=== PATIENT | male | born 1960 | race Caucasian/White ===

== ENCOUNTER 2016-08-07 10:35 | Day surgery (SDC) | payer OTHER ==
[~2016-08-07] VITALS: Ht 185.4 cm; Wt 110.9 kg
--- OUTSIDE RECORDS SUMMARY | ~2016-08-07 | XMS ---
Demographics + + + | Address | [address] | | | [place] [address] | + + + | Preferred Language | Unknown | + + + | Marital Status | Unknown | + + + | Synagogue Affiliation | Unknown | + + + | Race | Unknown | + + + | Ethnic Group | Unknown | + + + Author + + + | Author | [facility] | + + + | Organization | [facility] | + + + | Address | [address] | | | [place] [address] | + + + | Phone | | + + + Care Team Providers + + + + | Care Cold Type Composing Machine Operator Name | Role | Phone | + + + + Unavailable | Unavailable | + + + + PROBLEMS +---------+ + + +--------+ + + | Type | Condition | ICD9-CM | [id number] | Onset | Condition | SNOMED | | | | Code | Code | Dates | Status | Code | +---------+ + + +--------+ + + | Problem | LONG-TERM | V58.69 | | | Active | [id number] | | | USE MEDS | | | | | | | | NEC | | | | | | +---------+ + + +--------+ + + | Problem | Hyperlipem | | E78.5 | | Active | [id number] | | | ia | | | | | | +---------+ + + +--------+ + + | Problem | POST-PROC | V45.89 | | | Active | 66984725 | | | STATES NEC | | | | | | +---------+ + + +--------+ + + | Problem | COPD | | J44.1 | | Active | [id number] | | | exacerbati | | | | | | | | on | | | | | | +---------+ + + +--------+ + + | Problem | Walking | J18.9 | | | Active | [id number] | | | pneumonia | | | | | | +---------+ + + +--------+ + + | Problem | Essential | | I10 | | Active | 29963678 | | | (primary) | | | | | | | | hypertensi | | | | | | | | on | | | | | | +---------+ + + +--------+ + + | Problem | Hyperlipid | | E78.5 | | Active | 13409506 | | | emia | | | | | | +---------+ + + +--------+ + + | Problem | Asymptomat | I25.9 | | | Active | 268814095 | | | ic | | | | | | | | coronary | | | | | | | | heart | | | | | | | | disease | | | | | | +---------+ + + +--------+ + + | Problem | Sleep | G47.30 | | | Active | 93724737 | | | apnea | | | | | | +---------+ + + +--------+ + + ALLERGIES Unknown Allergies SOCIAL HISTORY No smoking Hx information available PLAN OF CARE VITAL SIGNS MEDICATIONS Unknown Medications RESULTS No Results PROCEDURES No Known procedures IMMUNIZATIONS No Known Immunizations"
--- OUTSIDE RECORDS SUMMARY | ~2016-08-07 | XMS ---
Demographics + + + | Address | [address] | | | [place] [address] | + + + | Preferred Language | Unknown | + + + | Marital Status | Unknown | + + + | Jewish Affiliation | Unknown | + + + | Race | Unknown | + + + | Ethnic Group | Unknown | + + + Author + + + | Author | [facility] | + + + | Organization | [facility] | + + + | Address | [address] | | | [place] [address] | + + + | Phone | | + + + Care Team Providers + + + + | Care Assistant Store Manager Operations Name | Role | Phone | + + + + Unavailable | Unavailable | + + + + PROBLEMS +---------+ + + +--------+ + + | Type | Condition | ICD9-CM | [id number] | Onset | Condition | SNOMED | | | | Code | Code | Dates | Status | Code | +---------+ + + +--------+ + + | Problem | LONG-TERM | V58.69 | | | Active | [id number] | | | USE MEDS | | | | | | | | NEC | | | | | | +---------+ + + +--------+ + + | Problem | Hyperlipem | | E78.5 | | Active | 80596365 | | | ia | | | | | | +---------+ + + +--------+ + + | Problem | POST-PROC | V45.89 | | | Active | 79051010 | | | STATES NEC | | | | | | +---------+ + + +--------+ + + | Problem | COPD | | J44.1 | | Active | [id number] | | | exacerbati | | | | | | | | on | | | | | | +---------+ + + +--------+ + + | Problem | Walking | J18.9 | | | Active | 424987011 | | | pneumonia | | | | | | +---------+ + + +--------+ + + | Problem | Essential | | I10 | | Active | 95105546 | | | (primary) | | | | | | | | hypertensi | | | | | | | | on | | | | | | +---------+ + + +--------+ + + | Problem | Hyperlipid | | E78.5 | | Active | 59388886 | | | emia | | | | | | +---------+ + + +--------+ + + | Problem | Asymptomat | I25.9 | | | Active | [id number] | | | ic | | | | | | | | coronary | | | | | | | | heart | | | | | | | | disease | | | | | | +---------+ + + +--------+ + + | Problem | Sleep | G47.30 | | | Active | [id number] | | | apnea | | | | | | +---------+ + + +--------+ + + ALLERGIES + + + + +--------+ | Substance | Reaction | Event Type | Date | Status | + + + + +--------+ | Augmentin | Unknown | Drug Allergy | June, | Active | + + + + +--------+ | Cleocin | Unknown | Drug Allergy | June, | Active | + + + + +--------+ | paxil | head pain | Non Drug | June, | Active | | | | Allergy | | | + + + + +--------+ | codeine | itching | Non Drug | June, | Active | | | | Allergy | | | + + + + +--------+ SOCIAL HISTORY No smoking Hx information available PLAN OF CARE + +---------+ | Activity | Details | + +---------+ +---+ | | +---+ + + + | Follow Up | 3 Months Reason:null | + + + VITAL SIGNS + + + + | Height | 73 in | 2016-07-04 | + + + + | Weight | 241.2 lbs | 2016-07-04 | + + + + | BMI | 31.82 kg/m2 | 2016-07-04 | + + + + | Heart Rate | 75 /min | 2016-07-04 | + + + + | Blood pressure systolic | 107 mm Hg | 2016-07-04 | + + + + | Blood pressure diastolic | 64 mm Hg | 2016-07-04 | + + + + MEDICATIONS + + + + + + + +--------+ | Medicati | Instruct | Dosage | Frequenc | Start | End Date | Duration | Status | | on | ions | | y | Date | | | | + + + + + + + +--------+ | Ventolin | | inhale 2 | | | | 17 | Active | | HFA 108 | | puffs | | | | | | | (90 | | by mouth | | | | | | | Base) | | if | | | | | | | MCG/ACT | | needed | | | | | | + + + + + + + +--------+ | Akash 4 | Orally q | 1 tab(s) | | 12 Gianluca, | | 30 | Active | | MG | am | | | 2017 | | day(s) | | + + + + + + + +--------+ | Vitamin | | | | | | | Active | | C 500 MG | | | | | | | | + + + + + + + +--------+ | Metoprol | | | | | | | Active | | ol | | | | | | | | | Succinat | | | | | | | | | e | | | | | | | | + + + + + + + +--------+ | Multaq | Orally | 1 tablet | 12h | | | | Active | | 400 MG | Twice a | with | | | | | | | | day | meals | | | | | | + + + + + + + +--------+ | Mirapex | Orally | 3 tab(s) | 24h | 22 Feb, | | | Active | | 0.5 MG | once a | | | 2016 | | | | | | day | | | | | | | + + + + + + + +--------+ | Ventolin | Inhalati | 2 puffs | | | | | Active | | HFA 108 | on PRN | as | | | | | | | (90 | | needed | | | | | | | Base) | | | | | | | | | MCG/ACT | | | | | | | | + + + + + + + +--------+ | Omeprazo | Orally | take 1 | 12h | 28 Sep, | | | Active | | le 40 MG | bid | capsule | | 2015 | | | | | | | by mouth | | | | | | | | | once | | | | | | | | | daily | | | | | | + + + + + + + +--------+ | Venlafax | Orally | 1 tab am | 12h | | | 30 | Active | | ine HCl | Twice a | 2 tabs | | | | | | | 37.5 MG | day | pm | | | | | | + + + + + + + +--------+ | Morphine | Oral | | 12h | | | | Active | | 30 | every 12 | | | | | | | | | hours | | | | | | | + + + + + + + +--------+ | Allopuri | | take 1 | | | | 30 | Active | | nol 300 | | tablet | | | | | | | MG | | by mouth | | | | | | | | | once | | | | | | | | | daily | | | | | | + + + + + + + +--------+ | Gabapent | Orally | 1 | 8h | | | | Active | | in 300 | Three | capsule | | | | | | | MG | times a | | | | | | | | | day | | | | | | | + + + + + + + +--------+ | Zolpidem | | | | | | | Active | | | | | | | | | | | Tartrate | | | | | | | | + + + + + + + +--------+ | Advair | Inhalati | 1 puff | 12h | Sep, | | | Active | | Diskus | on every | | | 2014 | | | | | 250-50 | 12 hrs | | | | | | | | MCG/DOSE | | | | | | | | + + + + + + + +--------+ | Nystatin | Mouth/Th | 5 cc | 6h | 11 June, | 10 Gray, | 7 day | Active | | [id number] | roat qid | | | 2017 | 2016 | | | | UNIT/ML | | | | | | | | + + + + + + + +--------+ | Xarelto | Orally | 1 tablet | 24h | | | | Active | | 10 MG | Once a | | | | | | | | | day | | | | | | | + + + + + + + +--------+ | Albutero | Inhalati | 3 ml | 6h | 21 Nov, | | 14 days | Active | | l | on Four | | | 2015 | | | | | Sulfate | times a | | | | | | | | (2.5 | day | | | | | | | | MG/3ML) | | | | | | | | | 0.083% | | | | | | | | + + + + + + + +--------+ | Ferrous | Orally | 1 tablet | 24h | | | | Active | | Sulfate | Once a | | | | | | | | 324 (65 | day | | | | | | | | Fe) MG | | | | | | | | + + + + + + + +--------+ | Viagra | Orally 1 | 1 tab(s) | | 22 Feb, | 17 Feb, | 30 | Active | | 50 MG | hr | | | 2017 | 2018 | day(s) | | | | before | | | | | | | + + + + + + + +--------+ | nitrogly | sublingu | 1 tab x | | | | 30 | Active | | cerin | al PRN | 3 prn | | | | | | | .04mg | | Chest | | | | | | | | | pain | | | | | | + + + + + + + +--------+ | Torsemid | Orally | 1or 2 | | | | 30 | Active | | e 20 mg | PRN | tablets | | | | | | + + + + + + + +--------+ | Metoprol | Orally | 1 tablet | 12h | | | | Active | | ol | Twice a | | | | | | | | Tartrate | day | | | | | | | | 100 MG | | | | | | | | + + + + + + + +--------+ | Simvasta | | take 1 | | | | 30 | Active | | tin 20 | | tablet | | | | | | | MG | | by mouth | | | | | | | | | at | | | | | | | | | bedtime | | | | | | + + + + + + + +--------+ | Oxycodon | Orally | 1-2 | | | | | Active | | e HCl 30 | every 4 | tablet | | | | | | | MG | | | | | | | | + + + + + + + +--------+ RESULTS No Results PROCEDURES + + + + + | Procedure | Date Ordered | Related Diagnosis | Body Site | + + + + + | Est Level II | July 04, 2016 | | | | Limited | | | | + + + + + IMMUNIZATIONS No Known Immunizations"
--- OUTSIDE RECORDS SUMMARY | ~2016-08-07 | XMS ---
Demographics + + + | Address | [address] | | | [place] [address] | + + + | Preferred Language | Unknown | + + + | Marital Status | Unknown | + + + | Zoroastrian Affiliation | Unknown | + + + | Race | Unknown | + + + | Ethnic Group | Unknown | + + + Author + + + | Author | [facility] | + + + | Organization | [facility] | + + + | Address | [address] | | | [place] [address] | + + + | Phone | | + + + Care Team Providers + + + + | Care Pulp Roller Name | Role | Phone | + + + + Unavailable | Unavailable | + + + + PROBLEMS +---------+ + + +--------+ + + | Type | Condition | ICD9-CM | [id number] | Onset | Condition | SNOMED | | | | Code | Code | Dates | Status | Code | +---------+ + + +--------+ + + | Problem | LONG-TERM | V58.69 | | | Active | [id number] | | | USE MEDS | | | | | | | | NEC | | | | | | +---------+ + + +--------+ + + | Problem | Hyperlipem | | E78.5 | | Active | 62338869 | | | ia | | | | | | +---------+ + + +--------+ + + | Problem | POST-PROC | V45.89 | | | Active | [id number] | | | STATES NEC | | | | | | +---------+ + + +--------+ + + | Problem | COPD | | J44.1 | | Active | [id number] | | | exacerbati | | | | | | | | on | | | | | | +---------+ + + +--------+ + + | Problem | Walking | J18.9 | | | Active | 804837593 | | | pneumonia | | | | | | +---------+ + + +--------+ + + | Problem | Essential | | I10 | | Active | 52125011 | | | (primary) | | | | | | | | hypertensi | | | | | | | | on | | | | | | +---------+ + + +--------+ + + | Problem | Hyperlipid | | E78.5 | | Active | 66522509 | | | emia | | | | | | +---------+ + + +--------+ + + | Problem | Asymptomat | I25.9 | | | Active | [id number] | | | ic | | | | | | | | coronary | | | | | | | | heart | | | | | | | | disease | | | | | | +---------+ + + +--------+ + + | Problem | Sleep | G47.30 | | | Active | 35162478 | | | apnea | | | | | | +---------+ + + +--------+ + + ALLERGIES Unknown Allergies SOCIAL HISTORY No smoking Hx information available PLAN OF CARE VITAL SIGNS MEDICATIONS Unknown Medications RESULTS No Results PROCEDURES No Known procedures IMMUNIZATIONS No Known Immunizations"
[~2016-08-07 10:35] MED LIST changes: -ZOFRAN ODT4 MG PO
--- NOTE | 2016-08-07 13:02 | NUR ---
[facility], O2 DECREASED TO 2L.
== END 2016-08-07 13:34 | disposition home or self-care (01) ==
LOC: DS 10:35 → OPS 10:35
PROVIDERS: Colon & Rectal Surgery
PROC: 0DBE8ZX Excision of Large Intestine, Via Natural or Artificial Opening Endoscopic, Diagnostic (ICD-10-PCS; 2016-08-07)
PROC: 0DB68ZX Excision of Stomach, Via Natural or Artificial Opening Endoscopic, Diagnostic (ICD-10-PCS; 2016-08-07)
PROC: 0DB48ZX Excision of Esophagogastric Junction, Via Natural or Artificial Opening Endoscopic, Diagnostic (ICD-10-PCS; 2016-08-07)
PROC: 0DBH8ZX Excision of Cecum, Via Natural or Artificial Opening Endoscopic, Diagnostic (ICD-10-PCS; principal; 2016-08-07 11:30)
PROC: 0DBP8ZX Excision of Rectum, Via Natural or Artificial Opening Endoscopic, Diagnostic (ICD-10-PCS; 2016-08-07 11:30)
DX: K29.50 Unspecified chronic gastritis without bleeding (principal); D12.0 Benign neoplasm of cecum; D12.8 Benign neoplasm of rectum; D12.6 Benign neoplasm of colon, unspecified; I25.10 Atherosclerotic heart disease of native coronary artery without angina pectoris; K63.5 Polyp of colon; I11.0 Hypertensive heart disease with heart failure; J44.9 Chronic obstructive pulmonary disease, unspecified; G47.39 Other sleep apnea; E78.5 Hyperlipidemia, unspecified; I50.9 Heart failure, unspecified; M19.90 Unspecified osteoarthritis, unspecified site; M10.9 Gout, unspecified; G25.81 Restless legs syndrome; F32.9 Major depressive disorder, single episode, unspecified; F41.9 Anxiety disorder, unspecified; G89.4 Chronic pain syndrome; Z79.891 Long term (current) use of opiate analgesic; Z79.899 Other long term (current) drug therapy; Z96.653 Presence of artificial knee joint, bilateral; Z98.890 Other specified postprocedural states; Z88.5 Allergy status to narcotic agent; Z88.8 Allergy status to other drugs, medicaments and biological substances
CPT/HCPCS: 00740; 86677; J2250; J2704; J3010; J3490; J7120

== ENCOUNTER → 2016-08-07 | Emergency (ER) | payer OTHER ==
[~2016-08-07] VITALS: Ht 185.4 cm; Wt 106.8 kg
[~2016-08-07] MED LIST: ADVAIR 250-501 EACH INH; ALBUTEROL2.5 MG/3 M INH; ALLOPURINOL100 MG PO; ALLOPURINOL300 MG PO; AMIODARONE HCL200 MG PO; ASCORBIC ACID250 MG PO; ASPIRIN EC325 MG; BENZONATATE100 MG PO; CARVEDILOL12.5 MG PO; CEFDINIR300 MG PO; CELEXA40 MG PO; CLONAZEPAM1 MG PO; CYCLOBENZAPRINE5 MG PO; DEMADEX10 MG PO; DEMADEX20 MG PO; DIAZEPAM10 MG PO; DIAZEPAM5 MG PO; DIGOXIN250 MCG PO; EFFER-K 20 MEQ20 MEQ PO; EPIKLOR20 MEQ PO; FERROUS SULFAT325 MG PO; FLAGYL500 MG PO; FLEXERIL10 MG PO; FLEXERIL5 MG PO; GABAPENTIN250 MG/5 M NG; GABAPENTIN300 MG PO; IRON325 M1 PO; LANOXIN250 MCG PO; LISINOPRIL5 MG PO; LOSARTAN POTASS25 MG PO; LOVENOX120 MG SUB-Q; MEDROL4 M1 PO; METHADONE HCL10 MG PO; METOLAZONE10 MG PO; METOLAZONE2.5 MG PO; METOPROLOL SUCC50 MG PO; METOPROLOL TART50 MG PO; MINOCYCLINE HC100 MG PO; MIRAPEX0.5 MG PO; MORPHINE SULFAT15 M1 PO; MULTAQ400 MG PO; NITROSTAT0.4 MG SL; NORCO 5-325 TA1 EACH PO; OMEPRAZOLE20 MG PO; ONDANSETRON HCL4 MG PO; OXYCODONE HCL30 MG PO; PERCOCET 10-321 EACH; PERCOCET 5-3251 EACH PO; POTASSIUM CHLO20 ME1 PO; PREDNISONE20 MG PO; SIMVASTATIN20 MG PO; TOPROL XL50 MG PO; TORSEMIDE10 MG; TRAZODONE HCL100 MG PO; VALIUM10 MG PO; VENLAFAXINE H37.5 M1 PO; VENTOLIN HFA18 GM IH; WARFARIN SODIUM3 MG PO; WARFARIN SODIUM5 MG PO; XARELTO10 MG PO; ZOFRAN ODT4 MG PO; [UNRECOGNIZED DRUG - OTHER]
== END ==
LOC: ED 16:17
DX: G89.18 Other acute postprocedural pain (principal); R10.9 Unspecified abdominal pain; I11.0 Hypertensive heart disease with heart failure; I50.9 Heart failure, unspecified; I48.91 Unspecified atrial fibrillation; F41.9 Anxiety disorder, unspecified; J44.9 Chronic obstructive pulmonary disease, unspecified; Z88.5 Allergy status to narcotic agent; Z88.8 Allergy status to other drugs, medicaments and biological substances; Z79.899 Other long term (current) drug therapy; Z96.643 Presence of artificial hip joint, bilateral
CPT/HCPCS: 74177; 80053; 83690; 85025; 96361; 96374; 99284; J1170; J7030; Q9967

== ENCOUNTER 2016-08-27 08:48 | Emergency (ER) | payer OTHER ==
[~2016-08-27] VITALS: Ht 185.4 cm; Wt 106.6 kg
--- OUTSIDE RECORDS SUMMARY | ~2016-08-27 | XMS ---
Demographics + + + | Address | [address] | | | [place] [address] | + + + | Preferred Language [...] + + + | Organization | [facility] | + + + | Address | [address] | | | [place] [address] | + + + | Phone | | + + + Care Team Providers + + + + | Care Readers' Advisory Service Librarian Name | Role | Phone | + + + + Unavailable | Unavailable | + + + + PROBLEMS +---------+ + + +--------+ + + | Type | Condition | ICD9-CM | [id number] | Onset | Condition | SNOMED | | | | Code | Code | Dates | Status | Code | +---------+ + + +--------+ + + | Problem | LONG-TERM | V58.69 | | | Active | [id number] | | | USE MEDS | | | | | | | | NEC | | | | | | +---------+ + + +--------+ + + | Problem | Hyperlipem | | E78.5 | | Active | [id number] | | | ia | | | | | | +---------+ + + +--------+ + + | Problem | POST-PROC | V45.89 | | | Active | 72760636 | | | STATES NEC | | | | | | +---------+ + + +--------+ + + | Problem | COPD | | J44.1 | | Active | 913304082 | | | exacerbati | | | | | | | | on | | | | | | +---------+ + + +--------+ + + | Problem | Walking | J18.9 | | | Active | 563826638 | | | pneumonia | | | | | | +---------+ + + +--------+ + + | Problem | Essential | | I10 | | Active | 18717306 | | | (primary) | | | | | | | | hypertensi | | | | | | | | on | | | | | | +---------+ + + +--------+ + + | Problem | Hyperlipid | | E78.5 | | Active | 61716861 | | | emia | | | | | | +---------+ + + +--------+ + + | Problem | Asymptomat | I25.9 | | | Active | [id number] | | | ic | | | | | | | | coronary | | | | | | | | heart | | | | | | | | disease | | | | | | +---------+ + + +--------+ + + | Problem | Sleep | G47.30 | | | Active | 30366705 | | | apnea | | | | | | +---------+ + + +--------+ + + ALLERGIES Unknown Allergies SOCIAL HISTORY No smoking Hx information available PLAN OF CARE VITAL SIGNS MEDICATIONS Unknown Medications RESULTS No Results PROCEDURES No Known procedures IMMUNIZATIONS No Known Immunizations"
[2016-08-27] MEDS ORDERED: ZOFRAN ODT4 MG PO (10:14)
--- NOTE | 2016-08-28 18:46 | EKG ---
[facility] [address] [facility] [place] [address] Signed Normal sinus rhythm Normal ECG When compared with ECG of 17-JUL-2016 15:36, Nonspecific T wave abnormality no longer evident in Inferior leads Confirmed by LEONEL COHEN MD ([id number]) on 08/28/2016 6:46:32 PM Electronically Signed By: LEONEL COHEN MD 08/28/16 1846 PATIENT NAME: ELIGIO BEE AIYANA Electrocardiogram DATE OF : 62 PHYSICIAN: LEONEL COHEN MD REPORT #: [id number] REPORT IS CONFIDENTIAL AND NOT TO BE RELEASED WITHOUT AUTHORIZATION
== END 2016-08-27 10:57 | disposition home or self-care (01) ==
LOC: ED 08:48
DX: G43.A0 Cyclical vomiting, in migraine, not intractable (principal); G89.4 Chronic pain syndrome; I11.0 Hypertensive heart disease with heart failure; I50.9 Heart failure, unspecified; I48.91 Unspecified atrial fibrillation; F41.9 Anxiety disorder, unspecified; J44.9 Chronic obstructive pulmonary disease, unspecified; Z88.5 Allergy status to narcotic agent; Z88.8 Allergy status to other drugs, medicaments and biological substances; Z79.899 Other long term (current) drug therapy; Z96.643 Presence of artificial hip joint, bilateral
CPT/HCPCS: 80053; 81001; 83690; 85025; 85610; 93005; 93010; 96361; 96372; 96374; 99283; J2270; J2405; J3486; J7030

== ENCOUNTER 2016-09-13 08:56 | Emergency (ER) | payer OTHER ==
[~2016-09-13] VITALS: Ht 185.4 cm; Wt 106.6 kg
[~2016-09-13 08:56] MED LIST changes: +ZOFRAN ODT4 MG PO
== END 2016-09-13 13:15 | disposition home or self-care (01) ==
LOC: ED 08:56
DX: G43.A0 Cyclical vomiting, in migraine, not intractable (principal); I11.0 Hypertensive heart disease with heart failure; I50.9 Heart failure, unspecified; J44.9 Chronic obstructive pulmonary disease, unspecified; I48.91 Unspecified atrial fibrillation; Z86.711 Personal history of pulmonary embolism; F41.9 Anxiety disorder, unspecified; Z90.49 Acquired absence of other specified parts of digestive tract; Z98.890 Other specified postprocedural states; Z88.5 Allergy status to narcotic agent; Z88.8 Allergy status to other drugs, medicaments and biological substances; Z96.643 Presence of artificial hip joint, bilateral; Z79.899 Other long term (current) drug therapy; Z79.51 Long term (current) use of inhaled steroids; Z79.891 Long term (current) use of opiate analgesic
CPT/HCPCS: 80053; 85025; 96372; 99283; J2060; J2270; J3486

== ENCOUNTER 2016-10-23 06:55 | Day surgery (SDC) | payer OTHER ==
[~2016-10-23] VITALS: Ht 185.4 cm; Wt 102.7 kg
--- NOTE | 2016-10-23 09:24 | NUR ---
10/23/16 0924 Cam Mullins PATIENT AWAKES AND SIPS WATER.
--- NOTE | 2016-10-23 14:00 | NUR ---
PT ALERT, ORIENTED AND SUPPORTED BY HIS . VERY FRIENDLY, DIDN'T ENJOY PREP DAY. SEEMED PREPARED, REQUESTED PRAYER. WILL FOLLOW NEEDED
--- NOTE | 2016-10-23 14:06 | OR ---
[facility] [address] [place], [place] [address] Signed DATE OF PROCEDURE: 10/23/16 PREOPERATIVE DIAGNOSIS: Personal history of colonic polyps (ileocecal valve). POSTOPERATIVE DIAGNOSES Retained polyp, ileocecal valve. 5 mm sessile polyp, distal right colon. PROCEDURE Colonoscopy with snare polypectomy, hot biopsy and injection of saline. ESTIMATED BLOOD LOSS: Minimal. INDICATIONS Yamil is a 56-year-old gentleman who already had endoscopy several weeks ago for his upper and lower endoscopy. 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 We removed probably 2/3 to 3/4 of that polyp. We had to stop because of its size and give it a chance to heal. He returns now to have repeat colonoscopy to evaluate that area. In the meantime, he is off his Xarelto. In the office, I spoke with Jose Maria and his in great detail. I gave him a booklet on colorectal polyps and cancer. I circled the area of concern. We looked at the photographs from his previous colonoscopy. They understand if we are not able to remove this polyp completely, he would need formal right colectomy. Because of his significant past medical history, he would have to do that at [facility] rather than our small [facility] critical access hospital. Jose Maria and his understand colonoscopy quite well. They understand there is risk including but not limited to gas bloating, crampy abdominal pain, bleeding, perforation requiring surgery, and missed diagnosis. They expressed understanding and wished to proceed. Because of Jose Maria's significant medical history including his heart, we asked that an anesthesia provider help us with increased monitoring sedation with Propofol. This worked out previously and it worked out well today. PROCEDURE NOTE Jose Maria was taken into our endoscopy suite and placed in the left lateral decubitus position. He was given IV sedation with Propofol per nurse seasoning mixer. A digital rectal exam was performed and this was unremarkable. The adult colonoscope was then introduced and advanced all around into the cecum under direct visualization of camera without difficulty. We could easily see the retained polyp on the very edge of the ileocecal valve just as the ileum is coming into the cecum. We then used our snare initially. We took off additional pieces of the polyp. Unfortunately because of the angle, we could not quite get all of it. We injected some saline underneath and that did not help with the snare. We then switched over the hot biopsy forceps and cauterized some additional Electronically Signed By: MINI MULLER MD 10/23/16 1248 Electronically Signed By: MINI MULLER MD 10/23/16 1424 PATIENT NAME: YAMIL BEE AIYANA OPERATIVE REPORT DATE OF : 62 PHYSICIAN: MINI MULLER MD REPORT #: [id number] REPORT IS CONFIDENTIAL AND NOT TO BE RELEASED WITHOUT AUTHORIZATION [facility] [address] [place], [place] [address] Signed portions of that polyp. Unfortunately there is still some polyp remaining. At that point, we started to withdraw the scope. We did see just a small sessile polyp in the distal right colon as well. We had left that in situ anticipating that he is going to have his right formal right colectomy. The rest of the colon and rectum were unremarkable. The gas was suctioned out. The colonoscope removed. Jose Maria tolerate d the procedure quite well. RECOMMENDATIONS I will see Jose Maria back in my office in 7-14 days to review his results. We will hold the Xarelto for a week and then resume it. Otherwise he is at very high risk for bleeding from his polypectomy site. MD MARCELLUS Edward/Wolfgang /[id number] cc: MD Josh Mcgovern, MD Micaela Watt, MD Dajuan Akbar MD Electronically Signed By: MINI MULLER MD 10/23/16 1248 Electronically Signed By: MINI MULLER MD 10/23/16 1424 PATIENT NAME: YAMIL BEE OPERATIVE REPORT DATE OF : 62 PHYSICIAN: MINI MULLER MD REPORT #: [id number] REPORT IS CONFIDENTIAL AND NOT TO BE RELEASED WITHOUT AUTHORIZATION
== END 2016-10-23 09:45 | disposition home or self-care (01) ==
LOC: OPS 06:55 → DS 06:55 → OPS 08:15 → DS 09:00 → OPS 09:00
PROVIDERS: Colon & Rectal Surgery
PROC: 3E0H8GC Introduction of Other Therapeutic Substance into Lower GI, Via Natural or Artificial Opening Endoscopic (ICD-10-PCS; 2016-10-23)
PROC: 0DBC8ZX Excision of Ileocecal Valve, Via Natural or Artificial Opening Endoscopic, Diagnostic (ICD-10-PCS; principal; 2016-10-23 08:15)
DX: Z12.11 Encounter for screening for malignant neoplasm of colon (principal); D37.4 Neoplasm of uncertain behavior of colon; I13.0 Hypertensive heart and chronic kidney disease with heart failure and stage 1 through stage 4 chronic kidney disease, or unspecified chronic kidney disease; N18.9 Chronic kidney disease, unspecified; I50.9 Heart failure, unspecified; I48.91 Unspecified atrial fibrillation; I48.92 Unspecified atrial flutter; I25.10 Atherosclerotic heart disease of native coronary artery without angina pectoris; J44.9 Chronic obstructive pulmonary disease, unspecified; G47.33 Obstructive sleep apnea (adult) (pediatric); E79.0 Hyperuricemia without signs of inflammatory arthritis and tophaceous disease; E78.5 Hyperlipidemia, unspecified; M19.90 Unspecified osteoarthritis, unspecified site; M10.9 Gout, unspecified; F32.9 Major depressive disorder, single episode, unspecified; G25.81 Restless legs syndrome; F41.9 Anxiety disorder, unspecified; G89.4 Chronic pain syndrome; D50.9 Iron deficiency anemia, unspecified; Z99.81 Dependence on supplemental oxygen; Z86.010 Personal history of colon polyps; Z86.711 Personal history of pulmonary embolism; Z87.01 Personal history of pneumonia (recurrent); Z96.643 Presence of artificial hip joint, bilateral; Z90.49 Acquired absence of other specified parts of digestive tract; Z98.890 Other specified postprocedural states; Z87.891 Personal history of nicotine dependence; Z88.5 Allergy status to narcotic agent; Z79.899 Other long term (current) drug therapy
CPT/HCPCS: 00810; J2704; J3490; J7120

== ENCOUNTER 2017-06-24 15:54 | Observation (INO) | payer OTHER ==
[~2017-06-24] VITALS: Ht 185.4 cm; Wt 104.4 kg
[~2017-06-24 15:54] MED LIST changes: -DEMADEX10 MG PO; +KLOR-CON20 MEQ PO; +MIRAPEX0.25 MG PO; -MIRAPEX0.5 MG PO; -OMEPRAZOLE20 MG PO; +OMEPRAZOLE40 MG PO; -SIMVASTATIN20 MG PO; -XARELTO10 MG PO; +XARELTO20 MG PO; +ZOCOR40 MG PO
--- NOTE | 2017-06-24 16:39 | NUR ---
PT ARRIVED TO FLOOR AT 1635 VIA W/C, DIRECT ADMIT FROM DR HATFIELD OFFICE, OBSERVATION STATUS. ALERT AND ORIENTED, NO RESP DISTRESS OR C/O PAIN AT THIS TIME. AMBULATORY, PT ACOMPANIED BY
--- NOTE | 2017-06-24 17:56 | NUR ---
MEDICATED WITH TORADOL 30MG IV C/O LEFT FOOT PAIN 08/19. PT COOPERATIVE WITH ASSESSMENT, AT BEDSIDE
--- NOTE | 2017-06-24 18:32 | NUR ---
PT ADMITTED AT [address] HATFIELD OFFICE. SKIN REDDENED, SCABS R FRONTAL LEG, AND LEFT LEG, LEFT FOOT DRESSING WITH OLD DRAINAGE, DECLINES TO HAVE RN ASSESS PEDAL PULSES, SKIN WARM, DRY, PINK, WIGLES TOES WELL, AREA VERY TENDER. PT ANXIOUS, C/O 7/10 LEFT FOOT PAIN, MEDICATED WITH TORADOL 30MG FOR 7/10 PAIN WITH LITTLE RELIEF AT THIS TIME. VERY COOPERATIVE WITH ADMIT QUESTIONAIRE AND ASSESSMENT. VANCOMYCIN ABX STARTED. MED TEACHING DONE. PT CONCERNED ABOUT HOME MEDS, SPECIALLY HEART AND BP MEDS. WILL NOTIFY MD. PT ON REGULAR DIET, HAS TOLERATD LIQUIDS WELL. 1 SBA. AT BEDSIDE
--- NOTE | 2017-06-24 18:49 | NUR ---
DR PEREZ NOTIFIED VIA PHONE ABOUT PT BEING CONCERNED ABOUT HIS HEART/BP MEDS. DR HATFIELD ORDERED A DR PEREZ CONSULT. DR PEREZ STATED THAT HE WILL COME AND SEE PT. NO NEW ORDERS AT THIS TIME
[2017-06-24] MEDS ORDERED: VENLAFAXINE H37.5 MG PO (18:55)
--- NOTE | 2017-06-24 19:02 | NUR ---
IN ROOM FOR REPORT, PT IS AWAKE IN BED AND IS IN THE ROOM. PT DENIES NEEDS AT THIS TIME. CALL LIGHT IS WITHIN REACH.
--- NOTE | 2017-06-24 19:58 | NUR ---
PATIENT SITTING UP IN BED. FAMILY MEMBERS IN ROOM. CALL LIGHT WITHIN REACH. NO OTHER NEEDS AT THIS TIME.
--- NOTE | 2017-06-24 21:35 | NUR ---
IN ROOM TO GIVE MEDICATIONS, PT STATES HE IS IN 8/10 PAIN AT THIS TIME. ADMINISTERED MS CONTIN AND GABAPENTIN. OTHER MEDICATIONS ARE BEING VERFIED AT THIS TIME AND WILL ADMINISTER WHEN COMPLETE. PT STATES HE HAS CHRONIC BACK AND NECK PAIN WELL AND ALSO TAKES OXYCODONE 30 MG. WILL CHECK ON THAT AND DIET ORDER.
--- NOTE | 2017-06-24 21:47 | NUR ---
SPOKE WITH DR HATFIELD TO VERIFY DIET ORDER, HE STATES IT IS OK FOR PT TO BE ON REGULAR DIET AT THIS TIME HE DOES NOT HAVE PLANS FOR SURGERY YET. WILL PLACE ORDER FOR REGULAR DIET.
--- NOTE | 2017-06-24 23:36 | NUR ---
PT MOVED AROUND AND DRESSING ALMOST CAME ALL THE WAY OFF PUT DRESSING BACK IN PLACE AND REINFORCED IT WITH CURLEX. PT DENIES FURTHER NEEDS AT THIS TIME.
--- NOTE | 2017-06-25 03:20 | NUR ---
PT IS RESTING WITH EYES CLOSED, RESPIRATIONS ARE EVEN AND NONLABORED. CALL LIGHT IS WITHIN REACH.
--- NOTE | 2017-06-25 05:37 | NUR ---
PT IS RESTING WITH EYES CLOSED, RESPIRATIONS ARE EVEN AND NONLABORED. CALL LIGHT IS WITHIN REACH.
--- NOTE | 2017-06-25 07:20 | NUR ---
REPORT RECEIVED FROM OLESYA WHITTAKER. PT WAS ASLEEP. HOME EFFEXER BROUGHT IN BY . PHARMACY AWARE. PT HAS IS NOW AWAKE, WALKS INDEPENDENTLY.
[2017-06-25] MEDS ORDERED: VENTOLIN HFA18 GM (09:20)
[2017-06-25] MEDS ORDERED: TOPROL XL50 MG PO (09:20)
--- NOTE | 2017-06-25 09:23 | NUR ---
AM MEDS ADMINISTERED. PT HAS BEEN UP WALKING AROUND THIS AM. INDEPENDENT IN ROOM. FOOT WOUND IS OPEN. VANCO INFUSING. PT BACK TO BED RESTING COMFORTABLY. INTERMITENT SNORING.
[2017-06-25] MEDS ORDERED: DEMADEX20 MG PO (09:46)
[2017-06-25] MEDS ORDERED: VENLAFAXINE HCL75 MG PO (09:47)
[2017-06-25] MEDS ORDERED: DIAZEPAM10 MG PO (09:49)
--- NOTE | 2017-06-25 10:04 | NUR ---
Medications reconciled by pharmacist. Discrepancies are gabapentin, although directions are 600mg TID, per , he has only been taking 300mg BID, and pramipexole, he takes 0.75mg at hs, rather than 0.5mg at hs
--- NOTE | 2017-06-25 12:32 | NUR ---
PT ASLEEP IN BED. APPEARS COMFORTABLE. RESPIRATIONS EVEN AND UNLABORED. AT BEDSIDE.
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
--- NOTE | 2017-06-25 14:57 | NUR ---
OLESYA COLE IN TO PLACE DRESSING. PT STATED PAIN WAS 9-11. RATED PAIN 7 WHILE AT REST, BUT IS STILL ABLE TO AMBULATE INDEPENDENTLY IN ROOM. GIVEN PRN OXY FOR PAIN. REFILLED WATER CUP. DENIES OTHER NEEDS AT THIS TIME.
--- NOTE | 2017-06-25 15:02 | NUR ---
ORDER FOR WOUND CONSULT RECEIVED. MEDICAL CHART AND PATIENT INTERVIEWED. RIGHT DORSAL ASPECT OF FOOT WOUND IS NOTED AND MEASURES 3.5 CM IN DIAMETER. 0.5 CM OF DARK PURPLE/BLACK ESCHAR IS NOTED CIRCUMFERENTIALLY AROUND THE ENTIRE DIAMETER OF THE WOUND. ESCHAR TISSUE APPEARS QUITE SUPERFICIAL WITH PALPATION. PATIENT IS QUITE TENDER WITH EVEN LIGHT PALPATION. WOUND GENTLY CLEANED WITH WOUND CLEANSER AND GAUZE. 3 CM DIAMETER INSIDE THE ESCHAR TISSUE APPEARS ENTIRELY BEEFY RED, GRANULATION TISSUE. CAMERON COLLAGEN CUT TO FIT OVER WOUND BED AND IS APPLIED. ALLEVYN 3 X 3 DRESSING PLACED OVER COLLAGEN. PATIENT TOLERATES THE DRESSING APPLICATION FAIR. THIS RN TO CHECK THIS WOUND IN 24 HOURS AND WILL LIKELY PERFORM ANOTHER DRESSING CHANGE AT THAT TIME. DR. HATFIELD CALLED AND NEW ORDERS ARE WRITTEN. PATIENT UPDATED TO THE PLAN OF CARE AND HE VERBALIZES UNDERSTANDING.
--- NOTE | 2017-06-25 18:16 | NUR ---
PT INDEPENDENT IN ROOM. SCHEDULED MS CONTIN AND OXY X1 TO MANAGE PAIN. DRESSING OF COLLAGEN PAD AND ALLEVYN PUT ON BY KELSEY THIS AFTERNOON. TO BE CHANGED DAILY. DAILY VANCO. CARDIAC DIET. VALERIA.
--- NOTE | 2017-06-25 20:30 | NUR ---
ROUNDED CHARGE. PATIENT IS RESTING IN BED WATCHIN TV. PATIENT DENIES ANY PAIN. NO NEEDS, COMMENTS, QUESTIONS OR CONCERNS. CALL LIGHT IN REACH.
--- NOTE | 2017-06-25 22:00 | NUR ---
MD PEREZ WAS CALLED AT 2014 BECAUSE HR WAS 47-58 AND 75MG OF LOPRESSOR WAS DUE. THERE WERE NO PARAMATERS WITHIN THE ORDER. MD PEREZ SAID TO GIVE LOPRESSOR SCHEDULED. PT AT THAT TIME REFUSED IT HOWEVER BECAUSE HE TATE THAT HIS HR WAS TOO LOW. THE DOSE WAS GIVEN CLOSER TO 2200 SINCE HIS HR WAS CLOSER TO 60 AT THAT TIME. PT SO FAR IS DOING WELL. PAIN IS WELL CONTROLLED SO FAR. HR REMAINS IRREGULAR. OTHER V/S ARE WDL. ALL LOBES ARE CLEAR, ABD SOUNDS ARE PRESENT, EDEMA ON RIGHT FOOT IS +1, DRESSING HAS SHADOWING PRESENT. TOES ARE WARM TO TOUCH.
--- NOTE | 2017-06-25 23:25 | NUR ---
RECEIVED REPORT AT 1900, FOUND PT IN BED WATCHING TV. PT HAD NO NEEDS OR CONCERNS AT THAT TIME.
--- NOTE | 2017-06-26 00:32 | NUR ---
PT IS AWAKE IN BED. PT IS IN NEED OF PAIN MEDS. WILL GIVE PRN PAIN MEDS.
--- NOTE | 2017-06-26 02:00 | NUR ---
PT IS STILL AWAKE. PAIN IS 5/10. PT IS TRYING TO SLEEP.
--- NOTE | 2017-06-26 03:38 | NUR ---
ALLEEVYN DRESSING HAD TO BE CHANGED BECAUSE IT STARTED TO PEEL AWAY. THERE WAS SOME DRAINAGE PRESENT. ALL LOBES ARE CLEAR, RIGHT FOOT PEDIS PULSE +1, FOOT IS TENDER TO TOUCH. EDEMA IS MINIMAL ON RIGHT FOOT. THERE WERE NO CHANGES WITH THE 2ND ASSESSMENT. PT HAS NOT REALLY SLEPT MUCH SO FAR. NO NEW CONCERNS AT THIS TIME.
--- NOTE | 2017-06-26 05:57 | NUR ---
AT START OF SHIFT MD PEREZ WAS CALLED FOR LOW IRREGULAR HR 47-58 DUE TO SCHEDULED LOPRESSOR 75MG. MD PEREZ SAID TO GIVE MED. PT AT THAT TIME REFUSED AND MED WAS GIVEN BEFORE 2200. PAIN SEEMS WELL CONTROLLED WITH PRN/SCHEDULED PAIN MEDS. V/S OTHER THAN HR ARE WDL, ALL LOBES ARE CLEAR. LEFT FOOT EDEMA IS +1, PEDIS PULSE IS PALPABLE BUT FOOT IS TENDER TO TOUCH. TOES OVERALL ARE WARM TO TOUCH. DRESSING HAD TO BE CHANGED ONCE BECAUSE IT WAS PEELING OFF. NO NEW CONCERNS AT THIS TIME.
[2017-06-26] MEDS ORDERED: BACTRIM DS TAB1 EACH PO (07:15)
--- NOTE | 2017-06-26 07:20 | NUR ---
REPORT RECEIVED FROM OLESYA RANDALL. PT AWAKE IN BED. SM AMOUNT OF DRY DRAINAGE ON DRESSING. PT STATES PAIN IS MANAGEABLE. DENIES OTHER NEEDS
--- NOTE | 2017-06-26 09:38 | NUR ---
PT PULLED IV. NEW IV STARTED BY PENSION AGENT JOSEFINA IN LEFT HAND. VANCO INFUSING. PT RATES PAIN /. AMBULATING INDEPENDENTLY IN ROOM THIS AM. 2 SMALL AREAS OF DRY/CRUSTY DRAINAGE ON ALLEVYN TO BE CHANGED BY KELSEY LATER TODAY. PT DENIES OTHER NEEDS AT THIS TIME. AT BEDSIDE. MULUGETA IN FROM PHARMACY TO DISCUSS MEDS.
--- NOTE | 2017-06-26 10:34 | NUR ---
PT TO BE DC'D TODAY. IN WITH PT, NO NEEDS AT THIS POINT. EXTENDED A BLESSING, WILL FOLLOW NEEDED
--- NOTE | 2017-06-26 11:01 | NUR ---
PT SITTING ON SIDE OF BED. VANCO ALMOST COMPLETE. PT REMINDED THAT KELSEY WILL BE IN THIS AFTERNOON TO DO DRESSING CHANGE. PT SEEMS COOPERATIVE BUT IS ANXIOUS TO LEAVE.
--- NOTE | 2017-06-26 11:35 | NUR ---
KELESY IN TO DO DRESSING CHANGE. PT TO FOLLOW-UP IN DAY SURGERY FRIDAY FOR DRESSING CHANGE.
--- NOTE | 2017-06-26 11:52 | NUR ---
THIS TIRE CURER TO PERFORM DRESSING CHANGE ON THIS PATIENT. DRESSING APPEARS INSECURE AROUND THE TOES. DRESSING IS CAREFULLY REMOVED AND A SMALL AMOUNT OF YELLOW/RED DRAINAGE IS NOTED TO THE 3 X 3 ALLEVYN DRESSING THAT IS REMOVED. PATIENT TOLERATES THE REMOVAL OF THE DRESSING WELL. WOUND APPEARS BEEFY RED, GRANULATION TISSUE FOR 1.6 CM IN DIAMETER WITH WHITE SLOUGH TISSUE SURROUNDING THE GRANULATION TISSUE. ENTIRE WOUND MEASURES 3.2 CM IN DIAMETER. WOUND CLEANED WITH WOUND CLEANSER AND THIN LAYER OF SLOUGH TISSUE IS GENTLY REMOVED W/GAUZE. PATIENT TOLERATES THIS WELL. COLLAGEN KOI CUT TO FIT OVER WOUND BED. ALLEVYN 3 X 3 DRESSING IS APPLIED AFTER BARRIER SKIN PREP APPLIED TO IMMEDIATE GLENIS-WOUND SKIN. ROLL GAUZE AND COBAN IS GENTLY APPLIED OVER THE ALLEVYN DRESSING AN EXTRA LAYER OF PROTECTION AND SECURITY. SURGICAL STOCKINETTE PLACED OVER THE DRESSING. PATIENT INSTRUCTED TO USE A SLIPPER ONLY AND NOT A SHOE THAT WOULD PLACE EXTRA PRESSURE ON THE WOUND SITE. PATIENT TO RETURN TO DAY SURGERY ON FRIDAY, JUNE 30, 2017 TO HAVE THE DRESSING CHANGED AND WILL CONTINUE WITH WOUND CARE ON AN OUTPATIENT BASIS. PATIENT BEING DC HOME ON BACTRIM BID. PT ENCOURAGED TO CALL THE HOSPITAL WITH ANY QUESTIONS OR CONCERNS AND HE VERBALIZES UNDERSTANDING.
--- NOTE | 2017-06-26 12:20 | NUR ---
PT DRESSING CHANGED BY KELSEY. FOLLOW-UP SETUP. DC INSTRUCTIONS ON S/S OF INFECTIONS, HOME CARE, AND FOLLOW-UP GIVEN BY OLESYA GEE. ALL QUESTIONS ANSWERED. BELONGINGS RETURNED. VS STABLE. IV REMOVED WNL. OUT IN WHEELCHAIR TO HOME WITH .
== END 2017-06-26 12:20 | disposition home or self-care (01) ==
LOC: MS 15:54
PROVIDERS: ADMIT Specialist
DX: L02.612 Cutaneous abscess of left foot (principal); L03.116 Cellulitis of left lower limb; I48.92 Unspecified atrial flutter; I13.0 Hypertensive heart and chronic kidney disease with heart failure and stage 1 through stage 4 chronic kidney disease, or unspecified chronic kidney disease; I50.32 Chronic diastolic (congestive) heart failure; N18.3 Chronic kidney disease, stage 3 (moderate); G47.33 Obstructive sleep apnea (adult) (pediatric); J44.9 Chronic obstructive pulmonary disease, unspecified; K21.9 Gastro-esophageal reflux disease without esophagitis; E78.5 Hyperlipidemia, unspecified; F11.20 Opioid dependence, uncomplicated; G89.29 Other chronic pain; M54.9 Dorsalgia, unspecified; M54.2 Cervicalgia; F41.1 Generalized anxiety disorder; G25.81 Restless legs syndrome; Z79.01 Long term (current) use of anticoagulants; Z79.899 Other long term (current) drug therapy; Z88.5 Allergy status to narcotic agent; Z91.09 Other allergy status, other than to drugs and biological substances; Z86.718 Personal history of other venous thrombosis and embolism
CPT/HCPCS: 36415; 80048; 80053; 80202; 83036; 85025; 85651; 86140; 96365; 96366; 96376; G0378; G0379; J1885; J3370; J7040; J7050

== ENCOUNTER 2017-10-05 07:35 | Emergency (ER) | payer OTHER ==
[~2017-10-05] VITALS: Ht 185.4 cm; Wt 104.3 kg
--- OUTSIDE RECORDS SUMMARY | ~2017-10-05 | XMS | Encounter Summary ---
Demographics + + + | Address | [address] | | | [place] [address] | + + + | Home Phone | | + + + | Preferred Language | Unknown | + + + | Marital Status | | + + + | Mandaen Affiliation | 1041 | + + + | Race | Unknown | + + + | Ethnic Group | Unknown | + + + Author + + + | Author | [facility] | + + + | Organization | [facility] | + + + | Address | Unknown | + + + | Phone | Unavailable | + + + Support + + + + + | Name | Relationship | Address | Phone | + + + + + | Elayne De La Rosa | ECON | [address] | | | | | [place] | | | | | [address] | | + + + + + Care Team Providers + +------+ + | Care Clinical Documentation Nurse Name | Role | Phone | + +------+ + | Jose Hall MD | PCP | | + +------+ + Encounter Details +--------+ + + + + | Date | Type | Department | Care Team | Description | +--------+ + + + + | 08/18/ | Telephone | [facility] | Lola Villanueva | | | 2017 | | [facility] | [facility] | | | | | [address] | | | | | | [place] | | | | | | [address] | | | | | | [phone] | | | +--------+ + + + + Social History + + + +--------+ + | Tobacco Use | Types | Packs/Day | Years | Date | | | | | Used | | + + + +--------+ + | Former Smoker | Cigarettes | 1 | 30 | Quit: 02/11/2012 | + + + +--------+ + + +------+---+---+ | Smokeless Tobacco: | Chew | | | | Former User | | | | + +------+---+---+ + + | Comments: chewed one year | + + + + +---------+ + | Alcohol Use | Drinks/We | oz/Week | Comments | | | ek | | | + + +---------+ + | Yes | 1 Cans | 0.6 | occasionally | | | of beer | | | | | 0 | | | | | Standard | | | | | drinks or | | | | | | | | | | equivalen | | | | | t | | | + + +---------+ + + + + | Sex Assigned at | Date Recorded | | | | + + + | Not on file | | + + + as of this encounter Plan of Treatment +--------+---------+ + + + | Date | Type | Specialty | Care Team | Description | +--------+---------+ + + + | 11/17/ | Office | Cardiology | Britany Bernal | | | 2018 | Visit | | [address] | | | | | | [place] | | | | | | [place] [address] | | | | | | [phone] | | | | | | | | +--------+---------+ + + + as of this encounter Visit Diagnoses Not on filein this encounter"
--- OUTSIDE RECORDS SUMMARY | ~2017-10-05 | XMS | Encounter Summary ---
Demographics + + + | Address | [address] | | | [place] [address] | + + + | Home Phone | | + + + | Preferred Language | Unknown | + + + | Marital Status | | + + + | Congregation Affiliation | 1041 | + + + | Race | Unknown | + + + | Ethnic Group | Unknown | + + + Author + + + | Author | [facility] | + + + | Organization | [facility] | + + + | Address | Unknown | + + + | Phone | Unavailable | + + + Support + + + + + | Name | Relationship | Address | Phone | + + + + + | Elayne De L aRosa | ECON | [address] | | | | | [place] | | | | | [address] | | + + + + + Care Team Providers + +------+ + | Care Geometry Professor Name | Role | Phone | + +------+ + | Jose Hall MD | PCP | | + +------+ + Encounter Details +--------+ + + + + | Date | Type | Department | Care Team | Description | +--------+ + + + + | 07/31/ | Telephone | [facility] | Lola Villanueva | | | 2017 | | Neuro[facility] [place] | [facility] [address] | | | | | [address] | | | | | | [place] | | | | | | [address] | | | | | | [phone] | | | +--------+ + + + [...] | | | | | [place] [address] | | | | | | [phone] | | | | | | | | +--------+---------+ + + + as of this encounter Visit Diagnoses Not on filein this encounter"
--- OUTSIDE RECORDS SUMMARY | ~2017-10-05 | XMS | Encounter Summary ---
Demographics + + + | Address | [address] | | | [place] [address] | + + + | Home Phone | | + + + | Preferred Language | Unknown | + + + | Marital Status | | + + + | Jewish Affiliation | 1041 | + + + | Race | Unknown | + + + | Ethnic Group | Unknown | + + + Author + + + | Author | [facility] | + + + | Organization | [facility] [employer] [facility] | + + + | Address | Unknown | + + + | Phone | Unavailable | + + + Support + + + + + | Name | Relationship | Address | Phone | + + + + + | Elayne De La Rosa | ECON | [address] | | | | | [place] | | | | | [address] | | + + + + + Care Team Providers + +------+ + | Care Manufacturing Engineer Assembly Name | Role | Phone | + +------+ + | Jose Hall MD | PCP | | + +------+ + Encounter Details +--------+ + + + + | Date | Type | Department | Care Team | Description | +--------+ + + + + | 08/18/ | Telephone | [facility] | Lola Villanueva | | | 2017 | | Neuroscience [facility] | [facility] | | | | | [address] | | | | | | [place] | | | | | | [address] | | | | | | [phone] | | | +--------+ + + + [...] | | | | | [place] [address] | | | | | | [phone] | | | | | | | | +--------+---------+ + + + as of this encounter Visit Diagnoses Not on filein this encounter"
--- OUTSIDE RECORDS SUMMARY | ~2017-10-05 | XMS | Encounter Summary ---
Demographics + + + | Address | [address] | | | [place] [address] | + + + | Home Phone | | + + + | Preferred Language | Unknown | + + + | Marital Status | | + + + | Orthodoxy Affiliation | 1041 | + + + | Race | Unknown | + + + | Ethnic Group | Unknown | + + + Author + + + | Author | [email or web address] | + + + | Organization | [facility] | + + + | Address | Unknown | + + + | Phone | Unavailable | + + + Support + + + + + | Name | Relationship | Address | Phone | + + + + + | Elayne De La Rosa | ECON | [address] | | | | | [place] | | | | | [address] | | + + + + + Care Team Providers + +------+ + | Care Solution Design Engineer Name | Role | Phone | + +------+ + | Jose Hall MD | PCP | | + +------+ + Encounter Details +--------+ + + + + | Date | Type | Department | Care Team | Description | +--------+ + + + + | 07/25/ | Telephone | [facility] | Nidhi Raymond MA | | | 2017 | | [facility] | | | | | | [address] | | | | | | [place] | | | | | | [address] | | | | | | [phone] | | | +--------+ + + + [...] | | | | | [place] [address] | | | | | | [phone] | | | | | | | | +--------+---------+ + + + as of this encounter Visit Diagnoses Not on filein this encounter"
--- OUTSIDE RECORDS SUMMARY | ~2017-10-05 | XMS | Encounter Summary ---
Demographics + + + | Address | [address] | | | [place] [address] | + + + | Home Phone | | + + + | Preferred Language | Unknown | + + + | Marital Status | | + + + | Holiness Affiliation | 1041 | + + + | Race | Unknown | + + + | Ethnic Group | Unknown | + + + Author + + + | Author | [facility] | + + + | Organization | [facility] | + + + | Address | Unknown | + + + | Phone | Unavailable | + + + Support + + + + + | Name | Relationship | Address | Phone | + + + + + | Elayne De La Rosa | ECON | [address] | | | | | [place] | | | | | [address] | | + + + + + Care Team Providers + +------+ + | Care Litigation Specialist Name | Role | Phone | + +------+ + | Jose Hall MD | PCP | | + +------+ + Reason for Referral MRI/CAT Scan (Routine) + +--------+ + + + + | Status | Reason | Specialty | Diagnoses / | Referred By | Referred To | | | | | Procedures | Contact | Contact | + +--------+ + + + + | Pending | | Radiology | Diagnoses | See, | | | Review | | | Neck pain | Medical | | | | | | Procedures | Record | | | | | | CT cervical | | | | | | | spine | | | | | | | without | | | | | | | contrast | | | + +--------+ + + + + Encounter Details +--------+ + + + + | Date | Type | Department | Care Team | Description | +--------+ + + + + | 08/22/ | Ancillary | [facility] | See, Medical | Neck pain | | 2018 | [facility] | [facility] | Record | | | | | [address] | | | | | | [place] [address] | | | | | | [phone] | | | +--------+ + + + [...] | 11/17/ | Office | Cardiology | ErwinmatthewBritany chaidez | | | 2018 | Visit | | [address] | | | | | | [address] | | | | | | [place] [address] | | | | | | [phone] | | | | | | | | +--------+---------+ + + + as of this encounter Results CT cervical spine without contrast (08/22/2017 12:38 PM) + + + | Narrative | Performed At | + + + | This is a non-reportable procedure without a radiologist report and | [facility] | | is used for image storage only | RADIOLOGY | + + + + + + + + | Performing | Address | City/State/Zipcode | Phone Number | | Organization | | | | + + + + + | [facility] | [address] | [place] [address] | | + + + + + in this encounter Visit Diagnoses + + | Diagnosis | + + | Neck pain | + + | Cervicalgia | + +"
--- OUTSIDE RECORDS SUMMARY | ~2017-10-05 | XMS | Encounter Summary ---
Demographics + + + | Address | [address] | | | [place] [address] | + + + | Home Phone | | + + + | Preferred Language | Unknown | + + + | Marital Status | | + + + | Mandaen Affiliation | 1041 | + + + | Race | Unknown | + + + | Ethnic Group | Unknown | + + + Author + + + | Author | [facility] | + + + | Organization | [facility] | + + + | Address | Unknown | + + + | Phone | Unavailable | + + + Support + + + + + | Name | Relationship | Address | Phone | + + + + + | Elayne De La Rosa | ECON | [address] | | | | | [place] | | | | | [address] | | + + + + + Care Team Providers + +------+ + | Care Visual Basic .Net Developer Name | Role | Phone | + +------+ + | Jose Hall MD | PCP | | + +------+ + Encounter Details +--------+ + + + + | Date | Type | Department | Care Team | Description | +--------+ + + + + | 10/03/ | Procedure | [facility] | | | | 2018 | [facility] | | | | | | Operating Room [address] | | | | | | [address] | | | | | | [place] [address] | | | | | | [phone] | | | +--------+ + + + [...] | | | | | | [place] [address] | | | | | | [phone] | | | | | | | | +--------+---------+ + + + as of this encounter Visit Diagnoses Not on filein this encounter"
--- OUTSIDE RECORDS SUMMARY | ~2017-10-05 | XMS | Encounter Summary ---
Demographics + + + | Address | [address] | | | [place] [address] | + + + | Home Phone | | + + + | Preferred Language | Unknown | + + + | Marital Status | | + + + | Nondenominational Affiliation | 1041 | + + + | Race | Unknown | + + + | Ethnic Group | Unknown | + + + Author + + + | Author | [facility] | + + + | Organization | [facility] | + + + | Address | Unknown | + + + | Phone | Unavailable | + + + Support + + + + + | Name | Relationship | Address | Phone | + + + + + | Elayne De La Rosa | ECON | [address] | | | | | [place] | | | | | [address] | | + + + + + Care Team Providers + +------+ + | Care Optic Fibre Drawer Name | Role | Phone | + [...] + +--------+ + + + + | Authorized | | | Diagnoses | Jensen Ulloa | | | | | Cervical | MD Josh | [facility] | | | | | radiculopath | [address] | | | | | y | [place] | [facility] | | | | | Procedures | APRIL | [place] | | | | | CT cervical | [place] [address] | [address] | | | | | spine | Phone: | Phone: | | | | | without | [phone] | [phone] | | | | | contrast | Fax: | Fax: | | | | | | [phone] | [phone] | + +--------+ + + + + Encounter Details +--------+ + + + + | Date | Type | Department | Care Team | Description | +--------+ + + + + | 08/14/ | Orders Only | [facility] | Lola Villanueva | Cervical | | 2018 | | [facility] | [facility] | radiculopathy | | | | [address] | | (Primary Dx) | | | | [place] | | | | | | [address] | | | | | | [phone] | | | +--------+ + + + [...] [address] | | | | | | [place] [address] | | | | | | [phone] | | | | | | | | +--------+---------+ + + + + +--------+ + + | Name | Priori | Associated Diagnoses | Order Schedule | | | ty | | | + +--------+ + + | CT cervical spine without | Routin | Cervical | Expected: | | contrast | e | radiculopathy | 08/15/2017, Expires: | | | | | 08/14/2018 | + +--------+ + + as of this encounter Visit Diagnoses + + | Diagnosis | + + | Cervical radiculopathy - Primary | + + | Brachial neuritis or radiculitis nos | + +"
--- OUTSIDE RECORDS SUMMARY | ~2017-10-05 | XMS | Encounter Summary ---
Demographics + + + | Address | [address] | | | [place] [address] | + + + | Home Phone | | + + + | Preferred Language | Unknown | + + + | Marital Status | | + + + | Shinto Affiliation | 1041 | + + + | Race | Unknown | + + + | Ethnic Group | Unknown | + + + Author + + + | Author | [facility] | + + + | Organization | [facility] [employer] [facility] | + + + | Address | Unknown | + + + | Phone | Unavailable | + + + Support + + + + + | Name | Relationship | Address | Phone | + + + + + | Elayne De La Rosa | ECON | [address] | | | | | [place] | | | | | [address] | | + + + + + Care Team Providers + +------+ + | Care Centrifugal Machine Tender Name | Role | Phone | + +------+ + | Jose Hall MD | PCP | | + +------+ + Reason for Visit MRI/CAT Scan (Routine) + +--------+ + + [...] + + + + | 08/22/ | Hospital | [facility] | See, Medical | Neck pain | | 2018 | Encounter | [facility] | Record | | | | | RADIOLOGY [address] | | | | | [address] | | | | | | [place] [address] | | | | | | [phone] | | | +--------+ + + + [...] + + + as of this encounter Medications at Time of Discharge + + +---------+---------+ + + | Medication | Sig. | Disp. | Refills | Start | End Date | | | | | | Date | | + + +---------+---------+ + + | albuterol | Inhale 2 puffs into | | | | | | (PROVENTIL | the lungs every 4 | | | | | | HFA;VENTOLIN HFA) | (four) hours as | | | | | | 108 (90 BASE) | needed for Wheezing. | | | | | | MCG/ACT inhaler | | | | | | + + +---------+---------+ + + | dronedarone | Take 1 tablet by | 60 | 11 | 03/10/19 | | | (MULTAQ) 400 MG | mouth 2 (two) times | tablet | | 18 | | | tablet | daily with meals. | | | | | + + +---------+---------+ + + | metoprolol | Take 1 tablet by | | 1 | 07/24/19 | | | (TOPROL-XL) 50 MG 24 | mouth daily. 75 mg | | | 18 | | | hr tablet | qhs | | | | | + + +---------+---------+ + + | morphine (MS | Take 1 tablet by | 60 | 0 | 07/04/19 | | | CONTIN) 30 MG 12 hr | mouth 2 (two) times | tablet | | 18 | | | tabletIndications: | daily. For chronic | | | | | | Spinal stenosis of | pain | | | | | | cervical region, | | | | | | | Cervical | | | | | | | radiculopathy, Neck | | | | | | | pain, Pain of lumbar | | | | | | | spine, Spinal | | | | | | | stenosis of lumbar | | | | | | | region with | | | | | | | neurogenic | | | | | | | claudication, Lumbar | | | | | | | radiculopathy | | | | | | + + +---------+---------+ + + | omeprazole | | | | 05/24/19 | | | (PRILOSEC) 40 MG | | | | 17 | | | capsule | | | | | | + + +---------+---------+ + + | ondansetron | Take 4 mg by mouth | | | | | | (ZOFRAN) 4 MG tablet | once. 2 mg q am | | | | | + + +---------+---------+ + + | oxycodone | Take 1 tablet by | 180 | 0 | 08/01/19 | | | (ROXICODONE) 30 MG | mouth every 4 (four) | tablet | | 18 | | | immediate release | hours as needed | | | | | | tabletIndications: | (BREAKTHROUGH PAIN). | | | | | | Cervical | | | | | | | radiculopathy, | | | | | | | Lumbar | | | | | | | radiculopathy, | | | | | | | Spinal stenosis of | | | | | | | cervical region, | | | | | | | Spinal stenosis of | | | | | | | lumbar region with | | | | | | | neurogenic | | | | | | | claudication, Neck | | | | | | | pain, Pain of lumbar | | | | | | | spine | | | | | | + + +---------+---------+ + + | potassium chloride | Take 20 mEq by mouth | 30 | 11 | 03/10/19 | | | (KLOR-CON) 20 MEQ | daily. | packet | | 18 | | | packet | | | | | | + + +---------+---------+ + + | pramipexole | Take 1 tablet by | | 0 | 07/24/19 | | | (MIRAPEX) 0.25 MG | mouth daily. | | | 18 | | | tablet | | | | | | + + +---------+---------+ + + | pramipexole | Take 0.75 mg by | | | | | | (MIRAPEX) 0.5 MG | mouth nightly. | | | | | | tabletIndications: | taking 3 pills at | | | | | | Restless Leg | night | | | | | | Syndrome | | | | | | + + +---------+---------+ + + | simvastatin | Take 1 tablet by | 30 | 11 | 03/10/19 | | | (ZOCOR) 40 MG tablet | mouth nightly. | tablet | | 18 | | + + +---------+---------+ + + | torsemide | Take 1 tablet by | 40 | 11 | 03/10/19 | | | (DEMADEX) 20 MG | mouth daily. Takes | tablet | | 18 | | | tabletIndications: | 20 mg daily except | | | | | | Edema | 40 mg M/W/Fri | | | | | + + +---------+---------+ + + | venlafaxine | Take 1 tablet by | | 0 | 08/12/19 | | | (EFFEXOR) 37.5 MG | mouth daily. | | | 18 | | | tablet | | | | | | + + +---------+---------+ + + | venlafaxine | Take 1 tablet by | | 0 | 08/12/19 | | | (EFFEXOR) 75 MG | mouth daily. | | | 18 | | | tablet | | | | | | + + +---------+---------+ + + | allopurinol | Take 1 tablet by | 90 | 3 | 12/02/19 | | | (ZYLOPRIM) 300 MG | mouth daily. | tablet | | 13 | | | tablet | | | | | | + + +---------+---------+ + + | Ascorbic Acid | Take by mouth. | | | | | | (VITAMIN C) 500 MG | | | | | | | CAPS | | | | | | + + +---------+---------+ + + | Homeopathic | Take 1 tablet by | | | | | | Products (ZICAM COLD | mouth as needed. | | | | | | REMEDY PO) | | | | | | + + +---------+---------+ + + | nitroGLYCERIN | Place 0.4 mg under | | | | | | (NITROSTAT) 0.4 MG | the tongue every 5 | | | | | | SL tablet | (five) minutes as | | | | | | | needed. | | | | | + + +---------+---------+ + + | rivaroxaban | Take 1 tablet by | 30 | 11 | 03/10/19 | | | (XARELTO) 20 MG | mouth daily with | tablet | | 18 | | | tablet | dinner. | | | | | + + +---------+---------+ + + | | Take 1 tablet by | | 0 | 06/27/19 | | | sulfamethoxazole-tri | mouth 2 (two) times | | | 18 | | | methoprim (BACTRIM | daily. | | | | | | DS) 800-160 MG per | | | | | | | tablet | | | | | | + + +---------+---------+ + + | UNABLE TO FIND | Bi-Pap machine for | | | | | | | severe sleep apnea | | | | | + + +---------+---------+ + + | diazePAM (VALIUM) | Take 0.5-1 tablets | 60 | 1 | 07/08/19 | | | 10 MG | by mouth every 12 | tablet | | 18 | 8 | | tabletIndications: | (twelve) hours as | | | | | | Cervical | needed (muscle | | | | | | radiculopathy, | spasms). | | | | | | Lumbar | | | | | | | radiculopathy, | | | | | | | Spinal stenosis of | | | | | | | cervical region, | | | | | | | Spinal stenosis of | | | | | | | lumbar region with | | | | | | | neurogenic | | | | | | | claudication, Neck | | | | | | | pain, Pain of lumbar | | | | | | | spine | | | | | | + + +---------+---------+ + + | gabapentin | Take 2 capsules by | 180 | 3 | 03/31/19 | | | (NEURONTIN) 300 MG | mouth 3 (three) | capsule | | 18 | 8 | | capsuleIndications: | times daily. | | | | | | Cervical | | | | | | | radiculopathy, | | | | | | | Lumbar radiculopathy | | | | | | + + +---------+---------+ + + | morphine (MS | Take 1 tablet by | 60 | 0 | 08/01/19 | | | CONTIN) 30 MG 12 hr | mouth 2 (two) times | tablet | | 18 | 8 | | tabletIndications: | daily. For chronic | | | | | | Cervical | pain | | | | | | radiculopathy, | | | | | | | Lumbar | | | | | | | radiculopathy, | | | | | | | Spinal stenosis of | | | | | | | cervical region, | | | | | | | Spinal stenosis of | | | | | | | lumbar region with | | | | | | | neurogenic | | | | | | | claudication, Neck | | | | | | | pain, Pain of lumbar | | | | | | | spine | | | | | | + + +---------+---------+ + + | oxycodone | Take 1 tablet by | 180 | 0 | 07/04/19 | | | (ROXICODONE) 30 MG | mouth every 4 (four) | tablet | | 18 | 8 | | immediate release | hours as needed | | | | | | tabletIndications: | (BREAKTHROUGH PAIN). | | | | | | Cervical | | | | | | | radiculopathy, | | | | | | | Lumbar | | | | | | | radiculopathy, | | | | | | | Spinal stenosis of | | | | | | | cervical region, | | | | | | | Spinal stenosis of | | | | | | | lumbar region with | | | | | | | neurogenic | | | | | | | claudication, Neck | | | | | | | pain, Pain of lumbar | | | | | | | spine | | | | | | + + +---------+---------+ + + | venlafaxine | Take 37.5 mg by | | | | | | (EFFEXOR-XR) 37.5 MG | mouth daily with | | | | 8 | | 24 hr capsule | breakfast. takinf | | | | | | | 37.5 mg q am and 75 | | | | | | | mg qhs | | | | | + + +---------+---------+ + + as of this encounter Plan of Treatment +--------+---------+ + + + | Date | Type | Specialty | Care Team | Description | +--------+---------+ + + + | 11/17/ | Office | Cardiology | Britany Bernal | | | 2017 | Visit | | [facility] [address] | | | | | | [place] | | | | | | [place] [address] | | | | | | [phone] | | | | | | | | +--------+---------+ + + + as of this encounter Procedures + +--------+ + + + | Procedure Name | Priori | Date/Time | Associated Diagnosis | Comments | | | ty | | | | + +--------+ + + + | CT CERVICAL SPINE WO | Routin | 08/22/2017 | Neck pain | Results for this | | CONTRAST | e | 12:38 PM | | procedure are in the | | | | PDT | | results section. | + +--------+ + + + in this encounter Results CT cervical spine without [...] + + | [facility] | [address] | [place] [address] | | + + + + + in this encounter Visit Diagnoses + + | Diagnosis | + + | Neck pain | + + | Cervicalgia | + +"
--- OUTSIDE RECORDS SUMMARY | ~2017-10-05 | XMS | Clinical Summary ---
Demographics + + + | Address | [address] | | | [place] [address] | + + + | Home Phone | | + + + | Preferred Language | Unknown | + + + | Marital Status | | + + + | Mandaen Affiliation | 1041 | + + + | Race | Unknown | + + + | Ethnic Group | Unknown | + + + Author + + + | Author | [facility] [facility] | + + + | Organization | [facility] | + + + | Address | Unknown | + + + | Phone | Unavailable | + + + Support + + + + + | Name | Relationship | Address | Phone | + + + + + | Elayne Bee | ECON | [address] | | | | | [place] | | | | | [address] | | + + + + + Care Team Providers + +------+ + | Care Material Scheduler Name | Role | Phone | + +------+ + | Jose Hall MD | PP | | + +------+ + Allergies + + + + + + | Active Allergy | Reactions | Severity | Noted | Comments | | | | | Date | | + + + + + + | Codeine | Other (See Comments) | | 08/22/19 | abstracted | | | | | 11 | | + + + + + + | Codeine | Other (See Comments) | Medium | 02/14/19 | | | | | | 12 | | + + + + + + | Hydrochlorothiazide | Swelling | Medium | 01/25/20 | | | | | | 15 | | + + + + + + | Paroxetine | Other (See Comments) | | 08/22/19 | abstracted | | Hydrochloride | | | 11 | | + + + + + + Current Medications + + +---------+---------+------+------+-------+ | Prescription | Sig. | Disp. | Refills | Star | End | Statu | | | | | | t | Date | s | | | | | | Date | | | + + +---------+---------+------+------+-------+ | allopurinol | Take 1 tablet by | 90 | 3 | 10/2 | | Activ | | (ZYLOPRIM) 300 MG | mouth daily. | tablet | | 2/20 | | e | | tablet | | | | 13 | | | + + +---------+---------+------+------+-------+ | nitroGLYCERIN | Place 0.4 mg under | | | | | Activ | | (NITROSTAT) 0.4 MG | the tongue every 5 | | | | | e | | SL tablet | (five) minutes as | | | | | | | | needed. | | | | | | + + +---------+---------+------+------+-------+ | albuterol | Inhale 2 puffs into | | | | | Activ | | (PROVENTIL | the lungs every 4 | | | | | e | | HFA;VENTOLIN HFA) | (four) hours as | | | | | | | 108 (90 BASE) | needed for Wheezing. | | | | | | | MCG/ACT inhaler | | | | | | | + + +---------+---------+------+------+-------+ | UNABLE TO FIND | Bi-Pap machine for | | | | | Activ | | | severe sleep apnea | | | | | e | + + +---------+---------+------+------+-------+ | pramipexole | Take 0.75 mg by | | | | | Activ | | (MIRAPEX) 0.5 MG | mouth nightly. | | | | | e | | tabletIndications: | taking 3 pills at | | | | | | | Restless Leg | night | | | | | | | Syndrome | | | | | | | + + +---------+---------+------+------+-------+ | ondansetron | Take 4 mg by mouth | | | | | Activ | | (ZOFRAN) 4 MG tablet | once. 2 mg q am | | | | | e | + + +---------+---------+------+------+-------+ | omeprazole | | | | 04/1 | | Activ | | (PRILOSEC) 40 MG | | | | 3/20 | | e | | capsule | | | | 17 | | | + + +---------+---------+------+------+-------+ | Ascorbic Acid | Take by mouth. | | | | | Activ | | (VITAMIN C) 500 MG | | | | | | e | | CAPS | | | | | | | + + +---------+---------+------+------+-------+ | simvastatin | Take 1 tablet by | 30 | 11 | 01/2 | | Activ | | (ZOCOR) 40 MG tablet | mouth nightly. | tablet | | 9/20 | | e | | | | | | 18 | | | + + +---------+---------+------+------+-------+ | rivaroxaban | Take 1 tablet by | 30 | 11 | 01/2 | | Activ | | (XARELTO) 20 MG | mouth daily with | tablet | | 9/20 | | e | | tablet | dinner. | | | 18 | | | + + +---------+---------+------+------+-------+ | dronedarone | Take 1 tablet by | 60 | 11 | 01/2 | | Activ | | (MULTAQ) 400 MG | mouth 2 (two) times | tablet | | 9/20 | | e | | tablet | daily with meals. | | | 18 | | | + + +---------+---------+------+------+-------+ | torsemide | Take 1 tablet by | 40 | 11 | 01/2 | | Activ | | (DEMADEX) 20 MG | mouth daily. Takes | tablet | | 9/20 | | e | | tabletIndications: | 20 mg daily except | | | 18 | | | | Edema | 40 mg M/W/Fri | | | | | | + + +---------+---------+------+------+-------+ | potassium chloride | Take 20 mEq by mouth | 30 | 11 | 01/2 | | Activ | | (KLOR-CON) 20 MEQ | daily. | packet | | 9/20 | | e | | packet | | | | 18 | | | + + +---------+---------+------+------+-------+ | Homeopathic | Take 1 tablet by | | | | | Activ | | Products (ZICAM COLD | mouth as needed. | | | | | e | | REMEDY PO) | | | | | | | + + +---------+---------+------+------+-------+ | | Take 1 tablet by | | 0 | 05/1 | | Activ | | sulfamethoxazole-tri | mouth 2 (two) times | | | 7/20 | | e | | methoprim (BACTRIM | daily. | | | 18 | | | | DS) 800-160 MG per | | | | | | | | tablet | | | | | | | + + +---------+---------+------+------+-------+ | morphine (MS | Take 1 tablet by | 60 | 0 | 05/2 | | Activ | | CONTIN) 30 MG 12 hr | mouth 2 (two) times | tablet | | 4/20 | | e | | tabletIndications: | daily. For chronic | | | 18 | | | | Spinal stenosis of | pain | | | | | | | [...] radiculopathy | | | | | | | + + +---------+---------+------+------+-------+ | oxycodone | Take 1 tablet by | 180 | 0 | 07/12 | | Activ | | (ROXICODONE) 30 MG | mouth every 4 (four) | tablet | | 03/01 | | e | | immediate release | hours as needed | | | 18 | | | | tabletIndications: | (BREAKTHROUGH PAIN). | | | | | | | [...] | | | | | | | + + +---------+---------+------+------+-------+ | metoprolol | Take 1 tablet by | | 1 | 07/11 | | Activ | | (TOPROL-XL) 50 MG 24 | mouth daily. 75 mg | | | 04/29 | | e | | hr tablet | qhs | | | 18 | | | + + +---------+---------+------+------+-------+ | pramipexole | Take 1 tablet by | | 0 | 07/11 | | Activ | | (MIRAPEX) 0.25 MG | mouth daily. | | | 320 | | e | | tablet | | | | 18 | | | + + +---------+---------+------+------+-------+ | venlafaxine | Take 1 tablet by | | 0 | 07/0 | | Activ | | (EFFEXOR) 37.5 MG | mouth daily. | | | 2 | | e | | tablet | | | | 18 | | | + + +---------+---------+------+------+-------+ | venlafaxine | Take 1 tablet by | | 0 | 07/0 | | Activ | | (EFFEXOR) 75 MG | mouth daily. | | | 2 | | e | | tablet | | | | 18 | | | + + +---------+---------+------+------+-------+ | gabapentin | Take 4 capsules by | 90 | 1 | 07/1 | | Activ | | (NEURONTIN) 300 MG | mouth 3 (three) | capsule | | 10/30 | | e | | capsuleIndications: | times daily. 3 tabs | | | 18 | | | | Cervical | AM, 1 tab at noon, 3 | | | | | | | radiculopathy, | tabs at PM | | | | | | | Lumbar radiculopathy | | | | | | | + + +---------+---------+------+------+-------+ | diazePAM (VALIUM) | Take 0.5-1 tablets | 60 | 1 | 08/1 | | Activ | | 10 MG | by mouth every 12 | tablet | | 07/30 | | e | | tabletIndications: | (twelve) hours as | | | 18 | | | | Cervical | needed (muscle | | | | | | | radiculopathy, | spasms). | | | | | | | [...] | | | | | | | + + +---------+---------+------+------+-------+ | methylPREDNISolone | Follow package | 21 | 0 | 08/2 | | Activ | | 4 MG dose pack | directions. | tablet | | 06/29 | | e | | | | | | 18 | | | + + +---------+---------+------+------+-------+ | venlafaxine | Take 37.5 mg by | | | | 08 | Disco | | (EFFEXOR-XR) 37.5 MG | mouth daily with | | | | 4/20 | ntinu | | 24 hr capsule | breakfast. takinf | | | | 18 | ed | | | 37.5 mg q am and 75 | | | | | | | | mg qhs | | | | | | + + +---------+---------+------+------+-------+ | morphine (MS | Take 1 tablet by | 60 | 0 | 08/10 | 09/10 | Disco | | CONTIN) 30 MG 12 hr | mouth 2 (two) times | tablet | | 10/30 | 07/30 | ntinu | | tabletIndications: | daily. For chronic | | | 18 | 18 | ed | | Cervical | pain | | | | | | | [...] | | | | | | | + + +---------+---------+------+------+-------+ | oxycodone | Take 1 tablet by | 180 | 0 | 08/10 | 09/10 | Disco | | (ROXICODONE) 30 MG | mouth every 4 (four) | tablet | | 10/30 | 07/30 | ntinu | | immediate release | hours as needed | | | 18 | 18 | ed | | tabletIndications: | (BREAKTHROUGH PAIN). | | | | | | | [...] | | | | | | | + + +---------+---------+------+------+-------+ | diazePAM (VALIUM) | Take 0.5-1 tablets | 60 | 1 | 08/10 | 09/10 | Disco | | 10 MG | by mouth every 12 | tablet | | 10/30 | 07/30 | ntinu | | tabletIndications: | (twelve) hours as | | | 18 | 18 | ed | | Cervical | needed (muscle | | | | | | | radiculopathy, | spasms). | | | | | | | [...] | | | | | | | + + +---------+---------+------+------+-------+ | morphine (MS | Take 1 tablet by | 60 | 0 | 09/10 | 09/11 | Disco | | CONTIN) 30 MG 12 hr | mouth 2 (two) times | tablet | | 07/30 | 05/30 | ntinu | | tabletIndications: | daily. For chronic | | | 18 | 18 | ed | | Cervical | pain | | | | | | | [...] | | | | | | | + + +---------+---------+------+------+-------+ | oxycodone | Take 1 tablet by | 180 | 0 | 09/10 | 09/11 | Disco | | (ROXICODONE) 30 MG | mouth every 4 (four) | tablet | | 07/30 | 05/30 | ntinu | | immediate release | hours as needed | | | 18 | 18 | ed | | tabletIndications: | (BREAKTHROUGH PAIN). | | | | | | | [...] | | | | | | | + + +---------+---------+------+------+-------+ Active Problems + + + | Problem | Noted Date | + + + | Cervical pain (neck) | 07/25/2016 | + + + | Cervical radiculopathy | 07/03/2016 | + + + | Lumbar spine pain | 07/03/2016 | + + + | Lumbar radiculopathy | 07/03/2016 | + + + | Spinal stenosis of cervical region | 06/05/2016 | + + + | Lumbar stenosis | 06/05/2016 | + + + | Dysphagia | 01/28/2015 | + + + | Status post cervical spinal fusion | 01/25/2015 | + + + | HLD (hyperlipidemia) | 07/28/2014 | + + + + + | Last Assessment & Plan: Hyperlipidemia. Continue | | simvastatin, will monitor liver enzymes. | + + + + + | Cardiomyopathy, nonischemic | 05/27/2013 | + + + + + | Last Assessment & Plan: Non-ischemic CM, LVEF 55-60%. | | 55yo WM, with complex cardiac history, aggravated by | | panic/anxiety disorders. He has recurrent chest discomfort, | | we've reassured him that this is non-coronary in nature. Hx A | | fib/A flutter, now has had ablation for both procedures, | | currently on amiodarone. His liver enzymes are mildly elevated, | | we will monitor his liver enzymes, labs requested. Today's ECG | | shows to be in sinus rhythm. He does have a follow-up visit | | scheduled for [facility] in January, we plan on seeing him in | | February.Hx CABG: no, Pericardectomy 2001, 2010.Hx PCI/stent: noHx | | Pacemaker/ICD: noLast Cath, 03/10/2006: coronaries NML, LVEF | | 60%.Last Echo, 10/20/2015 ([facility]): LVEF 55-60%, features suggest | | continued external restraint to RV filling without overt | | ventricular interdependence, mild RV systolic dysfunction, saline | | contrast shows R->L shunt..Last stress test, [facility], | | 09/04/2010: normal perfusion imaging, LVEF 54%.Event Monitor, | | 08/18/2014: 8hrs, 23min, sinus rhythm, no ectopy, no pauses, no | | events.ECG, 08/21/2015: A fib, 82bpm, diffuse non-spec ST-T | | changes.ECG, 10/30/2015 ([facility]): A flutter with 2:1 AV | | conduction.ECG, : sinus rhythm, 80bpm, occ PAC, oc PVC. | + + + + + | Paroxysmal atrial fibrillation (HCC) | 05/27/2013 | + + + + + | Last Assessment & Plan: P A fib/PSVT. Hx A. flutter ablation | | followed by A. fib ablation ([facility]). Did have some postprocedure | | arrhythmias, currently on amiodarone. Today's ECG shows to be | | in sinus rhythm, occasional PAC, PVC.[facility] A flutter with 2:1 AV conduction.ECG, : NSR, | | 66bpm.Labs, 10/30/2015: Trop-T: 0.010, BNP: 521, Liver enzymes | | NML, K:4.2, BUN/Cr: 14/1.1 (GFR 70), glu: 106 | | INR: 1.5, WBC: 6.8, H/H: 11.0/35.7, plt: 410 | + + + + + | Pericarditis, restrictive | 05/27/2013 | + + + + + | Last Assessment & Plan: Hx Pericardectomy *2, [facility]. | | Clinically stable.Hx CABG: no, Pericardectomy 2010. | + + + +---+ | Obesity (BMI 35.0-39.9 without comorbidity) | | + +---+ | COPD (chronic obstructive pulmonary disease) | | + +---+ | Obesity hypoventilation syndrome | | + +---+ + + | Overview: noncompliant with BIPAP use | + + + +---+ | JOSE A (obstructive sleep apnea) | | + +---+ Resolved Problems + + + + | Problem | Noted | Resolved | | | Date | Date | + + + + | Cervical pain (neck) | 07/04/19 | | | | 17 | 7 | + + + + | Neck swelling | 01/29/20 | | | | 15 | 7 | + + + + | Odynophagia | 01/29/20 | | | | 15 | 7 | + + + + | Aspiration pneumonia (HCC) | 01/29/20 | | | | 15 | 7 | + + + + | Acute delirium | 01/29/20 | | | | 15 | 7 | + + + + | Essential hypertension | 04/05/19 | | | | 12 | 6 | + + + + + + | Last Assessment & Plan: Hypertension, borderline, complicated | | by intermittent edema, mild orthostatic symptoms, currently | | torsemide 20 mg daily. | + + Encounters +--------+ + + + + | Date | Type | Specialty | Care Team | Description | +--------+ + + + + | 10/03/ | Hospital | | Josh Ulloa MD | Cervical pain | | 2018 - | Encounter | | | (neck); Cervical | | | | | | radiculopathy; | | 10/04/ | | | | Spinal stenosis of | | 2017 | | | | cervical region | +--------+ + + + + +---+ + | | Discharge | | | Summaries | | | - Madan, | | | Puneet | | | HUAN - | | | 10/04/2017 | | | 8:53 AM | | | PDT | | | Formatting | | | of this | | | note may be | | | different | | | from the | | | original.[facility] | | | Service: | | | Orthopedic | | | SurgeryDisc | | | harge | | | SummaryDate | | | of | | | Admission: | | | | | | 10/03/2017Da | | | te of | | | Discharge: | | | | | | 10/04/2017Di | | | scharge | | | Physician: | | | PUNEET G | | | ANG, | | | ARNPTreatme | | | nt Team: | | | Admitting | | | Provider: | | | Josh | | | Artemio, | | | MDDischarge | | | Diagnoses: | | | Active | | | Problems: | | | Spinal | | | stenosis of | | | cervical | | | region | | | Cervical | | | radiculopat | | | hy | | | Cervical | | | pain | | | (neck)Resol | | | lakia | | | Problems: | | | * No | | | resolved | | | hospital | | | problems. | | | *Final | | | Diagnoses: | | | Cervical/th | | | oracic | | | radiculopat | | | hyProcedure | | | s: | | | Procedure(s | | | ) with | | | comments:FO | | | RAMINOTOMY | | | - | | | Foraminotom | | | y C7-T1, | | | T1-2BRIEF | | | HISTORY OF | | | PRESENTATIO | | | N: | | | Hazel L | | | Futter is a | | | 57 y.o. | | | male who | | | underwent | | | right sided | | | | | | foraminotom | | | y/discectom | | | y C7-T1 as | | | above. Mr. | | | Futter was | | | maintained | | | with his | | | usual home | | | medications | | | holding | | | off on his | | | Xarelto | | | until | | | 10/05/2017. | | | Cervical | | | radiculopat | | | hy | | | improved. | | | He was | | | mobilizing | | | independent | | | ly. No | | | complicatio | | | ns observed | | | postop. | | | HOSPITAL | | | COURSE: | | | Past | | | Medical | | | History | | | Diagnosis | | | Date | | | Atrial | | | fibrillatio | | | n (HCC) | | | | | | Cardiomyopa | | | thy (HCC) | | | | | | Cervical | | | radiculopat | | | hy | | | 07/03/2016 | | | | | | CHF | | | (congestive | | | heart | | | failure) | | | (HCC) | | | Chronic | | | kidney | | | disease | | | COPD | | | (chronic | | | obstructive | | | pulmonary | | | disease) | | | (HCC) | | | Coronary | | | artery | | | disease | | | | | | Hyperlipide | | | james | | | | | | Hypertensio | | | n | | | Joint | | | pain | | | Obesity | | | (BMI | | | 35.0-39.9 | | | without | | | comorbidity | | | ) | | | Obesity | | | hypoventila | | | tion | | | syndrome | | | (HCC) | | | noncomplian | | | t with | | | BIPAP use | | | | | | | | | Orthostatic | | | | | | hypotension | | | | | | JOSE A | | | (obstructiv | | | e sleep | | | apnea) | | | PSVT | | | (paroxysmal | | | | | | supraventri | | | cular | | | tachycardia | | | ) (HCC) | | | Pulmonary | | | embolism | | | (HCC) | | | Sleep | | | apnea Past | | | Surgical | | | History | | | Procedure | | | Laterality | | | Date | | | CARDIAC | | | CATHETERIZA | | | TION | | | CARDIAC | | | SURGERY | | | | | | CERVICAL | | | FUSION N/A | | | 01/25/2015 | | | Procedure: | | | CERVICAL - | | | DISC & | | | FUSION - | | | ANTERIOR; | | | Surgeon: | | | Josh | | | MD Artemio; | | | Location: | | | [facility] | | | OR; | | | Service: | | | Ortho/Spine | | | ; | | | Laterality: | | | N/A; c3-5 | | | | | | | | | CHOLECYSTEC | | | AISHWARYA | | | | | | COLONOSCOPY | | | | | | HARDWARE | | | REMOVAL | | | hips/neck/w | | | rist | | | hardware | | | inserted | | | HARDWARE | | | REMOVAL N/A | | | 01/25/2015 | | | | | | Procedure: | | | CERVICAL - | | | HARDWARE | | | REMOVAL; | | | Surgeon: | | | Josh | | | MD Artemio; | | | Location: | | | [facility] | | | OR; | | | Service: | | | Ortho/Spine | | | ; | | | Laterality: | | | N/A; | | | c5/6, plate | | | removal | | | LUMBAR | | | SPINE | | | SURGERY | | | 6 inch rods | | | and screws | | | inserted | | | on both | | | sides of | | | spine | | | | | | pericardect | | | saba | | | normal | | | coronaries | | | | | | REMOVAL | | | IMPLANT | | | SUPERFICIAL | | | SPX | | | SPINE | | | SURGERY | | | C spine | | | UNLISTED | | | PROCEDURE | | | ARTHROSCOPY | | | | | | Allergies | | | Allergen | | | Reactions | | | | | | Codeine | | | Other (See | | | Comments) | | | | | | | | | Hydrochloro | | | thiazide | | | Swelling | | | Codeine | | | Other (See | | | Comments) | | | abstracted | | | | | | Paxil | | | [Paroxetine | | | | | | Hydrochlori | | | de] Other | | | (See | | | Comments) | | | abstracted | | | | | | Prescriptio | | | ns Prior to | | | Admission | | | Medication | | | Sig | | | Dispense | | | Refill Last | | | Dose | | | albuterol | | | (PROVENTIL | | | | | | HFA;VENTOLI | | | N HFA) 108 | | | (90 BASE) | | | MCG/ACT | | | inhaler | | | Inhale 2 | | | puffs into | | | the lungs | | | every 4 | | | (four) | | | hours as | | | needed for | | | Wheezing. | | | 10/02/2017 | | | at Unknown | | | time | | | | | | dronedarone | | | (MULTAQ) | | | 400 MG | | | tablet Take | | | 1 tablet | | | by mouth 2 | | | (two) times | | | daily with | | | meals. 60 | | | tablet 11 | | | 10/03/2017 | | | at 0630 | | | | | | gabapentin | | | (NEURONTIN) | | | 300 MG | | | capsule | | | Take 4 | | | capsules by | | | mouth 3 | | | (three) | | | times | | | daily. 3 | | | tabs AM, 1 | | | tab at | | | noon, 3 | | | tabs at PM | | | 90 capsule | | | 1 10/03/2017 | | | at 0630 | | | | | | metoprolol | | | (TOPROL-XL) | | | 50 MG 24 | | | hr tablet | | | Take 1 | | | tablet by | | | mouth | | | daily. 75 | | | mg qhs 1 | | | 10/03/2017 | | | at 0630 | | | morphine | | | (MS CONTIN) | | | 30 MG 12 | | | hr tablet | | | Take 1 | | | tablet by | | | mouth 2 | | | (two) times | | | daily. For | | | chronic | | | pain 60 | | | tablet 0 | | | 10/02/2017 | | | at Unknown | | | time | | | | | | omeprazole | | | (PRILOSEC) | | | 40 MG | | | capsule | | | 10/03/2017 | | | at 0630 | | | | | | ondansetron | | | (ZOFRAN) 4 | | | MG tablet | | | Take 4 mg | | | by mouth | | | once. 2 mg | | | q am | | | 10/03/2017 | | | at 0630 | | | oxycodone | | | | | | (ROXICODONE | | | ) 30 MG | | | immediate | | | release | | | tablet Take | | | 1 tablet | | | by mouth | | | every 4 | | | (four) | | | hours as | | | needed | | | (BREAKTHROU | | | GH PAIN). | | | 180 tablet | | | 0 10/02/2017 | | | at Unknown | | | time | | | potassium | | | chloride | | | (KLOR-CON) | | | 20 MEQ | | | packet Take | | | 20 mEq by | | | mouth | | | daily. 30 | | | packet 11 | | | 10/02/2017 | | | at Unknown | | | time | | | | | | pramipexole | | | (MIRAPEX) | | | 0.25 MG | | | tablet Take | | | 1 tablet | | | by mouth | | | daily. 0 | | | 10/02/2017 | | | at Unknown | | | time | | | | | | pramipexole | | | (MIRAPEX) | | | 0.5 MG | | | tablet Take | | | 0.75 mg by | | | mouth | | | nightly. | | | taking 3 | | | pills at | | | night | | | 10/02/2017 | | | at Unknown | | | time | | | | | | simvastatin | | | (ZOCOR) 40 | | | MG tablet | | | Take 1 | | | tablet by | | | mouth | | | nightly. 30 | | | tablet 11 | | | 10/02/2017 | | | at Unknown | | | time | | | torsemide | | | (DEMADEX) | | | 20 MG | | | tablet Take | | | 1 tablet | | | by mouth | | | daily. | | | Takes 20 mg | | | daily | | | except 40 | | | mg M/W/Fri | | | 40 tablet | | | 11 | | | 10/02/2017 | | | at Unknown | | | time | | | | | | venlafaxine | | | (EFFEXOR) | | | 37.5 MG | | | tablet Take | | | 1 tablet | | | by mouth | | | daily. 0 | | | 10/03/2017 | | | at 0630 | | | | | | venlafaxine | | | (EFFEXOR) | | | 75 MG | | | tablet Take | | | 1 tablet | | | by mouth | | | daily. 0 | | | 10/02/2017 | | | at Unknown | | | time | | | | | | allopurinol | | | (ZYLOPRIM) | | | 300 MG | | | tablet Take | | | 1 tablet | | | by mouth | | | daily. 90 | | | tablet 3 | | | 09/19/2017 | | | | | | Ascorbic | | | Acid | | | (VITAMIN C) | | | 500 MG | | | CAPS Take | | | by mouth. | | | Not Taking | | | at Unknown | | | time | | | diazePAM | | | (VALIUM) 10 | | | MG tablet | | | Take 0.5-1 | | | tablets by | | | mouth every | | | 12 | | | (twelve) | | | hours as | | | needed | | | (muscle | | | spasms). 60 | | | tablet 1 | | | 09/26/2017 | | | | | | | | | Homeopathic | | | Products | | | (ZICAM COLD | | | REMEDY PO) | | | Take 1 | | | tablet by | | | mouth as | | | needed. | | | Not Taking | | | at Unknown | | | time | | | | | | nitroGLYCER | | | IN | | | (NITROSTAT) | | | 0.4 MG SL | | | tablet | | | Place 0.4 | | | mg under | | | the tongue | | | every 5 | | | (five) | | | minutes as | | | needed. | | | Taking | | | | | | rivaroxaban | | | (XARELTO) | | | 20 MG | | | tablet Take | | | 1 tablet | | | by mouth | | | daily with | | | dinner. 30 | | | tablet 11 | | | 09/27/2017 | | | | | | | | | sulfamethox | | | azole-trime | | | thoprim | | | (BACTRIM | | | DS) 800-160 | | | MG per | | | tablet Take | | | 1 tablet | | | by mouth 2 | | | (two) times | | | daily. 0 | | | Not Taking | | | at Unknown | | | time | | | UNABLE TO | | | FIND | | | Bi-Pap | | | machine for | | | severe | | | sleep apnea | | | Taking | | | DISCHARGE | | | EXAMVital | | | Signs:BP | | | 134/75 | | | | Pulse 65 | | | | Temp 97.7 | | | F (36.5 | | | C) | | | | Resp 16 | | | | Ht 1.854 m | | | (6' 1") | | | | Wt 110.6 kg | | | (243 lb | | | 13.3 oz) | | | | SpO2 98% | | | | BMI 32.17 | | | kg/m | | | Temp: | | | [96.7 F | | | (35.9 | | | C)-98.2 | | | F (36.8 | | | C)] 97.7 | | | F (36.5 | | | C) (10/04 | | | 0751)BP: | | | (117-178)/( | | | 63-93) | | | 134/75 | | | (10/04 | | | 0751)Heart | | | Rate: | | | [55-72] 65 | | | (10/04 | | | 0751)Resp: | | | [13-30] 16 | | | (10/04 | | | 0258)SpO2: | | | [95 %-100 | | | %] 98 % | | | (10/03 | | | 1937)Height | | | : [185.4 | | | cm (6' 1")] | | | 185.4 cm | | | (6' ") | | | (10/03 | | | 0937)Weight | | | : [110.6 | | | kg (243 lb | | | 13.3 oz)] | | | 110.6 kg | | | (243 lb | | | 13.3 oz) | | | (10/03 | | | 0937)BMI | | | (Calculated | | | ): [32.2] | | | 32.2 (10/03 | | | 0937)FiO2 | | | : [48 | | | %-100 %] | | | 100 % | | | (10/03 | | | 1433)Physic | | | al Exam | | | Constitutio | | | nal: He is | | | oriented to | | | person, | | | place, and | | | time. He | | | appears | | | well-develo | | | ped and | | | well-nouris | | | hed. HENT: | | | Head: | | | Normocephal | | | ic and | | | atraumatic. | | | | | | Cardiovascu | | | lar: Normal | | | rate. | | | Pulmonary/C | | | hest: | | | Effort | | | normal. | | | Abdomina/Gl | | | : Soft. | | | Neurologica | | | l: He is | | | alert and | | | oriented to | | | person, | | | place, and | | | time. Skin: | | | Skin is | | | warm. | | | Capillary | | | refill | | | takes less | | | than 2 | | | seconds. | | | Psychiatric | | | : He has a | | | normal mood | | | and | | | affect. His | | | behavior | | | is normal. | | | Judgment | | | and thought | | | content | | | normal. | | | Nursing | | | note and | | | vitals | | | reviewed.Or | | | tho | | | ExamDATACBC | | | : Lab | | | Results | | | Component | | | Value Date | | | WBC 15.17 | | | (H) | | | 10/04/2017 | | | RBC 3.94 | | | (L) | | | 10/04/2017 | | | HGB 12.7 | | | (L) | | | 10/04/2017 | | | HCT 38.1 | | | (L) | | | 10/04/2017 | | | MCV 96.6 | | | 10/04/2017 | | | MCH 32.2 | | | 10/04/2017 | | | MCHC 33.3 | | | 10/04/2017 | | | RDW 54.3 | | | (H) | | | 10/04/2017 | | | PLT 301 | | | 10/04/2017 | | | MPV 9.0 | | | 10/04/2017 | | | DIFFTYPE | | | MANUAL | | | 10/04/2017 | | | BMP: Lab | | | Results | | | Component | | | Value Date | | | NA 137 | | | 10/04/2017 | | | K 5.1 (H) | | | 10/04/2017 | | | CL 103 | | | 10/04/2017 | | | CO2 26 | | | 10/04/2017 | | | ANIONGAP | | | 13 | | | 10/04/2017 | | | GLUF 108 | | | (H) | | | 10/04/2017 | | | BUN 18 | | | 10/04/2017 | | | CREATININE | | | 1.2 | | | 10/04/2017 | | | BCR 15 | | | 10/04/2017 | | | CA 8.2 (L) | | | 10/04/2017 | | | EGFR >60 | | | 10/04/2017 | | | PLANDC home | | | today.F/U | | | clinic | | | within 2 | | | weeks.Medro | | | l dose saul | | | provided | | | postop.Cont | | | inue with | | | brace for | | | the next | | | 2-3 | | | weeks.Dispo | | | sition: | | | HomeConditi | | | on: | | | StableCode | | | Status: | | | Full CodeNo | | | discharge | | | procedures | | | on | | | file.Follow | | | up:Jose | | | [place], | | | [id number], [place] | | | [phone] | | | n [place] | | | [phone] | | | [phone] | | | Medication | | | List START | | | taking | | | these | | | medications | | | | | | methylPREDN | | | ISolone 4 | | | MG dose | | | packQTY: | | | 21 | | | tabletRefil | | | ls: | | | 0Follow | | | package | | | directions. | | | CONTINUE | | | taking | | | these | | | medications | | | albuterol | | | 108 (90 | | | Base) | | | MCG/ACT | | | inhalerRefi | | | lls: | | | 0Commonly | | | known as: | | | PROVENTIL | | | HFA;VENTOLI | | | N HFA | | | allopurinol | | | 300 MG | | | tabletQTY: | | | 90 | | | tabletRefil | | | ls: | | | 3Doctor's | | | comments: | | | Needs | | | follow up | | | aptCommonly | | | known as: | | | | | | ZYLOPRIMTak | | | e 1 tablet | | | by mouth | | | daily. | | | diazePAM 10 | | | MG | | | tabletQTY: | | | 60 | | | tabletRefil | | | ls: 1For | | | diagnoses: | | | Cervical | | | radiculopat | | | hy, Lumbar | | | radiculopat | | | hy, | | | Cervical | | | stenosis of | | | spine, | | | Spinal | | | stenosis of | | | lumbar | | | region with | | | neurogenic | | | | | | claudicatio | | | n, Cervical | | | pain | | | (neck), | | | Pain of | | | lumbar | | | spineCommon | | | ly known | | | as: | | | VALIUMTake | | | 0.5-1 | | | tablets by | | | mouth every | | | 12 | | | (twelve) | | | hours as | | | needed | | | (muscle | | | spasms). | | | dronedarone | | | 400 MG | | | tabletQTY: | | | 60 | | | tabletRefil | | | ls: | | | 11Commonly | | | known as: | | | MULTAQTake | | | 1 tablet by | | | mouth 2 | | | (two) times | | | daily with | | | meals. | | | gabapentin | | | 300 MG | | | capsuleQTY: | | | 90 | | | capsuleRefi | | | lls: 1For | | | diagnoses: | | | Cervical | | | radiculopat | | | hy, Lumbar | | | radiculopat | | | hyCommonly | | | known as: | | | NEURONTINTa | | | ke 4 | | | capsules by | | | mouth 3 | | | (three) | | | times | | | daily. 3 | | | tabs AM, 1 | | | tab at | | | noon, 3 | | | tabs at PM | | | metoprolol | | | 50 MG 24 hr | | | | | | tabletRefil | | | ls: | | | 1Commonly | | | known as: | | | TOPROL-XL | | | morphine 30 | | | MG 12 hr | | | tabletQTY: | | | 60 | | | tabletRefil | | | ls: 0For | | | diagnoses: | | | Cervical | | | stenosis of | | | spine, | | | Cervical | | | radiculopat | | | hy, | | | Cervical | | | pain | | | (neck), | | | Pain of | | | lumbar | | | spine, | | | Spinal | | | stenosis of | | | lumbar | | | region with | | | neurogenic | | | | | | claudicatio | | | n, Lumbar | | | radiculopat | | | hyCommonly | | | known as: | | | MS | | | CONTINTake | | | 1 tablet by | | | mouth 2 | | | (two) times | | | daily. For | | | chronic | | | pain | | | nitroGLYCER | | | IN 0.4 MG | | | SL | | | tabletRefil | | | ls: | | | 0Commonly | | | known as: | | | NITROSTAT | | | omeprazole | | | 40 MG | | | capsuleRefi | | | lls: | | | 0Commonly | | | known as: | | | PRILOSEC | | | ondansetron | | | 4 MG | | | tabletRefil | | | ls: | | | 0Commonly | | | known as: | | | ZOFRAN | | | oxycodone | | | 30 MG | | | immediate | | | release | | | tabletQTY: | | | 180 | | | tabletRefil | | | ls: | | | 0Doctor's | | | comments: | | | TO BE | | | FILLED NO | | | EARLIER | | | THAN ANGÉLICA | | | 2017For | | | diagnoses: | | | Cervical | | | radiculopat | | | hy, Lumbar | | | radiculopat | | | hy, | | | Cervical | | | stenosis of | | | spine, | | | Spinal | | | stenosis of | | | lumbar | | | region with | | | neurogenic | | | | | | claudicatio | | | n, Cervical | | | pain | | | (neck), | | | Pain of | | | lumbar | | | spineCommon | | | ly known | | | as: | | | ROXICODONET | | | avila 1 | | | tablet by | | | mouth every | | | 4 (four) | | | hours as | | | needed | | | (BREAKTHROU | | | GH PAIN). | | | potassium | | | chloride 20 | | | MEQ | | | packetQTY: | | | 30 | | | packetRefil | | | ls: | | | 11Commonly | | | known as: | | | KLOR-CONTak | | | e 20 mEq by | | | mouth | | | daily. * | | | pramipexole | | | 0.25 MG | | | tabletRefil | | | ls: | | | 0Commonly | | | known as: | | | MIRAPEX * | | | pramipexole | | | 0.5 MG | | | tabletRefil | | | ls: | | | 0Commonly | | | known as: | | | MIRAPEX | | | rivaroxaban | | | 20 MG | | | tabletQTY: | | | 30 | | | tabletRefil | | | ls: | | | 11Commonly | | | known as: | | | XARELTOTake | | | 1 tablet | | | by mouth | | | daily with | | | dinner. | | | simvastatin | | | 40 MG | | | tabletQTY: | | | 30 | | | tabletRefil | | | ls: | | | 11Commonly | | | known as: | | | ZOCORTake 1 | | | tablet by | | | mouth | | | nightly. | | | sulfamethox | | | azole-trime | | | thoprim | | | 800-160 MG | | | per | | | tabletRefil | | | ls: | | | 0Commonly | | | known as: | | | BACTRIM DS | | | torsemide | | | 20 MG | | | tabletQTY: | | | 40 | | | tabletRefil | | | ls: | | | 11Commonly | | | known as: | | | DEMADEXTake | | | 1 tablet | | | by mouth | | | daily. | | | Takes 20 mg | | | daily | | | except 40 | | | mg M/W/Fri | | | UNABLE TO | | | FINDRefills | | | : 0 * | | | venlafaxine | | | 37.5 MG | | | tabletRefil | | | ls: | | | 0Commonly | | | known as: | | | EFFEXOR * | | | venlafaxine | | | 75 MG | | | tabletRefil | | | ls: | | | 0Commonly | | | known as: | | | EFFEXOR | | | Vitamin C | | | 500 MG | | | CapsRefills | | | : 0 ZICAM | | | COLD REMEDY | | | PORefills: | | | 0 * This | | | list has 4 | | | | | | medication( | | | s) that are | | | the same | | | as other | | | medications | | | prescribed | | | for you. | | | Read the | | | directions | | | carefully, | | | and ask | | | your doctor | | | or other | | | care | | | provider to | | | review | | | them with | | | you. You | | | might also | | | be taking | | | other | | | medications | | | not listed | | | above. If | | | you have | | | questions | | | about any | | | of your | | | other | | | medications | | | , talk to | | | the person | | | who | | | prescribed | | | them or | | | your | | | Primary | | | Care | | | Provider. | | | Where to | | | Get Your | | | Medications | | | These | | | medications | | | [facility] | | [address] - | | | [place], | | | [place] - [address] | | | [address], | | | [place] | | | [place] | | | [address] | | | Phone: | | | [phone] | | | 5 | | | methylPREDN | | | ISolone 4 | | | MG dose | | | pack | | | Discharge | | | took 25 | | | minutes, to | | | include | | | final | | | examination | | | , | | | discussion | | | of | | | admission, | | | and | | | preparation | | | of | | | prescriptio | | | ns, | | | instruction | | | s for | | | on-going | | | care, | | | follow-up | | | and | | | documentati | | | on of | | | discharge | | | summary.DEN | | | NIS G ANG, | | | ARNP8/ | | | 18 | +---+ + +--------+ +---+ + + | 10/03/ | Anesthesia | | Payal Wetzel, | | | 2018 | Event | | MD | | +--------+ +---+ + + | 10/03/ | Procedure | | | | | 2018 | Pass | | | | +--------+ +---+ + + | 10/03/ | Surgery | | Josh Ulloa MD | FORAMINOTOMY | | 2018 | | | | | +--------+ +---+ + + | 10/02/ | Orders Only | | Puneet Hager ARNP | | | 2018 | | | | | +--------+ +---+ + + | 09/25/ | Office | | Josh Ulloa MD | Cervical | | 2018 | Visit | | | radiculopathy; | | | | | | Lumbar | | | | | | radiculopathy; | | | | | | Cervical stenosis of | | | | | | spine; Spinal | | | | | | stenosis of lumbar | | | | | | region with | | | | | | neurogenic | | | | | | claudication; | | | | | | Cervical pain | | | | | | (neck); Pain of | | | | | | lumbar spine | +--------+ +---+ + + | 09/25/ | Telephone | | Emily Goldman, | | | 2018 | | | JUMPBASTING FACING BASTER | | +--------+ +---+ + + | 09/15/ | Documentati | | Lola Villanueva | [facility] ([facility] | 2017 | on Only | | MARCO ANTONIO Benjamin | LUCIEN CARDIAC | | | | | | CLEARANCE ) | +--------+ +---+ + + | 09/12/ | Documentati | | Lola Villanueva | Lito (CREATININE | | 2017 | on Only | | MAR[facility] ANTONIO Benjamin | RICA) | +--------+ +---+ + + | 09/12/ | Documentdomi | Lola Gannon | [facility] ([facility] | | 2017 | on Only | | MAR[facility] ANTONIO Benjamin | RAY ) | +--------+ +---+ + + | 09/03/ | Telephone | | Nidhi Raymond MA | | | 2018 | | | | | +--------+ +---+ + + | 09/03/ | Orders Only | | Nidhi Raymond MA | Cervical pain (neck) | | 2018 | | | | (Primary Dx); | | | | | | Cervical | | | | | | radiculopathy; | | | | | | Spinal stenosis of | | | | | | cervical region | +--------+ +---+ + + | 08/28/ | Office | | Josh Ulloa MD | Cervical | | 2018 | Visit | | | radiculopathy; | | | | | | Lumbar | | | | | | radiculopathy; | | | | | | Cervical stenosis of | | | | | | spine; Spinal | | | | | | stenosis of lumbar | | | | | | region with | | | | | | neurogenic | | | | | | claudication; | | | | | | Cervical pain | | | | | | (neck); Pain of | | | | | | lumbar spine | +--------+ +---+ + + | 08/26/ | Documentati | | Lola Villanueva | Other (CT CS ST | | 2018 | on Only | | MAR[facility] ANTONIO Benjamin | CHRISTAL 08/22/17) | +--------+ +---+ + + | 08/22/ | Hospital | | See, Medical | Neck pain | | 2017 | Encounter | | Record | | +--------+ +---+ + + | 08/22/ | Documentati | | Nidhi Raymond MA | Other (CT CERVICAL | | 2017 | on Only | | | ORDER) | +--------+ +---+ + + 08/22/ | Ancillary | | See, Medical | Neck pain | | 2018 | Orders | | Record | | +--------+ +---+ + 08/22/ | Documentati | | Lola Villanueva | Lito (CT | | 2018 | on Only | | MAR[facility]TONIO Benjamin | AUTHORIZATION TO ST | | | | | | CHRISTAL) | +--------+ +---+ + + | 08/22/ | Telephone | | Chelsea Inman, | | | 2017 | | | ENDOCRINOLOGY PHYSICIAN | | +--------+ +---+ + + | 08/19/ | Telephone | | Lola Villanueva | | 2017 | | | RMARCO ANTONIO | | +--------+ +---+ + + | 08/18/ | Telephone | | Lola Villanueva | | | 2017 | | | [facility] ANTONIO Benjamin | | +--------+ +---+ + + | 08/15/ | Documentati | Lola Gannon | Other (APPROVAL | 2017 | on Only | | RMARCO ANTONIO | MORPHINE ) | +--------+ +---+ + + 08/15/ | Documentdomi | Lola Gannon | Lito (PA | | 2017 | on Only | | R, MA | MORPHINE/OXYCODONE ) | +--------+ +---+ + + | 08/14/ | Orders Only | | Lola Villanueva | Cervical | | 2018 | | | MAR[facility] ANTONIO Benjamin | radiculopathy | | | | | | (Primary Dx) | +--------+ +---+ + + | 08/12/ | Office | | Josh Ulloa MD | Degenerative | | 2017 | Visit | | | cervical spinal | | | | | | stenosis (Primary | | | | | | Dx); Cervical | | | | | | radiculopathy | +--------+ +---+ + + | 08/11/ | Documentati | | Lola Villanueva | Other (OXYCODONE | | 2017 | on Only | | MARCO ANTONIO Benjamin | APPROVAL ) | +--------+ +---+ + + | 08/01/ | Hospital | | Tamika Hager | Cervical pain | | 2017 | Encounter | | HUAN Black 2, | (neck); Cervical | | | | | [facility] Brianna Nurse | radiculopathy; | | | | | Imaging, [facility] Huan | Cervical stenosis of | | | | | | spine | +--------+ +---+ + + | 08/01/ | Telephone | | Chelsea Inman, | | | 2017 | | | ENDOCRINOLOGY PHYSICIAN | | +--------+ +---+ + + | 08/01/ | Documentati | | Lola Villanueva | Lito (CASSIUS/BRYAN | 2017 | on Only | | MARCO ANTONIO Benjamin | RESULTS [facility] | | | | | | 07/31/17) | +--------+ +---+ + + | 07/31/ | Telephone | | Lola Villanueva | | | 2017 | | | MARCO ANTONIO Benjamin | | +--------+ +---+ + + | 07/30/ | Orders Only | | Lola Villanueva | Cervical | | 2017 | | | RMARCO ANTONIO | radiculopathy | | | | | | (Primary Dx) | +--------+ +---+ + + | 07/29/ | Procedure | | | | | 2017 | Pass | | | | +--------+ +---+ + + | 07/28/ | Telephone | | Chelsea Inman, | | | 2017 | | | ENDOCRINOLOGY PHYSICIAN | | +--------+ +---+ + + | 07/25/ | Telephone | | Nidhi Raymond MA | | 2017 | | | | | +--------+ +---+ + + | 07/24/ | Telephone | | Lola Villanueva | | 2017 | | | MARCO ANTONIO Benjamin | | +--------+ +---+ + + | 07/22/ | Telephone | Lola Gannon | | 2017 | | Jensen Benjamin MA | | +--------+ +---+ + + | 07/21/ | Documentati | | See, Medical | | 2017 | on Only | | Record | | +--------+ +---+ + + | 07/21/ | Telephone | | Lola Villanueva | | | 2017 | | | MARCO ANTONIO Benjamin | | +--------+ +---+ + + | 07/15/ | Telephone | | Asad Hwang MD | | | 2017 | | | | | +--------+ +---+ + + from Last 3 Months Family History + + +------+ + | Medical History | Relation | Name | Comments | + + +------+ + | Cancer | Father | | | + + +------+ + | Heart disease | Father | | | + + +------+ + | Cancer | Mother | | | + + +------+ + | Heart disease | Mother | | | + + +------+ + | High cholesterol | Mother | | | + + +------+ + | Hypertension | Mother | | | + + +------+ + | Malig hypertherm | Neg Hx | | | + + +------+ + + +------+ + + | Relation | Name | Status | Comments | + +------+ + + | Father | | | herat disease, cancer | | | | (Age | | | | | 57) | | + +------+ + + | Mother | | Alive | 75 yrs., triple bypass, stents,WPW,HTN, | | | | | Leukemia | + +------+ + + Social History + + + [...] on file | | + + + Last Filed Vital Signs + + + + | Vital Sign | Reading | Time Taken | + + + + | Blood Pressure | 134/75 | 10/04/2017 7:51 AM PDT | + + + + | Pulse | 65 | 10/04/2017 7:51 AM PDT | + + + + | Temperature | 36.5 C (97.7 F) | 10/04/2017 7:51 AM PDT | + + + + | Respiratory Rate | 16 | 10/04/2017 2:58 AM PDT | + + + + | Oxygen Saturation | 98% | 10/03/2017 7:37 PM PDT | + + + + | Inhaled Oxygen | - | - | | Concentration | | | + + + + | Weight | 110.6 kg (243 lb | 10/03/2017 9:37 AM PDT | | | 13.3 oz) | | + + + + | Height | 185.4 cm (6' 1") | 10/03/2017 9:37 AM PDT | + + + + | Body Mass Index | 32.17 | 10/03/2017 9:37 AM PDT | + + + + Plan of Treatment +--------+---------+ + + + | Date | Type | Specialty | Care Team | Description | +--------+---------+ + + + | 11/17/ | Office | | Britany Bernal | | | 2018 | Visit | | [address] | | | | | | [address] | | | | | | [place] [address] | | | | | | [phone] | | | | | | | | +--------+---------+ + + + + + + + + | Health Maintenance | Due Date | Last Done | Comments | + + + + + | Vaccine: | | | | | Dtap/Tdap/Td (1 - | 0 | | | | Tdap) | | | | + + + + + | Vaccine: | | | | | Pneumococcal 19-64 | 0 | | | | (PPSV23 only) Medium | | | | | Risk (1 of 1 - | | | | | PPSV23) | | | | + + + + + | Colon Cancer | | | | | Screening | 1 | | | | (Colonoscopy) | | | | + + + + + | Statin Therapy | | | | | (optimal intensity) | 7 | | | + + + + + | Lung Cancer | | 12/18/2015, 02/21/2006, | | | Screening | 7 | 08/05/2001 | | + + + + + | Vaccine: Influenza | | 12/06/2011, 12/03/2011, | | | (#1) | 8 | 11/02/2008, Additional history | | | | | exists | | + + + + + Implants + +------+------+ +--------+--------+--------+ | Implanted | Type | Area | Manufacture | Device | Expira | Model | | | | | r | | tion | / | | | | | | Identi | Date | Serial | | | | | | fier | | / Lot | + +------+------+ +--------+--------+--------+ | Azucena Worleym Putty Dbx | | | MTF - | | 06/16/ | [id number] | | 2.5c - | | | SYNTHES - | | 2016 | | | [id number]: | | | MTFS | | | /[id number] | | Qty: 1 on 01/25/2015 by | | | | | | [id number] | | Josh Ulloa MD | | | | | | [id number] | | | | | | | | 9 / | + +------+------+ +--------+--------+--------+ | Spacer Advncd Acf Lordotic | | | MTF - | | 06/18/ | [id number] | | 9mm - | | | SYNTHES - | | 2017 | | | [id number]: Qty: | | | MTFS | | | /[id number] | | 1 on 01/25/2015 by Artemio, | | | | | | [id number] | | MD Josh | | | | | | 46 / | + +------+------+ +--------+--------+--------+ | Spacer Advncd Acf Lordotic | | | MTF - | | 05/31/ | [id number] | | 9mm - | | | SYNTHES - | | 2017 | | | [id number]: | | | MTFS | | | /[id number] | | Qty: 1 on 01/25/2015 by Artemio, | | | | | | [id number] | | MD Josh | | | | | | 111 / | + +------+------+ +--------+--------+--------+ | Screw 4.0x18mm - | | | SYNTHES | | | 04.613 | | [id number]: Qty: 4 on | | | SPINE - | | | .518 / | | 01/25/2015 by Josh Ulloa, | | | SYNS | | | / | | | | | | | | | + +------+------+ +--------+--------+--------+ | Screw Vectra 4.5x18mm - | | | SYNTHES | | | 04.613 | | [id number]: Qty: 2 on | | | SPINE - | | | .568 / | | 01/25/2015 by Josh Ulloa, | | | SYNS | | | / | | MD | | | | | | | + +------+------+ +--------+--------+--------+ | Plate Douglas Vect 2 Lvl 38mm - | | | SYNTHES | | | 04.613 | | [id number]: Qty: 1 on | | | SPINE - | | | .138 / | | 01/25/2015 by Josh Ulloa, | | | SYNS | | | / | | MD | | | | | | | + +------+------+ +--------+--------+--------+ Procedures + +--------+ + + + | Procedure Name | Priori | Date/Time | Associated Diagnosis | Comments | | | ty | | | | + +--------+ + + + | BASIC METABOLIC | Routin | 10/04/2017 | | Results for this | | PANEL | e - AM | 5:11 AM | | procedure are in the | | | | PDT | | results section. | + +--------+ + + + | CBC W/AUTO DIFF | Routin | 10/04/2017 | | Results for this | | (REFLEX TO MANUAL) | e - AM | 5:11 AM | | procedure are in the | | | | PDT | | results section. | + +--------+ + + + | XR C-ARM FLUORO OVER | Routin | 10/03/2017 | | Results for this | | 1 HOUR | e | 2:46 PM | | procedure are in the | | | | PDT | | results section. | + +--------+ + + + | FORAMINOTOMY | | 10/03/2017 | Neck pain | | | | | 11:05 AM | | | | | | PDT | | | + +--------+ + + + +---+--------+ | | | | | Specia | | | l | | | Needs | | | | | | Nuvasi | | | ve | +---+--------+ + +--------+ + + + | TYPE AND SCREEN | STAT | 10/03/2017 | | Results for this | | | | 9:55 AM | | procedure are in the | | | | PDT | | results section. | + +--------+ + + + | BASIC METABOLIC | STAT | 10/03/2017 | | Results for this | | PANEL | | 9:54 AM | | procedure are in the | | | | PDT | | results section. | + +--------+ + + + | CBC W/AUTO DIFF | STAT | 10/03/2017 | | Results for this | | (REFLEX TO MANUAL) | | 9:54 AM | | procedure are in the | | | | PDT | | results section. | + +--------+ + + + | CT CERVICAL SPINE WO | Routin | 08/22/2017 | Neck pain | Results for this | | CONTRAST | e | 12:38 PM | | procedure are in the | | | | PDT | | results section. | + +--------+ + + + | MRI CERVICAL SPINE W | STAT | 08/01/2017 | Cervical pain | Results for this | | WO CONTRAST | | 3:36 PM | (neck) Cervical | procedure are in the | | | | PDT | radiculopathy | results section. | | | | | Cervical stenosis of | | | | | | spine | | + +--------+ + + + | EXTERNAL LAB: | Routin | 07/31/2017 | | Results for this | | MICROALBUMIN/CREATIN | e | 12:00 AM | | procedure are in the | | INE RATIO, URINE | | PDT | | results section. | + +--------+ + + + | EXTERNAL LAB: | Routin | 07/31/2017 | | Results for this | | MICROALBUMIN/CREATIN | e | 12:00 AM | | procedure are in the | | INE RATIO, URINE | | PDT | | results section. | + +--------+ + + + | EXTERNAL LAB: | Routin | 07/31/2017 | | Results for this | | MICROALBUMIN/CREATIN | e | 12:00 AM | | procedure are in the | | INE RATIO, URINE | | PDT | | results section. | + +--------+ + + + from Last 3 Months Results CBC w/auto diff (reflex to manual) (10/04/2017 5:11 AM)Only the most recent of 2 results w ithin the time period is included. + + + + + | Component | Value | Ref Range | Performed At | + + + + + | WBC | 15.17 (H) | 3.80 - 11.00 K/uL | [facility] | | | | | [facility] | + + + + + | RBC | 3.94 (L) | 4.20 - 5.70 M/uL | [facility] | | | | | [facility] | + + + + + | HGB | 12.7 (L) | 13.2 - 17.0 g/dL | [facility] | | | | | [facility] | + + + + + | HCT | 38.1 (L) | 39.0 - 50.0 % | [facility] | | | | | [facility] | + + + + + | MCV | 96.6 | 80.0 - 100.0 fl | [facility] | | | | | [facility] | + + + + + | MCH | 32.2 | 27.0 - 34.0 pg | [facility] | | | | | [facility] | + + + + + | MCHC | 33.3 | 32.0 - 35.5 g/dL | [facility] | | | | | [facility] | + + + + + | RDW SD | 54.3 (H) | 37 - 53 fl | [facility] | | | | | [facility] | + + + + + | PLT | 301 | 150 - 400 K/uL | [facility] | | | | | [facility] | + + + + + | MPV | 9.0 | fl | [facility] | | | | | [facility] | + + + + + | DIFF TYPE | MANUAL | | [facility] | | | [facility] | + + + + + | Neutrophils Manual | 77 | % | [facility] | | | | | [facility] | + + + + + | Bands | 2 | % | [facility] | | | | | [facility] | + + + + + | Lymphocytes Manual | 13 | % | [facility] | | | | | [facility] | + + + + + | Monocytes Manual | 8 | % | [facility] | | | | | [facility] | + + + + + | Neutrophils Absolute | 11.69 (H) | 1.90 - 7.40 K/uL | [facility] | | | | | [facility] | + + + + + | Bands Manual | 0.30 (H) | 0.00 - 0.20 K/uL | [facility] | | | | | [facility] | + + + + + | Lymphocytes Absolute | 1.97 | 1.00 - 3.90 K/uL | [facility] | | | | | [facility] | + + + + + | Monocytes Absolute | 1.21 (H) | 0.00 - 0.80 K/uL | [facility] | | | | | [facility] | + + + + + | MORPHOLOGY | RBC AND PLT MORPHOLOGY | | [facility] | | | APPEAR NORMALComment: | | LABORATORY | | | Testing performed at | | | | | L, [address] | | | | | [place] | | | | | [address] | | | + + + + + + + | Specimen | + + | Blood | + + + + + + + | Performing | Address | City/State/Zipcode | Phone Number | | Organization | | | | + + + + + | [facility] | [address] | [place] [address] | [phone] | | LABORATORY | [address] | | | + + + + + Basic metabolic panel (10/04/2017 5:11 AM)Only the most recent of 2 results within the is included. + + + + + | Component | Value | Ref Range | Performed At | + + + + + | SODIUM | 137 | 135 - 145 mmol/L | [facility] | | | | | LABORATORY | + + + + + | POTASSIUM | 5.1 (H)Comment: SPECIMEN | 3.5 - 4.9 mmol/L | [facility] | | | SL[facility] HEM[facility]YZ[facility] | | LABORATORY | + + + + + | CHLORIDE | 103 | 99 - 109 mmol/L | [facility] | | | | | LABORATORY | + + + + + | CO2 | 26 | 23 - 32 mmol/L | [facility] | | | | | LABORATORY | + + + + + | ANION GAP AGAP | 13 | 5 - 20 mmol/L | [facility] | | | | | LABORATORY | + + + + + | GLUCOSE | 108 (H)Comment: SPECIMEN | 65 - 99 mg/dL | [facility] | | | [facility] | | LABORATORY | + + + + + | BUN | 18 | 8 - 25 mg/dL | [facility] | | | | | LABORATORY | + + + + + | CREATININE | 1.2Comment: SPECIMEN | 0.70 - 1.30 mg/dL | [facility] | | | [facility] | | LABORATORY | + + + + + | BUN/CREAT | 15 | | [facility] | | | | | LABORATORY | + + + + + | CALCIUM | 8.2 (L) | 8.5 - 10.5 mg/dL | [facility] | | | | | LABORATORY | + + + + + | EGFR | >60Comment: GFR <60: | >60 mL/min/1.73m2 | [facility] | | | CHRONIC KIDNEY DISEASE, | | LABORATORY | | | IF FOUND OVER A 3 MONTH | | | | | PERIOD.GFR <15: KIDNEY | | | | | FAILURE.FOR | | | | | AMERICANS, MULTIPLY THE | | | | | CALCULATED GFR BY | | | | | 1.210.This eGFR is | | | | | calculated using the | | | | | MDRD IDMD traceable | | | | | equation.Testing | | | | | performed at [facility], [address] | | | | [facility], | | | | | [place] [address] | | | + + + + + + + | Specimen | + + | Blood | + + + + + + + | Performing | Address | City/State/Zipcode | Phone Number | | Organization | | | | + + + + + | [facility] | [address] | [place] [address] | [phone] | | LABORATORY | [address] | | | + + + + + X-ray C-arm fluoro over 1 hour (10/03/2017 2:46 PM) + + + | Impressions | Performed At | + + + | FINDINGS / IMPRESSION: 1. C3-C5 ACDF plating and screws are | [facility] | | noted. Overlying skin cresencio are seen in the lower neck. Median | RADIOLOGY | | sternotomy wires are seen in the upper chest. A surgical | | | instrument is noted at the cervicothoracic junction Electronically | | | signed by Antonio Griffiths DO on 10/03/2017 2:50 PM | | + + + + + + | Narrative | Performed At | + + + | [facility] XR C-ARM FLUORO OVER 1 HOUR 10/03/2017 2:46 PM | [facility] | | HISTORY: 57 years. Male. Neck pain. Spinal stenosis of | RADIOLOGY | | cervical region. Cervical radiculopathy. TECHNIQUE: Imaging of | | | the cervical spine obtained using a C-arm device. RADIATION DOSE | | | INDEX: Peak Skin Dose ? 3.73 mGy. COMPARISON: C-arm fluoroscopy | | | 01/25/2015. | | + + + + + | Procedure Note | + + | Azael, Rad Results In - 10/03/2017 2:55 PM LILIAN [facility]GA C-ARM FLUORO OVER 1 | | HOUR10/03/2017 2:46 PMHISTORY:57 years. Male. Neck pain. Spinal stenosis of cervical | | region. Cervical radiculopathy.TECHNIQUE:Imaging of the cervical spine obtained using a | | C-arm device.RADIATION DOSE INDEX:Peak Skin Dose ? 3.73 mGy.COMPARISON:C-arm | | fluoroscopy 01/25/2015.IMPRESSION:FINDINGS / IMPRESSION:1. C3-C5 ACDF plating and | | screws are noted. Overlying skin cresencio are seen in the lower neck. Median sternotomy | | wires are seen in the upper chest. A surgical instrument is noted at the | | cervicothoracic junction | |Imaging of the cervical spine obtained using a C-arm device. | | | |RADIATION DOSE INDEX: | |Peak Skin Dose ? 3.73 mGy. | | | |COMPARISON: | |C-arm fluoroscopy 01/25/2015. | | | |IMPRESSION: | |FINDINGS / IMPRESSION: | |1. C3-C5 ACDF plating and screws are noted. Overlying skin cresencio are seen in the lower neck. Median sternotomy wires are seen in the upper chest. A surgical instrument is noted at the cervicothoracic junction | | | | | + + + + + + + | Performing | Address | City/State/Zipcode | Phone Number | | Organization | | | | + + + + + | [facility] | [address] | [place] [address] | | + + + + + Type and Screen (Blood Bank) (10/03/2017 9:55 AM) + + + + + | Component | Value | Ref Range | Performed At | + + + + + | ABO/RH(D) | O POSITIVE | | [facility] | + + + + + | ANTIBODY SCREEN | NEGATIVE | | [facility] | + + + + + | ARM BAND NUMBER | [id number] | | [facility] | | | performed at [facility] [place];[address] | | | | | [address];[place] | | | | | [id number] | | | + + + + + + + | Specimen | + + | Blood | + + + + + + + | Performing | Address | City/State/Zipcode | Phone Number | | Organization | | | | + + + + + | [facility] | [address] | [place] [address] | | + + + + + CT cervical spine without contrast (08/22/2017 12:38 [...] | + + + + + | [facility] | [address] | [place] [address] | | + + + + + MRI cervical spine w wo contrast (08/01/2017 3:36 PM) + + + | Impressions | Performed At | + + + | 1. Loss of vertebral body height by about 30% of C3, with some | [facility] | | enhancement about the superior endplate. CT may be helpful to evaluate | RADIOLOGY | | further New vertebral compression of C3 favored, but is no | | | retropulsion or retrolisthesis at that level 2. Deformity of the | | | canal at and through the fusion especially from C5 through C7. There | | | is abutment of the cord from the anterior right of midline due to | | | posterior productive changes 3. Foraminal stenosis which is at | | | times severe, but multilevel. For example asymmetric severe left | | | foraminal stenosis at C4-C5 could contribute to some symptoms 4. | | | 4. Bilateral significant foraminal stenosis and disc endplate disease | | | at C7-T1 Electronically signed by Eze Back MD on | | | 08/01/2017 3:55 PM | | + + + + + + | Narrative | Performed At | + + + | HISTORY: 57 year-old male with pain, stenosis. Right upper extremity | [facility] | | radicular symptoms. TECHNIQUE: MR of the cervical spine. | RADIOLOGY | | Examination pre-and post the uneventful administration of 10cc of | | | MultiHance. Prior study for comparison, 25 May 2015. FINDINGS: | | | ALIGNMENT: Cervical lordosis reversed from C3-C4 through C7, along | | | the fusion. The fusion is mature at C5-6-7. Anterior plate across 3 | | | cervical levels from C3 through C5. BONE: Significant | | | misregistration from the hardware. There is some vertebral body height | | | loss at C3, with some mild enhancement in the superior endplate on | | | sequence 9, but the misregistration hardware is potentially | | | confounding. When image 8 series 2 as compared to image 7 series 5 of | | | imaging from 2006, there is been about 30% loss of vertebral body | | | height at that level Misregistration from the endplate is very | | | limiting below this, and there is mature fusion by bone at the C6-C7 | | | levels DISCS AND DISC SPACES: Either absent or diminutive | | | throughout. There are endplate signal changes at the cervicothoracic | | | junction on sequence 4, C7-T1. Seemingly degenerative. There is no | | | evidence of infectious or inflammatory discitis Significant | | | misregistration from the fusion. Occasional posterior bulges to be | | | discussed below CORD AND CANAL: Deformed by the malalignment from | | | C5 through C7. The ventral cord is abutted. The canal is narrowed. See | | | below for discussion of individual levels. The cord itself is | | | without evidence of abnormal enhancement, no atrophy. No proven | | | intrinsic signal abnormality. The cervical occipital relationships | | | are normal. Paraspinal soft tissues, to the constraints of | | | collimation and technique are notable for misregistration through | | | sternal wires. Some artifact about the posterior fossa.. Post | | | contrast there is some abnormal enhancement of the interspinous | | | ligaments from C5 through C7 as well as the endplates at the C7-T1 | | | interval. Seemingly degenerative and/or stress related, no evidence of | | | abnormally enhancing fluid collection, mass or lesion. No evidence of | | | abnormal enhancement in the cord itself C2-C3: Facet hypertrophy | | | on the right with mild narrowing of the right foramina C2- C3: | | | Mild narrowing of the canal, vertebral joint and facet arthropathy | | | contribute to moderate foraminal stenosis on the left. Moderate to | | | severe foraminal stenosis on the right. Slightly worse when compared | | | to prior imaging from a few years ago. C3- C4: Exuberant facet | | | hypertrophy on the left causing severe left foraminal stenosis. There | | | is also edematous hypertrophy and malalignment which begins here, | | | deforming the mild narrowing of the canal and some ventral cord | | | abutment Posterior disc is without significant protrusion C4- | | | C5: Deformity of the canal, contributes to the mild stenosis of the | | | canal and there is again severe left foraminal stenosis. Mostly due to | | | left facet and uncovertebral joint arthropathy. C5- C6: Deformity | | | of the canal is greatest here, there is posterior endplate productive | | | changes which abuts the ventral cord and there is moderate stenosis | | | of the canal. Impact is greater to the right of midline. There is | | | moderate to severe right foraminal stenosis and moderate left | | | foraminal narrowing. Facet arthropathy contributes C6- C7: Fused | | | level, with ventral abutment of the cord by endplate productive | | | changes. There is moderate stenosis the spinal canal. Bilateral mild | | | to moderate foraminal narrowing, worse on the right C7- T1: Canal | | | is intact, although there is moderate stenosis of the foramina due to | | | marginal productive changes about the endplate junctions. What is | | | seen of the upper thoracic spine demonstrates occasional disc | | | protrusions, greatest at T2-T3, not fully evaluated here | | + + + + -+ | Procedure Note | + -+ | Azael, Rad Results In - 08/01/2017 4:00 PM PDT HISTORY: 57 year-old male with pain, | | stenosis. Right upper extremity radicular symptoms.TECHNIQUE: MR of the cervical spine. | | Examination pre-and post the uneventful administration of 10cc of MultiHance. Prior | | study for comparison, 25 May 2015.FINDINGS:ALIGNMENT: Cervical lordosis reversed from | | C3-C4 through C7, along the fusion. The fusion is mature at C5-6-7. Anterior plate | | across 3 cervical levels from C3 through C5.BONE: Significant misregistration from the | | hardware. There is some vertebral body height loss at C3, with some mild enhancement in | | the superior endplate on sequence 9, but the misregistration hardware is potentially | | confounding. When image 8 series 2 as compared to image 7 series 5 of imaging from 2006, | | there is been about 30% loss of vertebral body height at that levelMisregistration from | | the endplate is very limiting below this, and there is mature fusion by bone at the | | C6-C7 levelsDISCS AND DISC SPACES: Either absent or diminutive throughout. There are | | endplate signal changes at the cervicothoracic junction on sequence 4, C7-T1. Seemingly | | degenerative. There is no evidence of infectious or inflammatory discitisSignificant | | misregistration from the fusion. Occasional posterior bulges to be discussed belowCORD | | AND CANAL: Deformed by the malalignment from C5 through C7. The ventral cord is abutted. | | The canal is narrowed. See below for discussion of individual levels.The cord itself is | | without evidence of abnormal enhancement, no atrophy. No proven intrinsic signal | | abnormality.The cervical occipital relationships are normal. Paraspinal soft tissues, to | | the constraints of collimation and technique are notable for misregistration through | | sternal wires. Some artifact about the posterior fossa..Post contrast there is some | | abnormal enhancement of the interspinous ligaments from C5 through C7 as well as the | | endplates at the C7-T1 interval. Seemingly degenerative and/or stress related, no | | evidence of abnormally enhancing fluid collection, mass or lesion. No evidence of | | abnormal enhancement in the cord itselfC2-C3: Facet hypertrophy on the right with mild | | narrowing of the right foraminaC2- C3: Mild narrowing of the canal, vertebral joint and | | facet arthropathy contribute to moderate foraminal stenosis on the left. Moderate to | | severe foraminal stenosis on the right. Slightly worse when compared to prior imaging | | from a few years ago.C3- C4: Exuberant facet hypertrophy on the left causing severe left | | foraminal stenosis. There is also edematous hypertrophy and malalignment which begins | | here, deforming the mild narrowing of the canal and some ventral cord abutmentPosterior | | disc is without significant protrusionC4- C5: Deformity of the canal, contributes to the | | mild stenosis of the canal and there is again severe left foraminal stenosis. Mostly | | due to left facet and uncovertebral joint arthropathy.C5- C6: Deformity of the canal is | | greatest here, there is posterior endplate productive changes which abuts the ventral | | cord and there is moderate stenosis of the canal. Impact is greater to the right of | | midline.There is moderate to severe right foraminal stenosis and moderate left foraminal | | narrowing. Facet arthropathy contributesC6- C7: Fused level, with ventral abutment of | | the cord by endplate productive changes. There is moderate stenosis the spinal canal. | | Bilateral mild to moderate foraminal narrowing, worse on the rightC7- T1: Canal is | | intact, although there is moderate stenosis of the foramina due to marginal productive | | changes about the endplate junctions.What is seen of the upper thoracic spine | | demonstrates occasional disc protrusions, greatest at T2-T3, not fully evaluated | | hereIMPRESSION:1. Loss of vertebral body height by about 30% of C3, with some | | enhancement about the superior endplate. CT may be helpful to evaluate furtherNew | | vertebral compression of C3 favored, but is no retropulsion or retrolisthesis at that | | level2. Deformity of the canal at and through the fusion especially from C5 through C7. | | There is abutment of the cord from the anterior right of midline due to posterior | | productive changes3. Foraminal stenosis which is at times severe, but multilevel. For | | example asymmetric severe left foraminal stenosis at C4-C5 could contribute to some | | symptoms 4.4. Bilateral significant foraminal stenosis and disc endplate disease at | | [id number] signed by Eze Back MD on 08/01/2017 3:55 PM | |2. Deformity of the canal at and through the fusion especially from C5 through C7. There is abutment of the cord from the anterior right of midline due to posterior productive changes | | | |3. Foraminal stenosis which is at times severe, but multilevel. For example asymmetric [place] re left foraminal stenosis at C4-C5 could contribute to some symptoms 4. | | | |4. Bilateral significant foraminal stenosis and disc endplate disease at C7-T1 | | | | | + -+ + + + + + | Performing | Address | City/State/Zipcode | Phone Number | | Organization | | | | + + + + + | [facility] | [address] | [place] [address] | | + + + + + EXTERNAL LAB: MICROALBUMIN/CREATININE RATIO, URINE (07/31/2017)Only the most recent of 3 re sults within the time period is included. + +-------+ + + | Component | Value | Ref Range | Performed At | + +-------+ + + | Microalbumin/Creatin | 15.0 | | [facility] | | [facility], External | | | [facility] | + +-------+ + + + + + + + | Performing | Address | City/State/Zipcode | Phone Number | | Organization | | | | + + + + + | [facility] | [address] | [place] [address] | | | LAB[facility]ATORY | 13 | | | + + + + + from Last 3 Months Insurance + +--------+ +------+-------+ + | Payer | Benefi | Subscriber | Type | Phone | Address | | | t Plan | ID | | | | | | / | | | | | | | Group | | | | | + +--------+ +------+-------+ + | MEDICAID | [employer] | [id number] | | | [address] | | | [place] | | | | [place] | | | [place] | | | | [phone] | | | [employer] | | | | | + +--------+ +------+-------+ + + +--------+ +--------+ + + | Guarantor Name | Accoun | Relation to | Date | Phone | Billing Address | | | t Type | Patient | of | | | | | | | | | | + +--------+ +--------+ + + | HAZEL BEE | Person | Self [birth year] Home: | [address] | | | al/Fam | | [phone] | [phone] | [place] | | | alba | | | [phone] | [phone] | + +--------+ +--------+ + +
--- OUTSIDE RECORDS SUMMARY | ~2017-10-05 | XMS | Encounter Summary ---
Demographics + + + | Address | [address] | | | [place] [address] | + + + | Home Phone | | + + + | Preferred Language | Unknown | + + + | Marital Status | | + + + | Caodaism Affiliation | 1041 | + + + | Race | Unknown | + + + | Ethnic Group | Unknown | + + + Author + + + | Author | [facility] | + + + | Organization | [facility] | + + + | Address | Unknown | + + + | Phone | Unavailable | + + + Support + + + + + | Name | Relationship | Address | Phone | + + + + + | Elayne De La Rosa | ECON | [address] | | | | [place] | | | | | [address] | | + + + + + Care Team Providers + +------+ + | Care Auricular Therapist Name | Role | Phone | + +------+ + | Jose Hall MD | PCP | | + +------+ + Reason for Visit + + + | Reason | Comments | + + + | Follow-up | Cervical f/u | + + + | Neck Pain | RUE rad to T1 w/numbness/tingling "No use of R hand" | + + + Consult and Treat (Routine) + +--------+ + + + + | Status | Reason | Specialty | Diagnoses / | Referred By | Referred To | | | | | Procedures | Contact | Contact | + +--------+ + + + + | Authorized | | Orthopedic | Diagnoses | Alex, | Yanna Cartwright | | | | Surgery | Spinal | Ottoniel Cuevas MD | Orthopedic | | | | | stenosis, | [address] | Spine [address] | | | | | lumbar | [address] | [address] | | | | | region | [place] | | | | | Radiculopath | [place] | [place], [place] | | | | | y, cervical | [address] | [address] | | | | | region | Phone: | Phone: | | | | | Spinal | [phone] | [phone] | | | | | stenosis, | Fax: | Fax: | | | | | cervical | [phone] | [phone] | | | | | region | | | | | | | Radiculopath | | | | | | | y, sacral | | | | | | | and | | | | | | | sacrococcyge | | | | | | | al region | | | + +--------+ + + + + Encounter Details +--------+---------+ + + + | Date | Type | Department | Care Team | Description | +--------+---------+ + + + | 09/25/ | Office | [facility] | Josh Ulloa MD | Cervical | | 2018 | Visit | [facility] | [address] | radiculopathy; | | | | [address] | [place] [address] | Lumbar | | | | [place], [place] | [phone] | radiculopathy; | | | | [address] | | Cervical stenosis of | | | | [phone] | | spine; Spinal | | | | | | stenosis of lumbar | | | | | | region with | | | | | | neurogenic | | | | | | claudication; | | | | | | Cervical pain | | | | | | (neck); Pain of | | | | | | lumbar spine | +--------+---------+ + + + Social History + + [...] + + + as of this encounter Last Filed Vital Signs + + + + | Vital Sign | Reading | Time Taken | + + + + | Blood Pressure | 128/78 | 09/25/2017 10:09 AM PDT | + + + + | Pulse | 84 | 09/25/2017 10:09 AM PDT | + + + + | Temperature | - | - | + + + + | Respiratory Rate | - | - | + + + + | Oxygen Saturation | - | - | + + + + | Inhaled Oxygen | - | - | | Concentration | | | + + + + | Weight | 104.3 kg (230 lb) | 09/25/2017 10:09 AM PDT | + + + + | Height | 185.4 cm (6' 1") | 09/25/2017 10:09 AM PDT | + + + + | Body Mass Index | 30.34 | 09/25/2017 10:09 AM PDT | + + + + in this encounter Progress Notes Puneet Hager ARNP - 09/25/2017 10:30 AM PDTFormatting of this note may be different from michael trujillo. Subjective: Chief Complaint: Severe weakness right upper extremity/hand. Patient ID: Jose Maria De La Rosa is a 57 y.o. male returns clinic requesting refill of his pain me dication. He should not has noticed progressive weakness over his right hand area and he has difficulty gripping and overall use of his right hand. We have recently since our recommend ation for surgery. Initial recommendation was to consider posterior cervical fusion from C3- T2. Review of Systems Musculoskeletal: Positive for neck pain. Neurological: Positive for weakness and numbness. All other systems reviewed and are negative. Social History Social History Marital status: Spouse name: N/A Number of children: N/A Years of education: N/A Occupational History disabled Social History Main Topics Smoking status: Former Smoker Packs/day: 1.00 Years: 30.00 Types: Cigarettes Quit date: 02/11/2012 Smokeless tobacco: Former User Types: Chew Comment: chewed one year Alcohol use 0.6 oz/week 1 Cans of beer per week Comment: occasionally Drug use: Yes Frequency: 3.0 times per week Types: Marijuana Comment: past hx Sexual activity: Not on file Other Topics Concern Not on file Social History Narrative No narrative on file Past Surgical History Procedure Laterality Date CARDIAC CATHETERIZATION CARDIAC SURGERY CERVICAL FUSION N/A 01/25/2015 Procedure: CERVICAL - DISC & FUSION - ANTERIOR; Surgeon: Josh Ulloa MD; Location: [facility] MAIN OR; Service: Ortho/Spine; Laterality: N/A; c3-5 CHOLECYSTECTOMY COLONOSCOPY HARDWARE REMOVAL hips/neck/wrist hardware inserted HARDWARE REMOVAL N/A 01/25/2015 Procedure: CERVICAL - HARDWARE REMOVAL; Surgeon: Josh Ulloa MD; Location: [facility] MAIN OR ; Service: Ortho/Spine; Laterality: N/A; c5/6, plate removal LUMBAR SPINE SURGERY 6 inch rods and screws inserted on both sides of spine pericardectomy normal coronaries REMOVAL IMPLANT SUPERFICIAL SPX SPINE SURGERY C spine UNLISTED PROCEDURE ARTHROSCOPY Past Medical History Diagnosis Date Atrial fibrillation (HCC) Cardiomyopathy (HCC) Cervical radiculopathy 07/03/2016 CHF (congestive heart failure) (HCC) Chronic kidney disease COPD (chronic obstructive pulmonary disease) (HCC) Coronary artery disease Hyperlipidemia Hypertension Joint pain Obesity (BMI 35.0-39.9 without comorbidity) Obesity hypoventilation syndrome (HCC) noncompliant with BIPAP use Orthostatic hypotension JOSE A (obstructive sleep apnea) PSVT (paroxysmal supraventricular tachycardia) ([facility]) Pulmonary embolism ([facility]) Sleep apnea Patient Active Problem List Diagnosis Cardiomyopathy, nonischemic Paroxysmal atrial fibrillation (HCC) Pericarditis, restrictive HLD (hyperlipidemia) Obesity (BMI 35.0-39.9 without comorbidity) COPD (chronic obstructive pulmonary disease) Dysphagia Status post cervical spinal fusion Obesity hypoventilation syndrome JOSE A (obstructive sleep apnea) Spinal stenosis of cervical region Lumbar stenosis Cervical radiculopathy Lumbar spine pain Lumbar radiculopathy Cervical pain (neck) Current Outpatient Prescriptions: albuterol (PROVENTIL HFA;VENTOLIN HFA) 108 (90 BASE) MCG/ACT inhaler, Inhale 2 puffs i nto the lungs every 4 (four) hours as needed for Wheezing., Disp: , Rfl: allopurinol (ZYLOPRIM) 300 MG tablet, Take 1 tablet by mouth daily., Disp: 90 tablet, Rfl: 3 Ascorbic Acid (VITAMIN C) 500 MG CAPS, Take by mouth., Disp: , Rfl: diazePAM (VALIUM) 10 MG tablet, Take 0.5-1 tablets by mouth every 12 (twelve) hours as needed (muscle spasms)., Disp: 60 tablet, Rfl: 1 dronedarone (MULTAQ) 400 MG tablet, Take 1 tablet by mouth 2 (two) times daily with me als., Disp: 60 tablet, Rfl: 11 gabapentin (NEURONTIN) 300 MG capsule, Take 4 capsules by mouth 3 (three) times daily. 3 tabs AM, 1 tab at noon, 3 tabs at PM, Disp: 90 capsule, Rfl: 1 Homeopathic Products (ZICAM COLD REMEDY PO), Take 1 tablet by mouth as needed., Disp: , Rfl: metoprolol (TOPROL-XL) 50 MG 24 hr tablet, Take 1 tablet by mouth daily. 75 mg qhs, Di sp: , Rfl: 1 morphine (MS CONTIN) 30 MG 12 hr tablet, Take 1 tablet by mouth 2 (two) times daily. F or chronic pain, Disp: 60 tablet, Rfl: 0 morphine (MS CONTIN) 30 MG 12 hr tablet, Take 1 tablet by mouth 2 (two) times daily. F or chronic pain, Disp: 60 tablet, Rfl: 0 nitroGLYCERIN (NITROSTAT) 0.4 MG SL tablet, Place 0.4 mg under the tongue every 5 (fiv e) minutes as needed. , Disp: , Rfl: omeprazole (PRILOSEC) 40 MG capsule, , Disp: , Rfl: ondansetron (ZOFRAN) 4 MG tablet, Take 4 mg by mouth once. 2 mg q am, Disp: , Rfl: oxycodone (ROXICODONE) 30 MG immediate release tablet, Take 1 tablet by mouth every 4 (four) hours as needed (BREAKTHROUGH PAIN)., Disp: 180 tablet, Rfl: 0 oxycodone (ROXICODONE) 30 MG immediate release tablet, Take 1 tablet by mouth every 4 (four) hours as needed (BREAKTHROUGH PAIN)., Disp: 180 tablet, Rfl: 0 potassium chloride (KLOR-CON) 20 MEQ packet, Take 20 mEq by mouth daily., Disp: 30 pac ket, Rfl: 11 pramipexole (MIRAPEX) 0.25 MG tablet, Take 1 tablet by mouth daily., Disp: , Rfl: 0 pramipexole (MIRAPEX) 0.5 MG tablet, Take 0.75 mg by mouth nightly. taking 3 pills at night, Disp: , Rfl: rivaroxaban (XARELTO) 20 MG tablet, Take 1 tablet by mouth daily with dinner., Disp: 3 0 tablet, Rfl: 11 simvastatin (ZOCOR) 40 MG tablet, Take 1 tablet by mouth nightly., Disp: 30 tablet, Rf l: 11 sulfamethoxazole-trimethoprim (BACTRIM DS) 800-160 MG per tablet, Take 1 tablet by elisabeth th 2 (two) times daily., Disp: , Rfl: 0 torsemide (DEMADEX) 20 MG tablet, Take 1 tablet by mouth daily. Takes 20 mg daily exce pt 40 mg //Fri, Disp: 40 tablet, Rfl: 11 UNABLE TO FIND, Bi-Pap machine for severe sleep apnea, Disp: , Rfl: venlafaxine (EFFEXOR) 37.5 MG tablet, Take 1 tablet by mouth daily., Disp: , Rfl: 0 venlafaxine (EFFEXOR) 75 MG tablet, Take 1 tablet by mouth daily., Disp: , Rfl: 0 venlafaxine (EFFEXOR-XR) 37.5 MG 24 hr capsule, Take 37.5 mg by mouth daily with break fast. takinf 37.5 mg q am and 75 mg qhs, Disp: , Rfl: Allergies Allergen Reactions Codeine Other (See Comments) Hydrochlorothiazide Swelling Codeine Other (See Comments) abstracted Paxil [Paroxetine Hydrochloride] Other (See Comments) abstracted Objective: BP 128/78 | Pulse 84 | Ht 1.854 m (6' 1") | Wt 104.3 kg (230 lb) | BMI 30.34 kg/m Physical Exam General: Well nourished, well developed Skin: WNL HEENT: NC/AT Respiratory: Normal excursion Cervical: Positive Spurling sign right more the left with 4/5 right interossei and tire vulcanizer st rength. Diminished right C8 and T1 distribution IMAGING: Cervical MRI 2018 [facility] revealed a right-sided disc protrusion T1/T2. Assessment and Plan: 1. Cervical radiculopathy 2. Lumbar radiculopathy 3. Cervical stenosis of spine 4. Spinal stenosis of lumbar region with neurogenic claudication 5. Cervical pain (neck) 6. Pain of lumbar spine Medications Placed This Encounter Medications morphine (MS CONTIN) 30 MG 12 hr tablet Sig: Take 1 tablet by mouth 2 (two) times daily. For chronic pain Dispense: 60 tablet Refill: 0 oxycodone (ROXICODONE) 30 MG immediate release tablet Sig: Take 1 tablet by mouth every 4 (four) hours as needed (BREAKTHROUGH PAIN). Dispense: 180 tablet Refill: 0 diazePAM (VALIUM) 10 MG tablet Sig: Take 0.5-1 tablets by mouth every 12 (twelve) hours as needed (muscle spasms). Dispense: 60 tablet Refill: 1 Mr. De La Rosa has noticed progressive weakness using his right hand. We are still awaiting jessica gical clearance. At this point we would like to consider a right-sided T1/T2 foraminotomy/di scectomy instead of consideration for a large reconstruction posteriorly from C3-T2. Patient may still need this type of surgery at some point but would like to address the immediate c oncern with a disc herniation on the right-sided T1/T2. Note: We spent approximately 25 minutes in [id number] time of which greater than 50% was involved in counseling/coordination of care discussing perioperative expectations and marcy ring/contrasting previous and past imaging studies. in this encounter Plan of Treatment +--------+---------+ + + + | Date | Type | Specialty | Care Team | Description | +--------+---------+ + + + | 11/17/ | Office | Cardiology | Britany Bernal | | | 2018 | Visit | | [address] | | | | | | [address] | | | | | | [place] [address] | | | | | | [phone] | | | | | | | | +--------+---------+ + + + as of this encounter Visit Diagnoses + + | Diagnosis | + + | Cervical radiculopathy | + + | Brachial neuritis or radiculitis nos | + + | Lumbar radiculopathy | + + | Thoracic or lumbosacral neuritis or radiculitis, unspecified | + + | Cervical stenosis of spine | + + | Spinal stenosis in cervical region | + + | Spinal stenosis of lumbar region with neurogenic claudication | + + | Spinal stenosis, lumbar region, with neurogenic claudication | + + | Cervical pain (neck) | + + | Cervicalgia | + + | Pain of lumbar spine | + + | Lumbago | + +
--- OUTSIDE RECORDS SUMMARY | ~2017-10-05 | XMS | Encounter Summary ---
Demographics + + + | Address | [address] | | | [place] [address] | + + + | Home Phone | | + + + | Preferred Language | Unknown | + + + | Marital Status | | + + + | Temple Affiliation | 1041 | + + + | Race | Unknown | + + + | Ethnic Group | Unknown | + + + Author + + + | Author | [facility] | + + + | Organization | [facility] | + + + | Address | Unknown | + + + | Phone | Unavailable | + + + Support + + + + + | Name | Relationship | Address | Phone | + + + + + | Elayne De La Rosa | ECON | [address] | | | | | [place] | | | | | [address] | | + + + + + Care Team Providers + +------+ + | Care Supervisor Water Softener Service Name | Role | Phone | + +------+ + | Jose Hall MD | PCP | | + +------+ + Reason for Visit +--------+ + | Reason | Comments | +--------+ + | Other | BUN/CRATININE RESULTS [facility] 07/31/17 | +--------+ + Encounter Details +--------+ + + + + | Date | Type | Department | Care Team | Description | +--------+ + + + + | 08/01/ | Documentati | Delphine | Lola Villanueva | Other (BUN/CRATININE | | 2018 | on Only | [facility] | [facility] | RESULTS [facility] | | | | [address] | | 07/31/17) | | | | [place] | | | | | | [address] | | | | | | [phone] | | | +--------+ + + + [...] [address] | | | | | | [place] [address] | | | | | | [phone] | | | | | | | [...] + + + in this encounter Results EXTERNAL LAB: MICROALBUMIN/CREATININE RATIO, URINE (07/31/2017) + +-------+ + + | Component | [...] + + + | [facility] | [address] | [place] [address] | | | LABORATORY | 13 | | | + + + + + EXTERNAL LAB: MICROALBUMIN/CREATININE RATIO, URINE (07/31/2017) + + + + + | Component | Value | Ref Range | Performed At | + + + + + | Microalbumin/Creatin | 15.0Comment: Creatininem | | [facility] | | ine Ratio, External | serum 1.40 07/31/17 | | LABORATORY | + + + + + + + + + + | Performing | Address | City/State/Zipcode | Phone Number | | Organization | | | | + + + + + | [facility] | [address] | [place] [address] | | | LABORATORY | 13 | | | + + + + + EXTERNAL LAB: MICROALBUMIN/CREATININE RATIO, URINE (07/31/2017) + +-------+ + + | Component | [...] + + + | [facility] | [address] | [place] [address] | | | LABORATORY | 13 | | | + + + + + in this encounter Visit Diagnoses Not on filein this encounter"
--- OUTSIDE RECORDS SUMMARY | ~2017-10-05 | XMS | Encounter Summary ---
Demographics + + + | Address | [address] | | | [place] [address] | + + + | Home Phone | | + + + | Preferred Language | Unknown | + + + | Marital Status | | + + + | Yazidism Affiliation | 1041 | + + + | Race | Unknown | + + + | Ethnic Group | Unknown | + + + Author + + + | Author | [facility] | + + + | Organization | [facility] | + + + | Address | Unknown | + + + | Phone | Unavailable | + + + Support + + + + + | Name | Relationship | Address | Phone | + + + + + | Elayne De La Rosa | ECON | [address] | | | | | [place] | | | | | [address] | | + + + + + Care Team Providers + +------+ + | Care Crts Name | Role | Phone | + +------+ + | Jose Hall MD | PCP | | + +------+ + Encounter Details +--------+ + + + + | Date | Type | Department | Care Team | Description | +--------+ + + + + | 08/19/ | Telephone | [facility] | Lola Villanueva | | | 2017 | | [facility] | [address] | | | | | [address] | | | | | | [place] | | | | | | [address] | | | | | | [phone] | | | +--------+ + + + [...] | | | | | [place] [address] | | | | | | [phone] | | | | | | | | +--------+---------+ + + + as of this encounter Visit Diagnoses Not on filein this encounter"
--- OUTSIDE RECORDS SUMMARY | ~2017-10-05 | XMS | Encounter Summary ---
Demographics + + + | Address | [address] | | | [place] [address] | + + + | Home Phone | | + + + | Preferred Language | Unknown | + + + | Marital Status | | + + + | Yazdanism Affiliation | 1041 | + + + | Race | Unknown | + + + | Ethnic Group | Unknown | + + + Author + + + | Author | [facility] | + + + | Organization | [facility] | + + + | Address | Unknown | + + + | Phone | Unavailable | + + + Support + + + + + | Name | Relationship | Address | Phone | + + + + + | Elayne De La Rosa | ECON | [address] | | | | | [place] | | | | | [address] | | + + + + + Care Team Providers + +------+ + | Care Child Daycare Worker Name | Role | Phone | + [...] [place] | | | | | | [address] | | | | | | [phone] | | | +--------+ + + + [...] | 2018 | Visit | | [address] | | | | | | [address] | | | | | | [place] [address] | | | | | | [phone] | | | | | | | [...] | [address] | [place] [address] | | | LABORATORY | 13 | [...] | [address] | [place] [address] | | | LABORATORY | 13 | [...] | [address] | [place] [address] | | | LABORATORY | 13 | | | + + + + + in this encounter Visit Diagnoses Not on filein this encounter"
--- OUTSIDE RECORDS SUMMARY | ~2017-10-05 | XMS | Encounter Summary ---
Demographics + + + | Address | [address] | | | [place] [address] | + + + | Home Phone | | + + + | Preferred Language | Unknown | + + + | Marital Status | | + + + | Alevism Affiliation | 1041 | + + + | Race | Unknown | + + + | Ethnic Group | Unknown | + + + Author + + + | Author | [facility] | + + + | Organization | [facility] | + + + | Address | Unknown | + + + | Phone | Unavailable | + + + Support + + + + + | Name | Relationship | Address | Phone | + + + + + | Elayne De La Rosa | ECON | [address] | | | | | [place] | | | | | [address] | | + + + + + Care Team Providers + +------+ + | Care Social Media Marketing Analyst Name | Role | Phone | + +------+ + | Jose Hall MD | PCP | | + +------+ + Reason for Visit +--------+ + | Reason | Comments | +--------+ + | Other | CREATININE ORDER | +--------+ + Encounter Details +--------+ + + + + | Date | Type | Department | Care Team | Description | +--------+ + + + + | 09/12/ | Documentati | Gabbiealeyda | Lola Villanueva | Other (CREATININE | | 2018 | on Only | [facility] | [facility] [address] [address] | RICA) | | | | [address] | | | | | | [place] | | | | | | [address] | | | | | | [phone] | | | +--------+ + + + [...] | | | | | [place] [address] | | | | | | [phone] | | | | | | | | +--------+---------+ + + + as of this encounter Visit Diagnoses Not on filein this encounter"
--- OUTSIDE RECORDS SUMMARY | ~2017-10-05 | XMS | Encounter Summary ---
Demographics + + + | Address | [address] | | | [place] [address] | + + + | Home Phone | | + + + | Preferred Language | Unknown | + + + | Marital Status | | + + + | Judaism Affiliation | 1041 | + + + | Race | Unknown | + + + | Ethnic Group | Unknown | + + + Author + + + | Author | [facility] | + + + | Organization | [facility] | + + + | Address | Unknown | + + + | Phone | Unavailable | + + + Support + + + + + | Name | Relationship | Address | Phone | + + + + + | Elayne De La Rosa | ECON | [address] | | | | | [place] | | | | | [address] | | + + + + + Care Team Providers + +------+ + | Care Dementia Program Director Name | Role | Phone | + +------+ + | Jose Hall MD | PCP | | + +------+ + Encounter Details +--------+ + + + + | Date | Type | Department | Care Team | Description | +--------+ + + + + | 07/15/ | Telephone | [facility] | Asad Hwang MD | | | 2018 | | Pulmonology [address] | [address] | | | | | [address] | [place] [address] | | | | | [place], [place] | [phone] | | | | | [address] | | | | | | [phone] | | | +--------+ + + + [...] [address] | | | | | | [place] [address] | | | | | | [phone] | | | | | | | | +--------+---------+ + + + as of this encounter Visit Diagnoses Not on filein this encounter"
--- OUTSIDE RECORDS SUMMARY | ~2017-10-05 | XMS | Encounter Summary ---
Demographics + + + | Address | [address] | | | [place] [address] | + + + | Home Phone | | + + + | Preferred Language | Unknown | + + + | Marital Status | | + + + | Mormon Affiliation | 1041 | + + + | Race | Unknown | + + + | Ethnic Group | Unknown | + + + Author + + + | Author | [facility] | + + + | Organization | [facility] | + + + | Address | Unknown | + + + | Phone | Unavailable | + + + Support + + + + + | Name | Relationship | Address | Phone | + + + + + | Elayne De La Rosa | ECON | [address] | | | | | [place] | | | | | [address] | | + + + + + Care Team Providers + +------+ + | Care History Department Chair Name | Role | Phone | + +------+ + | Jose Hall MD | PCP | | + +------+ + Reason for Referral MRI/CAT Scan (Emergency) + +--------+ + + + + | Status | Reason | Specialty | Diagnoses / | Referred By | Referred To | | | | | Procedures | Contact | Contact | + +--------+ + + + + | Canceled | | | Diagnoses | Jensen Ulloa | | | | | Status post | MD Josh | HOSPITAL | | | | | cervical | [address] | | | | | spinal | [address] | [place] | | | | | fusion | APRIL, | [place] | | | | | Cervical | [place] [address] | [address] | | | | | radiculopath | Phone: | Phone: | | | | | y | [phone] | [phone] | | | | | Procedures | Fax: | Fax: | | | | | MRI cervical | [phone] | [phone] | | | | | spine | | | | | | | without | | | | | | | contrast | | | + +--------+ + + + + Encounter Details +--------+ + + + + | Date | Type | Department | Care Team | Description | +--------+ + + + + | 07/21/ | Telephone | [facility] | Lola Villauneva | | | 2017 | | [facility] | [facility] | | | | | [address] | | | | | | [place] | | | | | | [address] | | | | | | [phone] | | | +--------+ + + + [...] | | | | | [place] [address] | | | | | | [phone] | | | | | | | | +--------+---------+ + + + + +--------+ + + | Name | Priori | Associated Diagnoses | Order Schedule | | | ty | | | + +--------+ + + | MRI cervical spine without | STAT | Status post | Expected: | | contrast | | cervical spinal | 07/21/2017, Expires: | | | | fusion Cervical | 01/20/2018 | | | | radiculopathy | | + +--------+ + + as of this encounter Visit Diagnoses + + | Diagnosis | + + | Status post cervical spinal fusion - Primary | + + | Arthrodesis status | + + | Cervical radiculopathy | + + | Brachial neuritis or radiculitis nos | + +"
--- OUTSIDE RECORDS SUMMARY | ~2017-10-05 | XMS | Encounter Summary ---
Demographics + + + | Address | [address] | | | [place] [address] | + + + | Home Phone | | + + + | Preferred Language | Unknown | + + + | Marital Status | | + + + | Jew Affiliation | 1041 | + + + | Race | Unknown | + + + | Ethnic Group | Unknown | + + + Author + + + | Author | [facility] | + + + | Organization | [facility] | + + + | Address | Unknown | + + + | Phone | Unavailable | + + + Support + + + + + | Name | Relationship | Address | Phone | + + + + + | Elayne De La Rosa | ECON | [address] | | | | | [place] | | | | | [address] | | + + + + + Care Team Providers + +------+ + | Care Printed Circuit Board Assembly Repairer Name | Role | Phone | + +------+ + | Jose Hall MD | PCP | | + +------+ + Encounter Details +--------+ + + + + | Date | Type | Department | Care Team | Description | +--------+ + + + + | 07/29/ | Procedure | [facility] | | | | 2018 | Pass | [facility] MRI | | | | | | [address] | | | | | | [place] [address] | | | | | | [phone] | | | +--------+ + + + [...] | | | | | [place] [address] | | | | | | [phone] | | | | | | | | +--------+---------+ + + + as of this encounter Visit Diagnoses Not on filein this encounter"
--- OUTSIDE RECORDS SUMMARY | ~2017-10-05 | XMS | Encounter Summary ---
Demographics + + + | Address | [address] | | | [place] [address] | + + + | Home Phone | | + + + | Preferred Language | Unknown | + + + | Marital Status | | + + + | Gnosticist Affiliation | 1041 | + + + | Race | Unknown | + + + | Ethnic Group | Unknown | + + + Author + + + | Author | [facility] | + + + | Organization | [facility] | + + + | Address | Unknown | + + + | Phone | Unavailable | + + + Support + + + + + | Name | Relationship | Address | Phone | + + + + + | Elayne De La Rosa | ECON | [address] | | | | | [place] | | | | | [address] | | + + + + + Care Team Providers + +------+ + | Care Inside Sales Assistant Name | Role | Phone | + [...] + + | 08/22/ | Hospital | [facility] | See, Medical | Neck pain | | 2018 | Encounter | [facility] | Record | | | | | RADIOLOGY [address] | | | [address] | [address] | | | | | | [place] [address] | | | | | | [phone] | | | +--------+ + + + [...] | | | | | [place] [address] | | | | | | [phone] | | | | | | | [...] [facility] | [address] | [place] [address] | | + + + + + in this encounter Visit Diagnoses + + | Diagnosis | + + | Neck pain | + + | Cervicalgia | + +"
--- OUTSIDE RECORDS SUMMARY | ~2017-10-05 | XMS | Encounter Summary ---
Demographics + + + | Address | [address] | | | [place] [address] | + + + | Home Phone | | + + + | Preferred Language | Unknown | + + + | Marital Status | | + + + | Advent Affiliation | 1041 | + + + | Race | Unknown | + + + | Ethnic Group | Unknown | + + + Author + + + | Author | [facility] | + + + | Organization | [facility] | + + + | Address | Unknown | + + + | Phone | Unavailable | + + + Support + + + + + | Name | Relationship | Address | Phone | + + + + + | Elayne De La Rosa | ECON | [address] | | | | | [place] | | | | | [address] | | + + + + + Care Team Providers + +------+ + | Care Event Lighting Specialist Name | Role | Phone | + +------+ + | Jose Hall MD | PCP | | + +------+ + Encounter Details +--------+ + + + + | Date | Type | Department | Care Team | Description | +--------+ + + + + | 09/03/ | Orders Only | [facility] | Nidhi Raymond MA | Cervical pain (neck) | | 2018 | | [facility] | | (Primary Dx); | | | | [address] | | Cervical | | | | [place] | | radiculopathy; | | | | [address] | | Spinal stenosis of | | | | [phone] | | cervical region | +--------+ + + + + Social [...] [address] | | | | | | [place] [address] | | | | | | [phone] | | | | | | | | +--------+---------+ + + + + +--------+ + + | Name | Priori | Associated Diagnoses | Order Schedule | | | ty | | | + +--------+ + + | Case Request Operating Room: | Routin | Cervical pain | Expected: 10/04/2017 | | CERVICAL - FUSION - POSTERIOR | e | (neck) Cervical | (Approximate), | | | | radiculopathy | Expires: 09/03/2018 | | | | Spinal stenosis of | | | | | cervical region | | + +--------+ + + as of this encounter Visit Diagnoses + + | Diagnosis | + + | Cervical pain (neck) - Primary | + + | Cervicalgia | + + | Cervical radiculopathy | + + | Brachial neuritis or radiculitis nos | + + | Spinal stenosis of cervical region | + + | Spinal stenosis in cervical region | + +"
--- OUTSIDE RECORDS SUMMARY | ~2017-10-05 | XMS | Encounter Summary ---
Demographics + + + | Address | [address] | | | [place] [address] | + + + | Home Phone | | + + + | Preferred Language | Unknown | + + + | Marital Status | | + + + | Hindu Affiliation | 1041 | + + + | Race | Unknown | + + + | Ethnic Group | Unknown | + + + Author + + + | Author | [facility] | + + + | Organization | [facility] | + + + | Address | Unknown | + + + | Phone | Unavailable | + + + Support + + + + + | Name | Relationship | Address | Phone | + + + + + | Elayne De La Rosa | ECON | [address] | | | | | [place] | | | | | [address] | | + + + + + Care Team Providers + +------+ + | Care Utility Aide Name | Role | Phone | + +------+ + | Jose Hall MD | PCP | | + +------+ + Encounter Details +--------+ + + + + | Date | Type | Department | Care Team | Description | +--------+ + + + + | 09/25/ | Telephone | [facility] | Emily Goldman, | | | 2017 | | [facility] [place] | PRIYA | | | | | [address] | | | | | | [place] | | | | | | [address] | | | | | | [phone] | | | +--------+ + + + [...] | | | | | [place] [address] | | | | | | [phone] | | | | | | | | +--------+---------+ + + + as of this encounter Visit Diagnoses Not on filein this encounter"
--- OUTSIDE RECORDS SUMMARY | ~2017-10-05 | XMS | Encounter Summary ---
Demographics + + + | Address | [address] | | | [place] [address] | + + + | Home Phone | | + + + | Preferred Language | Unknown | + + + | Marital Status | | + + + | Lutheran Affiliation | 1041 | + + + | Race | Unknown | + + + | Ethnic Group | Unknown | + + + Author + + + | Author | [facility] | + + + | Organization | [facility] | + + + | Address | Unknown | + + + | Phone | Unavailable | + + + Support + + + + + | Name | Relationship | Address | Phone | + + + + + | Elayne De La Rosa | ECON | [address] | | | | | [place] | | | | | [address] | | + + + + + Care Team Providers + +------+ + | Care Filling Mixer Name | Role | Phone | + +------+ + | Jose Hall MD | PCP | | + +------+ + Reason for Visit +--------+ + | Reason | Comments | +--------+ + | Other | CT AUTHORIZATION TO [facility] | +--------+ + Encounter Details +--------+ + + + + | Date | Type | Department | Care Team | Description | +--------+ + + + + | 08/22/ | Documentati | [facility] | Lola Villanueva | Other (CT | | 2018 | on Only | [facility] | [place] [facility] | AUTHORIZATION TO | | | | [address] | | CHRISTAL) | | | | [place] | | | | | | [address] | | | | | | [phone] | | | +--------+ + + + [...] | | | | | [place] [address] | | | | | | [phone] | | | | | | | | +--------+---------+ + + + as of this encounter Visit Diagnoses Not on filein this encounter"
--- OUTSIDE RECORDS SUMMARY | ~2017-10-05 | XMS | Encounter Summary ---
Demographics + + + | Address | [address] | | | [place] [address] | + + + | Home Phone | | + + + | Preferred Language | Unknown | + + + | Marital Status | | + + + | Scientologist Affiliation | 1041 | + + + | Race | Unknown | + + + | Ethnic Group | Unknown | + + + Author + + + | Author | [facility] [employer] [facility] | + + + | Organization | [facility] | + + + | Address | Unknown | + + + | Phone | Unavailable | + + + Support + + + + + | Name | Relationship | Address | Phone | + + + + + | Elayne De La Rosa | ECON | [address] | | | | | [place] | | | | | [address] | | + + + + + Care Team Providers + +------+ + | Care Motor Vehicle Representative Name | Role | Phone | + +------+ + | Jose Hall MD | PCP | | + +------+ + Encounter Details +--------+ + + + + | Date | Type | Department | Care Team | Description | +--------+ + + + + | 07/21/ | Documentati | [facility] | See, Medical | | | 2018 | on Only | Information | Record | | | | | Management [address] | | | | | | [address] | | | | | | [place] [address] | | | | | | [phone] | | | +--------+ + + + [...] [address] | | | | | | [place] [address] | | | | | | [phone] | | | | | | | | +--------+---------+ + + + as of this encounter Visit Diagnoses Not on filein this encounter"
--- OUTSIDE RECORDS SUMMARY | ~2017-10-05 | XMS | Encounter Summary ---
Demographics + + + | Address | [address] | | | [place] [address] | + + + | Home Phone | | + + + | Preferred Language | Unknown | + + + | Marital Status | | + + + | Adventist Affiliation | 1041 | + + + | Race | Unknown | + + + | Ethnic Group | Unknown | + + + Author + + + | Author | [facility] | + + + | Organization | [facility] | + + + | Address | Unknown | + + + | Phone | Unavailable | + + + Support + + + + + | Name | Relationship | Address | Phone | + + + + + | Elayne De La Rosa | ECON | [address] | | | | | [place] | | | | | [address] | | + + + + + Care Team Providers + +------+ + | Care Plugging Machine Operator Name | Role | Phone | + +------+ + | Jose Hall MD | PCP | | + +------+ + Reason for Visit + + + | Reason | Comments | + + + | Follow-up | Cervical result review today | + + + | Neck Pain | R>L CSP to Cassidy PARIS arm completly numb. Cannot straighten out | | | fingers on R hand | + + + Consult and Treat (Routine) + +--------+ + + + + | Status | Reason | Specialty | Diagnoses / | Referred By | Referred To | | | | | Procedures | Contact | Contact | + +--------+ + + + + | Authorized | | Orthopedic | Diagnoses | Alex | Yanna Akers | | | | Surgery | Spinal | Ottoniel Cuevas MD | Orthopedic | | | | | stenosis, | [address] | [address]ine [address] | | | | | lumbar | [address] | [address] | | | | | region | [place] | [place] | | | | | Radiculopath | [place] | [place] | | | | | y, cervical | [address] | [address] | | | | | region | Phone: | Phone: | | | | | Spinal | [phone] | [phone] | | | | | stenosis, | Fax: | Fax: | | | | | cervical | [phone] | [phone] | | | | | region | [...] Description | +--------+---------+ + + + | 08/28/ | Office | [facility] | Josh Ulloa MD | Cervical | | 2018 | Visit | [facility] | [address] | radiculopathy; | | | | [address] | [place] [address] | Lumbar | | | | [place] | [phone] | radiculopathy; | | | | [address] | | Cervical stenosis of | | | | [phone] | | spine; Spinal | | | [...] + + + | Blood Pressure | 105/64 | 08/28/2017 10:07 AM PDT | + + + + | Pulse | 72 | 08/28/2017 10:07 AM PDT | + + + + [...] Weight | 104.3 kg (230 lb) | 08/28/2017 10:07 AM PDT | + + + + | Height | - | - | + + + + | Body Mass Index | 30.34 | 08/28/2017 10:07 AM PDT | + + + + in this encounter Progress Notes Puneet Hager ARNP - 08/28/2017 10:30 AM PDTFormatting of this note may be different from michael trujillo. Subjective: Chief Complaint: Severe right upper extremity weakness Patient ID: Jose Maria De La Rosa is a 57 y.o. male who returns clinic to discuss imaging studies. Patient previously underwent ACDF at [facility] January 2015. He initially did well but recently has been noticing severe right upper extremity radiculopathy more towards the right C8 and T [address] scan was updated to review the fusion prior to consideration of foraminot saba versus large posterior cervical fusion. Patient is also here for medication refill. Review of Systems Musculoskeletal: Positive for neck [...] - ANTERIOR; Surgeon: Josh Ulloa MD; Location: [facility]; Service: Ortho/Spine; Laterality: N/A; c3-5 CHOLECYSTECTOMY COLONOSCOPY HARDWARE REMOVAL hips/neck/wrist hardware inserted HARDWARE REMOVAL N/A 01/25/2015 Procedure: CERVICAL - HARDWARE REMOVAL; Surgeon: Josh Ulloa MD; Location: [facility] ; Service: Ortho/Spine; Laterality: N/A; [...] (obstructive sleep apnea) PSVT (paroxysmal supraventricular tachycardia) (HCC) Pulmonary embolism (HCC) Sleep apnea Patient Active Problem List Diagnosis [...] mouth daily., Disp: 90 tablet, Rfl: 3 diazePAM (VALIUM) 10 MG tablet, Take 0.5-1 [...] by mouth daily., Disp: , Rfl: 0 rivaroxaban (XARELTO) 20 MG tablet, Take 1 [...] sleep apnea, Disp: , Rfl: venlafaxine (EFFEXOR) 75 MG tablet, Take 1 tablet by mouth daily., Disp: , Rfl: 0 venlafaxine (EFFEXOR-XR) 37.5 MG 24 hr capsule, Take 37.5 mg by mouth daily with break fast. takinf 37.5 mg q am and 75 mg qhs, Disp: , Rfl: Ascorbic Acid (VITAMIN C) 500 MG CAPS, Take by mouth., Disp: , Rfl: morphine (MS CONTIN) 30 MG 12 hr tablet, Take 1 tablet by mouth 2 (two) times daily. F or chronic pain (Patient not taking: Reported on 08/28/2017), Disp: 60 tablet, Rfl: 0 oxycodone (ROXICODONE) 30 MG immediate release tablet, Take 1 tablet by mouth every 4 (four) hours as needed (BREAKTHROUGH PAIN). (Patient not taking: Reported on 08/28/2017), Dis p: 180 tablet, Rfl: 0 pramipexole (MIRAPEX) 0.5 MG tablet, Take 0.75 mg by mouth nightly. taking 3 pills at night, Disp: , Rfl: venlafaxine (EFFEXOR) 37.5 MG tablet, Take 1 tablet by mouth daily., Disp: , Rfl: 0 Allergies Allergen Reactions Codeine Other (See Comments) Hydrochlorothiazide Swelling Codeine Other (See Comments) abstracted Paxil [Paroxetine Hydrochloride] Other (See Comments) abstracted Objective: BP 105/64 | Pulse 72 | Wt 104.3 kg (230 lb) | BMI 30.34 kg/m Physical Exam General: Well nourished, well developed Skin: WNL HEENT: NC/AT Respiratory: Normal excursion Cervical: Positive Spurling sign right more the left with a fair amount of weakness 4 diaz s/5 over his right interossei and dry boss strength. Diminished sensation over his right C8 and T1 distribution. Reflex trace on the right tricep as well as on the left side. Pedro sign negative bilate rally Motor: See above. Sensory: Diminished right C8 and T1 distribution IMAGING: Cervical MRI and CT scan 2018 [facility] shows right-sided disc protrusion between T1/T2 severely compromising resulting in severe foraminal stenosis right more the left. 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 Assessment and Plan: 1. Cervical radiculopathy 2. Lumbar radiculopathy 3. Cervical stenosis of spine 4. Spinal stenosis of lumbar region with neurogenic claudication 5. Cervical pain (neck) 6. Pain of lumbar spine Mr. De La Rosa is a 57-year-old gentleman who has a nonunion between C3-C5. He also has a right -sided disc protrusion between T1/T2 severely compromising the exiting nerve root. Recommend ation at this point is to consider a posterior cervical fusion from C3-T2 followed by decomp ression right-sided T1/T2. Given his cardiac condition history recommend is to obtain cardia c clearance prior to surgery. He is also on Xarelto which will need to be weaned off prior t o surgery at least one week prior. Patient will discuss these clearance with his cardiologis t. We will follow-up after surgery has been approved. Medications Placed This Encounter Medications morphine (MS CONTIN) 30 MG 12 hr tablet Sig: Take 1 tablet by mouth 2 (two) times daily. For chronic pain Dispense: 60 tablet Refill: 0 oxycodone (ROXICODONE) 30 MG immediate release tablet Sig: Take 1 tablet by mouth every 4 (four) hours as needed (BREAKTHROUGH PAIN). Dispense: 180 tablet Refill: 0 gabapentin (NEURONTIN) 300 MG capsule Sig: Take 4 capsules by mouth 3 (three) times daily. 3 tabs AM, 1 tab at noon, 3 tabs at PM Dispense: 90 capsule Refill: 1 diazePAM (VALIUM) 10 MG tablet Sig: Take 0.5-1 tablets by mouth every 12 (twelve) hours as needed (muscle spasms). Dispense: 60 tablet Refill: 1 No orders of the defined types were placed in this encounter. Note: We spent approximately 25 minutes in [id number] time of which greater than 50% was [...] [address] | | | | | | [place] [address] | | | | | | [phone] | | | | | | | [...] | + + | Lumbago | + +"
--- OUTSIDE RECORDS SUMMARY | ~2017-10-05 | XMS | Encounter Summary ---
Demographics + + + | Address | [address] | | | [place] [address] | + + + | Home Phone | | + + + | Preferred Language | Unknown | + + + | Marital Status | | + + + | Christianity Affiliation | 1041 | + + + | Race | Unknown | + + + | Ethnic Group | Unknown | + + + Author + + + | Author | [facility] | + + + | Organization | [facility] | + + + | Address | Unknown | + + + | Phone | Unavailable | + + + Support + + + + + | Name | Relationship | Address | Phone | + + + + + | Elayne De La Rosa | ECON | [address] | | | | | [place] | | | | | [address] | | + + + + + Care Team Providers + +------+ + | Care Airport Duty Manager Name | Role | Phone | + +------+ + | Jose Hall MD | PCP | | + +------+ + Encounter Details +--------+ + + + + | Date | Type | Department | Care Team | Description | +--------+ + + + + | 07/30/ | Orders Only | [facility] | Lola Villanueva | Cervical | | 2018 | | [facility] | [address] | radiculopathy | | | | [address] | | (Primary Dx) | | | | [place] | | | | | | [address] | | | | | | [phone] | | | +--------+ + + + [...] [address] | | | | | | [place] [address] | | | | | | [phone] | | | | | | | | +--------+---------+ + + + as of this encounter Visit Diagnoses + + | Diagnosis | + + | Cervical radiculopathy - Primary | + + | Brachial neuritis or radiculitis nos | + +"
--- OUTSIDE RECORDS SUMMARY | ~2017-10-05 | XMS | Encounter Summary ---
Demographics + + + | Address | [address] | | | [place] [address] | + + + | Home Phone | | + + + | Preferred Language | Unknown | + + + | Marital Status | | + + + | Rastafari Affiliation | 1041 | + + + | Race | Unknown | + + + | Ethnic Group | Unknown | + + + Author + + + | Author | [facility] [employer] | + + + | Organization | [facility] [employer] | + + + | Address | Unknown | + + + | Phone | Unavailable | + + + Support + + + + + | Name | Relationship | Address | Phone | + + + + + | Elayne De La Rosa | ECON | [address] | | | | | [place] | | | | | [address] | | + + + + + Care Team Providers + +------+ + | Care Supervisor Home Energy Consultant Name | Role | Phone | + +------+ + | Jose Hall MD | PCP | | + +------+ + Reason for Visit + + + | Reason | Comments | + + + | Follow-up | cervical radiating down R arm/hand pain | + + + Consult and Treat [...] | | | | | region | [place], | [place] | | | | | Radiculopath | [place] | [place] | | | | | y, cervical | [address] | [address] | | | | | region | Phone: | Phone: | | | | | Spinal | [phone] | [phone] | | | | | stenosis, | Fax: | Fax: | | | | | cervical | [phone] | [phone] | | | | | region | [...] Description | +--------+---------+ + + + | 08/12/ | Office | [facility] | Josh Ulloa MD | Degenerative | | 2018 | Visit | [facility] | [address] | cervical spinal | | | | [address] | [place] [address] | stenosis (Primary | | | | [place], [place] | [phone] | Dx); Cervical | | | | [address] | | radiculopathy | | | | [phone] | | | +--------+---------+ + + + Social History [...] + + + | Blood Pressure | 120/65 | 08/12/2017 10:17 AM PDT | + + + + | Pulse | 60 | 08/12/2017 10:17 AM PDT | + + + + | Temperature | - | - | + + + + | Respiratory Rate | - | - | + + + + | Oxygen Saturation | - | - | + + + + | Inhaled Oxygen | - | - | | Concentration | | | + + + + | Weight | 108.9 kg (240 lb) | 08/12/2017 10:17 AM PDT | + + + + | Height | 185.4 cm (6' 1") | 08/12/2017 10:17 AM PDT | + + + + | Body Mass Index | 31.66 | 08/12/2017 10:17 AM PDT | + + + + in this encounter Progress Notes Lola Villanueva MA - 08/12/2017 10:30 AM PDTSent back to you to sign, orders only ivis nter. Thank you!Josh Ulloa MD - 08/12/2017 10:30 AM PDTFormatting of this note may be dif ferent from the original. Subjective: Chief Complaint: Right sided severe radiculopathy into the right hand right-sided neck HPI: Pt. With dorsal foot wound seen by podiatry, managed by Dr. Lee. 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 The left ventricle is normal in size, wall thickness and systolic function EF 55-60%. 2. The right ventricle is normal in size and function. 3. No significant valvular pathology. 4. There is no pericardial effusion. August 01, 2017 cervical MRI (sedation MRI at [facility]) Profound RIGHT T1-T2 right extruded HNP/disc and moderate to severe RIGHT C7-T1 foraminal s tenosis. Axial cuts do not extend to the T1/T1 level. Social History Occupational History disabled Social History Main Topics Smoking status: Former Smoker Packs/day: 1.00 Years: 30.00 Types: Cigarettes Quit date: 02/11/2012 Smokeless tobacco: Former User Types: Chew Comment: chewed one year Alcohol use 0.6 oz/week 1 Cans of beer per week Comment: occasionally Drug use: Yes Frequency: 3.0 times per week Types: Marijuana Comment: past hx Sexual activity: Not on file Past Medical History Diagnosis Date Atrial fibrillation (HCC) Cardiomyopathy (HCC) Cervical radiculopathy 07/03/2016 CHF (congestive heart failure) (HCC) Chronic kidney disease COPD (chronic obstructive pulmonary disease) (HCC) Coronary artery disease Hyperlipidemia Hypertension Joint pain Obesity (BMI 35.0-39.9 without comorbidity) Obesity hypoventilation syndrome (HCC) noncompliant with BIPAP use Orthostatic hypotension JOSE A (obstructive sleep apnea) PSVT (paroxysmal supraventricular tachycardia) ([facility]) Pulmonary embolism (HCC) Sleep apnea Past Surgical History Procedure Laterality Date CARDIAC CATHETERIZATION CARDIAC SURGERY CERVICAL FUSION N/A 01/25/2015 Procedure: CERVICAL - DISC & FUSION - ANTERIOR; Surgeon: Josh Ulloa MD; Location: [facility] MAIN OR; Service: Ortho/Spine; Laterality: N/A; c3-5 CHOLECYSTECTOMY COLONOSCOPY HARDWARE REMOVAL hips/neck/wrist hardware inserted HARDWARE REMOVAL N/A 01/25/2015 Procedure: CERVICAL - HARDWARE REMOVAL; Surgeon: Josh Ulloa MD; Location: [facility] MAIN OR ; Service: Ortho/Spine; Laterality: N/A; c5/6, plate removal LUMBAR SPINE SURGERY 6 inch rods and screws inserted on both sides of spine pericardectomy normal coronaries REMOVAL IMPLANT SUPERFICIAL SPX SPINE SURGERY C spine UNLISTED PROCEDURE ARTHROSCOPY Current Outpatient Prescriptions: albuterol (PROVENTIL HFA;VENTOLIN HFA) [...] 11 gabapentin (NEURONTIN) 300 MG capsule, Take 2 capsules by mouth 3 (three) times daily. (Patient taking differently: Take 1,200 mg by mouth 3 (three) times daily. Two tabs AM, 1 t ab at noon, 2 tabs at PM), Disp: 180 capsule, Rfl: 3 Homeopathic Products (ZICAM COLD REMEDY PO), Take 1 tablet by mouth as needed., Disp: , Rfl: morphine (MS CONTIN) 30 [...] 30 pac ket, Rfl: 11 pramipexole (MIRAPEX) 0.5 MG tablet, Take 0.75 [...] 20 mg daily exce pt 40 mg M//Fri, Disp: 40 tablet, Rfl: 11 UNABLE TO FIND, Bi-Pap machine for severe sleep apnea, Disp: , Rfl: venlafaxine (EFFEXOR-XR) 37.5 MG 24 hr capsule, Take 37.5 mg by mouth daily with break fast. takinf 37.5 mg q am and 75 mg qhs, Disp: , Rfl: @MICHELLE@ Family History Problem Relation Age of Onset Heart disease Mother Hypertension Mother High cholesterol Mother Cancer Mother Cancer Father Heart disease Father Malig hypertherm Neg Hx Review of Systems Objective: BP 120/65 | Pulse 60 | Ht 1.854 m (6' 1") | Wt 108.9 kg (240 lb) | BMI 31.66 kg/m Assessment: 1. Degenerative cervical spinal stenosis 2. Cervical radiculopathy The patient has an extruded disc herniation at T1-T2 on the right side in addition to sever e foraminal stenosis C7/T1 and T1-T2 which correlates with the patient's severe right upper extremity radiculopathy as well as profound weakness of paint line supervisor. I would like to obtain a cervical CT scan to evaluate his proximal fusion status. This bill l help with surgical planning to consider a posterior cervical foraminotomy at C7-T1/T1-T2 v ersus C2-T2 2/3 fusion if the patient indeed has significant lack of cervical fusion mass pr esent and/or evolving nonunion. The patient and family would like to proceed with the larger of the procedures as his healt h is not the best and undergo multiple anesthesias is quite risky and thus they would prefer to perform the C2-T2 posterior cervical fusion and decompression on the right side at the l evels as described above. The patient also has to have a reasonable clean wound of his right lower extremity without evidence of profound infection prior to surgical intervention. We will obtain a CT scan with further surgical planning a recommendations based on clinical correlation with the patient symptomology I will also ask RADS to mobilize axials down beyond T2/3. No orders of the defined types were placed in this encounter. No orders of the defined types were placed in this encounter. Note: We spent approximately 40 minutes in dpuq-ot-uqan time of which greater than 50% was involved in counseling/coordination of care discussing perioperative expectations and marcy ring/contrasting previous and past imaging studies. in this encounter Plan of Treatment +--------+---------+ + + + | Date | Type | Specialty | Care Team | Description | +--------+---------+ + + + | 11/17/ | Office | Cardiology | Gabe Britany | | | 2018 | Visit | | [address] | | | | | | [address] | | | | | | [place] [address] | | | | | | [phone] | | | | | | | | +--------+---------+ + + + as of this encounter Visit Diagnoses + + | Diagnosis | + + | Degenerative cervical spinal stenosis - Primary | + + | Spinal stenosis in cervical region | + + | Cervical radiculopathy | + + | Brachial neuritis or radiculitis nos | + +
--- OUTSIDE RECORDS SUMMARY | ~2017-10-05 | XMS | Clinical Summary ---
Demographics + + + | Address | [address] | | | [place] [address] | + + + | Home Phone | | + + + | Preferred Language | Unknown | + + + | Marital Status | | + + + | Taoism Affiliation | CHR | + + + | Race | White | + + + | Ethnic Group | Not or | + + + Author + + + | Author | [facility] | + + + | Organization | [facility] | + + + | Address | Unknown | + + + | Phone | Unavailable | + + + Support + + + + + | Name | Relationship | Address | Phone | + + + + + | ANSON BEE | ECON | [address] | | | | | [place] | | | | | [address] | | + + + + + | COLUMBA BEE | ECON | Unknown | | + + + + + Care Team Providers + +------+ + | Care Scale Mechanic Name | Role | Phone | + +------+ + | Jose Hall MD | PP | | + +------+ + Source Comments EDGAR is fully live on both EpicCare Ambulatory and EpicCare InPatient.[facility] Allergies + + + + + + | Active Allergy | Reactions | Severity | Noted | Comments | | | | | Date | | + + + + + + | Codeine | Pruritus | | 03/20/19 | | | | | | 08 | | + + + + + + | Hydrochlorothiazide | Edema | Medium | 10/14/19 | | | | | | 16 | | + + + + + + | Paroxetine Hcl | | Low | 11/21/19 | Warmth to | | | | | 10 | face/head | + + + + + + Current Medications + + + +---------+------+------+-------+ | Prescription | Sig. | Disp. | Refills | Star | End | Statu | | | | | | t | Date | s | | | | | | Date | | | + + + +---------+------+------+-------+ | nitroglycerin | Place 0.4 mg under | | | | | Activ | | (NITROQUICK) 0.4 mg | tongue every five | | | | | e | | Sublingual Tablet, | minutes as needed. | | | | | | | Sublingual | Do not crush. Place | | | | | | | | under tongue and | | | | | | | | allow to dissolve. | | | | | | | | Administer every 5 | | | | | | | | minutes for a | | | | | | | | maximum of 3 doses | | | | | | | | in 15 minutes. | | | | | | + + + +---------+------+------+-------+ | albuterol | Inhale 2 Puffs as | | | | | Activ | | (VENTOLIN HFA) 90 | needed. | | | | | e | | mcg/Actuation | | | | | | | | Inhalation HFA | | | | | | | | Aerosol Inhaler | | | | | | | + + + +---------+------+------+-------+ | oxyCODONE, | Take 30 mg by mouth | | | | | Activ | | immediate release, | every four hours as | | | | | e | | 30 mg oral tablet | needed. | | | | | | + + + +---------+------+------+-------+ | gabapentin 300 mg | Take 300 mg by mouth | | | | | Activ | | oral capsule | two times daily. | | | | | e | + + + +---------+------+------+-------+ | allopurinol 300 mg | Take 1 tablet by | | | 10/11 | | Activ | | oral | mouth once daily. | | | 04/01 | | e | | tabletIndications: | Indications: GOUT | | | 16 | | | | Gout | | | | | | | + + + +---------+------+------+-------+ | torsemide 20 mg | Take 20 mg by mouth | | 0 | 10/12 | | Activ | | oral tablet | once daily. One | | | 10/30 | | e | | | extra tab on MWF | | | 16 | | | + + + +---------+------+------+-------+ | morphine ER 15 mg | Take 30 mg by mouth | | | | | Activ | | oral tablet extended | every twelve hours. | | | | | e | | release | PRN | | | | | | + + + +---------+------+------+-------+ | ondansetron ODT 4 | Dissolve 2 mg in | | | | | Activ | | mg oral | mouth every twelve | | | | | e | | tablet,disintegratin | hours as needed. | | | | | | | g | | | | | | | + + + +---------+------+------+-------+ | omeprazole 40 mg | Take 1 capsule by | 30 | 5 | 02/0 | | Activ | | oral capsule,delayed | mouth once daily. | capsule | | 3/20 | | e | | | | | | 17 | | | | release(DR/EC)Indica | | | | | | | | tions: Atrial | | | | | | | | flutter, unspecified | | | | | | | | type ([facility]), | | | | | | | | Paroxysmal atrial | | | | | | | | fibrillation (HCC) | | | | | | | + + + +---------+------+------+-------+ | venlafaxine 37.5 | Take by mouth. 1 | | | | | Activ | | mg oral tablet | tab in am and 2 tabs | | | | | e | | | in pm | | | | | | + + + +---------+------+------+-------+ | simvastatin 20 mg | Take 20 mg by mouth | | | | | Activ | | oral tablet | once daily in the | | | | | e | | | evening. | | | | | | + + + +---------+------+------+-------+ | rivaroxaban 10 mg | Take 20 mg by mouth | | | | | Activ | | oral tablet | once daily with | | | | | e | | | dinner. | | | | | | + + + +---------+------+------+-------+ | pramipexole 0.25 | Take 0.75 mg by | | | | | Activ | | mg oral tablet | mouth once daily at | | | | | e | | | bedtime. | | | | | | + + + +---------+------+------+-------+ | peg-electrolyte | 1.5 gallon bowel | 8000 mL | 0 | 10/ | | Activ | | [phone] -5.86 | prep- begin drinking | | | 10/30 | | e | | gram oral recon | 1 day prior to your | | | 17 | | | | solnIndications: | colonoscopy | | | | | | | Bowel Evacuation | Indications: Bowel | | | | | | | | Evacuation | | | | | | + + + +---------+------+------+-------+ | metoprolol | Take 50 mg (1 | | | | | Activ | | succinate 50 mg oral | tablet) once daily | | | | | e | | tablet extended | in the morning and | | | | | | | release 24 hr | take 75 mg (1.5 | | | | | | | | tablets) once daily | | | | | | | | in the evening. | | | | | | + + + +---------+------+------+-------+ | POTASSIUM CHLORIDE | take 1 PACKET by | 30 | 2 | 11/2 | | Activ | | 20 mEq oral packet | mouth once daily | packet | | 2/20 | | e | | | | | | 17 | | | + + + +---------+------+------+-------+ | MULTAQ 400 mg oral | take 1 tablet by | 180 | 1 | 01/10 | | Activ | | tablet | mouth twice a day | tablet | | 04/29 | | e | | | with meals | | | 17 | | | + + + +---------+------+------+-------+ Active Problems + + + | Problem | Noted Date | + + + | Villous adenoma of right colon | 12/15/2016 | + + + | WILFREDO (acute kidney injury) (HCC) | 10/22/2015 | + + + | Transaminitis | 10/22/2015 | + + + | Acute on chronic diastolic heart failure (HCC) | 10/22/2015 | + + + | Atrial flutter (HCC) | 10/22/2015 | + + + | Atrial fibrillation (HCC) | 05/30/2011 | + + + | Obesity (BMI 30-39.9) | 07/16/2010 | + + + | JOSE A (obstructive sleep apnea) | 07/16/2010 | + + + | Cardiomyopathy, nonischemic ([facility]) | 07/16/2010 | + + + | Palpitations | 05/04/2010 | + + + | Constrictive pericarditis | 12/12/2009 | + + + Resolved Problems + + + + | Problem | Noted | Resolved | | | Date | Date | + + + + | CHF (congestive heart failure) ([facility]) | 01/26/20 | | | | 10 | 1 | + + + + Family History + + +------+ + | Medical History | Relation | Name | Comments | + + +------+ + | Heart Disease | Father | | | + + +------+ + | Blood Disease | Mother | | leukemia | + + +------+ + | Breast Cancer | Mother | | no colorectal cancer in family | + + +------+ + | Heart Disease | Mother | | [id number] | + + +------+ + | Ovarian Cancer | Mother | | | + + +------+ + + +------+ + + | Relation | Name | Status | Comments | + +------+ + + | Father | | | | + +------+ + + | Mother | | Alive | | + +------+ + + Social History + + + +--------+ + | Tobacco Use | Types | Packs/Day | Years | Date | | | | | Used | | + + + +--------+ + | Former Smoker | Cigars, Cigarettes | 1 | 30 | Quit: 02/10/2011 | + + + +--------+ + + +---+---+ + | Smokeless Tobacco: | | | Quit: | | Former User | | | 02/10/18 | | | | | 80 | + +---+---+ + + + | Comments: started smoking cigars in 2006; as of 04/11/10 pt quit ~2011 | + + + + +---------+ + | Alcohol Use | Drinks/We | oz/Week | Comments | | | ek | | | + + +---------+ + | Yes | | | 2/week | + + +---------+ + + + + | Sex Assigned at | Date Recorded | | | | + + + | Not on file | | + + + Last Filed Vital Signs + + + + | Vital Sign | Reading | Time Taken | + + + + | Blood Pressure | 141/74 | 06/13/2017 2:00 PM PDT | + + + + | Pulse | 78 | 06/13/2017 2:00 PM PDT | + + + + | Temperature | 36.4 C (97.5 F) | 06/13/2017 1:13 PM PDT | + + + + | Respiratory Rate | 16 | 06/13/2017 2:00 PM PDT | + + + + | Oxygen Saturation | 100% | 06/13/2017 2:00 PM PDT | + + + + | Inhaled Oxygen | - | - | | Concentration | | | + + + + | Weight | 104.3 kg (230 lb) | 06/13/2017 11:04 AM PDT | + + + + | Height | 185.4 cm (6' 1") | 06/13/2017 11:04 AM PDT | + + + + | Body Mass Index | 30.34 | 06/13/2017 11:04 AM PDT | + + + + Plan of Treatment + + + + + | Health Maintenance | Due Date | Last Done | Comments | + + + + + | INFLUENZA VACCINE | | 11/11/2016, 11/21/2015, | | | (FLU SHOT) | 8 | 01/17/2015, Additional history | | | | | exists | | + + + + + Results Not on filefrom Last 3 Months Insurance + +--------+ +--------+-------+---------+ | Payer | Benefi | Subscriber | Type | Phone | Address | | | t Plan | ID | | | | | | / | | | | | | | Group | | | | | + +--------+ +--------+-------+---------+ | [employer] | [employer] | xxxxxxxx | Medica | | | | | [place] | | id | | | | | [place] | | | | | + +--------+ +--------+-------+---------+ + +--------+ +--------+ + + | Guarantor Name | Accoun | Relation to | Date | Phone | Billing Address | | | t Type | Patient | of | | | | | | | | | | + +--------+ +--------+ + + | YAMIL BEE | Person | Self [birth year] Home: | [address] | | | al/Fam | | 1 | [phone] | [place] [address] | | | alba | | | [phone] | | + +--------+ +--------+ + +
--- OUTSIDE RECORDS SUMMARY | ~2017-10-05 | XMS | Encounter Summary ---
Demographics + + + | Address | [address] | | | [place] [address] | + + + | Home Phone | | + + + | Preferred Language | Unknown | + + + | Marital Status | | + + + | Moravian Affiliation | 1041 | + + + | Race | Unknown | + + + | Ethnic Group | Unknown | + + + Author + + + | Author | [facility] [employer] | + + + | Organization | [facility] [employer] [facility] | + + + | Address | Unknown | + + + | Phone | Unavailable | + + + Support + + + + + | Name | Relationship | Address | Phone | + + + + + | Elayne De La Rosa | ECON | [address] | | | | | [place] | | | | | [address] | | + + + + + Care Team Providers + +------+ + | Care Sand Buffer Name | Role | Phone | + +------+ + | Jose Hall MD | PCP | | + +------+ + Reason for Visit +--------+ + | Reason | Comments | +--------+ + | Other | [facility] | +--------+ + Encounter Details +--------+ + + + + | Date | Type | Department | Care Team | Description | +--------+ + + + + | 09/12/ | Documentati | [facility] | Lola Villan[place]va | [facility] ([facility] | | 2018 | on Only | [facility] | [place] | [place] ) | | | | [address] | | | | | | [place] | | | | | | [address] | | | | | | [phone] | | | +--------+ + + + [...] | | | | | [place] [address] | | | | | | [phone] | | | | | | | | +--------+---------+ + + + as of this encounter Visit Diagnoses Not on filein this encounter"
--- OUTSIDE RECORDS SUMMARY | ~2017-10-05 | XMS | Encounter Summary ---
Demographics + + + | Address | [address] | | | [place] [address] | + + + | Home Phone | | + + + | Preferred Language | Unknown | + + + | Marital Status | | + + + | Mosque Affiliation | 1041 | + + + | Race | Unknown | + + + | Ethnic Group | Unknown | + + + Author + + + | Author | [facility] [employer] | + + + | Organization | [facility] [employer] [facility] | + + + | Address | Unknown | + + + | Phone | Unavailable | + + + Support + + + + + | Name | Relationship | Address | Phone | + + + + + | Elayne De La Rosa | ECON | [address] | | | | | [place] | | | | | [address] | | + + + + + Care Team Providers + +------+ + | Care Hardwood Floor Installer Name | Role | Phone | + [...] [place] | | | | | | [address] | | | | | | [phone] | | | +--------+ + + + [...] | | | | | [place] [address] | | | | | | [phone] | | | | | | | | +--------+---------+ + + + as of this encounter Visit Diagnoses Not on filein this encounter"
--- OUTSIDE RECORDS SUMMARY | ~2017-10-05 | XMS | Encounter Summary ---
Demographics + + + | Address | [address] | | | [place] [address] | + + + | Home Phone | | + + + | Preferred Language | Unknown | + + + | Marital Status | | + + + | Bahai Affiliation | 1041 | + + + | Race | Unknown | + + + | Ethnic Group | Unknown | + + + Author + + + | Author | [facility] [employer] | + + + | Organization | [facility] [employer] [facility] | + + + | Address | Unknown | + + + | Phone | Unavailable | + + + Support + + + + + | Name | Relationship | Address | Phone | + + + + + | Elayne De La Rosa | ECON | [address] | | | | | [place] | | | | | [address] | | + + + + + Care Team Providers + +------+ + | Care Yarn Skeins Examiner Name | Role | Phone | + [...] [place] | | | | | | [address] | | | | | | [phone] | | | +--------+ + + + [...] [address] | | | | | | [place] [address] | | | | | | [phone] | | | | | | | | +--------+---------+ + + + as of this encounter Visit Diagnoses + + | Diagnosis | + + | Cervical radiculopathy - Primary | + + | Brachial neuritis or radiculitis nos | + +"
--- OUTSIDE RECORDS SUMMARY | ~2017-10-05 | XMS | Encounter Summary ---
Demographics + + + | Address | [address] | | | [place] [address] | + + + | Home Phone | | + + + | Preferred Language | Unknown | + + + | Marital Status | | + + + | Adventism Affiliation | 1041 | + + + | Race | Unknown | + + + | Ethnic Group | Unknown | + + + Author + + + | Author | [facility] [employer] | + + + | Organization | [facility] [employer] [facility] | + + + | Address | Unknown | + + + | Phone | Unavailable | + + + Support + + + + + | Name | Relationship | Address | Phone | + + + + + | Elayne De La Rosa | ECON | [address] | | | | | [place] | | | | | [address] | | + + + + + Care Team Providers + +------+ + | Care On Air Personality Name | Role | Phone | + +------+ + | Jose Hall MD | PCP | | + +------+ + Encounter Details +--------+ + + + + | Date | Type | Department | Care Team | Description | +--------+ + + + + | 08/01/ | Telephone | [facility] | Chelsea Inman, | | | 2017 | | [facility] | FLIGHT ATTENDANT | | | | | [address] | | | | | | [place] | | | | | | [address] | | | | | | [phone] | | | +--------+ + + + [...] | | | | | [place] [address] | | | | | | [phone] | | | | | | | | +--------+---------+ + + + as of this encounter Visit Diagnoses Not on filein this encounter"
--- OUTSIDE RECORDS SUMMARY | ~2017-10-05 | XMS | Encounter Summary ---
Demographics + + + | Address | [address] | | | [place] [address] | + + + | Home Phone | | + + + | Preferred Language | Unknown | + + + | Marital Status | | + + + | Muslim Affiliation | 1041 | + + + | Race | Unknown | + + + | Ethnic Group | Unknown | + + + Author + + + | Author | [facility] | + + + | Organization | [facility] | + + + | Address | Unknown | + + + | Phone | Unavailable | + + + Support + + + + + | Name | Relationship | Address | Phone | + + + + + | Elayne De La Rosa | ECON | [address] | | | | | [place] | | | | | [address] | | + + + + + Care Team Providers + +------+ + | Care Transport Corps Officer Name | Role | Phone | + [...] | | | | y, cervical | [address] | [address] | | | | | region | Phone: | Phone: | | | | | Spinal | [phone] | [phone] | | | | | stenosis, | Fax: | Fax: | | | | | cervical | [phone] | [phone] | | | | | region | [...] + + | 08/28/ | Office | [facility] | Josh Ulloa MD | Cervical | | 2018 | Visit | [facility] | [address] | radiculopathy; | | | | [address] | [place] [address] | Lumbar | | | | [place] | [phone] | radiculopathy; | | | | [address] | | Cervical stenosis of | | | | [phone] | | spine; Spinal | | | [...] - ANTERIOR; Surgeon: Josh Ulloa MD; Location: [facility] MAIN OR; Service: Ortho/Spine; Laterality: N/A; c3-5 CHOLECYSTECTOMY COLONOSCOPY HARDWARE REMOVAL hips/neck/wrist hardware inserted HARDWARE REMOVAL N/A 01/25/2015 Procedure: CERVICAL - HARDWARE REMOVAL; Surgeon: Josh Ulloa MD; Location: [facility] MAIN OR ; Service: Ortho/Spine; Laterality: [...] diaz s/5 over 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 Diminished sensation over his right C8 and T1 distribution. Reflex trace on the right tricep as well as on the left side. Pedro sign negative bilate rally Motor: See above. Sensory: Diminished right C8 and T1 distribution IMAGING: Cervical MRI and CT scan 2018 [facility] shows right-sided disc protrusion between T1/T2 [...] Note: We spent approximately 25 minutes in agcq-pp-[id number] time of which greater than 50% was [...] [address] | | | | | | [place] [address] | | | | | | [phone] | | | | | | | [...]
--- OUTSIDE RECORDS SUMMARY | ~2017-10-05 | XMS | Encounter Summary ---
Demographics + + + | Address | [address] | | | [place] [address] | + + + | Home Phone | | + + + | Preferred Language | Unknown | + + + | Marital Status | | + + + | Voodoo Affiliation | 1041 | + + + | Race | Unknown | + + + | Ethnic Group | Unknown | + + + Author + + + | Author | [facility] | + + + | Organization | [facility] | + + + | Address | Unknown | + + + | Phone | Unavailable | + + + Support + + + + + | Name | Relationship | Address | Phone | + + + + + | Elayne De La Rosa | ECON | [address] | | | | | [place] | | | | | [address] | | + + + + + Care Team Providers + +------+ + | Care Padded Products Inspector Trimmer Name | Role | Phone | + [...] | | | | y, cervical | [address] | [address] | | | | | region | Phone: | Phone: | | | | | Spinal | [phone] | [phone] | | | | | stenosis, | Fax: | Fax: | | | | | cervical | [phone] | [phone] | | | | | region | [...] + + | 08/12/ | Office | [facility] | Josh Ulloa MD | Degenerative | | 2018 | Visit | [facility] | [address] | cervical spinal | | | | [address] | [place] [address] | stenosis (Primary | | | | [place], [place] | [phone] | Dx); Cervical | | | | [address] | | radiculopathy | | | | [phone] | | | +--------+---------+ + + + [...] radiculopathy extending to his hand (profound right strip catcher weakness) is the worst reported at 8-9 out of 10 pain Medication use currently includes MS Contin 30 mg bid oxycodone 30 mg q4 hours Patient of note has significant cardiac history PE: Profound weakness of interossei as well as strip catcher consistent with C8/T1 innervated musculatur e right [...] 01, 2017 cervical MRI (sedation MRI at [facility]) Profound RIGHT T1-T2 right extruded HNP/disc [...] (obstructive sleep apnea) PSVT (paroxysmal supraventricular tachycardia) ([facility]) Pulmonary embolism (HCC) Sleep apnea Past Surgical History Procedure Laterality Date CARDIAC CATHETERIZATION CARDIAC SURGERY CERVICAL FUSION N/A 01/25/2015 Procedure: CERVICAL - DISC & FUSION - ANTERIOR; Surgeon: Josh Ulloa MD; Location: [facility] MAIN OR; Service: Ortho/Spine; Laterality: N/A; c3-5 CHOLECYSTECTOMY COLONOSCOPY HARDWARE REMOVAL hips/neck/wrist hardware inserted HARDWARE REMOVAL N/A 01/25/2015 Procedure: CERVICAL - HARDWARE REMOVAL; Surgeon: Josh Ulloa MD; Location: [facility] MAIN OR ; Service: Ortho/Spine; [...] radiculopathy as well as profound weakness of strip catcher. I would like to obtain a cervical [...] Note: We spent approximately 40 minutes in vzte-ex-ukno time of which greater than 50% was [...] [address] | | | | | | [place] [address] | | | | | | [phone] | | | | | | | [...]
--- OUTSIDE RECORDS SUMMARY | ~2017-10-05 | XMS | Clinical Summary ---
Demographics + + + | Address | [address] | | | [place] [address] | + + + | Home Phone | | + + + | Preferred Language | Unknown | + + + | Marital Status | | + + + | Rastafarian Affiliation | 1041 | + + + | Race | Unknown | + + + | Ethnic Group | Unknown | + + + Author + + + | Author | [facility] | + + + | Organization | [facility] | + + + | Address | Unknown | + + + | Phone | Unavailable | + + + Support + + + + + | Name | Relationship | Address | Phone | + + + + + | Elayne Bee | ECON | [address] | | | | | [place] | | | | | [address] | | + + + + + Care Team Providers + +------+ + | Care Rn Medical Surgical Name | Role | Phone | + [...] a follow-up visit | | scheduled for [facility] in January, we plan on seeing him in | | February.Hx CABG: no, Pericardectomy 2001, 2010.Hx PCI/stent: noHx | | Pacemaker/ICD: noLast Cath, 03/10/2006: coronaries NML, LVEF | | 60%.Last Echo, 10/20/2015 ([facility]): LVEF 55-60%, features suggest | | continued [...] | | followed by A. fib ablation ([facility]). Did have some postprocedure | | arrhythmias, [...] | | | [place], | | | [id number] | | [address], [place] | | | [address] | | | n [place] | | | [phone] | | | [phone] | | | [...] | | | [place] | | | [address] | | | Phone: | | | [phone] | | | 5 | | | [...] | | | 2018 | | | COSTUME DRAPER | | +--------+ +---+ + + | [...] | | | 2017 | | | EDGING MACHINE CATCHER | | +--------+ +---+ + + | [...] (neck); Cervical | | | | | [facility] Brianna Nurse | radiculopathy; | | | | | Imaging, [facility] | Cervical stenosis of | | | | | | spine | +--------+ +---+ + + | 08/01/ | Telephone | | Chelsea Inman, | | | 2017 | | | EDGING MACHINE CATCHER | | +--------+ +---+ + + | 08/01/ | Documentati | | Lola Villanueva | Lito (CASSIUS/RBYAN | 2017 | on Only | | [...] | | | 2017 | | | EDGING MACHINE CATCHER | | +--------+ +---+ + + | [...] [address] | | | | | | [place] [address] | | | | | | [phone] | | | | | | | [...] | MTF - | | 06/16/ | [id number] | | 2.5c - | | | SYNTHES - | | 2016 | | | [id number]: | | | MTFS | | | /[id number] | | Qty: 1 on 01/25/2015 by | | | | | | [id number] | | Josh Ulloa MD | | | | | | [id number] | | | | | | | | 9 / | + +------+------+ +--------+--------+--------+ | Spacer Advncd Acf Lordotic | | | MTF - | | 06/18/ | [id number] | | 9mm - | | | SYNTHES - | | 2017 | | | [id number]: Qty: | | | MTFS | | | /[id number] | | 1 on 01/25/2015 by Artemio, | | | | | | [id number] | | MD Josh | | | | | | 46 / | + +------+------+ +--------+--------+--------+ | Spacer Advncd Acf Lordotic | | | MTF - | | 05/31/ | [id number] | | 9mm - | | | SYNTHES - | | 2017 | | | [id number]: | | | MTFS | | | /[id number] | | Qty: 1 on 01/25/2015 by Artemio, | | | | | | [id number] | | MD Josh | | | | | | 111 / | + +------+------+ +--------+--------+--------+ | Screw 4.0x18mm - | | | SYNTHES | | | 04.613 | | [id number]: Qty: 4 on | | | SPINE - | | | .518 / | | 01/25/2015 by Josh Ulloa, | | | SYNS | | | / | | | | | | | | | + +------+------+ +--------+--------+--------+ | Screw Vectra 4.5x18mm - | | | SYNTHES | | | 04.613 | | [id number]: Qty: 2 on | | | SPINE - | | | .568 / | | 01/25/2015 by Josh Ulloa, | | | SYNS | | | / | | MD | | | | | | | + +------+------+ +--------+--------+--------+ | Plate Douglas Vect 2 Lvl 38mm - | | | SYNTHES | | | 04.613 | | [id number]: Qty: 1 on | | | SPINE [...] | | | | | L, [address] | | | | | [place] | | | | | [address] | | | + + + + + + + | Specimen | + + | Blood | + + + + + + + | Performing | Address | City/State/Zipcode | Phone Number | | Organization | | | | + + + + + | [facility] | [address] | [place] [address] | [phone] | | LABORATORY | [address] | | [...] >60Comment: GFR <60: | >60 mL/min/1.73m2 | [facility] | | | CHRONIC KIDNEY DISEASE, | [...] the | | | | | MDRD IDND traceable | | | | | equation.Testing | | | | | performed at [facility], [address] | | | | | [facility], | | | | | [place] [address] | | | + + + + + + + | Specimen | + + | Blood | + + + + + + + | Performing | Address | City/State/Zipcode | Phone Number | | Organization | | | | + + + + + | [facility] | [address] | [place] [address] | [phone] | | LABORATORY | [address] | | [...] GARCIA | [address] | [place] [address] | | + + + + + Type and Screen (Blood Bank) (10/03/2017 9:55 AM) + + + + + | Component | Value | Ref Range | Performed At | + + + + + | ABO/RH(D) | O POSITIVE | | [facility] | + + + + + | ANTIBODY SCREEN | NEGATIVE | | [facility] | + + + + + | ARM BAND NUMBER | [id number] | | [facility] | | | performed at [facility];[address] | | | | | [place] | | | | | [address] | | | + + + + + + + | Specimen | + + | Blood | + + + + + + + | Performing | Address | City/State/Zipcode | Phone Number | | Organization | | | | + + + + + | [facility] | [address] | [facility] [address] [place] [address] | | + + + + + [...] [facility] | [address] | [place] [address] | | + + + + + [...] and disc endplate disease at | | [id number] signed by Eze Back MD on 08/01/2017 [...] | + + + + + | [facility] | [address] | [place] [address] | | + + + + + [...] + + + | [facility] | [address] | [place] [address] | | | LABORATORY | [address] | [...] +------+-------+ + | MEDICAID | [place] | [id number] | | | [address] | | | [place] | | | | [place] | | | [place] | | | | [address] | | | CONFIGURATION MANAGEMENT SPECIALIST | | | | | + +--------+ [...] Self | [birth year] Home: | [address] | | | al/Fam | | 1 | [phone] | [place] | | | alba | | | [phone] | [address] | + +--------+ +--------+ + +
--- OUTSIDE RECORDS SUMMARY | ~2017-10-05 | XMS | Encounter Summary ---
Demographics + + + | Address | [address] | | | [place] [address] | + + + | Home Phone | | + + + | Preferred Language | Unknown | + + + | Marital Status | | + + + | Tenriism Affiliation | 1041 | + + + | Race | Unknown | + + + | Ethnic Group | Unknown | + + + Author + + + | Author | [facility] | + + + | Organization | [facility] | + + + | Address | Unknown | + + + | Phone | Unavailable | + + + Support + + + + + | Name | Relationship | Address | Phone | + + + + + | Elayne De La Rosa | ECON | [address] | | | | | [place] | | | | | [address] | | + + + + + Care Team Providers + +------+ + | Care Bead Machine Operator Name | Role | Phone | + +------+ + | Jose Hall MD | PCP | | + +------+ + Encounter Details +--------+ + + + + | Date | Type | Department | Care Team | Description | +--------+ + + + + | 09/03/ | Orders Only | [facility] | Nidhi Raymond MA | Cervical pain (neck) | | 2018 | | [facility] | | (Primary Dx); | | | | [address] | | Cervical | | | | [place] | | radiculopathy; | | | | [address] | | Spinal stenosis of | | | | [phone] | | cervical region | +--------+ + [...] [address] | | | | | | [place] [address] | | | | | | [phone] | | | | | | | [...]
--- OUTSIDE RECORDS SUMMARY | ~2017-10-05 | XMS | Encounter Summary ---
Demographics + + + | Address | [address] | | | [place] [address] | + + + | Home Phone [...] | Author | [facility] | + + + | Organization | [facility] | + + + | Address | Unknown | + + + | Phone | Unavailable | + + + Support + + + + + | Name | Relationship | Address | Phone | + + + + + | Elayne De La Rosa | ECON | [address] | | | | | [place] | | | | | [address] | | + + + + + Care Team Providers + +------+ + | Care Critical Care Unit Manager Name | Role | Phone | + +------+ + | Jose Hall MD | PCP | | + +------+ + Reason for Visit Auth/Cert +--------+--------+ + + + + | Status | Reason | Specialty | Diagnoses / | Referred By | Referred To | | | | | Procedures | Contact | Contact | +--------+--------+ + + + + | | | | Diagnoses | | Artemio | | | | | M54.12, | | MD Josh | | | | | M48.02, | | [address] | | | | | M54.2 | | | | | | | | | [place] | | | | | | | [address] Phone: | | | | | | | [phone] | | | | | | | Fax: | | | | | | | [phone] | +--------+--------+ + + + + Encounter Details +--------+---------+ + + + | Date | Type | Department | Care Team | Description | +--------+---------+ + + + | 10/03/ | Surgery | [facility] | Josh Ulloa MD | FORAMINOTOMY | | 2018 | | [facility] | [address] | | | | | Operating Room [address] | [place] [address] | | | | | [place] | [phone] | | | | | [place] [address] | | | | | | [phone] | | | +--------+---------+ + + + [...] + + + + in this encounter Discharge Summaries Puneet Hager ARNP - 10/04/2017 8:53 AM PDTFormatting of this note may be different from michael trujillo. [facility] Service: Orthopedic Surgery Discharge Summary Date of Admission: 10/03/2017 Date of Discharge: 10/04/2017 Discharge Physician: MAURI DILLARD Treatment Team: Admitting Provider: Josh Ulloa MD Discharge Diagnoses: Active Problems: Spinal stenosis of cervical region Cervical radiculopathy Cervical pain (neck) Resolved Problems: * No resolved hospital problems. * Final Diagnoses: Cervical/thoracic radiculopathy Procedures: Procedure(s) with comments: FORAMINOTOMY - Foraminotomy C7-T1, T1-2 BRIEF HISTORY OF PRESENTATION: Hazel De La Rosa is a 57 y.o. male who underwent right sided foraminotomy/discectomy C7-T 1 as above. Mr. De La Rosa was maintained with his usual home medications holding off on his Xar elto until 10/05/2017. Cervical radiculopathy improved. He was mobilizing independently. No c omplications observed postop. HOSPITAL COURSE: Past Medical History Diagnosis Date Atrial fibrillation [...] tachycardia) (HCC) Pulmonary embolism (HCC) Sleep apnea Past Surgical History Procedure Laterality Date CARDIAC CATHETERIZATION CARDIAC SURGERY CERVICAL FUSION N/A 01/25/2015 Procedure: CERVICAL - DISC & FUSION - ANTERIOR; Surgeon: Josh Ulloa MD; Location: [facility] OR; Service: Ortho/Spine; Laterality: N/A; c3-5 CHOLECYSTECTOMY COLONOSCOPY HARDWARE REMOVAL hips/neck/wrist hardware inserted HARDWARE REMOVAL N/A 01/25/2015 Procedure: CERVICAL - HARDWARE REMOVAL; Surgeon: Josh Ulloa MD; Location: [facility] OR ; Service: Ortho/Spine; Laterality: N/A; c5/6, plate removal LUMBAR SPINE SURGERY 6 inch rods and screws inserted on both sides of spine pericardectomy normal coronaries REMOVAL IMPLANT SUPERFICIAL SPX SPINE SURGERY C spine UNLISTED PROCEDURE ARTHROSCOPY Allergies Allergen Reactions Codeine Other (See Comments) Hydrochlorothiazide Swelling Codeine Other (See Comments) abstracted Paxil [Paroxetine Hydrochloride] Other (See Comments) abstracted Prescriptions Prior to Admission Medication Sig Dispense Refill Last Dose albuterol (PROVENTIL HFA;VENTOLIN HFA) 108 (90 BASE) MCG/ACT inhaler Inhale 2 puffs int o the lungs every 4 (four) hours as needed for Wheezing. 10/02/2017 at Unknown time dronedarone (MULTAQ) 400 MG tablet Take 1 tablet by mouth 2 (two) times daily with meal s. 60 tablet 11 10/03/2017 at 0630 gabapentin (NEURONTIN) 300 MG capsule Take 4 capsules by mouth 3 (three) times daily. 3 tabs AM, 1 tab at noon, 3 tabs at PM 90 capsule 1 10/03/2017 at 0630 metoprolol (TOPROL-XL) 50 MG 24 hr tablet Take 1 tablet by mouth daily. 75 mg qhs 1 at 0630 morphine (MS CONTIN) 30 MG 12 hr tablet Take 1 tablet by mouth 2 (two) times daily. For chronic pain 60 tablet 0 10/02/2017 at Unknown time omeprazole (PRILOSEC) 40 MG capsule 10/03/2017 at 0630 ondansetron (ZOFRAN) 4 MG tablet Take 4 mg by mouth once. 2 mg q am 10/03/2017 at 0630 oxycodone (ROXICODONE) 30 MG immediate release tablet Take 1 tablet by mouth every 4 (f our) hours as needed (BREAKTHROUGH PAIN). 180 tablet 0 10/02/2017 at Unknown time potassium chloride (KLOR-CON) 20 MEQ packet Take 20 mEq by mouth daily. 30 packet 11 at Unknown time pramipexole (MIRAPEX) 0.25 MG tablet Take 1 tablet by mouth daily. 0 10/02/2017 at Unkn own time pramipexole (MIRAPEX) 0.5 MG tablet Take 0.75 mg by mouth nightly. [facility] [address] [facility] 10/02/2017 at Unknown time simvastatin (ZOCOR) 40 MG tablet Take 1 tablet by mouth nightly. 30 tablet 11 10/02/2017 at Unknown time torsemide (DEMADEX) 20 MG tablet Take 1 tablet by mouth daily. Takes 20 mg daily except 40 mg //Fri 40 tablet 11 10/02/2017 at Unknown time venlafaxine (EFFEXOR) 37.5 MG tablet Take 1 tablet by mouth daily. 0 10/03/2017 at 0630 venlafaxine (EFFEXOR) 75 MG tablet Take 1 tablet by mouth daily. 0 10/02/2017 at Unknow n time allopurinol (ZYLOPRIM) 300 MG tablet Take 1 tablet by mouth daily. 90 tablet 3 8 Ascorbic Acid (VITAMIN C) 500 MG CAPS Take by mouth. Not Taking at Unknown time diazePAM (VALIUM) 10 MG tablet Take 0.5-1 tablets by mouth every 12 (twelve) hours as n eeded (muscle spasms). 60 tablet 1 09/26/2017 Homeopathic Products (ZICAM COLD REMEDY PO) Take 1 tablet by mouth as needed. Not Jim ing at Unknown time nitroGLYCERIN (NITROSTAT) 0.[address] 0.4 mg under the tongue every 5 (five) minutes as needed. Taking rivaroxaban (XARELTO) 20 MG tablet Take 1 tablet by mouth daily with dinner. 30 tablet 11 09/27/2017 sulfamethoxazole-trimethoprim (BACTRIM DS) 800-160 MG per tablet Take 1 tablet by mouth 2 (two) times daily. 0 Not Taking at Unknown time UNABLE TO FIND Bi-Pap machine for severe sleep apnea Taking DISCHARGE EXAM Vital Signs: BP 134/75 | Pulse 65 | Temp 97.7 F (36.5 C) | Resp 16 | Ht 1.854 m (6' 1") | Wt 11 0.6 kg (243 lb 13.3 oz) | SpO2 98% | BMI 32.17 kg/m Temp: [96.7 F (35.9 C)-98.2 F (36.8 C)] 97.7 F (36.5 C) (10/04 750) BP: (117-178)/(63-93) 134/75 (10/04 750) Heart Rate: [55-72] 65 (10/04 750) Resp: [13-30] 16 (10/04 257) SpO2: [95 %-100 %] 98 % (10/03 1936) Height: [185.4 cm (6' 1")] 185.4 cm (6' 1") (10/03 936) Weight: [110.6 kg (243 lb 13.3 oz)] 110.6 kg (243 lb 13.3 oz) (10/03 936) BMI (Calculated): [32.2] 32.2 (10/03 936) FiO2 : [48 %-100 %] 100 % (10/03 143) Physical Exam Constitutional: He is oriented to person, place, and time. He appears well-developed and we ll-nourished. HENT: Head: Normocephalic and atraumatic. Cardiovascular: Normal rate. Pulmonary/Chest: Effort normal. Abdomina/Gl: Soft. Neurological: He is alert and oriented to person, place, and time. Skin: Skin is warm. Capillary refill takes less than 2 seconds. Psychiatric: He has a normal mood and affect. His behavior is normal. Judgment and thought content normal. Nursing note and vitals reviewed. Ortho Exam DATA CBC: Lab Results Component Value Date WBC 15.17 (H) 10/04/2017 RBC 3.94 (L) 10/04/2017 HGB 12.7 (L) 10/04/2017 HCT 38.1 (L) 10/04/2017 MCV 96.6 10/04/2017 MCH 32.2 10/04/2017 MCHC 33.3 10/04/2017 RDW 54.3 (H) 10/04/2017 PLT 301 10/04/2017 MPV 9.0 10/04/2017 DIFFTYPE MANUAL 10/04/2017 BMP: Lab Results Component Value Date NA 137 10/04/2017 K 5.1 (H) 10/04/2017 CL 103 10/04/2017 CO2 26 10/04/2017 ANIONGAP 13 10/04/2017 GLUF 108 (H) 10/04/2017 BUN 18 10/04/2017 CREATININE 1.2 10/04/2017 BCR 15 10/04/2017 CA 8.2 (L) 10/04/2017 EGFR >60 10/04/2017 PLAN DC home today. F/U clinic within 2 weeks. Medrol dose saul provided postop. Continue with brace for the next 2-3 weeks. Disposition: Home Condition: Stable Code Status: Full Code No discharge procedures on file. Follow up: Jose Hall MD [address] [facility] [place] [address] Medication List START taking these medications methylPREDNISolone 4 MG dose pack QTY: 21 tablet Refills: 0 Follow package directions. CONTINUE taking these medications albuterol 108 (90 Base) MCG/ACT inhaler Refills: 0 Commonly known as: PROVENTIL HFA;VENTOLIN HFA allopurinol 300 MG tablet QTY: 90 tablet Refills: 3 Doctor's comments: Needs follow up apt Commonly known as: ZYLOPRIM Take 1 tablet by mouth daily. diazePAM 10 MG tablet QTY: 60 tablet Refills: 1 For diagnoses: Cervical radiculopathy, Lumbar radiculopathy, Cervical stenosis of spine, S deepak stenosis of lumbar region with neurogenic claudication, Cervical pain (neck), Pain of lumbar spine Commonly known as: VALIUM Take 0.5-1 tablets by mouth every 12 (twelve) hours as needed (muscle spasms). dronedarone 400 MG tablet QTY: 60 tablet Refills: 11 Commonly known as: MULTAQ Take 1 tablet by mouth 2 (two) times daily with meals. gabapentin 300 MG capsule QTY: 90 capsule Refills: 1 For diagnoses: Cervical radiculopathy, Lumbar radiculopathy Commonly known as: NEURONTIN Take 4 capsules by mouth 3 (three) times daily. 3 tabs AM, 1 tab at noon, 3 tabs at PM metoprolol 50 MG 24 hr tablet Refills: 1 Commonly known as: TOPROL-XL morphine 30 MG 12 hr tablet QTY: 60 tablet Refills: 0 For diagnoses: Cervical stenosis of spine, Cervical radiculopathy, Cervical pain (neck), P ain of lumbar spine, Spinal stenosis of lumbar region with neurogenic claudication, Lumbar r adiculopathy Commonly known as: MS CONTIN Take 1 tablet by mouth 2 (two) times daily. For chronic pain nitroGLYCERIN 0.4 MG SL tablet Refills: 0 Commonly known as: NITROSTAT omeprazole 40 MG capsule Refills: 0 Commonly known as: PRILOSEC ondansetron 4 MG tablet Refills: 0 Commonly known as: ZOFRAN oxycodone 30 MG immediate release tablet QTY: 180 tablet Refills: 0 Doctor's comments: TO BE FILLED NO EARLIER THAN JULY 31, 2017 For diagnoses: Cervical radiculopathy, Lumbar radiculopathy, Cervical stenosis of spine, S deepak stenosis of lumbar region with neurogenic claudication, Cervical pain (neck), Pain of lumbar spine Commonly known as: ROXICODONE Take 1 tablet by mouth every 4 (four) hours as needed (BREAKTHROUGH PAIN). potassium chloride 20 MEQ packet QTY: 30 packet Refills: 11 Commonly known as: KLOR-CON Take 20 mEq by mouth daily. * pramipexole 0.25 MG tablet Refills: 0 Commonly known as: MIRAPEX * pramipexole 0.5 MG tablet Refills: 0 Commonly known as: MIRAPEX rivaroxaban 20 MG tablet QTY: 30 tablet Refills: 11 Commonly known as: XARELTO Take 1 tablet by mouth daily with dinner. simvastatin 40 MG tablet QTY: 30 tablet Refills: 11 Commonly known as: ZOCOR Take 1 tablet by mouth nightly. sulfamethoxazole-trimethoprim 800-160 MG per tablet Refills: 0 Commonly known as: BACTRIM DS torsemide 20 MG tablet QTY: 40 tablet Refills: 11 Commonly known as: DEMADEX Take 1 tablet by mouth daily. Takes 20 mg daily except 40 mg M/W/Fri UNABLE TO FIND Refills: 0 * venlafaxine 37.5 MG tablet Refills: 0 Commonly known as: EFFEXOR * venlafaxine 75 MG tablet Refills: 0 Commonly known as: EFFEXOR Vitamin C 500 MG Caps Refills: 0 ZICAM COLD REMEDY PO Refills: 0 * This list has 4 medication(s) that are the same as other medications prescribed for you. Read the directions carefully, and ask your doctor or other care provider to review them wit h you. You might also be taking other medications not listed above. If you have questions about an y of your other medications, talk to the person who prescribed them or your Primary Care Pro vider. Where to Get Your Medications These medications were sent to [facility] [facility] [place] [place] - [address] [facility] [address] [facility] [place] [address] methylPREDNISolone 4 MG dose pack Discharge took 25 minutes, to include final examination, discussion of admission, and prepa ration of prescriptions, instructions for on-going care, follow-up and documentation of disc harge summary. MAURI DILLARD 10/04/2017in this encounter Discharge Instructions Rae Martínez RN - 10/03/2017Formatting of this note may be different from the origi nal. Having a Foraminotomy A foraminotomy is a surgery to widen an area in one of your spinal bones (vertebrae). This takes pressure off of a nerve that is squeezed (compressed) by the bone. After your surgery Talk with your healthcare provider about what to expect. You should be able to sit up in be d within a couple of hours. You might have a little pain, but you can have medicines to help ease pain. You should be able to eat a normal diet. You ll need to move around carefully as advised. Your healthcare provider will tell you i f you need to not do any specific movements. For example, you may be told to not bend your n maribell. You also may need a soft or hard neck collar if the surgery was in your neck. Recovering at home You should be able to go home 1 or 2 days after your surgery. Be sure to follow all of your healthcare provider s instructions about medicines, physical activity, and wound care. Yo u may need to not move in a certain way for a while. You may be able to do light lifting in a few weeks. But you may need to not do heavier lifting for a few months. You may need physi travis therapy as you recover. Follow-up care Your healthcare provider can tell you what to expect after your surgery. Your spinal stenos is symptoms may get better quickly. Make sure to keep all of your follow-up appointments. When to call your healthcare provider Call your healthcare provider right away if you have any of these: Fever of 100.4F (38.0C) or higher Symptoms that don t get better Pain that is getting worse New symptoms Date Last Reviewed: 01/10/201719998375-9259 The [employer]. [address] [place] [id number]. All righ ts reserved. This information is not intended as a substitute for professional medical care. Always follow your healthcare professional's instructions. in this encounter Medications at Time of Discharge [...] +---------+---------+ + + | gabapentin | Take 4 capsules by | 90 | 1 | 08/29/19 | | | (NEURONTIN) 300 MG | mouth 3 (three) | capsule | | 18 | | | capsuleIndications: | times daily. 3 tabs | | | | | | Cervical | AM, 1 tab at noon, 3 | | | | | | radiculopathy, | tabs at PM | | | | | | Lumbar [...] 0.5-1 tablets | 60 | 1 | 09/26/19 | | | 10 MG | by mouth every 12 | tablet | | 18 | | | tabletIndications: | (twelve) hours as [...] | + + +---------+---------+ + + | methylPREDNISolone | Follow package | 21 | 0 | 10/05/19 | | | 4 MG dose pack | directions. | tablet | | 18 | | [...] +---------+---------+ + + as of this encounter Progress Notes Lance Woods RPH - 10/03/2017 5:06 PM PDTFormatting of this note may be different fro m the original. Clinical Pharmacy Note: Renal Monitoring Hazel De La Rosa 57 y.o. male Ht Readings from Last 1 Encounters: 10/03/17 1.854 m (6' 1") Wt Readings from Last 1 Encounters: 10/03/17 110.6 kg (243 lb 13.3 oz) CREATININE Date Value Ref Range Status 10/03/2017 1.0 0.70 - 1.30 mg/dL Final Serum creatinine: 1 mg/dL 10/03/17 0954 Estimated creatinine clearance: 107.6 mL/min Pharmacy dosing for renal function per [employer] Ang. Currently, there are no medications needing to be adjusted. Pharmacy will continue to monit or for changes in medication orders and in renal function and adjust accordingly. Lance Woods RPh 10/03/2017 5:05 PMin this encounter Plan of Treatment +--------+---------+ + + + | Date | Type | Specialty | Care Team | Description | +--------+---------+ + + + | 11/17/ | Office | Cardiology | Britany Bernal | | | 2018 | Visit | | MAURI Ortega [address] | | | | | | [address] | | | | | | [place] [address] | | | | | | [phone] | | | | | | | [...] | | | ve | +---+--------+ + +------+ +---+ + | TYPE AND SCREEN | STAT | 10/03/2017 | | Results for this | | | | 9:55 AM | | procedure are in the | | | | PDT | | results section. | + +------+ +---+ + | CBC W/AUTO DIFF | STAT | 10/03/2017 | | Results for this | | (REFLEX TO MANUAL) | | 9:54 AM | | procedure are in the | | | | PDT | | results section. | + +------+ +---+ + | BASIC METABOLIC | STAT | 10/03/2017 | | Results for this | | PANEL | | 9:54 AM | | procedure are in the | | | | PDT | | results section. | + +------+ +---+ + in this encounter Results Basic metabolic panel (10/04/2017 5:11 AM) + + + + + | [...] (L) | 8.5 - 10.5 mg/dL | [facility] | | | | | LABORATORY | + + + + + | EGFR | >60Comment: GFR <60: | >60 mL/min/1.73m2 | TRICITIES | | | CHRONIC KIDNEY DISEASE, | [...] the | | | | | MDRD IDMS traceable | | | | | equation.Testing | | | | | performed at [facility], [address] | | | | [facility], | | | | | [place] [address] | | | + + + + + + + | Specimen | + + | Blood | + + + + + + + | Performing | Address | City/State/Zipcode | Phone Number | | Organization | | | | + + + + + | [facility] | [address] [facility] | [place] [address] | [phone] | | LABORATORY | [address] | | | + + + + + CBC w/auto diff (reflex to manual) (10/04/2017 5:11 AM) + + + + + | [...] performed at | | | | | [facility], [address] [place] [address] | | | | | [place] | | | | | [address] | | | + + + + + + + | Specimen | + + | Blood | + + + + + + + | Performing | Address | City/State/Zipcode | Phone Number | | Organization | | | | + + + + + | [facility] | [address] [facility] | [place] [address] | [phone] | | LABORATORY | [address] | | [...] At | + + + | HAZEL Yobany FUTTER XR C-ARM FLUORO OVER 1 HOUR [...] | Procedure Note | + + | Nicolas Addison Results In - 10/03/2017 2:55 PM LILIAN [...] | + + + + + | [facility] | [address] | [place] [address] | | + + + + + Type and Screen (Blood Bank) (10/03/2017 9:55 AM) + + + + + | Component | Value | Ref Range | Performed At | + + + + + | ABO/RH(D) | O POSITIVE | | [facility] | + + + + + | ANTIBODY SCREEN | NEGATIVE | | [facility] | + + + + + | ARM BAND NUMBER | [id number] | | [facility] | | | performed at [facility];[address] | | | | [address];[place] | | | | | [address] | | | + + + + + + + | Specimen | + + | Blood | + + + + + + + | Performing | Address | City/State/Zipcode | Phone Number | | Organization | | | | + + + + + | [facility] | [address] | [place] [address] | | + + + + + Basic metabolic panel (10/03/2017 9:54 AM) + + + + + | Component | Value | Ref Range | Performed At | + + + + + | SODIUM | 142 | 135 - 145 mmol/L | [facility] | + + + + + | POTASSIUM | 4.2 | 3.5 - 4.9 mmol/L | [facility] | + + + + + | CHLORIDE | 106 | 99 - 109 mmol/L | [facility] | + + + + + | CO2 | 29 | 23 - 32 mmol/L | [facility] | + + + + + | ANION GAP AGAP | 11 | 5 - 20 mmol/L | [facility] | + + + + + | GLUCOSE | 94 | 65 - 99 mg/dL | [facility] | + + + + + | BUN | 19 | 8 - 25 mg/dL | [facility] | + + + + + | CREATININE | 1.0 | 0.70 - 1.30 mg/dL | [facility] | + + + + + | BUN/CREAT | 19 | | [facility] | + + + + + | CALCIUM | 8.2 (L) | 8.5 - 10.5 mg/dL | [facility] | + + + + + | EGFR | >60Comment: GFR <60: | >60 mL/min/1.73m2 | [facility] | | | CHRONIC KIDNEY DISEASE, | | | | | IF FOUND OVER A 3 MONTH | | | | | PERIOD.GFR <15: KIDNEY | | | | | FAILURE.FOR | | | | | AMERICANS, MULTIPLY THE | | | | | CALCULATED GFR BY | | | | | 1.210.This eGFR is | | | | | calculated using the | | | | | MDRD IDMA traceable | | | | | equation.Testing | | | | | performed at [facility] | | | | | [facility];[place], [place] | | | | | [address] | | | + + + + + + + | Specimen | + + | Blood | + + + + + + + | Performing | Address | City/State/Zipcode | Phone Number | | Organization | | | | + + + + + | [facility] | [address] | [place] [address] | | + + + + + CBC W/Auto Diff (Reflex to Manual) (10/03/2017 9:54 AM) + + + + + | Component | Value | Ref Range | Performed At | + + + + + | WBC | 5.66 | 3.80 - 11.00 K/uL | [facility] | + + + + + | RBC | 4.01 (L) | 4.20 - 5.70 M/uL | [facility] | + + + + + | HGB | 13.0 (L) | 13.2 - 17.0 g/dL | [facility] | + + + + + | HCT | 39.2 | 39.0 - 50.0 % | [facility] | + + + + + | MCV | 97.8 | 80.0 - 100.0 fl | [facility] | + + + + + | MCH | 32.5 | 27.0 - 34.0 pg | [facility] | + + + + + | MCHC | 33.3 | 32.0 - 35.5 g/dL | [facility] | + + + + + | RDW SD | 52.9 | 37 - 53 fl | [facility] | + + + + + | PLT | 278 | 150 - 400 K/uL | [facility] | + + + + + | MPV | 7.4 | fl | [facility] | + + + + + | DIFF TYPE | AUTOMATED | | [facility] | + + + + + | NEUTROPHILS | 48.09 | % | [facility] | + + + + + | LYMPHOCYTES | 36.90 | % | [facility] | + + + + + | MONOCYTES | 11.40 | % | [facility] | + + + + + | EOSINOPHILS | 2.86 | % | [facility] | + + + + + | BASOPHILS | 0.75 | % | [facility] | + + + + + | NEUTROPHILS ABS | 2.72 | 1.90 - 7.40 K/uL | [facility] | + + + + + | LYMPHOCYTES ABS | 2.09 | 1.00 - 3.90 K/uL | [facility] | + + + + + | MONOCYTES ABS | 0.65 | 0.00 - 0.80 K/uL | [facility] | + + + + + | EOSINOPHILS ABS | 0.16 | 0.00 - 0.50 K/uL | [facility] | + + + + + | BASOPHILS ABS | 0.04Comment: Testing | 0.00 - 0.10 K/uL | [facility] | | | performed at [facility];[address] | | | | | [address];[place] | | | | | [address] | | | + + + + + + + | Specimen | + + | Blood | + + + + + + + | Performing | Address | City/State/Zipcode | Phone Number | | Organization | | | | + + + + + | [facility] | [address] | [place] [address] | | + + + + + in this encounter Visit Diagnoses + + | Diagnosis | + + | Neck pain | + + | Cervicalgia | + + | Spinal stenosis of cervical region | + + | Spinal stenosis in cervical region | + + | Cervical radiculopathy | + + | Brachial neuritis or radiculitis nos | + + Admitting Diagnoses + + | Diagnosis | + + | Neck pain - Cervical pain (neck) | + + | Cervicalgia | + + | Spinal stenosis of cervical region | + + | Spinal stenosis in cervical region | + + | Cervical radiculopathy | + + | Brachial neuritis or radiculitis nos | + + Administered Medications + +--------+---------+------+------+------+ | Medication Order | MAR | Action | Dose | Rate | Site | | | Action | Date | | | | + +--------+---------+------+------+------+ + +---+ | acetaminophen (TYLENOL) | | | suppository 650 mg 650 mg, | | | Rectal, Every 6 Hours PRN, Mild | | | Pain (1-3), Fever, Starting Fri | | | 10/03/17 at 1653 | | + +---+ | | | + +---+ | acetaminophen (TYLENOL) tablet | | | 650 mg 650 mg, Oral, Every 6 | | | Hours PRN, Mild Pain (1-3), | | | Fever, Starting 10/03/17 at | | | 1653 | | + +---+ | | | + +---+ + +-------+ +---------+---+------+ | bacitracin 50,000 Units in | Given | | 510 mLs | | Back | | sodium chloride (IV) 0.9 % 500 mL | | 8 13:25 | | | | | OR medication mixture PRN, | | PDT | | | | | Starting Fri10/03/17 at 1325, | | | | | | | Intra-op | | | | | | + +-------+ +---------+---+------+ +---+---+ | | | +---+---+ + +-------+ +-----+---+---+ | bacitracin ointment PRN, | Given | | 2 g | | | | Starting Fri10/03/17 at 1423, | | 8 14:23 | | | | | Intra-op | | PDT | | | | + +-------+ +-----+---+---+ +---+---+ | | | +---+---+ + +-------+ +--------+---+------+ | bupivacaine-EPINEPHrine (PF) | Given | | 30 mLs | | Back | | 0.5% [id number] injection PRN, | | 8 13:24 | | | | | Starting Fri10/03/17 at 1324, | | PDT | | | | | Intra-op | | | | | | + +-------+ +--------+---+------+ + +---+ | | | + +---+ | diphenhydrAMINE (BENADRYL) 12.5 | | | mg/5 mL liquid 25 mg 25 mg, | | | Oral, Every 8 Hours PRN, Itching, | | | Starting 10/03/17 at 1653 | | + +---+ | | | + +---+ | diphenhydrAMINE (BENADRYL) | | | capsule 25 mg 25 mg, Oral, Every | | | 8 Hours PRN, Itching, Starting | | | 10/03/17 at 1653 | | + +---+ | | | + +---+ + +-------+ +--------+---+---+ | docusate sodium (COLACE) | Given | | 100 mg | | | | capsule 100 mg 100 mg, Oral, 2 | | 8 21:15 | | | | | Times Daily, First dose on Fri | | PDT | | | | | 10/03/17 at 2100 | | | | | | + +-------+ +--------+---+---+ +-------+ +--------+---+---+ | Given | | 100 mg | | | | | 8 07:54 | | | | | | PDT | | | | +-------+ +--------+---+---+ +---+---+ | | | +---+---+ + +-------+ +--------+---+---+ | dronedarone (MULTAQ) tablet 400 | Given | | 400 mg | | | | mg 400 mg, Oral, 2 Times Daily | | 8 21:24 | | | | | With Meals, First dose on Fri | | PDT | | | | | 10/03/17 at 1730 | | | | | | + +-------+ +--------+---+---+ +-------+ +--------+---+---+ | Given | | 400 mg | | | | | 8 08:01 | | | | | | PDT | | | | +-------+ +--------+---+---+ + +---+ | | | + +---+ | fentaNYL (SUBLIMAZE) injection | | | 12.5 mcg 12.5 mcg, Intravenous, | | | Every 1 Hour PRN, Moderate Pain | | | (4-6), Starting 10/03/17 at | | | 1653 | | + +---+ | | | + +---+ + +-------+ +--------+---+---+ | fentaNYL (SUBLIMAZE) injection | Given | | 25 mcg | | | | 25 mcg 25 mcg, Intravenous, | | 8 19:22 | | | | | Every 1 Hour PRN, Severe Pain | | PDT | | | | | (08-19), Starting 10/03/17 at | | | | | | | 1653 | | | | | | + +-------+ +--------+---+---+ +-------+ +--------+---+---+ | Given | | 25 mcg | | | | | 8 20:28 | | | | | | PDT | | | | +-------+ +--------+---+---+ | Given | | 25 mcg | | | | | 8 00:09 | | | | | | PDT | | | | +-------+ +--------+---+---+ +---+---+ | | | +---+---+ + +-------+ + +---+---+ | gabapentin (NEURONTIN) capsule | Given | | 1,200 mg | | | | 1,200 mg 1,200 mg, Oral, 3 Times | | 8 21:13 | | | | | Daily, First dose on Fri10/03/17 | | PDT | | | | | at 2200 | | | | | | + +-------+ + +---+---+ +-------+ + +---+---+ | Given | | 1,200 mg | | | | | 8 06:17 | | | | | | PDT | | | | +-------+ + +---+---+ +---+---+ | | | +---+---+ + +-------+ +-------+---+---+ | metoprolol (TOPROL-XL) 24 hr | Given | | 50 mg | | | | tablet 50 mg 50 mg, Oral, Daily, | | 8 21:25 | | | | | First dose on Fri10/03/17 at | | PDT | | | | | 1730 | | | | | | + +-------+ +-------+---+---+ +-------+ +-------+---+---+ | Given | | 50 mg | | | | | 8 07:53 | | | | | | PDT | | | | +-------+ +-------+---+---+ +---+---+ | | | +---+---+ + +-------+ +-------+---+---+ | morphine (MS CONTIN) 12 hr | Given | | 30 mg | | | | tablet 30 mg 30 mg, Oral, 2 | | 8 21:15 | | | | | Times Daily, First dose on Fri | | PDT | | | | | 10/03/17 at 2100 | | | | | | + +-------+ +-------+---+---+ +-------+ +-------+---+---+ | Given | | 30 mg | | | | | 8 07:53 | | | | | | PDT | | | | +-------+ +-------+---+---+ + +---+ | | | + +---+ | ondansetron (ZOFRAN) injection | | | 4 mg 4 mg, Intravenous, Every 6 | | | Hours PRN, Nausea, Vomiting, | | | Starting Fri10/03/17 at 1653 | | + +---+ | | | + +---+ + +-------+ +------+---+---+ | ondansetron (ZOFRAN-ODT) | Given | | 4 mg | | | | disintegrating tablet 4 mg 4 mg, | | 8 08:08 | | | | | Oral, Every 6 Hours PRN, Nausea, | | PDT | | | | | Vomiting, Starting 10/03/17 | | | | | | | at 1653 | | | | | | + +-------+ +------+---+---+ +---+---+ | | | +---+---+ + +-------+ +-------+---+---+ | oxyCODONE (ROXICODONE) | Given | | 30 mg | | | | immediate release tablet 30 mg | | 8 00:13 | | | | | 30 mg, Oral, Every 4 Hours PRN, | | PDT | | | | | Severe Pain (7-10), breakthrough | | | | | | | pain, Starting 10/03/17 at | | | | | | | 1601 | | | | | | + +-------+ +-------+---+---+ +-------+ +-------+---+---+ | Given | | 30 mg | | | | | 8 04:29 | | | | | | PDT | | | | +-------+ +-------+---+---+ | Given | | 30 mg | | | | | 8 11:02 | | | | | | PDT | | | | +-------+ +-------+---+---+ +---+---+ | | | +---+---+ + +-------+ +-------+---+---+ | pantoprazole (PROTONIX) EC | Given | | 40 mg | | | | tablet 40 mg 40 mg, Oral, Every | | 8 06:17 | | | | | Morning Before Breakfast, First | | PDT | | | | | dose on 10/04/18 at 0630 | | | | | | + +-------+ +-------+---+---+ +---+---+ | | | +---+---+ + +-------+ +--------+---+---+ | potassium chloride (K-DUR) CR | Given | | 20 mEq | | | | tablet 20 mEq 20 mEq, Oral, | | 8 07:52 | | | | | Daily, First dose on Fri10/03/17 | | PDT | | | | | at 1730 | | | | | | + +-------+ +--------+---+---+ +---+---+ | | | +---+---+ + +-------+ +---------+---+---+ | pramipexole (MIRAPEX) tablet | Given | | 0.75 mg | | | | 0.75 mg 0.75 mg, Oral, Nightly, | | 8 21:14 | | | | | First dose on Fri10/03/17 at 2200 | | PDT | | | | + +-------+ +---------+---+---+ +---+---+ | | | +---+---+ + +-------+ +---------+---+---+ | senna (SENOKOT) 8.6 MG tablet | Given | | 17.2 mg | | | | 17.2 mg 17.2 mg (2 tablet), | | 8 21:15 | | | | | Oral, 2 Times Daily, First dose | | PDT | | | | | on 10/03/17 at 2100 | | | | | | + +-------+ +---------+---+---+ +-------+ +---------+---+---+ | Given | | 17.2 mg | | | | | 8 07:53 | | | | | | PDT | | | | +-------+ +---------+---+---+ +---+---+ | | | +---+---+ + +---------+ +---+-------+---+ | sodium chloride 0.45 % infusion | New Bag | | | 110 | | | at 110 mL/hr, Intravenous, | | 8 16:56 | | mL/hr | | | Continuous, Starting 10/03/17 | | PDT | | | | | at 1730 | | | | | | + +---------+ +---+-------+---+ +---+---+ | | | +---+---+ + +-------+ +--------+---+-------+ | thrombin solution PRN, | Given | | 5,000 | | Other | | Starting Fri10/03/17 at 1326, | | 8 13:26 | Units | | | | Intra-op | | PDT | | | | + +-------+ +--------+---+-------+ +-------+ +--------+---+-------+ | Given | | 5,000 | | Other | | | 8 13:28 | Units | | | | | PDT | | | | +-------+ +--------+---+-------+ +---+---+ | | | +---+---+ + +-------+ +-------+---+---+ | torsemide (DEMADEX) tablet 20 | Given | | 20 mg | | | | mg 20 mg, Oral, Daily, First | | 07:54 | | | | | dose on Fri10/03/17 at 1730 | | PDT | | | | + +-------+ +-------+---+---+ +---+---+ | | | +---+---+ + +-------+ +---------+---+---+ | venlafaxine (EFFEXOR) tablet | Given | | 37.5 mg | | | | 37.5 mg 37.5 mg, Oral, Daily, | | 8 07:55 | | | | | First dose on Fri10/03/17 at 1730 | | PDT | | | | + +-------+ +---------+---+---+ +---+---+ | | | +---+---+ + +-------+ +-------+---+---+ | venlafaxine (EFFEXOR) tablet 75 | Given | | 75 mg | | | | mg 75 mg, Oral, Daily, First | | 8 21:19 | | | | | dose on 10/03/17 at 1730 | | PDT | | | | + +-------+ +-------+---+---+ +---+---+ | | | +---+---+ in this encounter
--- OUTSIDE RECORDS SUMMARY | ~2017-10-05 | XMS | Encounter Summary ---
Demographics + + + | Address | [address] | | | [place] [address] | + + + | Home Phone | | + + + | Preferred Language | Unknown | + + + | Marital Status | | + + + | Alevism Affiliation | 1041 | + + + | Race | Unknown | + + + | Ethnic Group | Unknown | + + + Author + + + | Author | [facility] | + + + | Organization | [facility] | + + + | Address | Unknown | + + + | Phone | Unavailable | + + + Support + + + + + | Name | Relationship | Address | Phone | + + + + + | Elayne De La Rosa | ECON | [address] | | | | | [place] | | | | | [address] | | + + + + + Care Team Providers + +------+ + | Care Facility Practice Specialist Name | Role | Phone | + +------+ + | Jsoe Hall MD | PCP | | + [...] | | | | | | | [address] Phone: | | | | | | | [phone] | | | | | | | Fax: | | | | | | | [phone] | +--------+--------+ + + + + Encounter Details +--------+ + + + + | Date | Type | Department | Care Team | Description | +--------+ + + + + | 10/03/ | Hospital | [facility] | Josh Ulloa MD | Cervical pain | | 2018 - | Encounter | [facility] | [address] | (neck); Cervical | | | | Surgical [address] | [place] [address] | radiculopathy; | | 10/04/ | | Blvd [place], [place] | [phone] | Spinal stenosis of | | 2018 | | [address] | | cervical region | +--------+ + [...] note may be different from michael trujillo. [facility] Service: Orthopedic Surgery Discharge Summary Date of [...] - ANTERIOR; Surgeon: Josh Ulloa MD; Location: [facility] OR; Service: Ortho/Spine; Laterality: N/A; c3-5 CHOLECYSTECTOMY COLONOSCOPY HARDWARE REMOVAL hips/neck/wrist hardware inserted HARDWARE REMOVAL N/A 01/25/2015 Procedure: CERVICAL - HARDWARE REMOVAL; Surgeon: Josh Ulloa MD; Location: [facility] ; Service: Ortho/Spine; [...] by mouth nightly. taking 3 pills at ght 10/02/2017 at Unknown time simvastatin (ZOCOR) 40 [...] : [48 %-100 %] 100 % (10/03 1433) Physical Exam Constitutional: He is oriented to [...] Follow up: Jose Hall MD [address] [place] [address] Medication List START taking these medications methylPREDNISolone [...] 20 mg daily except 40 mg //Fri UNABLE TO FIND Refills: 0 * venlafaxine [...] These medications were sent to [facility] [facility] [place] - [address] [facility] [address] [place] [address] methylPREDNISolone 4 MG dose pack Discharge took [...] getting worse New symptoms Date Last Reviewed: 01/10/201719996278-[address] [place] [address], [place] [address]. All righ ts reserved. This information is [...] 0.5-1 tablets | 60 | 1 | 08// | | | 10 MG | by [...] mL/min Pharmacy dosing for renal function per MAURI Hager. Currently, there are no medications needing to [...] [place] | | | | | | [facility] [address] | | | | | | [phone] | | | | | | | [...] >60Comment: GFR <60: | >60 mL/min/1.73m2 | [facility] | | | CHRONIC KIDNEY DISEASE, | [...] | | | | | performed at [facility], [address] | | | | | [facility], | | | | | [place] [address] | | | + + + + + + + | Specimen | + + | Blood | + + + + + + + | Performing | Address | City/State/Zipcode | Phone Number | | Organization | | | | + + + + + | [facility] | [address] [facility] | [place] [address] | [phone] | | LABORATORY | Blvd[address] | | [...] performed at | | | | | [facility], [address] [place] [address] | | | | | [place] | | | | | [address] | | | + + + + + + + | Specimen | + + | Blood | + + + + + + + | Performing | Address | City/State/Zipcode | Phone Number | | Organization | | | | + + + + + | [facility] | [address] | [place] [address] | [phone] | | LABORATORY | Blvd. | | [...] Addison Results In - 10/03/2017 2:55 PM PDT HAZEL VEGA C-ARM FLUORO OVER 1 | | [...] [facility] | [address] | [facility] [place] [address] | | + + + + + Type and Screen (Blood Bank) (10/03/2017 9:55 AM) + + + + + | Component | Value | Ref Range | Performed At | + + + + + | ABO/RH(D) | O POSITIVE | | [facility] | + + + + + | ANTIBODY SCREEN | NEGATIVE | | [facility] | + + + + + | ARM BAND NUMBER | [id number] | | [facility] | | | performed at [facility];[address] | | | | | [address];[place] | | | | | [address] | | | + + + + + + + | Specimen | + + | Blood | + + + + + + + | Performing | Address | City/State/Zipcode | Phone Number | | Organization | | | | + + + + + | [facility] | [address] | [place] [address] | | + + + + + Basic metabolic panel (10/03/2017 9:54 AM) + + + + + | Component | Value | Ref Range | Performed At | + + + + + | SODIUM | 142 | 135 - 145 mmol/L | [facility] | + + + + + | POTASSIUM | 4.2 | 3.5 - 4.9 mmol/L | [facility] | + + + + + | CHLORIDE | 106 | 99 - 109 mmol/L | [facility] | + + + + + | CO2 | 29 | 23 - 32 mmol/L | [facility] | + + + + + | ANION GAP AGAP | 11 | 5 - 20 mmol/L | [facility] | + + + + + | GLUCOSE | 94 | 65 - 99 mg/dL | [facility] | + + + + + | BUN | 19 | 8 - 25 mg/dL | [facility] | + + + + + | CREATININE | 1.0 | 0.70 - 1.30 mg/dL | [facility] | + + + + + | BUN/CREAT | 19 | | [facility] | + + + + + | CALCIUM | 8.2 (L) | 8.5 - 10.5 mg/dL | [facility] | + + + + + | EGFR | >60Comment: GFR <60: | >60 mL/min/1.73m2 | [facility] | | | CHRONIC KIDNEY [...] the | | | | | [facility]D [facility] traceable | | | | | equation.Testing | | | | | performed at [facility];[address] | | | | | [facility];[place], [place] | | | | | [address] | | | + + + + + + + | Specimen | + + | Blood | + + + + + + + | Performing | Address | City/State/Zipcode | Phone Number | | Organization | | | | + + + + + | [facility] | [address] | [place] [address] | | + + + + + CBC W/Auto Diff (Reflex to Manual) (10/03/2017 9:54 AM) + + + + + | Component | Value | Ref Range | Performed At | + + + + + | WBC | 5.66 | 3.80 - 11.00 K/uL | [facility] | + + + + + | RBC | 4.01 (L) | 4.20 - 5.70 M/uL | [facility] | + + + + + | HGB | 13.0 (L) | 13.2 - 17.0 g/dL | [facility] | + + + + + | HCT | 39.2 | 39.0 - 50.0 % | [facility] | + + + + + | MCV | 97.8 | 80.0 - 100.0 fl | [facility] | + + + + + | MCH | 32.5 | 27.0 - 34.0 pg | [facility] | + + + + + | MCHC | 33.3 | 32.0 - 35.5 g/dL | [facility] | + + + + + | RDW SD | 52.9 | 37 - 53 fl | [facility] | + + + + + | PLT | 278 | 150 - 400 K/uL | [facility] | + + + + + | MPV | 7.4 | fl | [facility] | + + + + + | DIFF TYPE | AUTOMATED | | [facility] | + + + + + | NEUTROPHILS | 48.09 | % | [facility] | + [...] 2.09 | 1.00 - 3.90 K/uL | [facility] | + + + + + | MONOCYTES ABS | 0.65 | 0.00 - 0.80 K/uL | [facility] | + + + + + | EOSINOPHILS ABS | 0.16 | 0.00 - 0.50 K/uL | [facility] | + + + + + | BASOPHILS ABS | 0.04Comment: Testing | 0.00 - 0.10 K/uL | [facility] | | | performed at [facility];[address] | | | | | [place] | | | | | [address] | | | + + + + + + + | Specimen | + + | Blood | + + + + + + + | Performing | Address | City/State/Zipcode | Phone Number | | Organization | | | | + + + + + | [facility] | [address] | [place] [address] | | + + + + + [...] stenosis in cervical region | + + Admitting Diagnoses + + [...] Pain (1-3), | | | Fever, Starting Fri10/03/17 at | | | 1653 | | + +---+ | | | + +---+ + +-------+ +-----+-------+---+ | ceFAZolin (ANCEF) IVPB 2 g 2 | Given | | 2 g | 200 | | | g, Intravenous, Administer over | | 8 18:31 | | mL/hr | | | 30 Minutes, Every 8 Hours, First | | PDT | | | | | dose on Fri10/03/17 at 1830, For | | | | | | | 2 doses | | | | | | + +-------+ +-----+-------+---+ +-------+ +-----+-------+---+ | Given | | 2 g | 200 | | | | 8 02:55 | | mL/hr | | | | PDT | | | | +-------+ +-----+-------+---+ +---+---+ | | | +---+---+ + +-------+ +------+---+---+ | diazepam (VALIUM) injection 5 | Given | | 5 mg | | | | mg 5 mg, Intravenous, Once, Fri | | 8 14:50 | | | | | 10/03/17 at 1500, For 1 dose, PACU | | PDT | | | | + +-------+ +------+---+---+ + +---+ | | | + +---+ | diphenhydrAMINE (BENADRYL) 12.5 | | | mg/5 mL liquid 25 mg 25 mg, | | | Oral, Every 8 Hours PRN, Itching, | | | Starting Fri10/03/17 at 1653 | | + +---+ | | | + +---+ | diphenhydrAMINE (BENADRYL) | | | capsule 25 mg 25 mg, Oral, Every | | | 8 Hours PRN, Itching, Starting | | | Fri10/03/17 at 1653 | | + +---+ [...] +--------+---+---+ +---+---+ | | | +---+---+ + +---------+ +---+ +---+ | electrolyte-A (PLASMALYTE-A) | New Bag | | | 30 mL/hr | | | solution at 30 mL/hr, | | 8 09:54 | | | | | Intravenous, Continuous, Starting | | PDT | | | | | 10/03/17 at 1030, Pre-op | | | | | | + +---------+ +---+ +---+ +---------+ +---+---+---+ | New Bag | | | | | | | 8 12:16 | | | | | | PDT | | | | +---------+ +---+---+---+ + +---+ | | | + +---+ | fentaNYL (SUBLIMAZE) injection | | | 12.5 mcg 12.5 mcg, Intravenous, | | | Every 1 Hour PRN, Moderate Pain | | | (4-6), Starting Fri10/03/17 at | | | 1653 | | + +---+ | | | + +---+ + +-------+ +--------+---+---+ | fentaNYL (SUBLIMAZE) injection | Given | | 25 mcg | | | | 25 mcg 25 mcg, Intravenous, | | 8 19:22 | | | | | Every 1 Hour PRN, Severe Pain | | PDT | | | | | (-10), Starting Fri10/03/17 at | | | | | | [...] | | +---+---+ + +-------+ +--------+---+---+ | fentaNYL (SUBLIMAZE) injection | Given | | 50 mcg | | | | 50 mcg 50 mcg, Intravenous, | | 8 14:51 | | | | | Every 5 Min PRN, Pain, Option One | | PDT | | | | | for pain scale 5-10/10. If no | | | | | | | relief, proceed to option 2., | | | | | | | Starting 10/03/17 at 1429, | | | | | | | PACU | | | | | | + [...] | | +---+---+ + +-------+ +--------+---+---+ | HYDROmorphone (DILAUDID) | Given | | 0.5 mg | | | | injection 0.5 mg 0.5 mg, | | 8 15:06 | | | | | Intravenous, Every 5 Min PRN, | | PDT | | | | | Pain, Option Three for pain scale | | | | | | | 5-10. If no relief, contact | | | | | | | anesthesia provider., Starting | | | | | | | Fri10/03/17 at 1429, PACU | | | | | | + +-------+ +--------+---+---+ +---+---+ | | | +---+---+ + +-------+ +-------+---+---+ | ketorolac (TORADOL) injection | Given | | 30 mg | | | | 30 mg 30 mg, Intravenous, Once, | | 8 14:51 | | | | | Fri10/03/17 at 1500, For 1 dose, | | PDT | | | | | PACU | | | | | | + [...] | | | | | dose on Fri10/04/17 at 0630 | | | | | [...] PDT | | | | | on Fri10/03/17 at 2100 | | | | | [...] 20 mg, Oral, Daily, First | | 8 07:54 | | | | | dose [...]
--- OUTSIDE RECORDS SUMMARY | ~2017-10-05 | XMS | Encounter Summary ---
Demographics + + + | Address | [address] | | | [place] [address] | + + + | Home Phone | | + + + | Preferred Language | Unknown | + + + | Marital Status | | + + + | Baptist Affiliation | 1041 | + + + | Race | Unknown | + + + | Ethnic Group | Unknown | + + + Author + + + | Author | [facility] | + + + | Organization | [facility] | + + + | Address | Unknown | + + + | Phone | Unavailable | + + + Support + + + + + | Name | Relationship | Address | Phone | + + + + + | Elayne De La Rosa | ECON | [address] | | | | | [place] | | | | | [address] | | + + + + + Care Team Providers + +------+ + | Care Precinct I Police Sergeant Name | Role | Phone | + +------+ + | Jose Hall MD | PCP | | + +------+ + Reason for Referral MRI/CAT Scan (Emergency) +--------+--------+ + + + + | Status | Reason | Specialty | Diagnoses / | Referred By | Referred To | | | | | Procedures | Contact | Contact | +--------+--------+ + + + + | Closed | | Radiology | Diagnoses | Ang, | Kr Opic | | | | | Neck pain | Tamika | [address] | | | | | Cervical | [place], | Ana [address]ido | | | | | radiculopath | APPLICATION CONSULTANT [address] | | | | | [address] Spinal | [address] | [place], [place] | | | | | stenosis of | APRIL, | [address] Phone: | | | | | cervical | [place] [address] | [phone] | | | | | region | Phone: | Fax: | | | | | Procedures | [phone] | [phone] | | | | | MRI cervical | Fax: | | | | | | spine w wo | [phone] | | | | | | contrast | | | +--------+--------+ + + + + Encounter Details +--------+ + + + + | Date | Type | Department | Care Team | Description | +--------+ + + + + | 07/28/ | Telephone | gregorio | Chelsea Inman, | | | 2017 | | [facility] [place] | INSURANCE LOSS CONTROL SURVEYOR | | | | | [address] | | | | | | [place] | | | | | | [address] | | | | | | [phone] | | | +--------+ + + + [...] | | | | | [place] [address] | | | | | | [phone] | | | | | | | | +--------+---------+ + + + as of this encounter Results MRI cervical spine w wo contrast (08/01/2017 [...] image 7 series 5 of imaging from 2005, | | there is been about 30% [...] and disc endplate disease at | | [id number] signed by Eze Back MD on 08/01/2017 [...] | + + + + + | [facility] | [address] | [place] [address] | | + + + + + in this encounter Visit Diagnoses + + | Diagnosis | + + | Cervical pain (neck) - Primary | + + | Cervicalgia | + + | Cervical radiculopathy | + + | Brachial neuritis or radiculitis nos | + + | Cervical stenosis of spine | + + | Spinal stenosis in cervical region | + +"
--- OUTSIDE RECORDS SUMMARY | ~2017-10-05 | XMS | Encounter Summary ---
Demographics + + + | Address | [address] | | | [place] [address] | + + + | Home Phone | | + + + | Preferred Language | Unknown | + + + | Marital Status | | + + + | Nondenominational Affiliation | 1041 | + + + | Race | Unknown | + + + | Ethnic Group | Unknown | + + + Author + + + | Author | [facility] | + + + | Organization | [facility] | + + + | Address | Unknown | + + + | Phone | Unavailable | + + + Support + + + + + | Name | Relationship | Address | Phone | + + + + + | Elayne De La Rosa | ECON | [address] | | | | | [place] | | | | | [address] | | + + + + + Care Team Providers + +------+ + | Care Battery Container Finishing Hand Name | Role | Phone | + +------+ + | Jose Hall MD | PCP | | + +------+ + Reason for Visit +--------+ + | Reason | Comments | +--------+ + | Other | APPROVAL MORPHINE | +--------+ + Encounter Details +--------+ + + + + | Date | Type | Department | Care Team | Description | +--------+ + + + + | 08/15/ | Documentati | Delphine | Lola Villanueva | Other (APPROVAL | | 2018 | on Only | [facility] | [facility] | ISS[facility] ) | | | | [address] | | | | | | [place], [place] | | | | | | [address] | | | | | | [phone] | | | +--------+ + + + [...] | | | | | [place] [address] | | | | | | [phone] | | | | | | | | +--------+---------+ + + + as of this encounter Visit Diagnoses Not on filein this encounter"
--- OUTSIDE RECORDS SUMMARY | ~2017-10-05 | XMS | Clinical Summary ---
Demographics + + + | Address | [address] | | | [place] [address] | + + + | Home Phone | | + + + | Preferred Language | Unknown | + + + | Marital Status | | + + + | Mu-Ism Affiliation | 1041 | + + + | Race | Unknown | + + + | Ethnic Group | Unknown | + + + Author + + + | Author | [facility] | | | and [place] | + + + | Organization | [facility] | | | and [place] | + + + | Address | Unknown | + + + | Phone | Unavailable | + + + Support + + + + + | Name | Relationship | Address | Phone | + + + + + | Elayne Bee | ECON | [address] | | | | | [place] | | | | | [address] | | + + + + + Care Team Providers + +------+ + | Care Derrick Boat Runner Name | Role | Phone | + +------+ + | Ottoniel Johnson MD | PP | | + +------+ + Allergies + + + +--------+ + | Active Allergy | Reactions | Severity | Noted | Comments | | | | | Date | | + + + +--------+ + | Codeine Sulfate | | | | | + + + +--------+ + | Paroxetine Hcl | | | | | + + + +--------+ + Current Medications + + +-------+---------+------+------+-------+ | Prescription | Sig. | Disp. | Refills | Star | End | Statu | | | | | | t | Date | s | | | | | | Date | | | + + +-------+---------+------+------+-------+ | carvedilol (COREG) | | | | 09/1 | | Activ | | 6.25 mg tablet | | | | 4/20 | | e | | | | | | 12 | | | + + +-------+---------+------+------+-------+ | omeprazole | | | | 09/1 | | Activ | | (PRILOSEC) 20 mg | | | | 4/20 | | e | | capsule | | | | 12 | | | + + +-------+---------+------+------+-------+ | diltiazem | | | | 09/1 | | Activ | | (CARDIZEM CD) 180 mg | | | | 4/20 | | e | | 24 hr capsule | | | | 12 | | | + + +-------+---------+------+------+-------+ | METHOCARBAMOL PO | TABS | | | 09/1 | | Activ | | | | | | 4/20 | | e | | | | | | 12 | | | + + +-------+---------+------+------+-------+ | traZODone | | | | 09/1 | | Activ | | (DESYREL) 100 mg | | | | 4/20 | | e | | tablet | | | | 12 | | | + + +-------+---------+------+------+-------+ | LORazepam (ATIVAN) | | | | 09/1 | | Activ | | 1 mg tablet | | | | 4/20 | | e | | | | | | 12 | | | + + +-------+---------+------+------+-------+ | lisinopril | | | | 09/1 | | Activ | | (PRINIVIL, ZESTRIL) | | | | 4/20 | | e | | 5 mg tablet | | | | 12 | | | + + +-------+---------+------+------+-------+ | methadone 10 mg | | | | 09/1 | | Activ | | tablet | | | | 4/20 | | e | | | | | | 12 | | | + + +-------+---------+------+------+-------+ | nicotine | | | | 09/1 | | Activ | | polacrilex (COMMIT) | | | | 4/20 | | e | | 4 MG lozenge | | | | 12 | | | + + +-------+---------+------+------+-------+ | metoprolol | 1-1/2 tablets two | | | 10/11 | | Activ | | tartrate (LOPRESSOR) | times daily | | | 05/30 | | e | | 50 mg tablet | | | | 12 | | | + + +-------+---------+------+------+-------+ | albuterol (PROAIR | 2 puffs every 4-6 | | | 10/11 | | Activ | | HFA) 90 mcg/puff | hours as needed | | | 05/30 | | e | | inhaler | | | | 12 | | | + + +-------+---------+------+------+-------+ | citalopram | Take 40 mg by mouth | | | 10/11 | | Activ | | (CELEXA) 40 mg | Daily. | | | 05/30 | | e | | tablet | | | | 12 | | | + + +-------+---------+------+------+-------+ | Potassium Chloride | CR-TABS daily | | | 10/11 | | Activ | | Belinda CR (KLOR-CON | | | | 05/30 | | e | | M20 PO) | | | | 12 | | | + + +-------+---------+------+------+-------+ | clonazePAM | 2-3 times daily | | | 10/11 | | Activ | | (KLONOPIN) 1 mg | | | | 4/20 | | e | | tablet | | | | 12 | | | + + +-------+---------+------+------+-------+ | nitroglycerin | Place 0.4 mg under | | | 10/11 | | Activ | | (NITROSTAT) 0.4 mg | the tongue as | | | 4/20 | | e | | SL tablet | needed. | | | 12 | | | + + +-------+---------+------+------+-------+ Active Problems + + + | Problem | Noted Date | + + + | DDD (degenerative disc disease), cervical | 11/19/2011 | + + + | History of spinal fusion (cervical) | 11/19/2011 | + + + | DDD (degenerative disc disease), lumbar | 11/19/2011 | + + + | Nicotine addiction | 11/19/2011 | + + + | OBSTRUCTIVE SLEEP APNEA | | + + + | PRIMARY CENTRAL SLEEP APNEA | | + + + | OTHER CHRONIC PAIN | | + + + | ANXIETY STATE, UNSPECIFIED | | + + + + + | Overview: ICD-10 Record update | + + + +---+ | OSTEOARTHROS UNSPEC WHETHER GEN/LOC UNSPEC SITE | | + +---+ + + | Overview: ICD-10 Record update | + + + +---+ | DEPRESSION | | + +---+ | Obesity | | + +---+ + + | Overview: JERMAINE [id number] Decision | + + + +---+ | OSTEOARTHRITIS, SEVERE | | + +---+ | CHRONIC PAIN SYNDROME | | + +---+ Social History + + + +--------+------+ | Tobacco Use | Types | Packs/Day | Years | Date | | | | | Used | | + + + +--------+------+ | Current Every Day | Cigarettes | 0.5 | 17 | | | Smoker | | | | | + + + +--------+------+ + + | Tobacco Cessation: Counseling Given: No | + + + + +---------+ + | Alcohol Use | Drinks/We | oz/Week | Comments | | | ek | | | + + +---------+ + | Yes | | | Rare | + + +---------+ + + + + | Sex Assigned at | Date Recorded | | | | + + + | Not on file | | + + + Last Filed Vital Signs + + + + | Vital Sign | Reading | Time Taken | + + + + | Blood Pressure | 120/73 | 11/19/20111101 PDT | + + + + | Pulse | 75 | 11/19/20111101 PDT | + + + + | Temperature | - | - | + + + + | Respiratory Rate | - | - | + + + + | Oxygen Saturation | - | - | + + + + | Inhaled Oxygen | - | - | | Concentration | | | + + + + | Weight | 121.1 kg (267 lb) | 11/19/20111101 PDT | + + + + | Height | 185.4 cm (6' 1") | 11/19/20111101 PDT | + + + + | Body Mass Index | 35.23 | 11/19/20111101 PDT | + + + + Plan of Treatment + + + + + | Health Maintenance | Due Date | Last Done | Comments | + + + + + | Vaccine: | | | | | Dtap/Tdap/Td (1 - | 0 | | | | Tdap) | | | | + + + + + | Vaccine: Influenza | | | | | (#1) | 8 | | | + + + + + Results Not on filefrom Last 3 Months Insurance + +--------+ +--------+ +---------+ | Payer | Benefi | Subscriber | Type | Phone | Address | | | t Plan | ID | | | | | | / | | | | | | | Group | | | | | + +--------+ +--------+ +---------+ | [employer] | MOD[employer] | [id number] | Medica | [phone] | | | MEDICAID HMO | HEALTH | | id | 9821 | | | | MDCD | | | | | | | [place]MO [place] | | | | | + +--------+ +--------+ +---------+ + +--------+ +--------+ + + | Guarantor Name | Accoun | Relation to | Date | Phone | Billing Address | | | t Type | Patient | of | | | | | | | | | | + +--------+ +--------+ + + | JOSE MARIA BEE | Person | Self [birth year] | Home: | [address] | | | al/Fam | | 1 | [phone] | [place] [address] | | | alba | | | [address] | | + +--------+ +--------+ + + | JOSE MARIA BEE | Person | Self | [birth year] | Home: | [address] | | | al/Fam | | 1 | [phone] | [place] [address] | | | alba | | | [address] | | + +--------+ +--------+ + +
--- OUTSIDE RECORDS SUMMARY | ~2017-10-05 | XMS | Encounter Summary ---
Demographics + + + | Address | [address] | | | [place] [address] | + + + | Home Phone | | + + + | Preferred Language | Unknown | + + + | Marital Status | | + + + | Shinto Affiliation | 1041 | + + + | Race | Unknown | + + + | Ethnic Group | Unknown | + + + Author + + + | Author | [facility] [employer] | + + + | Organization | [facility] [employer] [facility] | + + + | Address | Unknown | + + + | Phone | Unavailable | + + + Support + + + + + | Name | Relationship | Address | Phone | + + + + + | Elayne De La Rosa | ECON | [address] | | | | | [place] | | | | | [address] | | + + + + + Care Team Providers + +------+ + | Care Automatic Corn Grinder Operator Name | Role | Phone | + +------+ + | Jose Hall MD | PCP | | + +------+ + Encounter Details +--------+ + + + + | Date | Type | Department | Care Team | Description | +--------+ + + + + | 07/15/ | Telephone | [facility] | Asad Hwang MD | | | 2018 | | Pulmonology [address] | [address] | | | | | [address] | [place] [address] | | | | | [place], [place] | [phone] | | | | | [address] | | | | | | [phone] | | | +--------+ + + + [...] [place] | | | | | | [place] [address] | | | | | | [phone] | | | | | | | | +--------+---------+ + + + as of this encounter Visit Diagnoses Not on filein this encounter"
--- OUTSIDE RECORDS SUMMARY | ~2017-10-05 | XMS | Clinical Summary ---
Demographics + + + | Address | [address] | | | [place] [address] | + + + | Home Phone | | + + + | Preferred Language | Unknown | + + + | Marital Status | | + + + | Nondenominational Affiliation | 1041 | + + + | Race | Unknown | + + + | Ethnic Group | Unknown | + + + Author + + + | Author | [facility] | | | and [place] | + + + | Organization | [facility] | | | and [...] [address] | | | | | [address] | | + + + + + Care Team Providers + +------+ + | Care Baby Formula Worker Name | Role | Phone | [...] + +---+ + + | Overview: JERMAINE [id number] Decision | + + + +---+ | [...] | [employer] | MODA | [id number] | Medica | [phone] | | | [...] | | al/Fam | | 1 | [phone] | [place] [address] | | | alba | | | [address] | | + +--------+ +--------+ + + | JOSE MARIA BEE | Person | Self | [birth year] | Home: | [address] | | | al/Fam | | 1 | [phone] | [place] [address] | | | alba | | | [address] | | + +--------+ +--------+ + +
--- OUTSIDE RECORDS SUMMARY | ~2017-10-05 | XMS | Encounter Summary ---
Demographics + + + | Address | [address] | | | [place] [address] | + + + | Home Phone | | + + + | Preferred Language | Unknown | + + + | Marital Status | | + + + | Evangelical Affiliation | 1041 | + + + | Race | Unknown | + + + | Ethnic Group | Unknown | + + + Author + + + | Author | [facility] [employer] | + + + | Organization | [facility] [facility] | + + + | Address | Unknown | + + + | Phone | Unavailable | + + + Support + + + + + | Name | Relationship | Address | Phone | + + + + + | Elayne De La Rosa | ECON | [address] | | | | | [place] | | | | | [address] | | + + + + + Care Team Providers + +------+ + | Care Powerplant Operator Name | Role | Phone | + +------+ + | Jose Hall MD | PCP | | + +------+ + Encounter Details +--------+ + + + + | Date | Type | Department | Care Team | Description | +--------+ + + + + | 07/25/ | Telephone | Delphine | Nidhi Raymond MA | | | 2017 | | [facility] | | | | | | [address] | | | | | | [place] | | | | | | [address] | | | | | | [phone] | | | +--------+ + + + [...] | | | | | [place] [address] | | | | | | [phone] | | | | | | | | +--------+---------+ + + + as of this encounter Visit Diagnoses Not on filein this encounter"
--- OUTSIDE RECORDS SUMMARY | ~2017-10-05 | XMS | Encounter Summary ---
Demographics + + + | Address | [address] | | | [place] [address] | + + + | Home Phone | | + + + | Preferred Language | Unknown | + + + | Marital Status | | + + + | Moravian Affiliation | 1041 | + + + | Race | Unknown | + + + | Ethnic Group | Unknown | + + + Author + + + | Author | [facility] | + + + | Organization | [facility] [employer] [facility] | + + + | Address | Unknown | + + + | Phone | Unavailable | + + + Support + + + + + | Name | Relationship | Address | Phone | + + + + + | Elayne De La Rosa | ECON | [address] | | | | | [place] | | | | | [address] | | + + + + + Care Team Providers + +------+ + | Care Director Gift Name | Role | Phone | + +------+ + | Jose Hall MD | PCP | | + +------+ + Encounter Details +--------+ + + + + | Date | Type | Department | Care Team | Description | +--------+ + + + + | 08/22/ | Telephone | [facility] | Chelsea Inman, | | | 2017 | | [facility] | DIMENSIONAL INTEGRATION ENGINEER | | | | | [address] | | | | | | [place] | | | | | | [address] | | | | | | [phone] | | | +--------+ + + + [...] | | | | | [place] [address] | | | | | | [phone] | | | | | | | | +--------+---------+ + + + as of this encounter Visit Diagnoses Not on filein this encounter"
--- OUTSIDE RECORDS SUMMARY | ~2017-10-05 | XMS | Encounter Summary ---
Demographics + + + | Address | [address] | | | [place] [address] | + + + | Home Phone | | + + + | Preferred Language | Unknown | + + + | Marital Status | | + + + | Sabianism Affiliation | 1041 | + + + | Race | Unknown | + + + | Ethnic Group | Unknown | + + + Author + + + | Author | [facility] [employer] | + + + | Organization | [facility] | + + + | Address | Unknown | + + + | Phone | Unavailable | + + + Support + + + + + | Name | Relationship | Address | Phone | + + + + + | Elayne De La Rosa | ECON | [address] | | | | | [place] | | | | | [address] | | + + + + + Care Team Providers + +------+ + | Care Materials And Corrosion Engineer Name | Role | Phone | + +------+ + | Jose Hall MD | PCP | | + +------+ + Encounter Details +--------+ + + + + | Date | Type | Department | Care Team | Description | +--------+ + + + + | 07/21/ | Documentati [facility] See, Medical | | | 2018 | on Only | Information | Record | | | | | Management [address] | | | | | | [address] | | | | | | [place] [address] | | | | | | [phone] | | | +--------+ + + + [...] [address] | | | | | | [place] [address] | | | | | | [phone] | | | | | | | | +--------+---------+ + + + as of this encounter Visit Diagnoses Not on filein this encounter"
--- OUTSIDE RECORDS SUMMARY | ~2017-10-05 | XMS | Encounter Summary ---
Demographics + + + | Address | [address] | | | [place] [address] | + + + | Home Phone [...] + | Author | [facility] | + + + | Organization | [facility] | + + + | Address | Unknown | + + + | Phone | Unavailable | + + + Support + + + + + | Name | Relationship | Address | Phone | + + + + + | Elayne De La Rosa | ECON | [address] | | | | | [place] | | | | | [address] | | + + + + + Care Team Providers + +------+ + | Care Top Stitcher Name | Role | Phone | + +------+ + | Jose Hall MD | PCP | | + +------+ + Encounter Details +--------+ + + + + | Date | Type | Department | Care Team | Description | +--------+ + + + + | 07/22/ | Telephone | [place]ine | Lola Villanueva | | | 2017 | | Neuro[facility] [place] | [address] | | | | | [address] | | | | | | [place] | | | | | | [address] | | | | | | [phone] | | | +--------+ + + + [...] | | | | | [place] [address] | | | | | | [phone] | | | | | | | | +--------+---------+ + + + as of this encounter Visit Diagnoses Not on filein this encounter"
--- OUTSIDE RECORDS SUMMARY | ~2017-10-05 | XMS | Encounter Summary ---
Demographics + + + | Address | [address] | | | [place] [address] | + + + | Home Phone | | + + + | Preferred Language | Unknown | + + + | Marital Status | | + + + | Anabaptism Affiliation | 1041 | + + + | Race | Unknown | + + + | Ethnic Group | Unknown | + + + Author + + + | Author | [facility] | + + + | Organization | [facility] [employer] [facility] | + + + | Address | Unknown | + + + | Phone | Unavailable | + + + Support + + + + + | Name | Relationship | Address | Phone | + + + + + | Elayne De La Rosa | ECON | [address] | | | | | [place] | | | | | [address] | | + + + + + Care Team Providers + +------+ + | Care Mill Washer Name | Role | Phone | + +------+ + | Jose Hall MD | PCP | | + +------+ + Encounter Details +--------+ + + + + | Date | Type | Department | Care Team | Description | +--------+ + + + + | 07/29/ | Procedure | [facility] | | | | 2018 | Pass | [facility] | | | | | | [address] | | | | | | [place] [address] | | | | | | [phone] | | | +--------+ + + + [...] | | | | | [place] [address] | | | | | | [phone] | | | | | | | | +--------+---------+ + + + as of this encounter Visit Diagnoses Not on filein this encounter"
--- OUTSIDE RECORDS SUMMARY | ~2017-10-05 | XMS | Encounter Summary ---
Demographics + + + | Address | [address] | | | [place] [address] | + + + | Home Phone | | + + + | Preferred Language | Unknown | + + + | Marital Status | | + + + | Hinduism Affiliation | 1041 | + + + | Race | Unknown | + + + | Ethnic Group | Unknown | + + + Author + + + | Author | [facility] [employer] | + + + | Organization | [facility] [employer] [facility] | + + + | Address | Unknown | + + + | Phone | Unavailable | + + + Support + + + + + | Name | Relationship | Address | Phone | + + + + + | Elayne De La Rosa | ECON | [address] | | | | | [place] | | | | | [address] | | + + + + + Care Team Providers + +------+ + | Care Test Facility Engineer Name | Role | Phone | + +------+ + | Jose Hall MD | PCP | | + +------+ + Encounter Details +--------+ + + + + | Date | Type | Department | Care Team | Description | +--------+ + + + + | 07/22/ | Telephone | Del[facility]ine | Lola Villanueva | | | 2017 | | [facility] [place] | [address] | | | | | [address] | | | | | | [place] | | | | | | [address] | | | | | | [phone] | | | +--------+ + + + [...] | | | | | [place] [address] | | | | | | [phone] | | | | | | | | +--------+---------+ + + + as of this encounter Visit Diagnoses Not on filein this encounter"
--- OUTSIDE RECORDS SUMMARY | ~2017-10-05 | XMS | Clinical Summary ---
Demographics + + + | Address | [address] | | | [place] [address] | + + + | Home Phone | | + + + | Preferred Language | Unknown | + + + | Marital Status | | + + + | Latter-Day Affiliation | CHR | + + + [...] [place] | | | | | [address] | | + + + + + | [place] | ECON | Unknown | | + + + + + Care Team Providers + +------+ + | Care Fertilizer Supervisor Name | Role | Phone | + +------+ + | Jose Hall MD | PP | | + +------+ + Source Comments EDGAR is fully live on both EpicCare Ambulatory and EpicCare InPatient.[facility] Allergies + + + + + + [...] | | | | | | type ([facility]), | | | | | | | [...] | + + + | Cardiomyopathy, nonischemic ([facility]) | 07/16/2010 | + + + | Palpitations | 05/04/2010 | + + + | Constrictive pericarditis | 12/12/2009 | + + + Resolved Problems + + + + | Problem | Noted | Resolved | | | Date | Date | + + + + | CHF (congestive heart failure) ([facility]) | 01/26/20 | | | | 10 [...] | | | + +--------+ +--------+-------+---------+ | VP [employer]ITAL [employer]ET[employer] MEDICAID | VP OF DIGITAL MARKETING | [id number] | Medica | | | [...] Self | [birth year] | Home: | [address] | | | al/Fam | | 1 | [phone] | [place] [address] | | | [place]ba | | | [address] | | + +--------+ +--------+ + +
--- OUTSIDE RECORDS SUMMARY | ~2017-10-05 | XMS | Encounter Summary ---
Demographics + + + | Address | [address] | | | [place] [address] | + + + | Home Phone | | + + + | Preferred Language | Unknown | + + + | Marital Status | | + + + | Islam Affiliation | 1041 | + + + | Race | Unknown | + + + | Ethnic Group | Unknown | + + + Author + + + | Author | [facility] [employer] | + + + | Organization | [facility] [employer] [facility] | + + + | [...] [place] | | | | | [address] | | + + + + + Care Team Providers + +------+ + | Care Legal Cashier Name | Role | Phone | + +------+ + | Jose Hall MD | PCP | | + +------+ + Encounter Details +--------+ + + + + | Date | Type | Department | Care Team | Description | +--------+ + + + + | 08/19/ | Telephone | [facility]ine | Lola Villanueva | | | 2017 | | Neuroscience [place] | [address] | | | | | [address] | | | | | | [place] | | | | | | [address] | | | | | | [phone] | | | +--------+ + + + [...] | | | | | [place] [address] | | | | | | [phone] | | | | | | | | +--------+---------+ + + + as of this encounter Visit Diagnoses Not on filein this encounter"
--- OUTSIDE RECORDS SUMMARY | ~2017-10-05 | XMS | Encounter Summary ---
Demographics + + + | Address | [address] | | | [place] [address] | + + + | Home Phone | | + + + | Preferred Language | Unknown | + + + | Marital Status | | + + + | Hoahaoism Affiliation | 1041 | + + + | Race | Unknown | + + + | Ethnic Group | Unknown | + + + Author + + + | Author | [facility] [employer] | + + + | Organization | [facility] [employer] [facility] | + + + | Address | Unknown | + + + | Phone | Unavailable | + + + Support + + + + + | Name | Relationship | Address | Phone | + + + + + | Elayne De La Rosa | ECON | [address] | | | | | [place] | | | | | [address] | | + + + + + Care Team Providers + +------+ + | Care Application Programmer Analyst Name | Role | Phone | + +------+ + | Jose Hall MD | PCP | | + +------+ + Reason for Visit +--------+ + | Reason | Comments | +--------+ + | Other | [place] MORPHINE/OXYCODONE | +--------+ + Encounter Details +--------+ + + + + | Date | Type | Department | Care Team | Description | +--------+ + + + + | 08/15/ | Songati | [place]ine | Lola Villanueva | [place] | | 2018 | on Only | [facility] | [address] | MORPHINE/OXYCODONE ) | | | | [address] | | | | | | [place] | | | | | | [address] | | | | | | [phone] | | | +--------+ + + + [...] [place] | | | | | | [facility] [address] | | | | | | [phone] | | | | | | | | +--------+---------+ + + + as of this encounter Visit Diagnoses Not on filein this encounter"
--- OUTSIDE RECORDS SUMMARY | ~2017-10-05 | XMS | Encounter Summary ---
Demographics + + + | Address | [address] | | | [place] [address] | + + + | Home Phone | | + + + | Preferred Language | Unknown | + + + | Marital Status | | + + + | Worship Affiliation | 1041 | + + + | Race | Unknown | + + + | Ethnic Group | Unknown | + + + Author + + + | Author | [facility] | + + + | Organization | [facility] [employer] [facility] | + + + | [...] [place] | | | | | [address] | | + + + + + Care Team Providers + +------+ + | Care Residential Program Worker Name | Role | Phone | [...] | | | | | radiculopath | [address] | [address] | | | | | y Spinal | [address] | [place], [place] | | | | | stenosis of | [place], | [address] Phone: | | | | | cervical | [place] [address] | [phone] | | | | | region | Phone: | Fax: | | | | | Procedures | [phone] | [phone] | | | | | MRI cervical | Fax: | | | | | | spine w wo | [phone] | | | | | | contrast | | | +--------+--------+ + + + + Encounter Details +--------+ + + + + | Date | Type | Department | Care Team | Description | +--------+ + + + + | 07/28/ | Telephone | gregorio | Chelsea Inman, | | | 2017 | | [facility]science [place] | OPEN SOAPER TENDER | | | | | [address] | | | | | | [place] | | | | | | [address] | | | | | | [phone] | | | +--------+ + + + [...] | | | | | [place] [address] | | | | | | [phone] | | | | | | | [...] and disc endplate disease at | | [id number] signed by Eze Back MD on 08/01/2017 [...] [facility] | [address] | [place] [address] | | + + + + + [...]
--- OUTSIDE RECORDS SUMMARY | ~2017-10-05 | XMS | Encounter Summary ---
Demographics + + + | Address | [address] | | | [place] [address] | + + + | Home Phone [...] | Author | [facility] [employer] | + + + | Organization | [facility] [employer] | + + + | Address | Unknown | + + + | Phone | Unavailable | + + + Support + + + + + | Name | Relationship | Address | Phone | + + + + + | Elayne De La Rosa | ECON | [address] | | | | | [place] | | | | | [address] | | + + + + + Care Team Providers + +------+ + | Care Cable Installation Technician Name | Role | Phone | + [...] | | | | | | | [address] Phone: | | | | | | | [phone] | | | | | | | Fax: | | | | | | | [phone] | +--------+--------+ + + + + Encounter Details +--------+---------+ + + + | Date | Type | Department | Care Team | Description | +--------+---------+ + + + | 10/03/ | Surgery | [facility] | Josh Ulloa MD | FORAMINOTOMY | | 2018 | | [facility] | [address] | | | | | Operating Room [address] | [place] [address] | | | | | [place] | [phone] | | | | | [place] [address] | | | | | | [phone] | | | +--------+---------+ + + + [...] note may be different from michael trujillo. [facility] Service: Orthopedic Surgery Discharge Summary Date of [...] - ANTERIOR; Surgeon: Josh Ulloa MD; Location: [facility]IN OR; Service: Ortho/Spine; Laterality: N/A; c3-5 CHOLECYSTECTOMY COLONOSCOPY HARDWARE REMOVAL hips/neck/wrist hardware inserted HARDWARE REMOVAL N/A 01/25/2015 Procedure: CERVICAL - HARDWARE REMOVAL; Surgeon: Josh Ulloa MD; Location: [facility] ; Service: Ortho/Spine; Laterality: N/A; [...] by mouth nightly. [facility] Unknown time simvastatin (ZOCOR) [...] Follow up: Jose Hall MD [address] [facility] [place] [id number] Medication List START taking these medications methylPREDNISolone [...] These medications were sent to [facility] [facility] [place] - [address] [facility] [place] [address] methylPREDNISolone 4 MG dose pack Discharge took [...] getting worse New symptoms Date Last Reviewed: 01/10/201719993604-6627 [employer]. [address] [place] [address]. All righ ts reserved. This information is [...] mL/min Pharmacy dosing for renal function per AWNING HANGER HELPER Ang. Currently, there are no medications needing [...] [facility] | | | | | | [place] [address] | | | | | | [phone] | | | | | | | [...] (L) | 8.5 - 10.5 mg/dL | [facility] | | | | | LABORATORY [...] | | | | | performed at [facility], [address] | | | | | [facility], | | | | | [place] [address] | | | + + + + + + + | Specimen | + + | Blood | + + + + + + + | Performing | Address | City/State/Zipcode | Phone Number | | Organization | | | | + + + + + | [facility] | [address] [facility] | [place] [address] | [phone] | | LABORATORY | Blvd. | | [...] performed at | | | | | [facility], [address] [place] [address] | | | | | [place] | | | | | [address] | | | + + + + + + + | Specimen | + + | Blood | + + + + + + + | Performing | Address | City/State/Zipcode | Phone Number | | Organization | | | | + + + + + | [facility] | [address] [facility] | [place] [address] | [phone] | | LABORATORY | Blvd. | | [...] | + + + + + | [facility] | [address] [facility] | [place] [address] | | + + + + + Type and Screen (Blood Bank) (10/03/2017 9:55 AM) + + + + + | Component | Value | Ref Range | Performed At | + + + + + | ABO/RH(D) | O POSITIVE | | [facility] | + + + + + | ANTIBODY SCREEN | NEGATIVE | | [facility] | + + + + + | ARM BAND NUMBER | [id number] | | [facility] | | | performed at [facility];[address] | | | | | [address];[place] | | | | | [address] | | | + + + + + + + | Specimen | + + | Blood | + + + + + + + | Performing | Address | City/State/Zipcode | Phone Number | | Organization | | | | + + + + + | [facility] | [address] | [place] [address] | | + + + + + [...] >60Comment: GFR <60: | >60 mL/min/1.73m2 | [facility] | | | CHRONIC KIDNEY DISEASE, [...] the | | | | | MDRD IDUT traceable | | | | | equation.Testing | | | | | performed at [facility] | | | | | [facility];[place], [place] | | | | | [address] | | | + + + + + + + | Specimen | + + | Blood | + + + + + + + | Performing | Address | City/State/Zipcode | Phone Number | | Organization | | | | + + + + + | [facility] | [address] | [place] [address] | | + + + + + CBC W/Auto Diff (Reflex to Manual) (10/03/2017 9:54 AM) + + + + + | Component | Value | Ref Range | Performed At | + + + + + | WBC | 5.66 | 3.80 - 11.00 K/uL | [facility] | + + + + + | RBC | 4.01 (L) | 4.20 - 5.70 M/uL | [facility] | + + + + + [...] 52.9 | 37 - 53 fl | [facility] | + + + + + | PLT | 278 | 150 - 400 K/uL | [facility] | + + + + + | MPV | 7.4 | fl | [facility] | + + + + + | DIFF TYPE | AUTOMATED | | [facility] | + + + + + | NEUTROPHILS | 48.09 | % | [facility] | + + + + + [...] 0.16 | 0.00 - 0.50 K/uL | [facility] | + + + + + | BASOPHILS ABS | 0.04Comment: Testing | 0.00 - 0.10 K/uL | [facility] | | | performed at [facility];[address] | | | | | [address];[place] | | | | | [address] | | | + + + + + + + | Specimen | + + | Blood | + + + + + + + | Performing | Address | City/State/Zipcode | Phone Number | | Organization | | | | + + + + + | [facility] | [address] | [place] [address] | | + + + + + [...] mLs | | Back | | 0.5% -[id number] injection PRN, | | 8 13:24 | [...]
--- OUTSIDE RECORDS SUMMARY | ~2017-10-05 | XMS | Encounter Summary ---
Demographics + + + | Address | [address] | | | [place] [address] | + + + | Home Phone | | + + + | Preferred Language | Unknown | + + + | Marital Status | | + + + | Anabaptist Affiliation | 1041 | + + + | Race | Unknown | + + + | Ethnic Group | Unknown | + + + Author + + + | Author | [facility] [employer] | + + + | Organization | [facility] [employer] [facility] | + + + | Address | Unknown | + + + | Phone | Unavailable | + + + Support + + + + + | Name | Relationship | Address | Phone | + + + + + | Elayne De La Rosa | ECON | [address] | | | | | [place] | | | | | [address] | | + + + + + Care Team Providers + +------+ + | Care Critical Care Educator Name | Role | Phone | + +------+ + | Jose Hall MD | PCP | | + +------+ + Encounter Details +--------+ + + + + | Date | Type | Department | Care Team | Description | +--------+ + + + + | 09/03/ | Telephone | [facility] | Nidhi Raymond MA | | | 2017 | | [facility] | | | | | | [address] | | | | | | [place] | | | | | | [address] | | | | | | [phone] | | | +--------+ + + + [...] | | | | | [place] [address] | | | | | | [phone] | | | | | | | | +--------+---------+ + + + as of this encounter Visit Diagnoses Not on filein this encounter"
--- OUTSIDE RECORDS SUMMARY | ~2017-10-05 | XMS | Encounter Summary ---
Demographics + + + | Address | [address] | | | [place] [address] | + + + | Home Phone | | + + + | Preferred Language | Unknown | + + + | Marital Status | | + + + | Adventist Affiliation | 1041 | + + + | Race | Unknown | + + + | Ethnic Group | Unknown | + + + Author + + + | Author | [facility] [email or web address] | + + + | Organization | [facility] [employer] | + + + | Address | Unknown | + + + | Phone | Unavailable | + + + Support + + + + + | Name | Relationship | Address | Phone | + + + + + | Elayne De La Rosa | ECON | [address] | | | | | [place] | | | | | [address] | | + + + + + Care Team Providers + +------+ + | Care Textile Technical Officer Name | Role | Phone | + +------+ + | Jose Hall MD | PCP | | + +------+ + Reason for Visit +--------+ + | Reason | Comments | +--------+ + | Other | OXYCODONE APPROVAL | +--------+ + Encounter Details +--------+ + + + + | Date | Type | Department | Care Team | Description | +--------+ + + + + | 08/11/ | Kaitlynn | [facility]ine | Lola Villanueva | Lito (OXYCODONE | | 2018 | on Only | [facility] | [address] [place] | APPROVAL ) | | | | [address] | | | | | | [place] | | | | | | [address] | | | | | | [phone] | | | +--------+ + + + [...] | | | | | [place] [address] | | | | | | [phone] | | | | | | | | +--------+---------+ + + + as of this encounter Visit Diagnoses Not on filein this encounter"
--- OUTSIDE RECORDS SUMMARY | ~2017-10-05 | XMS | Encounter Summary ---
Demographics + + + | Address | [address] | | | [place] [address] | + + + | Home Phone [...] + | Author | [facility] | + + + | Organization | [facility] | + + + | Address | Unknown | + + + | Phone | Unavailable | + + + Support + + + + + | Name | Relationship | Address | Phone | + + + + + | Elayne De La Rosa | ECON | [address] | | | | | [place] | | | | | [address] | | + + + + + Care Team Providers + +------+ + | Care Car Whacker Name | Role | Phone | + +------+ + | Jose Hall MD | PCP | | + +------+ + Encounter Details +--------+ + + + + | Date | Type | Department | Care Team | Description | +--------+ + + + + | 07/24/ | Telephone | [facility] | Lola Villanueva | | | 2017 | | [facility] | [address] [place] | | | | | [address] | | | | | | [place] | | | | | | [address] | | | | | | [phone] | | | +--------+ + + + [...] [facility] | | | | | | [place] [address] | | | | | | [phone] | | | | | | | | +--------+---------+ + + + + +--------+ + + | Name | Priori | Associated Diagnoses | Order Schedule | | | ty | | | + +--------+ + + | Creatinine, serum | Routin | Status post | Expected: | | | e | cervical spinal | 07/24/2017, Expires: | | | | fusion Cervical | 07/24/2018 | | | | radiculopathy | | + +--------+ + + as of this encounter Visit Diagnoses + + | Diagnosis | + + | Status post cervical spinal fusion - Primary | + + | Arthrodesis status | + + | Cervical radiculopathy | + + | Brachial neuritis or radiculitis nos | + +"
--- OUTSIDE RECORDS SUMMARY | ~2017-10-05 | XMS | Encounter Summary ---
Demographics + + + | Address | [address] | | | [place] [address] | + + + | Home Phone [...] + + | Author | [facility] [employer] | + + + | Organization | [facility] [employer] | + + + | Address | Unknown | + + + | Phone | Unavailable | + + + Support + + + + + | Name | Relationship | Address | Phone | + + + + + | Elayne De La Rosa | ECON | [address] | | | | | [place] | | | | | [address] | | + + + + + Care Team Providers + +------+ + | Care Nurse Unit Manager Name | Role | Phone [...] | | | | | | | [address] Phone: | | | | | | | [phone] | | | | | | | Fax: | | | | | | | [phone] | +--------+--------+ + + + + Encounter Details +--------+ + + + + | Date | Type | Department | Care Team | Description | +--------+ + + + + | 10/03/ | Anesthesia | [facility] | Payal Wetzel, | | | 2018 | Event | [facility] | [address] [facility] [facility] | | | | | Operating Room [facility] | [address] [place], [place] | | | | | [place] | [address] | | | | | [place] [address] | | | | | | [phone] | | | +--------+ + + + + Anesthesia Record + + + + + | Procedure Name | Responsible | Anesthesia Start | Anesthesia Stop Time | | | Anesthesiologist | Time | | + + + + + | FORAMINOTOMY (N/A | Payal Wetzel MD | 10/03/17 1216 | 10/03/17 1439 | | Back) | | | | + + + + + +----+---+ + + | Da | T | Event | Comment | | te | i | | | | | m | | | | | e | | | +----+---+ + + | 08 | 1 | An Start | Pre-anesthetic vital signs reassessed. | | /2 | 2 | | | | 4/ | 1 | | | | 20 | 6 | | | | 18 | | | | +----+---+ + + | | 1 | An | | | | 2 | Induction | | | | 1 | | | | | 8 | | | +----+---+ + + | | 1 | An | | | | 2 | Intubation | | | | 2 | | | | | 2 | | | +----+---+ + + | | 1 | Quick Note | Switched cuff to right calf | | | 2 | | | | | 4 | | | | | 6 | | | +----+---+ + + | | 1 | Quick Note | Incision at | | | 2 | | | | | 5 | | | | | 3 | | | +----+---+ + + | | 1 | Quick Note | Tof 2/4 | | | 2 | | | | | 5 | | | | | 8 | | | +----+---+ + + | | 1 | An | | | | 4 | Emergence | | | | 2 | | | | | 8 | | | +----+---+ + + | | 1 | Extubation | | | | 4 | | | | | 3 | | | | | 4 | | | +----+---+ + + | | 1 | an stop | | | | 4 | data | | | | 3 | | | | | 4 | | | +----+---+ + + | | 1 | An Stop | | | | 4 | | | | | 3 | | | | | 9 | | | +----+---+ + + +------+ | Meds | +------+ + +---------+ | Name | Total | + +---------+ | fentanyl 50 mcg/mL | 100 mcg | + +---------+ | propofol bolus | 60 mg | + +---------+ | ROCuronium 10 mg/mL | 70 mg | + +---------+ | dexamethasone 4 mg/mL | 4 mg | + +---------+ | ondansetron 2 mg/mL | 4 mg | + +---------+ | ePHEDrine 5 mg/mL | 15 mg | + +---------+ | ceFAZolin (ANCEF) IVPB 2 g | 2 g | + +---------+ | etomidate 2 mg/mL | 6 mg | + +---------+ | electrolyte-A (PLASMALYTE-A) | 500 mL | | solution | | + +---------+ + + | Name | + + | N2O | + + | O2 | + + | Air | + + | Sevoflurane-EX | + + | N2O | + + + + | No blood administrations on file. | + + +--------+ + + + | Type | Details | Placement | Removal | +--------+ + + + | Incisi | 01/25/15; 956; Neck | 01/25/15956 by | | | on | | Palma | | | | | OLESYA Barraza | | +--------+ + + + | Wound | 10/03/17; 1426; Incision; Neck | 10/03/17 1426 by | | | | | Giancarlo Hernadez RN | | +--------+ + + + | Periph | Placement Date: 08/01/17; | 08/01/17 1415 by | 10/04/17 0745 by | | eral | Placement Time: 1414; Removal | Ysabel Hand, | Ajit Starks RN | | IV | Date: 10/04/17; Removal Time: | RN | | | | 0745; Size (Gauge): 22 G; | | | | | Orientation: Left; Location: | | | | | Hand; Site Prep: | | | | | Chlorhexidine-Isopropyl Alcohol; | | | | | Insertion Attempts: 1 | | | +--------+ + + + | Periph | Placement Date: 10/03/17; | 10/03/1758 by | 10/04/17 1108 by | | eral | Placement Time: 957; Removal | Lola Maloney, | Rae Martínez, | | IV | Date: 10/04/17; Removal Time: | RN | RN | | | 1108; Size (Gauge): 18 G; | | | | | Orientation: Left; Location: | | | | | Wrist; Site Prep: | | | | | Chlorhexidine-Isopropyl Alcohol; | | | | | Insertion Attempts: 1 | | | +--------+ + + + | ETT | Placement Date: 10/03/17; | 10/03/17 122 by Payal | 10/03/17 1434 by Payal | | | Placement Time: 1222; Removal | Annie Wetzel MD | Annie Wetzel MD | | | Date: 10/03/17; Removal Time: | | | | | 1434; Mask Airway: Easy; Blade | | | | | Type: Other (Comment); Blade | | | | | Size: 4; ETT Type: Standard ETT; | | | | | ETT Size (Fr): 7.5; Technique: | | | | | [place] Scope; Grade: I; Insertion | | | | | attempts: 1; Confirmation: EtCO2, | | | | | BBS, Direct visualization; | | | | | Intubation Details: Easy, | | | | | Atraumatic; Taped at (cm): 22; | | | | | Secured at: Gums | | | +--------+ + + + in this encounter Social History + + + +--------+ + [...] | | | | | [place] [address] | | | | | | [phone] | | | | | | | | +--------+---------+ + + + as of this encounter Visit Diagnoses Not on filein this encounter Administered Medications + +--------+ +------+------+------+ | Medication Order | MAR | Action | Dose | Rate | Site | | | Action | Date | | | | + +--------+ +------+------+------+ | ceFAZolin (ANCEF) IVPB 2 g 2 | Given | | 2 g | | | | g, Intravenous, Administer over | | 8 12:30 | | | | | 30 Minutes, Once, 10/03/17 at | | PDT | | | | | 1000, For 1 dose, Must be | | | | | | | completely infused before | | | | | | | incision is made. Redose every 4 | | | | | | | hours during procedure. | | | | | | + +--------+ +------+------+------+ +---+---+ | | | +---+---+ + +-------+ +------+---+---+ | dexamethasone (DECADRON) 4 | Given | | 4 mg | | | | MG/ML injection PRN, Starting | | 8 14:06 | | | | | 10/03/17 at 1406, Anesthesia | | PDT | | | | | Intra-op | | | | | | + +-------+ +------+---+---+ +---+---+ | | | +---+---+ + +---------+ [...] PDT | | | | +---------+ +---+---+---+ +---+---+ | | | +---+---+ + +-------+ +-------+---+---+ | ephedrine injection | Given | | 15 mg | | | | Intravenous, PRN, Starting Fri | | 8 12:45 | | | | | 10/03/17 at 1245, Anesthesia | | PDT | | | | | Intra-op | | | | | | + +-------+ +-------+---+---+ +---+---+ | | | +---+---+ + +-------+ +------+---+---+ | etomidate (AMIDATE) injection | Given | | 6 mg | | | | PRN, Starting Fri10/03/17 at | | 8 12:19 | | | | | 1219, Anesthesia Intra-op | | PDT | | | | + +-------+ +------+---+---+ +---+---+ | | | +---+---+ + +-------+ +---------+---+---+ | fentaNYL (SUBLIMAZE) injection | Given | | 100 mcg | | | | Intravenous, PRN, Starting Fri | | 8 12:16 | | | | | 10/03/17 at 1216, Anesthesia | | PDT | | | | | Intra-op | | | | | | + +-------+ +---------+---+---+ +---+---+ | | | +---+---+ + +-------+ +------+---+---+ | ondansetron (ZOFRAN) injection | Given | | 4 mg | | | | PRN, Nausea, Vomiting, Starting | | 8 14:06 | | | | | 10/03/17 at 1406, Anesthesia | | PDT | | | | | Intra-op | | | | | | + +-------+ +------+---+---+ +---+---+ | | | +---+---+ + +-------+ +-------+---+---+ | propofol (DIPRIVAN) injection | Given | | 60 mg | | | | Intravenous, PRN, Starting Fri | | 8 12:19 | | | | | 10/03/17 at 1219, Anesthesia | | PDT | | | | | Intra-op | | | | | | + +-------+ +-------+---+---+ +---+---+ | | | +---+---+ + +-------+ +-------+---+---+ | rocuronium (ZEMURON) injection | Given | | 50 mg | | | | PRN, Starting 10/03/17 at | | 8 12:20 | | | | | 1220, Anesthesia Intra-op | | PDT | | | | + +-------+ +-------+---+---+ +-------+ +-------+---+---+ | Given | | 20 mg | | | | | 8 12:58 | | | | | | PDT | | | | +-------+ +-------+---+---+ +---+---+ | | | +---+---+ in this encounter"
--- OUTSIDE RECORDS SUMMARY | ~2017-10-05 | XMS | Encounter Summary ---
Demographics + + + | Address | [address] | | | [place] [address] | + + + | Home Phone [...] + + | Author | [facility] | + + + | Organization | [facility] [employer] [facility] | + + + | Address | Unknown | + + + | Phone | Unavailable | + + + Support + + + + + | Name | Relationship | Address | Phone | + + + + + | Elayne eD La Rosa | ECON | [address] | | | | | [place] | | | | | [address] | | + + + + + Care Team Providers + +------+ + | Care Mineral Resources Inspector Name | Role | Phone | + [...] + + | 08/22/ | Ancillary | [facility] | See, Medical | Neck pain | | 2018 | [facility] | [facility] | Record | | | | | [address] [facility] | | | | | | [place] [address] | | | | | | [phone] | | | +--------+ + + + [...] [facility] | | | | | | [place] [address] | | | | | | [phone] | | | | | | | [...] [facility] | [address] | [place] [address] | | + + + + + in this encounter Visit Diagnoses + + | Diagnosis | + + | Neck pain | + + | Cervicalgia | + +"
--- OUTSIDE RECORDS SUMMARY | ~2017-10-05 | XMS | Encounter Summary ---
Demographics + + + | Address | [address] | | | [place] [address] | + + + | Home Phone | | + + + | Preferred Language | Unknown | + + + | Marital Status | | + + + | Nondenominational Affiliation | 1041 | + + + | Race | Unknown | + + + | Ethnic Group | Unknown | + + + Author + + + | Author | [facility] | + + + | Organization | [facility] [employer] [facility] | + + + | Address | Unknown | + + + | Phone | Unavailable | + + + Support + + + + + | Name | Relationship | Address | Phone | + + + + + | Elayne De L aRosa | ECON | [address] | | | | | [place] | | | | | [address] | | + + + + + Care Team Providers + +------+ + | Care Design Quality Engineer Name | Role | Phone | + +------+ + | Jose Hall MD | PCP | | + +------+ + Reason for Visit +--------+ + | Reason | Comments | +--------+ + | Other | CT CERVICAL ORDER | +--------+ + Encounter Details +--------+ + + + + | Date | Type | Department | Care Team | Description | +--------+ + + + + | 08/22/ | Documentati | [facility] | Nidhi Raymond MA | Other (CT CERVICAL | | 2018 | on Only | [facility] | | ORDER) | | | | [address] | | | | | | [place] | | | | | | [address] | | | | | | [phone] | | | +--------+ + + + [...] | | | | | [place] [address] | | | | | | [phone] | | | | | | | | +--------+---------+ + + + as of this encounter Visit Diagnoses Not on filein this encounter"
--- OUTSIDE RECORDS SUMMARY | ~2017-10-05 | XMS | Encounter Summary ---
Demographics + + + | Address | [address] | | | [place] [address] | + + + | Home Phone | | + + + | Preferred Language | Unknown | + + + | Marital Status | | + + + | Yazidism Affiliation | 1041 | + + + | Race | Unknown | + + + | Ethnic Group | Unknown | + + + Author + + + | Author | [facility] | + + + | Organization | [facility] [employer] [facility] | + + + | Address | Unknown | + + + | Phone | Unavailable | + + + Support + + + + + | Name | Relationship | Address | Phone | + + + + + | Elayne De La Rosa | ECON | [address] | | | | | [place] | | | | | [address] | | + + + + + Care Team Providers + +------+ + | Care Operations Mgr Name | Role | Phone | + +------+ + | Jose Hall MD | PCP | | + +------+ + Encounter Details +--------+ + + + + | Date | Type | Department | Care Team | Description | +--------+ + + + + | 10/03/ | Procedure | [facility] | | | | 2018 | [facility] | | | | | | Operating Room [address] | | | | | | [address] | | | | | | [place] [address] | | | | | | [phone] | | | +--------+ + + + [...] | | | | | [place] [address] | | | | | | [phone] | | | | | | | | +--------+---------+ + + + as of this encounter Visit Diagnoses Not on filein this encounter"
--- OUTSIDE RECORDS SUMMARY | ~2017-10-05 | XMS | Encounter Summary ---
Demographics + + + | Address | [address] | | | [place] [address] | + + + | Home Phone | | + + + | Preferred Language | Unknown | + + + | Marital Status | | + + + | Yazidi Affiliation | 1041 | + + + | Race | Unknown | + + + | Ethnic Group | Unknown | + + + Author + + + | Author | [email or web address] | + + + | Organization | [facility] [employer] [facility] | + + + | Address | Unknown | + + + | Phone | Unavailable | + + + Support + + + + + | Name | Relationship | Address | Phone | + + + + + | Elayne De La Rosa | ECON | [address] | | | | | [place] | | | | | [address] | | + + + + + Care Team Providers + +------+ + | Care Manager Provider Relations Name | Role | Phone | + [...] | | | | | [place], [place] | | | | | | [address] | | | | | | [phone] | | | +--------+ + + + [...] | | | | | [place] [address] | | | | | | [phone] | | | | | | | | +--------+---------+ + + + as of this encounter Visit Diagnoses Not on filein this encounter"
--- OUTSIDE RECORDS SUMMARY | ~2017-10-05 | XMS | Encounter Summary ---
Demographics + + + | Address | [address] | | | [place] [address] | + + + | Home Phone | | + + + | Preferred Language | Unknown | + + + | Marital Status | | + + + | Jain Affiliation | 1041 | + + + | Race | Unknown | + + + | Ethnic Group | Unknown | + + + Author + + + | Author | [facility] | + + + | Organization | [facility] [facility] | + + + | Address | Unknown | + + + | Phone | Unavailable | + + + Support + + + + + | Name | Relationship | Address | Phone | + + + + + | Elayne De La Rosa | ECON | [address] | | | | | [place] | | | | | [address] | | + + + + + Care Team Providers + +------+ + | Care Pharmacy Sales Representative Name | Role | Phone | + +------+ + | Jose Hall MD | PCP | | + +------+ + Encounter Details +--------+ + + + + | Date | Type | Department | Care Team | Description | +--------+ + + + + | 07/24/ | Telephone | Delphine | Lola Villanueva | | | 2017 | | [facility] [place] | [place] [place] | | | | | [address] | | | | | | [place] | | | | | | [address] | | | | | | [phone] | | | +--------+ + + + [...] [place] | | | | | | [place] [address] | | | | | | [phone] | | | | | | | [...]
--- OUTSIDE RECORDS SUMMARY | ~2017-10-05 | XMS | Encounter Summary ---
Demographics + + + | Address | [address] | | | [place] [address] | + + + | Home Phone | | + + + | Preferred Language | Unknown | + + + | Marital Status | | + + + | Mandaen Affiliation | 1041 | + + + | Race | Unknown | + + + | Ethnic Group | Unknown | + + + Author + + + | Author | [facility] | + + + | Organization | [facility] [facility] | + + + | Address | Unknown | + + + | Phone | Unavailable | + + + Support + + + + + | Name | Relationship | Address | Phone | + + + + + | Elayne De La Rosa | ECON | [address] | | | | | [place] | | | | | [address] | | + + + + + Care Team Providers + +------+ + | Care Assistant Purchasing Manager Name | Role | Phone | + +------+ + | Jose Hall MD | PCP | | + +------+ + Reason for Visit +--------+ + | Reason | Comments | +--------+ + | Other | [facility] | +--------+ + Encounter Details +--------+ + + + + | Date | Type | Department | Care Team | Description | +--------+ + + + + | 09/15/ | Documentati | [facility] | Lola Villanueva | Other ([facility] | | 2018 | on Only | [facility] | [place] [place] | [facility] | | | | [address] | | CLEARANCE ) | | | | [place] | | | | | | [address] | | | | | | [phone] | | | +--------+ + + + [...] | | | | | [place] [address] | | | | | | [phone] | | | | | | | | +--------+---------+ + + + as of this encounter Visit Diagnoses Not on filein this encounter"
--- OUTSIDE RECORDS SUMMARY | ~2017-10-05 | XMS | Encounter Summary ---
Demographics + + + | Address | [address] | | | [place] [address] | + + + | Home Phone | | + + + | Preferred Language | Unknown | + + + | Marital Status | | + + + | Episcopal Affiliation | 1041 | + + + | Race | Unknown | + + + | Ethnic Group | Unknown | + + + Author + + + | Author | [facility] | + + + | Organization | [facility] [employer] [facility] | + + + | Address | Unknown | + + + | Phone | Unavailable | + + + Support + + + + + | Name | Relationship | Address | Phone | + + + + + | Elayne De La Rosa | ECON | [address] | | | | | [place] | | | | | [address] | | + + + + + Care Team Providers + +------+ + | Care Rollout Manager Name | Role | Phone | [...] | | 2018 | on Only | [facility] | [place] Benjamin | APPROVAL ) | | | | [address] | | | | | | [place] | | | | | | [address] | | | | | | [phone] | | | +--------+ + + + [...] | | | | | [place] [address] | | | | | | [phone] | | | | | | | | +--------+---------+ + + + as of this encounter Visit Diagnoses Not on filein this encounter"
--- OUTSIDE RECORDS SUMMARY | ~2017-10-05 | XMS | Encounter Summary ---
Demographics + + + | Address | [address] | | | [place] [address] | + + + | Home Phone | | + + + | Preferred Language | Unknown | + + + | Marital Status | | + + + | Baptism Affiliation | 1041 | + + + | Race | Unknown | + + + | Ethnic Group | Unknown | + + + Author + + + | Author | [facility] [employer] | + + + | Organization | [facility] [facility] | + + + | Address | Unknown | + + + | Phone | Unavailable | + + + Support + + + + + | Name | Relationship | Address | Phone | + + + + + | Elayne De La Rosa | ECON | [address] | | | | | [place] | | | | | [address] | | + + + + + Care Team Providers + +------+ + | Care Resource Technician Name | Role | Phone | [...] + + + + | 08/15/ | oSngati | Delphine | Lola Villanueva | [place] | | 2018 | on Only | [facility] | [place] Benjamin | MORPHINE/OXYCODONE ) | | | | [address] | | | | | | [place] | | | | | | [address] | | | | | | [phone] | | | +--------+ + + + [...] [place] | | | | | | [facility] [address] | | | | | | [phone] | | | | | | | | +--------+---------+ + + + as of this encounter Visit Diagnoses Not on filein this encounter"
--- OUTSIDE RECORDS SUMMARY | ~2017-10-05 | XMS | Encounter Summary ---
Demographics + + + | Address | [address] | | | [place] [address] | + + + | Home Phone | | + + + | Preferred Language | Unknown | + + + | Marital Status | | + + + | Mormonism Affiliation | 1041 | + + + | Race | Unknown | + + + | Ethnic Group | Unknown | + + + Author + + + | Author | [facility] [employer] [employer] | + + + | Organization | [facility] [employer] [facility] | + + + | [...] [place] | | | | | [address] | | + + + + + Care Team Providers + +------+ + | Care Maintenance Job Titles Name | Role | Phone | + [...] | | | | | | | [address] Phone: | | | | | | | [phone] | | | | | | | Fax: | | | | | | | [phone] | +--------+--------+ + + + + Encounter Details +--------+ + + + + | Date | Type | Department | Care Team | Description | +--------+ + + + + | 10/03/ | Anesthesia | [facility] | Payal Wetzel, | | | 2018 | Event | [facility] | [address] [facility] | | | | | Operating Room [facility] | [address] [place], [place] | | | | | [address] [address] | [address] | | | | | [place] [address] | | | | | | [phone] | | | +--------+ + + + [...] 7.5; Technique: | | | | | [place] [employer]; Grade: I; Insertion | | | [...] | | | | | [place] [address] | | | | | | [phone] | | | | | | | [...]
--- OUTSIDE RECORDS SUMMARY | ~2017-10-05 | XMS | Encounter Summary ---
Demographics + + + | Address | [address] | | | [place] [address] | + + + | Home Phone [...] + | Author | [facility] | + + + | Organization | [facility] [employer] [facility] | + + + | Address | Unknown | + + + | Phone | Unavailable | + + + Support + + + + + | Name | Relationship | Address | Phone | + + + + + | Elayne De La Rosa | ECON | [address] | | | | | [place] | | | | | [address] | | + + + + + Care Team Providers + +------+ + | Care Skip Miner Blasting Name | Role | Phone | + +------+ + | Jose Hall MD | PCP | | + +------+ + Encounter Details +--------+ + + + + | Date | Type | Department | Care Team | Description | +--------+ + + + + | 09/03/ | Telephone | Delphine | Nidhi Raymond MA | | | 2017 | | [facility] | | | | | | [address] | | | | | | [place] | | | | | | [address] | | | | | | [phone] | | | +--------+ + + + [...] | | | | | [place] [address] | | | | | | [phone] | | | | | | | | +--------+---------+ + + + as of this encounter Visit Diagnoses Not on filein this encounter"
--- OUTSIDE RECORDS SUMMARY | ~2017-10-05 | XMS | Encounter Summary ---
Demographics + + + | Address | [address] | | | [place] [address] | + + + | Home Phone | | + + + | Preferred Language | Unknown | + + + | Marital Status | | + + + | Temple Affiliation | 1041 | + + + | Race | Unknown | + + + | Ethnic Group | Unknown | + + + Author + + + | Author | [facility] | + + + | Organization | [facility] [employer] [facility] | + + + | Address | Unknown | + + + | Phone | Unavailable | + + + Support + + + + + | Name | Relationship | Address | Phone | + + + + + | Elayne De La Rosa | ECON | [address] | | | | | [place] | | | | | [address] | | + + + + + Care Team Providers + +------+ + | Care Manager Managing Name | Role | Phone | + [...] | | | Radiculopath | [place] | [place], [place] | | | | | y, cervical | [address] | [address] | | | | | region | Phone: | Phone: | | | | | Spinal | [phone] | [phone] | | | | | stenosis, | Fax: | Fax: | | | | | cervical | [phone] | [phone] | | | | | region | [...] + + | 09/25/ | Office | [facility] | Josh Ulloa MD | Cervical | | 2018 | Visit | [facility] | [address] | radiculopathy; | | | | [address] | [place] [address] | Lumbar | | | | [place] | [phone] | radiculopathy; | | | | [address] | | Cervical stenosis of | | | | [phone] | | spine; Spinal | | | [...] - ANTERIOR; Surgeon: Josh Ulloa MD; Location: [facility] MAIN OR; Service: Ortho/Spine; Laterality: N/A; c3-5 CHOLECYSTECTOMY COLONOSCOPY HARDWARE REMOVAL hips/neck/wrist hardware inserted HARDWARE REMOVAL N/A 01/25/2015 Procedure: CERVICAL - HARDWARE REMOVAL; Surgeon: Josh Ulloa MD; Location: [facility] ; Service: Ortho/Spine; Laterality: N/A; [...] (obstructive sleep apnea) PSVT (paroxysmal supraventricular tachycardia) ([facility]) Pulmonary embolism ([facility]) Sleep apnea Patient Active Problem List Diagnosis [...] the left with 4/5 right interossei and machine clothing replacer st rength. Diminished right C8 and T1 distribution IMAGING: Cervical MRI 2018 [facility] revealed a right-sided disc protrusion T1/T2. Assessment [...] Note: We spent approximately 25 minutes in otpe-vt-mwfu time of which greater than 50% was [...] [place] | | | | | | [place] [address] | | | | | | [phone] | | | | | | | [...]
--- OUTSIDE RECORDS SUMMARY | ~2017-10-05 | XMS | Encounter Summary ---
Demographics + + + | Address | [address] | | | [place] [address] | + + + | Home Phone | | + + + | Preferred Language | Unknown | + + + | Marital Status | | + + + | Scientology Affiliation | 1041 | + + + | Race | Unknown | + + + | Ethnic Group | Unknown | + + + Author + + + | Author | [facility] [employer] | + + + | Organization | [facility] [employer] [facility] | + + + | Address | Unknown | + + + | Phone | Unavailable | + + + Support + + + + + | Name | Relationship | Address | Phone | + + + + + | Elayne De La Rosa | ECON | [address] | | | | | [place] | | | | | [address] | | + + + + + Care Team Providers + +------+ + | Care Smudger Name | Role | Phone | + +------+ + | Jose Hall MD | PCP | | + +------+ + Encounter Details +--------+ + + + + | Date | Type | Department | Care Team | Description | +--------+ + + + + | 08/01/ | Telephone | Delphine | Chelsea Inman, | | | 2017 | | [facility] | COVER MAKER | | | | | [address] | | | | | | [place] | | | | | | [address] | | | | | | [phone] | | | +--------+ + + + [...] | | | | | [place] [address] | | | | | | [phone] | | | | | | | | +--------+---------+ + + + as of this encounter Visit Diagnoses Not on filein this encounter"
--- OUTSIDE RECORDS SUMMARY | ~2017-10-05 | XMS | Encounter Summary ---
Demographics + + + | Address | [address] | | | [place] [address] | + + + | Home Phone | | + + + | Preferred Language | Unknown | + + + | Marital Status | | + + + | Mandaen Affiliation | 1041 | + + + | Race | Unknown | + + + | Ethnic Group | Unknown | + + + Author + + + | Author | [facility] | + + + | Organization | [facility] [employer] [facility] | + + + | Address | Unknown | + + + | Phone | Unavailable | + + + Support + + + + + | Name | Relationship | Address | Phone | + + + + + | Elayne De La Rosa | ECON | [address] | | | | | [place] | | | | | [address] | | + + + + + Care Team Providers + +------+ + | Care Laboratory Chief Name | Role | Phone | + [...] | | | | | radiculopath | VENTILATION WORKER [address] | | | | | y Spinal | [address] | [place], [place] | | | | | stenosis of | [place], | [address] Phone: | | | | | cervical | [place] [address] | [phone] | | | | | region | Phone: | Fax: | | | | | Procedures | [phone] | [phone] | | | | | MRI cervical | Fax: | | | | | | spine w wo | [phone] | | | | | | contrast | | | +--------+--------+ + + + + MRI/CAT Scan (Emergency) +--------+--------+ + + + + | Status | Reason | Specialty | Diagnoses / | Referred By | Referred To | | | | | Procedures | Contact | Contact | +--------+--------+ + + + + | Closed | | Radiology | Diagnoses | Ang, | [facility] | | | | | Neck pain | Tamika | Mri [address] | | | | | Cervical | Guino-O, | Ana Guido | | | | | radiculopath | VENTILATION WORKER [address] | [address] | | | | | y Spinal | [address] | [place], [place] | | | | | stenosis of | [place], | [address] Phone: | | | | | cervical | [place] [address] | [phone] | | | | | region | Phone: | Fax: | | | | | Procedures | | | | | | | MRI cervical | Fax: | | | | | | spine w wo | | | | | | | contrast | | | +--------+--------+ + + + + Reason for Visit MRI/CAT Scan (Emergency) +--------+--------+ + + + [...] | | | | | Cervical | Guino-O, | Ana Guido | | | | | radiculopath | VENTILATION WORKER [address] | [address] | | | | | y Spinal | [address] | [place], [place] | | | | | stenosis of | [place], | [address] Phone: | | | | | cervical | [place] [address] | [phone] | | | | | region | Phone: | Fax: | | | | | Procedures | | [phone] | | | | | MRI cervical | Fax: | | | | | | spine w wo | | | | | | | contrast | | | +--------+--------+ + + + + Encounter Details +--------+ + + + + | Date | Type | Department | Care Team | Description | +--------+ + + + + | 08/01/ | Hospital | [facility] | Tamika Hager | Cervical pain | | 2018 | Encounter | [facility] | HUAN Black [address] | (neck); Cervical | | | | [address] | [address] | radiculopathy; | | | | [place] [address] | [place] [address] | Cervical stenosis of | | | | [phone] | [phone] | spine | | | | | | | | | | | 2, [facility] Brianna Nurse | | | | | | Nicki [facility] Huan | | +--------+ + + + + [...] + + + | Blood Pressure | 157/96 | 08/01/2017 3:38 PM PDT | + + + + | Pulse | 79 | 08/01/2017 3:38 PM PDT | + + + + | Temperature | 36.4 C (97.5 F) | 08/01/2017 2:10 PM PDT | + + + + | Respiratory Rate | 16 | 08/01/2017 3:38 PM PDT | + + + + | Oxygen Saturation | 94% | 08/01/2017 3:38 PM PDT | + + + + | Inhaled Oxygen | - | - | | Concentration | | | + + + + | Weight | 108.9 kg (240 lb) | 08/01/2017 3:12 PM PDT | + + + + | Height | 185.4 cm (6' 1") | 08/01/2017 2:10 PM PDT | + + + + | Body Mass Index | 31.66 | 08/01/2017 3:12 PM PDT | + + + + in this encounter Discharge Instructions Varsha Lebron RN - 08/01/2017Discharge instructions for Diagnostic Imaging sedation patients Adult Discharge Instructions: 1. We suggest you start with liquids and increase your diet as tolerated. Call Diagnostic I magsharifa if you have persistent nausea or vomiting. 2. You should rest the remainder of the day. 3. For the next 24 hours, you should not: -Drive a car, operate machinery or power tools. -Drink any alcoholic beverages, including beer, wine, or other spirits. -Smoke unattended. -Make any important decisions. -Cook or bake unsupervised. 4. You may take your regular medications at any time. If you have any questions, you may reach the Diagnostic Imaging nurse at , ex t. [phone] For any severe symptoms, please call 911 or report to your nearest Emergency Department.in this encounter Medications at Time of Discharge [...] | | | | | | [address] | | | | | | [place] [address] | | | | | | [phone] | | | | | | | [...] | | + +--------+ + + + in this encounter Results MRI cervical spine w [...] 5 of | | | imaging from 2005, there is been about 30% loss of [...] and disc endplate disease at | | [id number] signed by Eze Back MD on 08/01/2017 [...] | + + + + + | [facility] | [address] | [place] [address] | | + + + + + in this encounter Visit Diagnoses + + | Diagnosis | + + | Cervical pain (neck) | + + | Cervicalgia | + + | Cervical radiculopathy | + + | Brachial neuritis or radiculitis nos | + + | Cervical stenosis of spine | + + | Spinal stenosis in cervical region | + + Administered Medications + +--------+ +--------+------+------+ | Medication Order | MAR | Action | Dose | Rate | Site | | | Action | Date | | | | + +--------+ +--------+------+------+ | fentaNYL (SUBLIMAZE) injection | Given | | 75 mcg | | | | 25 mcg 25 mcg, Intravenous, PRN, | | 8 14:56 | | | | | Pain, Every 2 minutes PRN, | | PDT | | | | | Starting 08/01/17 at 1430, | | | | | | | Intra-procedure (CATH/IR) | | | | | | + +--------+ +--------+------+------+ +-------+ +--------+---+---+ | Given | | 25 mcg | | | | | 8 15:08 | | | | | | PDT | | | | +-------+ +--------+---+---+ +---+---+ | | | +---+---+ + +-------+ +--------+---+---+ | gadobenate dimeglumine | Given | | 10 mLs | | | | (MULTIHANCE) injection 21 mL 21 | | 8 15:17 | | | | | mL, Intravenous, Img Once PRN, | | PDT | | | | | Other, Starting Fri08/01/17 at | | | | | | | 1513, For 1 dose | | | | | | + +-------+ +--------+---+---+ +---+---+ | | | +---+---+ + +-------+ +------+---+---+ | midazolam (VERSED) injection | Given | | 2 mg | | | | 0.5 mg 0.5 mg, Intravenous, PRN, | | 8 14:56 | | | | | maintenance moderate sedation, | | PDT | | | | | Starting Fri08/01/17 at 1430, | | | | | | | Intra-procedure (CATH/IR) | | | | | | + +-------+ +------+---+---+ +---+---+ | | | +---+---+ in this encounter
--- OUTSIDE RECORDS SUMMARY | ~2017-10-05 | XMS | Encounter Summary ---
Demographics + + + | Address | [address] | | | [place] [address] | + + + | Home Phone | | + + + | Preferred Language | Unknown | + + + | Marital Status | | + + + | Evangelical Affiliation | 1041 | + + + | Race | Unknown | + + + | Ethnic Group | Unknown | + + + Author + + + | Author | [facility] | + + + | Organization | [facility] [employer] [facility] | + + + | Address | Unknown | + + + | Phone | Unavailable | + + + Support + + + + + | Name | Relationship | Address | Phone | + + + + + | Elayne De La Rosa | ECON | [address] | | | | | [place] | | | | | [address] | | + + + + + Care Team Providers + +------+ + | Care Software Quality Test Engineer Name | Role | Phone | [...] | | Cervical | MD Josh | [facility] | | | | | radiculopath | [address] | | | | | y | [address] [place] | [place] | | | | | Procedures | APRIL | [place] | | | | | CT cervical | [place] [address] | [address] | | | | | spine | Phone: | Phone: | | | | | without | [phone] | [phone] | | | | | contrast | Fax: | Fax: | | | | | | [phone] | [phone] | + +--------+ + + + + [...] [place] | | | | | | [address] | | | | | | [phone] | | | +--------+ + + + [...] [facility] | | | | | | [place] [address] | | | | | | [phone] | | | | | | | [...]
--- OUTSIDE RECORDS SUMMARY | ~2017-10-05 | XMS | Encounter Summary ---
Demographics + + + | Address | [address] | | | [place] [address] | + + + | Home Phone | | + + + | Preferred Language | Unknown | + + + | Marital Status | | + + + | Yarsanism Affiliation | 1041 | + + + | Race | Unknown | + + + | Ethnic Group | Unknown | + + + Author + + + | Author | [facility] [employer] | + + + | Organization | [facility] [employer] [facility] | + + + | Address | Unknown | + + + | Phone | Unavailable | + + + Support + + + + + | Name | Relationship | Address | Phone | + + + + + | Elayne De La Rosa | ECON | [address] | | | | | [place] | | | | | [address] | | + + + + + Care Team Providers + +------+ + | Care Induction Machine Setter Name | Role | Phone | + [...] | 2018 | on Only | [facility] | | ORDER) | | | | [address] | | | | | | [place] | | | | | | [address] | | | | | | [phone] | | | +--------+ + + + [...] | | | | | [place] [address] | | | | | | [phone] | | | | | | | | +--------+---------+ + + + as of this encounter Visit Diagnoses Not on filein this encounter"
--- OUTSIDE RECORDS SUMMARY | ~2017-10-05 | XMS | Encounter Summary ---
Demographics + + + | Address | [address] | | | [place] [address] | + + + | Home Phone | | + + + | Preferred Language | Unknown | + + + | Marital Status | | + + + | Temple Affiliation | 1041 | + + + | Race | Unknown | + + + | Ethnic Group | Unknown | + + + Author + + + | Author | [facility] [employer] | + + + | Organization | [facility] | + + + | Address | Unknown | + + + | Phone | Unavailable | + + + Support + + + + + | Name | Relationship | Address | Phone | + + + + + | Elayne De La Rosa | ECON | [address] | | | | | [place] | | | | | [address] | | + + + + + Care Team Providers + +------+ + | Care Back Digger Operator Name | Role | Phone | [...] | on Only | [facility] | [address] [place]TONIO Benjamin | RICA) | | | | [address] | | | | | | [place] | | | | | | [address] | | | | | | [phone] | | | +--------+ + + + [...] | | | | | [place] [address] | | | | | | [phone] | | | | | | | | +--------+---------+ + + + as of this encounter Visit Diagnoses Not on filein this encounter"
--- OUTSIDE RECORDS SUMMARY | ~2017-10-05 | XMS | Encounter Summary ---
Demographics + + + | Address | [address] | | | [place] [address] | + + + | Home Phone | | + + + | Preferred Language | Unknown | + + + | Marital Status | | + + + | Sikhism Affiliation | 1041 | + + + | Race | Unknown | + + + | Ethnic Group | Unknown | + + + Author + + + | Author | [facility] | + + + | Organization | [facility] [employer] [facility] | + + + | Address | Unknown | + + + | Phone | Unavailable | + + + Support + + + + + | Name | Relationship | Address | Phone | + + + + + | Elayne De La Rosa | ECON | [address] | | | | | [place] | | | | | [address] | | + + + + + Care Team Providers + +------+ + | Care Bumper Operator Name | Role | Phone | [...] | | | | Cervical | [place] [address] | [address] | | | | | radiculopath | Phone: | Phone: | | | | | y | [phone] | [phone] | | | | | Procedures | Fax: | Fax: | | | | | MRI cervical | [phone] | [phone] | | | | | spine | | | | | | | without | | | | | | | contrast | | | + +--------+ + + + + Encounter Details +--------+ + + + + | Date | Type | Department | Care Team | Description | +--------+ + + + + | 07/21/ | Telephone | Delphine | Lola Villanueva | | | 2017 | | [facility] | [place] Benjamin | | | | | [address] | | | | | | [place] | | | | | | [address] | | | | | | [phone] | | | +--------+ + + + [...] | | | | | [place] [address] | | | | | | [phone] | | | | | | | [...]
--- OUTSIDE RECORDS SUMMARY | ~2017-10-05 | XMS | Encounter Summary ---
Demographics + + + | Address | [address] | | | [place] [address] | + + + | Home Phone [...] | Author | [facility] | + + + | Organization | [facility] | + + + | Address | Unknown | + + + | Phone | Unavailable | + + + Support + + + + + | Name | Relationship | Address | Phone | + + + + + | Elayne De La Rosa | ECON | [address] | | | | | [place] | | | | | [address] | | + + + + + Care Team Providers + +------+ + | Care Competitive Athlete Name | Role | Phone | + [...] | | | | | | | [address] Phone: | | | | | | | [phone] | | | | | | | Fax: | | | | | | | [phone] | +--------+--------+ + + + + Encounter Details +--------+ + + + + | Date | Type | Department | Care Team | Description | +--------+ + + + + | 10/03/ | Hospital | [facility] | Josh Ulloa MD | Cervical pain | | 2018 - | Encounter | [facility] | [address] | (neck); Cervical | | | | Surgical [address] | [place] [address] | radiculopathy; | | 10/04/ | | Blvd [place], [place] | [phone] | Spinal stenosis of | | 2018 | | [address] | | cervical region | +--------+ + [...] note may be different from michael trujillo. [facility]: Orthopedic Surgery Discharge Summary Date of [...] Hall MD [address], [address] [place] [address] Medication List START taking these medications methylPREDNISolone [...] These medications were sent to [facility] [facility] [place] - [address] [facility] [address] [place] [address] methylPREDNISolone 4 MG dose pack Discharge took [...] getting worse New symptoms Date Last Reviewed: 01/10/201719993153-[address] [place] [address], [place] [address]. All righ ts reserved. This information is [...] | | | [facility] [address] | | | | | | [phone] | | | | | | | [...] | | | | | performed at [facility], [address] | | | | | [facility], | | | | | [place] [address] | | | + + + + + + + | Specimen | + + | Blood | + + + + + + + | Performing | Address | City/State/Zipcode | Phone Number | | Organization | | | | + + + + + | [facility] | [address] [facility] | [place] [address] | [phone] | | LABORATORY | Blvd. | | [...] at | | | | | TC, [address] [place] [address] | | | | | [place] | | | | | [address] | | | + + + + + + + | Specimen | + + | Blood | + + + + + + + | Performing | Address | City/State/Zipcode | Phone Number | | Organization | | | | + + + + + | [facility] | [address] | [place] [address] | [phone] | | LABORATORY | Blvd. | | [...] [facility] | [address] | [facility] [place] [address] | | + + + + + Type and Screen (Blood Bank) (10/03/2017 9:55 AM) + + + + + | Component | Value | Ref Range | Performed At | + + + + + | ABO/RH(D) | O POSITIVE | | [facility] | + + + + + | ANTIBODY SCREEN | NEGATIVE | | [facility] | + + + + + | ARM BAND NUMBER | [id number] | | [facility] | | | performed at [facility];[address] | | | | | [address];[place] | | | | | [address] | | | + + + + + + + | Specimen | + + | Blood | + + + + + + + | Performing | Address | City/State/Zipcode | Phone Number | | Organization | | | | + + + + + | [facility] | [address] | [place] [address] | | + + + + + Basic metabolic panel (10/03/2017 9:54 AM) + + + + + | Component | Value | Ref Range | Performed At | + + + + + | SODIUM | 142 | 135 - 145 mmol/L | [facility] | + + + + + | POTASSIUM | 4.2 | 3.5 - 4.9 mmol/L | [facility] | + + + + + | CHLORIDE | 106 | 99 - 109 mmol/L | [facility] | + + + + + | CO2 | 29 | 23 - 32 mmol/L | [facility] | + + + + + | ANION GAP AGAP | 11 | 5 - 20 mmol/L | [facility] | + + + + + | GLUCOSE | 94 | 65 - 99 mg/dL | [facility] | + + + + + | BUN | 19 | 8 - 25 mg/dL | [facility] | + + + + + | CREATININE | 1.0 | 0.70 - 1.30 mg/dL | [facility] | + + + + + | BUN/CREAT | 19 | | [facility] | + + + + + | CALCIUM | 8.2 (L) | 8.5 - 10.5 mg/dL | [facility] | + + + + + | EGFR | >60Comment: GFR <60: | >60 mL/min/1.73m2 | [facility] | | | CHRONIC [...] the | | | | | MDRD [facility] traceable | | | | | equation.Testing | | | | | performed at [facility];[address] | | | | | [facility];[place], [place] | | | | | [address] | | | + + + + + + + | Specimen | + + | Blood | + + + + + + + | Performing | Address | City/State/Zipcode | Phone Number | | Organization | | | | + + + + + | [facility] | [address] | [place] [address] | | + + + + + CBC W/Auto Diff (Reflex to Manual) (10/03/2017 9:54 AM) + + + + + | Component | Value | Ref Range | Performed At | + + + + + | WBC | 5.66 | 3.80 - 11.00 K/uL | [facility] | + + + + + | RBC | 4.01 (L) | 4.20 - 5.70 M/uL | [facility] | + + + + + | HGB | 13.0 (L) | 13.2 - 17.0 g/dL | [facility] | + + + + + | HCT | 39.2 | 39.0 - 50.0 % | [facility] | + + + + + | MCV | 97.8 | 80.0 - 100.0 fl | [facility] | + + + + + | MCH | 32.5 | 27.0 - 34.0 pg | [facility] | + + + + + | MCHC | 33.3 | 32.0 - 35.5 g/dL | [facility] | + + + + + | RDW SD | 52.9 | 37 - 53 fl | [facility] | + + + + + | PLT | 278 | 150 - 400 K/uL | [facility] | + + + + + | MPV | 7.4 | fl | [facility] | + + + + + | DIFF TYPE | AUTOMATED | | [facility] | + + + + + [...] 2.09 | 1.00 - 3.90 K/uL | [facility] | + + + + + | MONOCYTES ABS | 0.65 | 0.00 - 0.80 K/uL | [facility] | + + + + + | EOSINOPHILS ABS | 0.16 | 0.00 - 0.50 K/uL | [facility] | + + + + + | BASOPHILS ABS | 0.04Comment: Testing | 0.00 - 0.10 K/uL | [facility] | | | performed at [facility];[address] | | | | | [address];[place] | | | | | [address] | | | + + + + + + + | Specimen | + + | Blood | + + + + + + + | Performing | Address | City/State/Zipcode | Phone Number | | Organization | | | | + + + + + | [facility] | [address] | [place] [address] | | + + + + + [...]
--- OUTSIDE RECORDS SUMMARY | ~2017-10-05 | XMS | Encounter Summary ---
Demographics + + + | Address | [address] | | | [place] [address] | + + + | Home Phone | | + + + | Preferred Language | Unknown | + + + | Marital Status | | + + + | Christian Affiliation | 1041 | + + + | Race | Unknown | + + + | Ethnic Group | Unknown | + + + Author + + + | Author | [facility] | + + + | Organization | [facility] | + + + | Address | Unknown | + + + | Phone | Unavailable | + + + Support + + + + + | Name | Relationship | Address | Phone | + + + + + | Elayne De La Rosa | ECON | [address] | | | | | [place] | | | | | [address] | | + + + + + Care Team Providers + +------+ + | Care Furnace Cooler Name | Role | Phone | + +------+ + | Jose Hall MD | PCP | | + +------+ + Reason for Visit +--------+ + | Reason | Comments | +--------+ + | Other | [facility] 08/22/17 | +--------+ + Encounter Details +--------+ + + + + | Date | Type | Department | Care Team | Description | +--------+ + + + + | 08/26/ | Kaitlynn | Delphine | Rich Lola | Other (CT CS ST | | 2018 | on Only | [facility] | [address] | CHRISTAL 08/22/17) | | | | [address] | | | | | | [place] | | | | | | [address] | | | | | | [phone] | | | +--------+ + + + [...] | | | | | [place] [address] | | | | | | [phone] | | | | | | | | +--------+---------+ + + + as of this encounter Visit Diagnoses Not on filein this encounter"
--- OUTSIDE RECORDS SUMMARY | ~2017-10-05 | XMS | Encounter Summary ---
Demographics + + + | Address | [address] | | | [place] [address] | + + + | Home Phone [...] + | Author | [facility] | + + + | Organization | [facility] | + + + | Address | Unknown | + + + | Phone | Unavailable | + + + Support + + + + + | Name | Relationship | Address | Phone | + + + + + | Elayne De La Rosa | ECON | [address] | | | | | [place] | | | | | [address] | | + + + + + Care Team Providers + +------+ + | Care Clinical Microbiologist Name | Role | Phone | + [...] | [facility] | Lola Villanueva | Other ([facility] | | 2018 | on Only | [facility] | [address] Benjamin | [facility] | | | | [address] | | CLEARANCE ) | | | | [place] | | | | | | [address] | | | | | | [phone] | | | +--------+ + + + [...] | | | | | [place] [address] | | | | | | [phone] | | | | | | | | +--------+---------+ + + + as of this encounter Visit Diagnoses Not on filein this encounter"
--- OUTSIDE RECORDS SUMMARY | ~2017-10-05 | XMS | Encounter Summary ---
Demographics + + + | Address | [address] | | | [place] [address] | + + + | Home Phone [...] + + | Author | [facility] | + + + | Organization | [facility] | + + + | Address | Unknown | + + + | Phone | Unavailable | + + + Support + + + + + | Name | Relationship | Address | Phone | + + + + + | Elayne De La Rosa | ECON | [address] | | | | | [place] | | | | | [address] | | + + + + + Care Team Providers + +------+ + | Care Fire Patrol Name | Role | Phone | + [...] | | 2018 | on Only | [facility] | [address] Benjamin | CHRISTAL 08/22/17) | | | | [address] | | | | | | [place] | | | | | | [address] | | | | | | [phone] | | | +--------+ + + + [...] | | | | | [place] [address] | | | | | | [phone] | | | | | | | | +--------+---------+ + + + as of this encounter Visit Diagnoses Not on filein this encounter"
--- OUTSIDE RECORDS SUMMARY | ~2017-10-05 | XMS | Encounter Summary ---
Demographics + + + | Address | [address] | | | [place] [address] | + + + | Home Phone | | + + + | Preferred Language | Unknown | + + + | Marital Status | | + + + | Zoroastrian Affiliation | 1041 | + + + | Race | Unknown | + + + | Ethnic Group | Unknown | + + + Author + + + | Author | [facility] | + + + | Organization | [facility] | + + + | Address | Unknown | + + + | Phone | Unavailable | + + + Support + + + + + | Name | Relationship | Address | Phone | + + + + + | Elayne De La Rosa | ECON | [address] | | | | | [place] | | | | | [address] | | + + + + + Care Team Providers + +------+ + | Care Hospice Home Care Coordinator Name | Role | Phone | + +------+ + | Jose Hall MD | PCP | | + +------+ + Encounter Details +--------+ + + + + | Date | Type | Department | Care Team | Description | +--------+ + + + + | 10/02/ | Orders Only | [facility] | Puneet Hager ARNP | | | 2018 | | [facility] | [address] | | | | | [address] | [place] [address] | | | | | [place], [place] | [phone] | | | | | [address] | | | +--------+ + + + [...] Cardiology | Gabe Britany | | | 2017 | Visit | | MAURI Ortega [address] | | | | | | [address] | | | | | | [place] [address] | | | | | | [phone] | | | | | | | | +--------+---------+ + + + as of this encounter Visit Diagnoses Not on filein this encounter"
--- OUTSIDE RECORDS SUMMARY | ~2017-10-05 | XMS | Encounter Summary ---
Demographics + + + | Address | [address] | | | [place] [address] | + + + | Home Phone | | + + + | Preferred Language | Unknown | + + + | Marital Status | | + + + | Jew Affiliation | 1041 | + + + | Race | Unknown | + + + | Ethnic Group | Unknown | + + + Author + + + | Author | [facility] | + + + | Organization | [facility] | + + + | Address | Unknown | + + + | Phone | Unavailable | + + + Support + + + + + | Name | Relationship | Address | Phone | + + + + + | Elayne De La Rosa | ECON | [address] | | | | | [place] | | | | | [address] | | + + + + + Care Team Providers + +------+ + | Care Production Graphic Designer Name | Role | Phone | + +------+ + | Jose Hall MD | PCP | | + +------+ + Encounter Details +--------+ + + + + | Date | Type | Department | Care Team | Description | +--------+ + + + + | 09/25/ | Telephone | Delphine | Emily Goldman, | | | 2017 | | [facility] [place] | PRIYA | | | | | [address] | | | | | | [place] | | | | | | [address] | | | | | | [phone] | | | +--------+ + + + [...] | | | | | [place] [address] | | | | | | [phone] | | | | | | | | +--------+---------+ + + + as of this encounter Visit Diagnoses Not on filein this encounter"
--- OUTSIDE RECORDS SUMMARY | ~2017-10-05 | XMS | Encounter Summary ---
Demographics + + + | Address | [address] | | | [place] [address] | + + + | Home Phone | | + + + | Preferred Language | Unknown | + + + | Marital Status | | + + + | Sikhism Affiliation | 1041 | + + + | Race | Unknown | + + + | Ethnic Group | Unknown | + + + Author + + + | Author | [facility] | + + + | Organization | [facility] | + + + | Address | Unknown | + + + | Phone | Unavailable | + + + Support + + + + + | Name | Relationship | Address | Phone | + + + + + | Elayne De La Rosa | ECON | [address] | | | | | [place] | | | | | [address] | | + + + + + Care Team Providers + +------+ + | Care Civil Service Worker Name | Role | Phone | + +------+ + | Jose Hall MD | PCP | | + +------+ + Encounter Details +--------+ + + + + | Date | Type | Department | Care Team | Description | +--------+ + + + + | 07/31/ | Telephone | Delpi[facility]ne | Lola Villanueva | | | 2017 | | [facility] [place] | [address] | | | | | [address] | | | | | | [place] | | | | | | [address] | | | | | | [phone] | | | +--------+ + + + [...] | | | | | [place] [address] | | | | | | [phone] | | | | | | | | +--------+---------+ + + + as of this encounter Visit Diagnoses Not on filein this encounter"
--- OUTSIDE RECORDS SUMMARY | ~2017-10-05 | XMS | Encounter Summary ---
Demographics + + + | Address | [address] | | | [place] [address] | + + + | Home Phone | | + + + | Preferred Language | Unknown | + + + | Marital Status | | + + + | Roman Catholic Affiliation | 1041 | + + + | Race | Unknown | + + + | Ethnic Group | Unknown | + + + Author + + + | Author | [facility] | + + + | Organization | [facility] | + + + | Address | Unknown | + + + | Phone | Unavailable | + + + Support + + + + + | Name | Relationship | Address | Phone | + + + + + | Elayne De La Rosa | ECON | [address] | | | | | [place] | | | | | [address] | | + + + + + Care Team Providers + +------+ + | Care Parking Analyst Name | Role | Phone | + +------+ + | Jose Hall MD | PCP | | + +------+ + Encounter Details +--------+ + + + + | Date | Type | Department | Care Team | Description | +--------+ + + + + | 10/02/ | Orders Only | [facility] PHYS[facility] | Puneet Hager ARNP | | | 2018 | | [facility] | [address] | | | | | [address] | [place] [address] | | | | | [place], [place] | [phone] | | | | | [address] | [...] [address] | | | | | | [place] [address] | | | | | | [phone] | | | | | | | | +--------+---------+ + + + as of this encounter Visit Diagnoses Not on filein this encounter"
--- OUTSIDE RECORDS SUMMARY | ~2017-10-05 | XMS | Encounter Summary ---
Demographics + + + | Address | [address] | | | [place] [address] | + + + | Home Phone | | + + + | Preferred Language | Unknown | + + + | Marital Status | | + + + | Christianity Affiliation | 1041 | + + + | Race | Unknown | + + + | Ethnic Group | Unknown | + + + Author + + + | Author | [facility] [employer] | + + + | Organization | [facility] | + + + | Address | Unknown | + + + | Phone | Unavailable | + + + Support + + + + + | Name | Relationship | Address | Phone | + + + + + | Elayne De La Rosa | ECON | [address] | | | | | [place] | | | | | [address] | | + + + + + Care Team Providers + +------+ + | Care Principal Statistical Scientist Name | Role | Phone | + [...] | | | | | radiculopath | PARALE[address] SPECIALIST [address] | | | | | y Spinal | [address] | [place], [place] | | | | | stenosis of | [place], | [address] Phone: | | | | | cervical | [place] [address] | [phone] | | | | | region | Phone: | Fax: | | | | | Procedures | [phone] | [phone] | | | | | MRI cervical | Fax: | | | | | | spine w wo | [phone] | | | | | | contrast [...] | | | | | radiculopath | PARALEGAL SPECIALIST [address] | [address] | | | | | y Spinal | [address] | [place], [place] | | | | | stenosis of | [place], | [address] Phone: | | | | | cervical | [place] [address] | [phone] | | | | | region | [...] | | | | | radiculopath | PARALEGAL SPECIALIST [address] | [address] | | | | | y Spinal | [address] | [place], [place] | | | | | stenosis of | [place], | [address] Phone: | | | | | cervical | [place] [address] | [phone] | | | | | region | Phone: | Fax: | | | | | Procedures | | [phone] | | | | | MRI cervical | Fax: | | | | | | spine w wo | | | | | | | contrast | | | +--------+--------+ + + + + Encounter Details +--------+ + + + + | Date | Type | Department | Care Team | Description | +--------+ + + + + | 08/01/ | Hospital | [facility] | Tamika Hager | Cervical pain | | 2018 | Encounter | [facility] MRI | [address] | (neck); Cervical | | | | [address] | [place] | radiculopathy; | | | | [place] [address] | [place] [address] | Cervical stenosis of | | | | [phone] | [phone] | spine | | | | | | | | | | | 2, [facility] Nurse | | | | | | [facility] | | +--------+ + + + [...] Diagnostic Imaging nurse at , ex t. [phone] For any severe symptoms, please call 911 [...] F | | | | | | [place] [address] | | | | | | [phone] | | | | | | | [...] and disc endplate disease at | | [id number] signed by Eze Back MD on 08/01/2017 [...] [facility] | [address] | [place] [address] | | + + + + + [...]
--- OUTSIDE RECORDS SUMMARY | ~2017-10-05 | XMS | Encounter Summary ---
Demographics + + + | Address | [address] | | | [place] [address] | + + + | Home Phone | | + + + | Preferred Language | Unknown | + + + | Marital Status | | + + + | Mandaeism Affiliation | 1041 | + + + | Race | Unknown | + + + | Ethnic Group | Unknown | + + + Author + + + | Author | [facility] | + + + | Organization | [facility] | + + + | Address | Unknown | + + + | Phone | Unavailable | + + + Support + + + + + | Name | Relationship | Address | Phone | + + + + + | Elayne De La Rosa | ECON | [address] | | | | | [place] | | | | | [address] | | + + + + + Care Team Providers + +------+ + | Care Divider Operator Name | Role | Phone | + +------+ + | Jose Hall MD | PCP | | + +------+ + Encounter Details +--------+ + + + + | Date | Type | Department | Care Team | Description | +--------+ + + + + | 08/22/ | Telephone | Delphine | Chelsea Inman, | | | 2017 | | [facility] | PRESIDENT PRACTICING UROLOGIST | | | | | [address] | | | | | | [place] | | | | | | [address] | | | | | | [phone] | | | +--------+ + + + [...] | | | | | [place] [address] | | | | | | [phone] | | | | | | | | +--------+---------+ + + + as of this encounter Visit Diagnoses Not on filein this encounter"
--- OUTSIDE RECORDS SUMMARY | ~2017-10-05 | XMS | Encounter Summary ---
Demographics + + + | Address | [address] | | | [place] [address] | + + + | Home Phone [...] | Author | [facility] | + + + | Organization | [facility] | + + + | Address | Unknown | + + + | Phone | Unavailable | + + + Support + + + + + | Name | Relationship | Address | Phone | + + + + + | Elayne De La Rosa | ECON | [address] | | | | | [place] | | | | | [address] | | + + + + + Care Team Providers + +------+ + | Care Customer Care Representative Name | Role | Phone | [...] | | | | [place] | | | | | | [address] | | | | | | [phone] | | | +--------+ + + + [...] | | | | | [place] [address] | | | | | | [phone] | | | | | | | | +--------+---------+ + + + as of this encounter Visit Diagnoses Not on filein this encounter"
[~2017-10-05 07:35] MED LIST changes: +BACTRIM DS TAB1 EACH PO; +VENLAFAXINE H37.5 MG PO; +VENLAFAXINE HCL75 MG PO; +VENTOLIN HFA18 GM
== END 2017-10-05 09:04 | disposition home or self-care (01) ==
LOC: ED 07:35
DX: M25.511 Pain in right shoulder (principal); M25.512 Pain in left shoulder; I11.0 Hypertensive heart disease with heart failure; I50.9 Heart failure, unspecified; I48.91 Unspecified atrial fibrillation; F41.9 Anxiety disorder, unspecified; J44.9 Chronic obstructive pulmonary disease, unspecified; Z87.891 Personal history of nicotine dependence; Z88.5 Allergy status to narcotic agent; Z88.8 Allergy status to other drugs, medicaments and biological substances; Z79.899 Other long term (current) drug therapy; Z79.51 Long term (current) use of inhaled steroids; W06.XXXA Fall from bed, initial encounter
CPT/HCPCS: 72125; 72128; 99283

== ENCOUNTER 2018-06-01 20:21 | Emergency (ER) | payer OTHER ==
[~2018-06-01] VITALS: Ht 185.4 cm; Wt 108.9 kg
--- OUTSIDE RECORDS SUMMARY | ~2018-06-01 | XMS | Clinical Summary ---
Demographics + + + | Address | [address] | | | [place] [address] | + + + | Home Phone | | + + + | Preferred Language | Unknown | + + + | Marital Status | | + + + | Zoroastrian Affiliation | CHR | + + + [...] [place] | | | | | [address] | | + + + + + | COLUMBA BEE | ECON | Unknown | | + + + + + Care Team Providers + +------+ + | Care Bricklayer Paving Brick Name | Role | Phone | + +------+ + | Jose Hall MD | PP | | + +------+ + Source Comments EDGAR is fully live on both EpicCare Ambulatory and EpicCare InPatient.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 | + + + Resolved Problems + + + + | Problem | Noted | Resolved | | | Date | Date | + + + + | CHF (congestive heart failure) ([facility]) | 01/26/20 | | | | 10 [...] | + + + + + | Influenza (Flu) | | 11/11/2016, 11/21/2015, | | | vaccination (#1) | 8 | 01/17/2015, Additional history | | | | | exists | | + + + + + | Pneumococcal (Adult) | Completed | 11/07/2012, 12/16/2005 | | + + + + + Results Not on filefrom Last 3 Months Insurance + +--------+ +--------+-------+---------+ | Payer | Benefi | Subscriber | Type | Phone | Address | | | t Plan | ID | | | | | | / | | | | | | | Group | | | | | + +--------+ +--------+-------+---------+ | TOP LIFTER MEDICAID | TOP LIFTER | xxxxxxxx | Medica | | | [...] Self | [birth year] | Home: | [address] | | | al/Fam | | 1959 | [phone] | [place] [address] | | | alba | | | [phone] | | + +--------+ +--------+ + +
--- OUTSIDE RECORDS SUMMARY | ~2018-06-01 | XMS | Clinical Summary ---
Demographics + + + | Address | [address] | | | [place] [address] | + + + | Home Phone | | + + + | Preferred Language | Unknown | + + + | Marital Status | | + + + | Christian Affiliation | CHR | + + + [...] [place] | | | | | [address] | | + + + + + | COLUMBA BEE | ECON | Unknown | | + + + + + Care Team Providers + +------+ + | Care Vocational Auto Body Instructor Name | Role | Phone | + +------+ + | Jose Hall MD | PP | | + +------+ + Source Comments EDGAR is fully live on both EpicCare Ambulatory and EpicCare InPatient.[facility] Allergies + + + + [...] | | | | | | type ([facility]), | | | | | [...] + + | CHF (congestive heart failure) ([facility]) | 01/26/20 | | | [...] | | | + +--------+ +--------+-------+---------+ | RIG SITE ENGINEER MEDICAID | RIG SITE ENGINEER | xxxxxxxx | Medica | | | [...] Self | [birth year] | Home: | [address] | | | al/Fam | | 1959 | [phone] | [place] [address] | | | alba | | | [phone] | | + +--------+ +--------+ + +
--- OUTSIDE RECORDS SUMMARY | ~2018-06-01 | XMS | Clinical Summary ---
Demographics + + + | Address | [address] | | | [place] [address] | + + + | Home Phone | | + + + | Preferred Language | Unknown | + + + | Marital Status | | + + + | Moravian Affiliation | [phone] | + + + | Race | Unknown | + + + | Ethnic Group | Unknown | + + + Author + + + | Author | [facility] | | | and [place] | + + + | Organization | [facility] | | | and [place] | + + + | Address | Unknown | + + + | Phone | Unavailable | + + + Support + + + + + | Name | Relationship | Address | Phone | + + + + + | Elayne De La Rosa | ECON | [address] | | | | | [place] | | | | | [address] | | + + + + + Care Team Providers + +------+ + | Care Livestock Ranch Hand Name | Role | Phone | [...] | | + + + +--------+ + Medications + + + +---------+------+------+-------+ | Medication | Sig | Dispensed | Refills | Star | End | Statu | | | | | | t | Date | s | | | | | | Date | | | + + + +---------+------+------+-------+ | carvedilol (COREG) | | | 0 | 09/1 | | Activ | | 6.25 mg tablet | | | | 4/20 | | e | | | | | | 12 | | | + + + +---------+------+------+-------+ | omeprazole | | | 0 | 09/1 | | Activ | | (PRILOSEC) 20 mg | | | | 4/20 | | e | | capsule | | | | 12 | | | + + + +---------+------+------+-------+ | diltiazem | | | 0 | 09/1 | | Activ | | (CARDIZEM CD) 180 mg | | | | 4/20 | | e | | 24 hr capsule | | | | 12 | | | + + + +---------+------+------+-------+ | METHOCARBAMOL PO | TABS | | 0 | 09/1 | | Activ | | | | | | 4/20 | | e | | | | | | 12 | | | + + + +---------+------+------+-------+ | traZODone | | | 0 | 09/1 | | Activ | | (DESYREL) 100 mg | | | | 4/20 | | e | | tablet | | | | 12 | | | + + + +---------+------+------+-------+ | LORazepam (ATIVAN) | | | 0 | 09/1 | | Activ | | 1 mg tablet | | | | 4/20 | | e | | | | | | 12 | | | + + + +---------+------+------+-------+ | lisinopril | | | 0 | 09/1 | | Activ | | (PRINIVIL, ZESTRIL) | | | | 4/20 | | e | | 5 mg tablet | | | | 12 | | | + + + +---------+------+------+-------+ | methadone 10 mg | | | 0 | 09/1 | | Activ | | tablet | | | | 4/20 | | e | | | | | | 12 | | | + + + +---------+------+------+-------+ | nicotine | | | 0 | 09/1 | | Activ | | polacrilex (COMMIT) | | | | 4/20 | | e | | 4 MG lozenge | | | | 12 | | | + + + +---------+------+------+-------+ | metoprolol | 1-1/2 tablets two | | 0 | 09/1 | | Activ | | tartrate (LOPRESSOR) | times daily | | | 4/20 | | e | | 50 mg tablet | | | | 12 | | | + + + +---------+------+------+-------+ | albuterol (PROAIR | 2 puffs every 4-6 | | 0 | 09/1 | | Activ | | HFA) 90 mcg/puff | hours as needed | | | 4/20 | | e | | inhaler | | | | 12 | | | + + + +---------+------+------+-------+ | citalopram | Take 40 mg by mouth | | 0 | 09/1 | | Activ | | (CELEXA) 40 mg | Daily. | | | 4/20 | | e | | tablet | | | | 12 | | | + + + +---------+------+------+-------+ | Potassium Chloride | CR-TABS daily | | 0 | 09/1 | | Activ | | Belinda CR (KLOR-CON | | | | 4/20 | | e | | M20 PO) | | | | 12 | | | + + + +---------+------+------+-------+ | clonazePAM | 2-3 times daily | | 0 | 09/1 | | Activ | | (KLONOPIN) 1 mg | | | | 4/20 | | e | | tablet | | | | 12 | | | + + + +---------+------+------+-------+ | nitroglycerin | Place 0.4 mg under | | 0 | 09/1 | | Activ | | (NITROSTAT) 0.4 mg | the tongue as | | | 4/20 | | e | | SL tablet | needed. | | | 12 | | | + + + +---------+------+------+-------+ [...] + +---+ + + | Overview: JERMAINE [id number] Decision | + + + +---+ | [...] on file | | + + + + + + + | Job Start Date | Occupation | Industry | + + + + | Not on file | Not on file | Not on file | + + + + + + + + | Travel History | Travel Start | Travel End | + + + + + + | No recent travel history available. | + + Last Filed Vital Signs + + + + | Vital Sign | Reading | Time Taken | + + + + | Blood Pressure | 120/73 | 11/19/2011 1102 PDT | + + + + | Pulse | 75 | 11/19/2011 1102 PDT | + + + + | [...] + + + + + | Vaccine: Zoster (1 | | | | | of 2) | 1 | | | + + + + + | Vaccine: Influenza | | | | | (Season Ended) | 9 | | | + + + + + Results Not on filefrom Last 3 Months Insurance + +--------+ +--------+ +---------+--------+ | Payer | Benefi | Subscriber | Effect | Phone | Address | Type | | | t Plan | ID | joelle | | | | | | / | | Dates | | | | | | Group | | | | | | + +--------+ +--------+ +---------+--------+ | [employer] | MODA | [id number] | | [phone] | | Medica | | MEDICAID HMO | HEALTH | | [phone]-Pr | 1 | | id | | | MDCD | | esent | | | | | | [place] | | | | | | + +--------+ +--------+ +---------+--------+ + +--------+ +--------+ + + | Guarantor Name | Accoun | Relation to | Date | Phone | Billing Address | | | t Type | Patient | of | | | | | | | | | | + +--------+ +--------+ + + | Jose Maria De La Rosa | Person | Self [birth year] | [address] | | | al/Fam | | 1960 | [phone] | [place], [place] | | | alba | | | 5 (Home) | [phone] | + +--------+ +--------+ + + | Jose Maria De La Rosa | Person | Self | [birth year] | [address] | | | al/Fam | | 1 | [phone] | [place], [place] | | | alba | | | 5 (Home) | [phone] | + +--------+ +--------+ + + Advance Directives Patient has advance care planning documents on file. For more information, please contact:[facility] [place] [address]
--- OUTSIDE RECORDS SUMMARY | ~2018-06-01 | XMS | Clinical Summary ---
Demographics + + + | Address | [address] | | | [place] [address] | + + + | Home Phone | | + + + | Preferred Language | Unknown | + + + | Marital Status | | + + + | Mandaen Affiliation | 1041 | + + + | Race | Unknown | + + + | Ethnic Group | Unknown | + + + Author + + + | Author | [facility] | | | and [place] | + + + | Organization | [facility] | | | and [place] | + + + | Address | Unknown | + + + | Phone | Unavailable | + + + Support + + + + + | Name | Relationship | Address | Phone | + + + + + | Elayne De La Rosa | ECON | [address] | | | | | [place] | | | | | [address] | | + + + + + Care Team Providers + +------+ + | Care Physicist Solid State Name | Role | Phone | + [...] + +---+ + + | Overview: JERMAINE [id number] Decision | + + + +---+ | [...] | [employer] | MODA | [id number] | | [phone] | | Medica | | MEDICAID HMO [...] [place] | | | 5 (Home) | [phone] | + +--------+ +--------+ + + | Jose Maria De La Rosa | Person | Self | [birth year] | [address] | | | al/Fam | | 1 | [phone] | [place], [place] | | | alba | | | 5 (Home) | [phone] | + +--------+ +--------+ + + Advance Directives Patient has advance care planning documents on file. For more information, please contact:[facility] [place] [address]
--- OUTSIDE RECORDS SUMMARY | 2018-06-01 20:24 | XMS ---
PreManage Notification: ELIGIO BEE Security Banquet Stewardess Events No recent Security Events currently on file CRITERIA MET - Group Notification - [facility] - Has [facility] Emergency Department Guidelines - PDMP CARE PROVIDERS [facility]Current PHONE: Unknown Alejandro Escoto Current PHONE: Unknown DR KRYSTA PULLIAM Primary Care 08/10/2016-Current PHONE: [phone] Praveena Morse Current Orthopedic Surgery \T\ Fracture Clinic PHONE: Unknown Lio has no Care Guidelines for this patient. Care History Medical/Surgical 10/06/2017 [facility] - Patient is currently established with [facility]. If patient is seen in the ED during business hours. Please contact CHWs at [facility]. Care Recommendation: This patient has had 5 or more Emergency Department visits in the last 12 months.\T\nbsp; Patient requires education on the scope and purpose of the ED as an acute care provider not a Primary Care Provider and should not be utilized for chronic conditions.\T\nbsp; These are guidelines and the provider should exercise clinical judgment when providing care. E.D. VISIT COUNT (12 MO.) 2 Hua Blackmon 2 [facility]. TOTAL 4 NOTE: Visits indicate total known visits. ED/UCC VISIT TRACKING (12 MO.) 06/01/2018 20:21 [facility] [place] TYPE: Emergency COMPLAINT: - L KNEE INJURY 02/26/2018 11:14 [facility] [place] TYPE: Emergency DIAGNOSES: - fall; knee pain - Knee Pain - Effusion, left knee 10/05/2017 07:36 [facility] [place] TYPE: Emergency COMPLAINT: - BILAT SHOULDER PAIN/FALL DIAGNOSES: - Pain in left shoulder - Pain in right shoulder - Unspecified atrial fibrillation - skilled nursing (current) use of inhaled steroids - Personal history of nicotine dependence - Allergy status to narcotic agent status - Allergy status to other drugs, medicaments and biological substances status - Anxiety disorder, unspecified - Hypertensive heart disease with heart failure - Other nursing home (current) drug therapy - Fall from bed, initial encounter - Heart failure, unspecified - Chronic obstructive pulmonary disease, unspecified 06/11/2017 10:28 [facility] [place] TYPE: Emergency DIAGNOSES: - foot injury - Foot Injury (Major) - Contusion of left foot, initial encounter INPATIENT VISIT TRACKING (12 MO.) 10/03/2017 08:17 [facility] TYPE: Recovery DIAGNOSES: - Spinal stenosis, cervical region - Radiculopathy, cervical region - Cervicalgia - M54.12, M48.02, M54.2 06/24/2017 16:28 [facility] [place] TYPE: Observation COMPLAINT: - LEFT FOOT ABSCESS/CELLULITIS DIAGNOSES: - Chronic diastolic (congestive) heart failure - Personal history of other venous thrombosis and embolism - Hyperlipidemia, unspecified - Opioid dependence, uncomplicated - Gastro-esophageal reflux disease without esophagitis - Chronic obstructive pulmonary disease, unspecified - Restless legs syndrome - Other chronic pain - Hypertensive heart and chronic kidney disease with heart failure and stage 1 through stage 4 chronic kidney disease, or unspecified chronic kidney disease - Cutaneous abscess of left foot - exterminator termite (current) use of anticoagulants - Cellulitis of left lower limb - Allergy status to narcotic agent status - Unspecified atrial flutter - Other allergy status, other than to drugs and biological substances - Other nursing home (current) drug therapy - Obstructive sleep apnea (adult) (pediatric) - Dorsalgia, unspecified - Generalized anxiety disorder - Chronic kidney disease, stage 3 (moderate) - Cervicalgia [email or web address]
[2018-06-01] MEDS ORDERED: ATORVASTATIN CA40 MG PO (20:32)
== END 2018-06-01 21:25 | disposition home or self-care (01) ==
LOC: ED 20:21
DX: S80.02XA Contusion of left knee, initial encounter (principal); W01.198A Fall on same level from slipping, tripping and stumbling with subsequent striking against other object, initial encounter; I11.0 Hypertensive heart disease with heart failure; I50.9 Heart failure, unspecified; F41.9 Anxiety disorder, unspecified; Z87.891 Personal history of nicotine dependence; Z88.5 Allergy status to narcotic agent; Z88.8 Allergy status to other drugs, medicaments and biological substances; Z79.899 Other long term (current) drug therapy
CPT/HCPCS: 73560; 99283

== ENCOUNTER 2019-03-17 23:26 | Emergency (ER) | payer OTHER ==
[~2019-03-17] VITALS: Ht 185.4 cm; Wt 111.2 kg
[~2019-03-17 23:26] MED LIST changes: +ATORVASTATIN CA40 MG PO; +KEFLEX500 MG PO
--- OUTSIDE RECORDS SUMMARY | 2019-03-17 23:30 | XMS ---
PreManage Notification: ELIGIO BEE Security Hose Maker Events No recent Security Events currently on file CRITERIA MET - Group Notification - [facility] - Has Care Guidelines - History of Sepsis Dx - PDMP CARE PROVIDERS RAMON GUILLORY Internal Medicine 10/06/2017-Current PHONE: Unknown Alejandro Escoto Current PHONE: Unknown DR KRYSTA PULLIAM Primary Care 08/10/2016-Current PHONE: [phone] Praveena Morse Current Orthopedic Surgery \T\ Fracture Clinic PHONE: Unknown Lio has no Care Guidelines for this patient. Care History Medical/Surgical 10/06/2017 [facility] - Patient is currently established with [facility]. If patient is seen in the ED during business hours. Please contact CHWs at [facility]. Care Recommendation: This patient has had 5 [...] care. E.D. VISIT COUNT (12 MO.) 2 [facility] TOTAL 2 NOTE: Visits indicate total known visits. ED/UCC VISIT TRACKING (12 MO.) 03/17/2019 23:27 [facility] [place] TYPE: Emergency COMPLAINT: - FINGER LAC/ARM PAIN 06/01/2018 20:21 [facility] [place] TYPE: Emergency COMPLAINT: - L KNEE INJURY DIAGNOSES: - Pain in left knee - Personal history of nicotine dependence - Allergy status to narcotic agent status - Heart failure, unspecified - Anxiety disorder, unspecified - Contusion of left knee, initial encounter - Fall same lev from slip/trip w strike agnst ot object, init - Other chcf (current) drug therapy - Hypertensive heart disease with heart failure - Allergy status to oth drug/meds/biol subst status INPATIENT VISIT TRACKING (12 MO.) No inpatient visits to display in this time frame [email or web address]
== END 2019-03-18 00:14 | disposition home or self-care (01) ==
LOC: ED 23:26
DX: S61.411A Laceration without foreign body of right hand, initial encounter (principal); L08.9 Local infection of the skin and subcutaneous tissue, unspecified; W26.0XXA Contact with knife, initial encounter; I11.0 Hypertensive heart disease with heart failure; I50.9 Heart failure, unspecified; J44.9 Chronic obstructive pulmonary disease, unspecified; F41.9 Anxiety disorder, unspecified; G47.30 Sleep apnea, unspecified; Z87.891 Personal history of nicotine dependence; Z88.5 Allergy status to narcotic agent; Z88.8 Allergy status to other drugs, medicaments and biological substances; Z79.899 Other long term (current) drug therapy
CPT/HCPCS: 99283

== ENCOUNTER 2020-02-04 11:15 | Emergency (ER) | payer OTHER ==
[~2020-02-04] VITALS: Ht 185.4 cm; Wt 109.3 kg
--- OUTSIDE RECORDS SUMMARY | 2020-02-04 11:18 | XMS ---
PreManage Notification: ELIGIO BEE Security Transportation Aid Events No recent Security Events currently on file CRITERIA MET - Group Notification - [facility] - Has Care Guidelines - History of Sepsis Dx - PDMP CARE PROVIDERS RAMON GUILLORY Internal Medicine 10/06/2017-Current PHONE: Unknown Lio has no Care Guidelines for this patient. Care History Medical/Surgical 03/18/2019 [facility] Patient has follow up visit on 03/26/[address] Guillory. 10/06/2017 [facility] - Patient is currently established with [facility]. If patient is seen in the ED during business hours. Please contact CHWs at [facility]. Care Recommendation: If this patient has had 5 or more Emergency Department visits in the last 12 months.\T\nbsp; Patient will require education on the scope and purpose of the ED as an acute care provider not a Primary Care Provider and should not be utilized for chronic conditions.\T\nbsp; These are guidelines and the provider should exercise clinical judgment when providing care. E.D. VISIT COUNT (12 MO.) 2 [facility] TOTAL 2 NOTE: Visits indicate total known visits. ED/UCC VISIT TRACKING (12 MO.) 02/04/2020 11:15 [facility] [place] TYPE: Emergency COMPLAINT: - DIZZINESS 03/17/2019 23:27 [facility] [place] TYPE: Emergency COMPLAINT: - FINGER LAC/ARM PAIN DIAGNOSES: - Heart failure, unspecified - Other residential (current) drug therapy - Allergy status to other drugs, medicaments and biological substances - Chronic obstructive pulmonary disease, unspecified - Contact with knife, initial encounter - Local infection of the skin and subcutaneous tissue, unspecified - Sleep apnea, unspecified - Personal history of nicotine dependence - Allergy status to narcotic agent - Laceration without foreign body of right hand, initial encounter - Laceration without foreign body of right hand, initial encounter - Anxiety disorder, unspecified - Hypertensive heart disease with heart failure INPATIENT VISIT TRACKING (12 MO.) No inpatient visits to display in this time frame [email or web address]
--- NOTE | 2020-02-06 13:51 | EKG ---
[facility] [address] [place] [address] Signed Normal sinus rhythm with sinus arrhythmia Normal ECG When compared with ECG of 28-JUL-2018 09:04, premature atrial complexes are no longer present Confirmed by HEENA PEREZ MD ([id number]) on 02/06/2020 1:51:26 PM Electronically Signed By: HEENA PEREZ MD 02/06/20 1351 PATIENT NAME: ELIGIO BEE AIYANA Electrocardiogram DATE OF : 62 PHYSICIAN: HEENA PEREZ MD REPORT #: [id number] REPORT IS CONFIDENTIAL AND NOT TO BE RELEASED WITHOUT AUTHORIZATION
== END 2020-02-04 14:28 | disposition home or self-care (01) ==
LOC: ED 11:15
DX: R42 Dizziness and giddiness (principal); G47.30 Sleep apnea, unspecified; I11.0 Hypertensive heart disease with heart failure; I50.9 Heart failure, unspecified; I48.91 Unspecified atrial fibrillation; J44.9 Chronic obstructive pulmonary disease, unspecified; F41.9 Anxiety disorder, unspecified; Z88.8 Allergy status to other drugs, medicaments and biological substances; Z88.5 Allergy status to narcotic agent; Z79.899 Other long term (current) drug therapy; Z20.828 Contact with and (suspected) exposure to other viral communicable diseases
CPT/HCPCS: 70450; 80053; 83735; 84484; 85025; 93005; 93010; 99284-25; C9803; U0003

== ENCOUNTER 2020-07-03 16:58 | Emergency (ER) | payer OTHER ==
[~2020-07-03] VITALS: Ht 185.4 cm; Wt 113.4 kg
--- OUTSIDE RECORDS SUMMARY | 2020-07-03 17:00 | XMS ---
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 Care History Medical/Surgical 03/18/2019 [facility] Patient has follow up visit on 03/26/[address] Hall. 10/06/2017 [facility] - Patient is currently established with [facility]. If patient is seen in the ED during business hours. Please contact CHWs at [facility]. Care Recommendation: If this patient has had [...] care. E.D. VISIT COUNT (12 MO.) [address] [facility] TOTAL 2 NOTE: Visits indicate total known visits. ED/UCC VISIT TRACKING (12 MO.) 07/03/2020 16:59 [facility] [place] TYPE: Emergency COMPLAINT: - RAPID HEART RATE, SOB 02/04/2020 11:15 [facility] [place] TYPE: Emergency COMPLAINT: - DIZZINESS DIAGNOSES: - Dizziness and giddiness - Contact with and (suspected) exposure to other viral communicable diseases - Allergy status to narcotic agent - Allergy status to other drugs, medicaments and biological substances - Heart failure, unspecified - Hypertensive heart disease with heart failure - Sleep apnea, unspecified - Anxiety disorder, unspecified - Unspecified atrial fibrillation - Allergy status to other drugs, medicaments and biological substances - Allergy status to narcotic agent - Other terminal manager (current) drug therapy - Chronic obstructive pulmonary disease, unspecified INPATIENT VISIT TRACKING (12 MO.) No inpatient visits to display in this time frame [email or web address]
[2020-07-03] MEDS ORDERED: DULOXETINE HCL60 MG PO (17:13)
--- NOTE | 2020-07-04 09:45 | EKG ---
[facility] [address] [place] [address] Signed Atrial flutter with variable AV block Nonspecific ST abnormality Prolonged QT Abnormal ECG When compared with ECG of 04-FEB-2020 11:26, Atrial flutter has replaced Sinus rhythm Vent. rate has increased BY [address] elevation now present in Inferior leads Confirmed by HEENA PEREZ MD (255) on 07/04/2020 9:45:43 AM Electronically Signed By: HEENA PEREZ MD 07/04/20 0945 PATIENT NAME: ELIGIO BEE Electrocardiogram DATE OF : 62 PHYSICIAN: HEENA PEREZ MD REPORT #: [id number] REPORT IS CONFIDENTIAL AND NOT TO BE RELEASED WITHOUT AUTHORIZATION
--- NOTE | 2020-07-04 09:46 | EKG ---
[facility] [address] [place] [address] Signed Sinus rhythm with premature atrial complexes Nonspecific ST abnormality Prolonged QT Abnormal ECG When compared with ECG of 03-JUL-2020 17:06, (Unconfirmed) Sinus rhythm has replaced Atrial flutter Vent. rate has decreased BY [address] now depressed in Inferior leads Confirmed by HEENA PEREZ MD ([id number]) on 07/04/2020 9:45:54 AM Electronically Signed By: HEENA PEREZ MD 07/04/20 0946 PATIENT NAME: ELIGIO BEE Electrocardiogram DATE OF : 62 PHYSICIAN: HEENA PEREZ MD REPORT #: [id number] REPORT IS CONFIDENTIAL AND NOT TO BE RELEASED WITHOUT AUTHORIZATION
== END 2020-07-03 20:45 | disposition home or self-care (01) ==
LOC: ED 16:58
DX: I48.92 Unspecified atrial flutter (principal); Z20.822 Contact with and (suspected) exposure to COVID-19; G47.30 Sleep apnea, unspecified; I11.0 Hypertensive heart disease with heart failure; I50.9 Heart failure, unspecified; I48.91 Unspecified atrial fibrillation; J44.9 Chronic obstructive pulmonary disease, unspecified; Z88.5 Allergy status to narcotic agent; Z88.8 Allergy status to other drugs, medicaments and biological substances; Z79.899 Other long term (current) drug therapy
CPT/HCPCS: 71045; 80053; 83735; 84484; 85025; 93005; 93010; 96374; 99285-25; C9803; J2704; J7030; U0003

== ENCOUNTER 2020-08-14 14:19 | Emergency (ER) | payer OTHER ==
[~2020-08-14] VITALS: Ht 185.4 cm; Wt 116.6 kg
[~2020-08-14 14:19] MED LIST changes: +DULOXETINE HCL60 MG PO
--- OUTSIDE RECORDS SUMMARY | 2020-08-14 14:22 | XMS ---
PreManage Notification: ELIGIO BEE Security Rubber Goods Supervisor Events No recent Security Events currently on file CRITERIA MET - Group Notification - [facility] - Has Care Guidelines - PDMP CARE PROVIDERS RAMON HALL Internal Medicine 02/07/2020-Current PHONE: Unknown Lio has no Care Guidelines for this patient. Care History Medical/Surgical 03/18/2019 [facility] Patient has follow up visit on 03/26/[address] Hall. 10/06/2017 [facility] - Patient is currently established with [facility]. If patient is seen in the ED during business hours. Please contact CHWs at [facility]. Care Recommendation: If this patient has had [...] providing care. E.D. VISIT COUNT (12 MO.) 3 [facility] TOTAL 3 NOTE: Visits indicate total known visits. ED/UCC VISIT TRACKING (12 MO.) 08/14/2020 14:19 [facility] [place] TYPE: Emergency COMPLAINT: - GLF CHEST FELL ON FAN 07/03/2020 16:59 [facility] [place] TYPE: Emergency COMPLAINT: - RAPID HEART RATE, SOB DIAGNOSES: - Shortness of breath - Allergy status to narcotic agent - Unspecified atrial fibrillation - Heart failure, unspecified - Other snf (current) drug therapy - Chronic obstructive pulmonary disease, unspecified - Hypertensive heart disease with heart failure - Allergy status to other drugs, medicaments and biological substances - Sleep apnea, unspecified - Unspecified atrial flutter 02/04/2020 11:15 [facility] [place] TYPE: Emergency [...] status to narcotic agent - Other terminal carman (current) drug therapy - Chronic obstructive pulmonary disease, unspecified INPATIENT VISIT TRACKING (12 MO.) [facility] DIAGNOSES: - Obstructive sleep apnea (adult) (pediatric) - MCFP (current) use of anticoagulants - Paroxysmal atrial fibrillation - Other cardiomyopathies - Chronic obstructive pulmonary disease, unspecified - Paroxysmal atrial fibrillation [id number]
== END 2020-08-14 15:35 | disposition left against medical advice (07) ==
LOC: ED 14:19
DX: R07.89 Other chest pain (principal); W01.10XA Fall on same level from slipping, tripping and stumbling with subsequent striking against unspecified object, initial encounter
CPT/HCPCS: 71101

== ENCOUNTER 2021-03-15 09:46 | Inpatient (IN) | payer OTHER ==
[~2021-03-15] VITALS: Ht 185.4 cm; Wt 119.9 kg
--- NOTE | ~2021-03-15 | DS ---
[facility] [address] [place] [address] Draft ADMISSION DATE: 03/17/2021 DISCHARGE DATE: 03/18/2021 ADMISSION DIAGNOSIS: Left upper extremity cellulitis. DISCHARGE DIAGNOSES: 1. Left upper extremity cellulitis. 2. Anaphylactic reaction to Ancef. PROCEDURE PERFORMED DURING THIS HOSPITALIZATION: Placement of PICC line. BRIEF HISTORY: Jose Maria is a 61-year-old gentleman who is about three weeks status post . He presented to the office with redness and swelling in the perioperative region extending up his forearm. He was admitted directly to the hospital for IV antibiotics due to multiple medical comorbidities. He did well with the vancomycin. His swelling and redness improved and then resolved. Initially, the thought was to put him on Ancef to give a little bit better strep coverage. However, when he got the Ancef, he had a significant anaphylactic reaction. This was treated successfully by the medicine team. It should also be noted that he had the Ancef during his operation just three weeks ago. The vancomycin was continued. His labs returned to normal by today. His swelling and redness are pretty much resolved. We will send him home on IV outpatient therapy of vancomycin 1500 mg IV daily. This will be for two weeks duration. He will follow up with me on . Gregoria Escoto MD BA/SARAH /[id number] Copies: PATIENT NAME: ELIGIO BEE DISCHARGE SUMMARY DATE OF : 62 REPORT #: [id number] PHYSICIAN: GREGORIA ESCOTO MD PCP: RAMON GUILLORY MD REPORT IS CONFIDENTIAL AND NOT TO BE RELEASED WITHOUT AUTHORIZATION [address] [address] Draft ~ PATIENT NAME: ELIGIO BEE DISCHARGE SUMMARY DATE OF : 62 REPORT #: [id number] PHYSICIAN: GREGORIA ESCOTO MD PCP: RAMON GUILLORY MD REPORT IS CONFIDENTIAL AND NOT TO BE RELEASED WITHOUT AUTHORIZATION
[~2021-03-15 09:46] MED LIST changes: +BUSPIRONE HCL10 MG PO; +COZAAR50 MG PO; +DOFETILIDE250 MCG PO; +ELIQUIS5 MG PO; +MELATIN3 MG PO; +METOPROLOL SUC100 MG PO; +TIKOSYN250 MCG PO; +TORSEMIDE10 MG PO; +VOLTAREN ARTHRI20 GM
[2021-03-15] MEDS ORDERED: ONDANSETRON ODT4 MG PO (10:18)
[2021-03-15] MEDS ORDERED: TORSEMIDE20 MG PO (10:19)
[2021-03-15] MEDS ORDERED: BUSPIRONE HCL15 MG PO (10:21)
--- NOTE | 2021-03-18 17:50 | EKG ---
[facility] [address] [facility] [place], [place] [address] Signed Normal sinus rhythm Normal ECG When compared with ECG of 22-FEB-2021 10:52, QT has lengthened Confirmed by HEENA PEREZ MD ([id number]) on 03/18/2021 5:50:22 PM Electronically Signed By: HEENA PEREZ MD 03/18/21 1750 PATIENT NAME: ELIGIO BEE AIYANA Electrocardiogram DATE OF : 62 PHYSICIAN: HEENA PEREZ MD REPORT #: [id number] REPORT IS CONFIDENTIAL AND NOT TO BE RELEASED WITHOUT AUTHORIZATION
== END 2021-03-18 11:50 | disposition home or self-care (01) | DRG 863 ==
LOC: MS 09:46
PROVIDERS: ADMIT Specialist; ATTEND Specialist
DX: T81.49XA Infection following a procedure, other surgical site, initial encounter (principal); L03.114 Cellulitis of left upper limb; I50.32 Chronic diastolic (congestive) heart failure; N17.9 Acute kidney failure, unspecified; T88.6XXA Anaphylactic reaction due to adverse effect of correct drug or medicament properly administered, initial encounter; F11.20 Opioid dependence, uncomplicated; G89.4 Chronic pain syndrome; I11.0 Hypertensive heart disease with heart failure; I48.0 Paroxysmal atrial fibrillation; K21.9 Gastro-esophageal reflux disease without esophagitis; E78.5 Hyperlipidemia, unspecified; F41.9 Anxiety disorder, unspecified; G47.33 Obstructive sleep apnea (adult) (pediatric); Z88.5 Allergy status to narcotic agent; Z88.1 Allergy status to other antibiotic agents; Z91.041 Radiographic dye allergy status; Z88.8 Allergy status to other drugs, medicaments and biological substances; Z79.899 Other long term (current) drug therapy; K75.9 Inflammatory liver disease, unspecified; T36.1X5A Adverse effect of cephalosporins and other beta-lactam antibiotics, initial encounter
CPT/HCPCS: 36415; 36569; 71045; 80053; 80202; 81001; 82570; 83735; 84156; 85025; 85651; 86140; 87070; 87075; 87205; 93005; 93010; 94640; A9270; C1751; J0690; J1200; J3370; J7060

== ENCOUNTER 2021-05-23 07:50 | Emergency (ER) | payer OTHER ==
[~2021-05-23] VITALS: Ht 185.4 cm; Wt 121.2 kg
[~2021-05-23 07:50] MED LIST changes: +BUSPIRONE HCL15 MG PO; +ONDANSETRON ODT4 MG PO; +TORSEMIDE20 MG PO
--- OUTSIDE RECORDS SUMMARY | 2021-05-23 07:52 | XMS ---
PreManage Notification: ELIGIO BEE Security Steamer Operator Events 3 event(s) in the past 18 months Most recent security events: Elopement at [facility] 11/15/2020 18:21 - Other Details: PATIENT LWBS Elopement at [facility] 08/14/2020 14:19 Details: PATIENT LEFT AMA Elopement at [facility] 08/14/2020 14:19 - Other Details: PATIENT LWBS. CRITERIA MET - PDMP - Group Notification CARE PROVIDERS RAMON HALL Internal Medicine 02/07/2020-Current PHONE: Unknown Lio has no Care Guidelines for this patient. Care History Medical/Surgical 03/18/2019 [facility] Patient has follow up visit on 03/26/[address] Hall. 10/06/2017 [facility] - Patient is currently established with [facility]. If patient is seen in the ED during business hours. Please contact CHWs at [facility]. Care Recommendation: If this patient [...] providing care. E.D. VISIT COUNT (12 MO.) [address] [facility] TOTAL 4 NOTE: Visits indicate total known visits. ED/UCC VISIT TRACKING (12 MO.) 05/23/2021 07:50 [facility] [place] TYPE: Emergency COMPLAINT: - L LEG RED/PAIN 11/15/2020 18:21 [facility] TYPE: Emergency COMPLAINT: - ABDOMEN LACERATION 08/14/2020 14:19 [facility] [place] TYPE: Emergency COMPLAINT: - GLF CHEST FELL ON FAN DIAGNOSES: - Other chest pain - Fall on same level from slipping, tripping and stumbling with subsequent striking against unspecified object, initial encounter 07/03/2020 16:59 [facility] [place] TYPE: Emergency COMPLAINT: - RAPID HEART RATE, SOB DIAGNOSES: - Shortness of breath - Allergy status to narcotic agent - Unspecified atrial fibrillation - Heart failure, unspecified - Other assisted (current) drug therapy - Chronic obstructive pulmonary disease, unspecified - Hypertensive heart disease with heart failure - Allergy status to other drugs, medicaments and biological substances - Sleep apnea, unspecified - Unspecified atrial flutter INPATIENT VISIT TRACKING (12 MO.) 03/15/2021 09:54 [facility] [place] TYPE: Observation COMPLAINT: - LT UPPER EXTREMITY CELLULITIS DIAGNOSES: - Infection following a procedure, other surgical site, initial encounter - Allergy status to other drugs, medicaments and biological substances - Adverse effect of cephalosporins and other beta-lactam antibiotics, initial encounter - Paroxysmal atrial fibrillation - Hyperlipidemia, unspecified - Allergy status to other antibiotic agents - Chronic pain syndrome - Gastro-esophageal reflux disease without esophagitis - Allergy status to other drugs, medicaments and biological substances - Inflammatory liver disease, unspecified - Allergy status to narcotic agent - Opioid dependence, uncomplicated - Other watermelon inspector (current) drug therapy - Hypertensive heart disease with heart failure - Anaphylactic reaction due to adverse effect of correct drug or medicament properly administered, initial encounter - Hyperlipidemia, unspecified - Infection following a procedure, other surgical site, initial encounter - Acute kidney failure, unspecified - Chronic pain syndrome - Radiographic dye allergy status - Cellulitis of left upper limb - Gastro-esophageal reflux disease without esophagitis - Chronic diastolic (congestive) heart failure - Obstructive sleep apnea (adult) (pediatric) - Other assisted (current) drug therapy - Opioid dependence, uncomplicated - Obstructive sleep apnea (adult) (pediatric) - Acute kidney failure, unspecified - Allergy status to narcotic agent - Radiographic dye allergy status - Anxiety disorder, unspecified - Adverse effect of cephalosporins and other beta-lactam antibiotics, initial encounter - Anaphylactic reaction due to adverse effect of correct drug or medicament properly administered, initial encounter - Inflammatory liver disease, unspecified - Paroxysmal atrial fibrillation - Hypertensive heart disease with heart failure - Chronic diastolic (congestive) heart failure - Allergy status to other antibiotic agents - Anxiety disorder, unspecified [facility]: Electrophysiology DIAGNOSES: - Obstructive sleep apnea (adult) (pediatric) - termite helper (current) use of anticoagulants - Paroxysmal atrial fibrillation - Other cardiomyopathies - Chronic obstructive pulmonary disease, unspecified - Paroxysmal atrial fibrillation [email or web address]
[2021-05-23] MEDS ORDERED: ZITHROMAX250 MG PO (09:30)
== END 2021-05-23 09:40 | disposition home or self-care (01) ==
LOC: ED 07:50
DX: L03.116 Cellulitis of left lower limb (principal); I50.9 Heart failure, unspecified; I48.91 Unspecified atrial fibrillation; I11.0 Hypertensive heart disease with heart failure; J44.9 Chronic obstructive pulmonary disease, unspecified; G47.30 Sleep apnea, unspecified; Z88.0 Allergy status to penicillin; Z88.8 Allergy status to other drugs, medicaments and biological substances; Z88.1 Allergy status to other antibiotic agents; Z91.041 Radiographic dye allergy status; Z79.899 Other long term (current) drug therapy
CPT/HCPCS: 36415; 80048; 85025; 93971; 99284-25

== ENCOUNTER 2022-09-17 10:56 | Emergency (ER) | payer OTHER ==
[~2022-09-17] VITALS: Ht 185.4 cm; Wt 121.1 kg
--- OUTSIDE RECORDS SUMMARY | ~2022-09-17 | XMS | Continuity of Care Document ---
Demographics + + + | Address | [address] | | | [place] [address] | + + + | Preferred Language | Unknown | + + + | Marital Status | | + + + | Mandaeism Affiliation | Unknown | + + + | Race | White | + + + | Ethnic Group | Unknown | + + + Author + + + | Author | [facility] | + + + | Organization | [facility] | + + + | Address | [address] | | | [place] [address] | + + + | Phone | | + + + Care Team Providers + + + + | Care Offal Roller Name | Role | Phone | + + + + Unavailable | Unavailable | + + + + Allergies and Intolerances + + + + + + | date | description | facility | reaction | severity | + + + + + + | (no date) | Iodinated | [facility] | (no reaction) | (no severity) | | | [facility] | | | | + + + + + + | (no date) | codeine | [facility] | (no reaction) | (no severity) | + + + + + + | (no date) | | [facility] | (no reaction) | (no severity) | | | hydrochlorothia | | | | | | zide | | | | + + + + + + | (no date) | clindamycin | [facility] | (no reaction) | (no severity) | + + + + + + | (no date) | clavulanic | [facility] | (no reaction) | (no severity) | | | acid | | | | + + + + + + | (no date) | amoxicillin | [facility] | (no reaction) | (no severity) | + + + + + + | (no date) | paroxetine | [facility] | (no reaction) | (no severity) | + + + + + + | (no date) | hydralazine | [facility] | (no reaction) | (no severity) | + + + + + + | (no date) | meperidine | [facility] | (no reaction) | (no severity) | + + + + + + | (no date) | cefazolin | [facility] | (no reaction) | (no severity) | + + + + + + Encounters No information. Functional Status No information. Immunizations No information. Medications No information. Problems + + + + | date | description | facility | + + + + | 2022-09-02 07:30 | UNIL INGUINAL HERNIA, W/O | [facility] | | | OBST OR GANGR, | | + + + + | 2022-09-02 07:30 | UNSPECIFIED CIRRHOSIS OF | [facility] | | | LIVER | | + + + + | 2022-09-02 07:30 | HEPATOMEGALY, NOT | [facility] | | | ELSEWHERE CLASSIFIED | | + + + + | 2022-09-02 07:30 | ACQUIRED ABSENCE OF OTHER | [facility] | | | SPECIFIED PARTS OF DIGES | | + + + + | 2022-09-02 08:00 | UNIL INGUINAL HERNIA, W/O | [facility] | | | OBST OR GANGR, | | + + + + | 2022-09-02 08:00 | UNSPECIFIED CIRRHOSIS OF | [facility] | | | LIVER | | + + + + Procedures No information. Results/Labs No information. Social History No information. Vital Signs No information."
--- OUTSIDE RECORDS SUMMARY | ~2022-09-17 | XMS | Continuity of Care Document ---
Demographics + + + | Address | [address] | | | [place] [address] | + + + | Preferred Language | Unknown | + + + | Marital Status | | + + + | Mandaeism Affiliation | Unknown | + + + | Race | White | + + + | Ethnic Group | Unknown | + + + Author + + + | Author | [facility] | + + + | Organization | [facility] | + + + | Address | [address] | | | [place] [address] | + + + | Phone | | + + + Care Team Providers + + + + | Care Air Export Coordinator Name | Role | Phone | + [...]
[~2022-09-17 10:56] MED LIST changes: +ZITHROMAX250 MG PO
--- OUTSIDE RECORDS SUMMARY | 2022-09-17 11:02 | XMS ---
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 Care History Medical/Surgical 05/24/2021 [facility] Follow up with PCP Dr. Hall on 05/29/2021 05/23/2021 [facility] - Patient is currently established with [facility]. If patient is seen in the ED during business hours. Please contact CHWs at [facility]. Care Recommendation: If this patient has had 5 or more Emergency Department visits in the last 12 months.\T\nbsp; Patient will require education on the scope and purpose of the ED as an acute care provider not a Primary Care Provider and should not be utilized for chronic conditions.\T\nbsp; These are guidelines and the provider should exercise clinical judgment when providing care. 03/18/2019 [facility] Patient has follow up visit on 03/26/[address] Townsley. [place] [facility] NOTE: Visits indicate total known visits. ED/UCC VISIT TRACKING (12 MO.) [facility]22 10[facility] COMPLAINT: - L LEG LAC INPATIENT VISIT TRACKING (12 MO.) No inpatient visits to display in this time frame [email or web address]
[2022-09-17 12:58] VITALS: BP 162/93
[2022-09-22] MEDS ORDERED: LIPITOR40 MG PO (15:20)
[2022-09-22] MEDS ORDERED: TIKOSYN250 MCG PO (15:21)
[2022-09-22] MEDS ORDERED: TRAMADOL HCL50 MG PO (15:47)
[2022-09-22] MEDS ORDERED: BACTRIM DS TAB1 EACH PO (15:47)
== END 2022-09-17 12:12 | disposition home or self-care (01) ==
LOC: ED 10:56
DX: S81.812A Laceration without foreign body, left lower leg, initial encounter (principal); I10 Essential (primary) hypertension; I48.91 Unspecified atrial fibrillation; J44.9 Chronic obstructive pulmonary disease, unspecified; M19.90 Unspecified osteoarthritis, unspecified site; Z88.1 Allergy status to other antibiotic agents; Z88.5 Allergy status to narcotic agent; Z91.041 Radiographic dye allergy status; Z88.8 Allergy status to other drugs, medicaments and biological substances; Z79.01 Long term (current) use of anticoagulants; Z79.899 Other long term (current) drug therapy
CPT/HCPCS: 99282

== ENCOUNTER 2022-09-22 14:35 | Emergency (ER) | payer OTHER | END 2022-09-22 16:09 | disposition home or self-care (01) | LOC: ED 14:35 | DX: L03.116 Cellulitis of left lower limb (principal); I11.0 Hypertensive heart disease with heart failure; I50.9 Heart failure, unspecified; J44.9 Chronic obstructive pulmonary disease, unspecified; Z96.643 Presence of artificial hip joint, bilateral; Z88.0 Allergy status to penicillin; Z88.8 Allergy status to other drugs, medicaments and biological substances; Z88.5 Allergy status to narcotic agent; Z91.041 Radiographic dye allergy status; Z79.899 Other long term (current) drug therapy ==

== ENCOUNTER 2022-12-12 08:15 | Emergency (ER) | payer OTHER ==
[~2022-12-12] VITALS: Ht 185.4 cm; Wt 127.1 kg
[~2022-12-12 08:15] MED LIST changes: +LIPITOR40 MG PO; +TRAMADOL HCL50 MG PO
--- OUTSIDE RECORDS SUMMARY | 2022-12-12 08:19 | XMS ---
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 - Patient with suicidal and/or homicidal ideations eloped. - Patient eloped with IV in place. Details: Patient LWBS CRITERIA MET - Group Notification - PDMP - [facility] - 2 Visits in 30 Days CARE PROVIDERS RAMON HALL Internal Medicine 02/07/2020-Current PHONE: Unknown -[place]- Dentist: Hat Renovator [facility] PHONE: [phone] Lio has no Care Guidelines for this patient. Care History Medical/Surgical 05/24/2021 [facility] Follow up with PCP Dr. Hall on 05/29/2021 05/23/2021 [facility] - Patient is currently established with [facility]. If patient is seen in the ED during business hours. Please contact CHWs at [facility]. Care Recommendation: If this patient has had 5 or more Emergency Department visits in the last 12 months.\T\nbsp; Patient will require education on the scope and purpose of the ED as an acute care provider not a Primary Care Provider and should not be utilized for chronic conditions.\T\nbsp; These are guidelines and the provider should exercise clinical judgment when providing care. 03/18/2019 [facility] Patient has follow up visit on 03/26/[address] Hall. [place] [facility] MO[facility] TOTAL 4 NOTE: Visits indicate total known visits. ED/UCC VISIT TRACKING (12 MO.) 12/12/2022 08:16 [facility] TYPE: Emergency COMPLAINT: - CHEST PAIN, FAST HEART RATE 11/27/2022 11:24 [facility] TYPE: Emergency COMPLAINT: - DENTAL PROBLEM 09/22/2022 14:35 [facility] TYPE: Emergency COMPLAINT: - L LEG PAIN DIAGNOSES: - Allergy status to narcotic agent - Allergy status to other drugs, medicaments and biological substances - Allergy status to penicillin - Cellulitis of left lower limb - Chronic obstructive pulmonary disease, unspecified - Heart failure, unspecified - Hypertensive heart disease with heart failure - Local infection of the skin and subcutaneous tissue, unspecified - Other long term acute care registered nurse (current) drug therapy - Presence of artificial hip joint, bilateral - Radiographic dye allergy status 09/17/2022 10:57 [facility] TYPE: Emergency COMPLAINT: - L LEG LAC DIAGNOSES: - Allergy status to narcotic agent - Allergy status to other antibiotic agents - Allergy status to other drugs, medicaments and biological substances - Chronic obstructive pulmonary disease, unspecified - Essential (primary) hypertension - Laceration without foreign body, left lower leg, initial encounter - long term acute care registered nurse (current) use of anticoagulants - Other senior living (current) drug therapy - Radiographic dye allergy status - Unspecified atrial fibrillation - Unspecified osteoarthritis, unspecified site INPATIENT VISIT TRACKING (12 MO.) No inpatient visits to display in this time frame [email or web address]
[2022-12-12 08:48] LABS: BASOPHILS 0.7 % (0-2); EOSINOPHILS 2.6 % (0-6); HEMATOCRIT 46.2 % (35.0-50.0); LYMPHOCYTES 32.7 % (24-44); MCH 31.1 (27-36); MCHC 32.4 g/dl (30-36); MCV 95.9 fl (81-99); MONOCYTES 10.7 % (0-12); NEUTROPHILS 53.3 % (39-80); PLATELET COUNT 300 K/uL (140-440); RBC 4.82 M/ul (4.3-5.7); RDW 15.1 (10.5-15.0)
[2022-12-12 09:11] LABS: ALBUMIN 3.4 g/dL (3.4-5.0); ALBUMIN/GLOBULIN RATIO 0.92 (1.1-2.4); ANION GAP 12.2 (7-21); BILIRUBIN, TOTAL 0.4 ng/dL (0.2-1.0); BUN/CREATININE RATIO 12.67 (6.0-28.6); CALCIUM 8.7 mg/dL (8.5-10.1); CREATININE, SERUM 1.42 mg/dL (0.70-1.30); POTASSIUM 4.2 mmol/L (3.5-5.1); PROTEIN, TOTAL 7.1 g/dL (6.4-8.2)
[2022-12-12 09:56] VITALS: BP 124/75
--- NOTE | 2022-12-12 21:00 | EKG ---
[facility] [address] [place] [address] Signed Normal sinus rhythm Possible Left atrial enlargement Abnormal QRS-T angle, consider primary T wave abnormality Abnormal ECG When compared with ECG of 16-MAR-2021 09:49, No significant change was found Confirmed by Arpita Luong MD () on 12/12/2022 8:59:59 PM Electronically Signed By: ARPITA LUONG MD 12/12/22 2100 PATIENT NAME: ELIGIO BEE Electrocardiogram DATE OF : 62 PHYSICIAN: ARPITA LUONG MD REPORT #: [id number] REPORT IS CONFIDENTIAL AND NOT TO BE RELEASED WITHOUT AUTHORIZATION
== END 2022-12-12 09:55 | disposition home or self-care (01) ==
LOC: ED 08:15
PROVIDERS: Emergency Medicine
DX: I48.0 Paroxysmal atrial fibrillation (principal); I11.0 Hypertensive heart disease with heart failure; I50.9 Heart failure, unspecified; G47.30 Sleep apnea, unspecified; M19.90 Unspecified osteoarthritis, unspecified site; J44.9 Chronic obstructive pulmonary disease, unspecified; Z88.0 Allergy status to penicillin; Z88.8 Allergy status to other drugs, medicaments and biological substances; Z88.1 Allergy status to other antibiotic agents; Z88.5 Allergy status to narcotic agent; Z91.041 Radiographic dye allergy status; Z79.899 Other long term (current) drug therapy
CPT/HCPCS: 36415; 80053; 84484; 85025; 93005; 93010; 99285-25; A9270

== ENCOUNTER 2023-03-27 16:59 | Observation (INO) | payer OTHER ==
[~2023-03-27] VITALS: Ht 185.4 cm; Wt 120.0 kg
[~2023-03-27 16:59] MED LIST changes: +COZAAR100 MG PO; -COZAAR50 MG PO
[2023-03-27] MEDS ORDERED: METOPROLOL TARTRATE 5 MG/5 ML VIAL IV SCH (17:15)
[2023-03-27 17:18] LABS: BASOPHILS 0.7 % (0-2); EOSINOPHILS 2.2 % (0-6); HEMATOCRIT 43.4 % (35.0-50.0); HEMOGLOBIN 14.3 g/dL (12.0-18.0); LYMPHOCYTES 28.9 % (24-44); MCH 31.4 (27-36); MCHC 32.8 g/dl (30-36); MCV 95.7 fl (81-99); MONOCYTES 10.9 % (0-12); NEUTROPHILS 57.3 % (39-80); PLATELET COUNT 288 K/uL (140-440); RBC 4.54 M/ul (4.3-5.7); RDW 14.2 (10.5-15.0)
[2023-03-27 17:41] LABS: ALBUMIN 3.1 g/dL (3.4-5.0); ALBUMIN/GLOBULIN RATIO 0.78 (1.1-2.4); ANION GAP 14.4 (7-21); BILIRUBIN, TOTAL 0.2 ng/dL (0.2-1.0); BUN/CREATININE RATIO 12.97 (6.0-28.6); CREATININE, SERUM 1.31 mg/dL (0.70-1.30); POTASSIUM 4.4 mmol/L (3.5-5.1); PROTEIN, TOTAL 7.1 g/dL (6.4-8.2)
[2023-03-27] MEDS ORDERED: METOPROLOL SUC100 MG PO (17:44)
[2023-03-27] MEDS ORDERED: MAGNESIUM OXID400 M1 PO (17:49)
[2023-03-27] MEDS ORDERED: TESTOSTERO200 MG/1 M IM (17:49)
[2023-03-27] MEDS ORDERED: TRELEGY ELLIPT1 EACH INH (17:50)
[2023-03-27] MEDS ORDERED: DOFETILIDE250 MCG PO (17:50)
[2023-03-27] MEDS ORDERED: COMBIVENT RESPIM4 GM INH (17:51)
[2023-03-27] MEDS ORDERED: ZANAFLEX4 MG PO (17:51)
[2023-03-27 18:42] LABS: INFLUENZA B NAA NEGATIVE (NEGATIVE); RESPIRATORY SYNCYTIAL VIR NAA NEGATIVE (NEGATIVE)
[2023-03-27] MEDS ORDERED: ACETAMINOPHEN 325 MG TAB PO PRN (19:30)
[2023-03-27] MEDS ORDERED: ondansetron HCL 4 MG/2 ML VIAL IV PRN (19:30)
[2023-03-27] MEDS ORDERED: propofoL 200 MG/20 ML VIAL ONE (20:18)
[2023-03-27] MEDS ORDERED: propofoL 200 MG/20 ML VIAL IV ONE ×2 (20:30→21:30)
[2023-03-27] MEDS ORDERED: APIXABAN 5 MG TAB PO SCH (21:00)
[2023-03-27] MEDS ORDERED: METOPROLOL SUCCINATE 100 MG TABCR PO SCH (21:00)
[2023-03-27] MEDS ORDERED: METOPROLOL TARTRATE 5 MG/5 ML VIAL IV PRN (21:15)
[2023-03-27 21:25] VITALS: BP 136/116
[2023-03-27 21:30] VITALS: BP 136/116
[2023-03-27] MEDS ORDERED: PATIENT'S OWN MEDICATION(S) ORDER PO SCH (21:57)
--- NOTE | 2023-03-27 21:57 | EKG ---
[facility] [address] [facility] [place] [address] Signed Atrial flutter with variable AV block Nonspecific T wave abnormality Abnormal ECG When compared with ECG of 12-DEC-2022 08:19, Atrial flutter has replaced Sinus rhythm Nonspecific T wave abnormality, worse in Lateral leads Confirmed by Arpita Luong MD () on 03/27/2023 9:57:37 PM Electronically Signed By: ARPITA LUONG MD 03/27/23 2157 PATIENT NAME: ELIGIO BEE AIYANA Electrocardiogram DATE OF : 62 PHYSICIAN: ARPITA LUONG MD REPORT #: [id number] REPORT IS CONFIDENTIAL AND NOT TO BE RELEASED WITHOUT AUTHORIZATION
[2023-03-27] MEDS ORDERED: MAGNESIUM SULFATE 4 GM/100 ML BAG IV ONE (22:00)
[2023-03-27] MEDS ORDERED: OXYCODONE HCL 10 MG TAB PO PRN (22:15)
[2023-03-27] MEDS ORDERED: DOFETILIDE 250 MCG PO ONE (22:30)
[2023-03-27 23:00] VITALS: BP 148/86
[2023-03-27 23:30] VITALS: BP 125/112
[2023-03-28] VITALS (11 sets, daily range): BP systolic 133–170; BP diastolic 80–146
--- NOTE | 2023-03-28 00:39 | NUR ---
THIS RN IN ROOM, SL PT IV, PT AMBULATES TO BATHROOM TO VOID, HR UP TO 130 BUT QUICKLY RECOVERS TO LOW 100'S, BACK TO BED ON ALL MONITORS, CALL LIGHT IN REACH
[2023-03-28 05:25] LABS: BASOPHILS 0.4 % (0-2); EOSINOPHILS 2.8 % (0-6); HEMATOCRIT 44.1 % (35.0-50.0); HEMOGLOBIN 14.5 g/dL (12.0-18.0); LYMPHOCYTES 32.1 % (24-44); MCH 31.4 (27-36); MCHC 32.9 g/dl (30-36); MCV 95.5 fl (81-99); MONOCYTES 12.6 % (0-12); NEUTROPHILS 52.1 % (39-80); PLATELET COUNT 262 K/uL (140-440); RBC 4.62 M/ul (4.3-5.7); RDW 14.5 (10.5-15.0)
[2023-03-28 05:43] LABS: ALBUMIN/GLOBULIN RATIO 0.71 (1.1-2.4); ANION GAP 13.9 (7-21); BILIRUBIN, TOTAL 0.5 ng/dL (0.2-1.0); BUN/CREATININE RATIO 12.71 (6.0-28.6); CALCIUM 8.8 mg/dL (8.5-10.1); CREATININE, SERUM 1.18 mg/dL (0.70-1.30); MAGNESIUM 2.3 mg/dL (1.8-2.4); PHOSPHORUS, INORGANIC 4.1 mg/dL (2.5-4.9); POTASSIUM 4.9 mmol/L (3.5-5.1); PROTEIN, TOTAL 7.2 g/dL (6.4-8.2)
--- NOTE | 2023-03-28 07:30 | NUR ---
REPORT RECIEVED FROM APPLICATION DEVELOPER RN. PATIENT LAYING IN BED SLEEPING. PATIENT ON MONITOR HR NORMAL SINUS RHYTHM WITH A RATE IN THE 50-60'S.
[2023-03-28] MEDS ORDERED: METOPROLOL SUCCINATE 100 MG TABCR PO SCH (08:00)
[2023-03-28] MEDS ORDERED: SILDENAFIL20 MG PO (08:22)
[2023-03-28] MEDS ORDERED: SPIRONOLACTONE25 MG PO (08:31)
--- NOTE | 2023-03-28 08:40 | NUR ---
PATIENT ALERT AND ORIENTED AND SITTING UP AT THE BEDSIDE. PATIENT BOWEL TONES ACTIVE AND BREATH SOUNDS CLEAR. PATIENT DENIES DIZZINESS, SOB, OR CHEST PAIN. PATIENT SKIN IS RAE/PUPLE IN COLOR AND PATIENT REPROTS THIS IS HIS NORMAL COLORATION. PATIENT REPORTS IMPROVEMENT WITH HIS HEART RATE BEING BETTER WHERE IT NORMALLY IS. MD IN AT THE BEDSIDE TO DISCUSS PLAN OF CARE WITH PATIENT. MORNING MEDICATIONS WERE SCANNED AND READY TO BE GIVEN BUT WILL HOLD OFF ON ADMINISTRATION UNTIL MD CONSULTS WITH HIS INFECTION CONTROL PREVENTIONIST. MEDICATIONS PLACED IN MEDICATION BIN. PATIENT UP EATING BREAKFAST. PATIENTS CALLED AND UPDATED ON PLAN OF CARE.
--- NOTE | 2023-03-28 08:46 | NUR ---
PATIENTS IN AT THE BEDSIDE AND UPDATED ON PLAN OF CARE.
[2023-03-28] MEDS ORDERED: LOSARTAN POTASSIUM 100 MG TAB PO SCH ×2 (09:00→21:00)
[2023-03-28] MEDS ORDERED: MORPHINE SULFATE 15 MG TABCR PO SCH (09:00)
[2023-03-28] MEDS ORDERED: DOFETILIDE 250 MCG PO SCH (09:00)
[2023-03-28] MEDS ORDERED: TORSEMIDE20 MG PO (09:09)
--- NOTE | 2023-03-28 09:11 | NUR ---
MED REC COMPLETE
--- NOTE | 2023-03-28 10:11 | NUR ---
medications verified by pharmacy. spoke with md and updated. per md give 150mg of metoprolol and tykisin that is scheduled.
--- NOTE | 2023-03-28 10:25 | NUR ---
DR. LUONG WANTS PATIENT TO HAVE A TOTAL OF 200 MG OF LOPRESSOR PO THIS MORNING. LOPRESSOR 50 MG PO GIVEN NOW TO EQUAL THE 200 MG.
[2023-03-28] MEDS ORDERED: METOPROLOL SUC100 MG PO (10:59)
[2023-03-28] MEDS ORDERED: hydrALAZINE HCL 10 MG TABLET PO ONE (11:30)
[2023-03-28] MEDS ORDERED: LOSARTAN POTASSIUM 50 MG TAB PO ONE (11:45)
--- NOTE | 2023-03-28 11:57 | NUR ---
PATIENT READY FOR DC. PATIENT MISSED BLOOD PRESSURE MEDICATION LAST NIGHT AND HIS BP IS CURRENTLY 170/88. MD NOTIFIED NEW ORDER FOR COZARR AFTER DISCUSSING NOTED ALLERGIES TO OTHER MEDICATIONS. PATIENT AND AGREEABLE WITH PLAN OF CARE. WILL RECHECK VITALS IN 30-60 MINUTES. PATIENT LAYING DOWN TO TAKE A NAP NOW AT THIS TIME.
[2023-03-28] MEDS ORDERED: PHARMACY RENAL DOSE ADJUSTMENT 1 DOSE MISC PO SCH (12:00)
--- NOTE | 2023-03-28 12:20 | NUR ---
Spoke with Jose Maria and his . They are near to discharging. They live in a house with 3 steps and pt denies issues getting in or out of the house. Pt uses a nebulizer and CPAP. There are issues with the CPAP and they waiting for documentation from [facility] for pt to be scheduled for a sleep study. Per pt he cannot find a mask that fits. states they devide the household tasks, shopping, and cooking. Both are in poor health and they are able to accomplish tasks working together. Pt has a history of CHF and COPD and I asked if he checks his weight daily and if he uses the STOP LIGHT protocol. Pt states he is unaware of this and I gave him the magnet for his fridge, a chart to document his weight daily, and a book on managing heart failure. states they do check his legs for edema. We discussed the magnet and reviewed the Green, Yellow, and Red information. If he gains 3-4 pounds he is in the yellow and should call his DrDasha for instructions. When he is in the Red, he needs to seek medical attentions. Pt and state understanding. They deny needs for dc and will dc to home today.
--- NOTE | 2023-03-28 12:45 | NUR ---
Patients blood pressure is improved with medications. patient dcd home and will followup with upcoming apts. no other questions at this time.
[2023-03-28] MEDS ORDERED: DOFETILIDE 250 MCG CAP PO SCH (21:00)
--- NOTE | 2023-03-28 21:55 | EKG ---
[facility] [address] [place] [address] Signed Atrial flutter with variable AV block Abnormal ECG When compared with ECG of 27-MAR-2023 17:04, No significant change was found Confirmed by Arpita Luong MD () on 03/28/2023 9:55:30 PM Electronically Signed By: ARPITA LUONG MD 03/28/232154 PATIENT NAME: ELIGIO BEE AIYANA Electrocardiogram DATE OF : 62 PHYSICIAN: ARPITA LUONG MD REPORT #: [id number] REPORT IS CONFIDENTIAL AND NOT TO BE RELEASED WITHOUT AUTHORIZATION
--- NOTE | 2023-03-28 21:56 | EKG ---
[facility] [address] [facility] [place] [address] Signed Atrial flutter with variable AV block Abnormal ECG When compared with ECG of 27-MAR-2023 19:16, QT has shortened Confirmed by Arpita Luong MD () on 03/28/2023 9:56:07 PM Electronically Signed By: ARPITA LUONG MD 03/28/232155 PATIENT NAME: ELIGIO BEE AIYANA Electrocardiogram DATE OF : 62 PHYSICIAN: ARPITA LUONG MD REPORT #: [id number] REPORT IS CONFIDENTIAL AND NOT TO BE RELEASED WITHOUT AUTHORIZATION
--- NOTE | 2023-03-28 21:58 | EKG ---
[facility] [address] [place] [address] Signed Sinus bradycardia with premature supraventricular complexes Abnormal QRS-T angle, consider primary T wave abnormality Abnormal ECG When compared with ECG of 27-MAR-2023 20:40, Sinus rhythm has replaced Atrial flutter Vent. rate has decreased BY 45 BPM Confirmed by Arpita Luong MD () on 03/28/2023 9:58:37 PM Electronically Signed By: ARPITA LUONG MD 03/28/23 2158 PATIENT NAME: ELIGIO BEE Electrocardiogram DATE OF : 62 PHYSICIAN: ARPITA LUONG MD REPORT #: [id number] REPORT IS CONFIDENTIAL AND NOT TO BE RELEASED WITHOUT AUTHORIZATION
== END 2023-03-28 13:00 | disposition home or self-care (01) ==
LOC: ED 16:59 → CCU 17:00
PROVIDERS: Emergency Medicine; ADMIT Family Medicine; ATTEND Family Medicine
DX: I48.91 Unspecified atrial fibrillation (principal); E83.42 Hypomagnesemia; I11.0 Hypertensive heart disease with heart failure; I50.9 Heart failure, unspecified; I48.92 Unspecified atrial flutter; J44.9 Chronic obstructive pulmonary disease, unspecified; G47.30 Sleep apnea, unspecified; M19.90 Unspecified osteoarthritis, unspecified site; Z88.8 Allergy status to other drugs, medicaments and biological substances; Z88.1 Allergy status to other antibiotic agents; Z88.5 Allergy status to narcotic agent; Z79.899 Other long term (current) drug therapy
CPT/HCPCS: 36415; 71045; 80053; 83735; 83880; 84100; 84484; 85025; 87502; 92960; 93005; 93010; 99152; 99291; J3475; U0002

== ENCOUNTER 2024-04-25 12:04 | Emergency (ER) | payer OTHER ==
[~2024-04-25] VITALS: Ht 185.4 cm; Wt 109.0 kg
[~2024-04-25 12:04] MED LIST changes: +ACETAMINOPHEN500 MG PO; +COMBIVENT RESPIM4 GM INH; +ENOXAPARIN40 MG/0.4 SUB-Q; +MAGNESIUM OXID400 M1 PO; +OXYCODON-ACETA1 EAC2 PO; +SILDENAFIL20 MG PO; +SPIRONOLACTONE25 MG PO; +TESTOSTERO200 MG/1 M IM; +TRELEGY ELLIPT1 EACH INH; +ZANAFLEX4 MG PO
[2024-04-25] MEDS ORDERED: ondansetron HCL 4 MG/2 ML VIAL IV ONE (12:30)
[2024-04-25 12:34] LABS: BASOPHILS 0.8 % (0-2); EOSINOPHILS 1.9 % (0-6); HEMATOCRIT 40.3 % (35.0-50.0); HEMOGLOBIN 13.3 g/dL (12.0-18.0); MCV 87.8 fl (81-99); MONOCYTES 9.9 % (0-12); NEUTROPHILS 64.4 % (39-80); PLATELET COUNT 446 K/uL (140-440); RBC 4.59 M/ul (4.3-5.7); RDW 15.2 (10.5-15.0)
[2024-04-25 12:52] LABS: ALBUMIN 3.5 g/dL (3.4-5.0); ALBUMIN/GLOBULIN RATIO 0.95 (1.1-2.4); ANION GAP 13.9 (7-21); BILIRUBIN, TOTAL 0.5 mg/dL (0.2-1.0); BUN/CREATININE RATIO 11.32 (6.0-28.6); CALCIUM 8.8 mg/dL (8.5-10.1); CREATININE, SERUM 1.59 mg/dL (0.70-1.30); MAGNESIUM 1.7 mg/dL (1.8-2.4); POTASSIUM 4.9 mmol/L (3.5-5.1); PROTEIN, TOTAL 7.2 g/dL (6.4-8.2)
[2024-04-25] MEDS ORDERED: DOFETILIDE125 MCG PO (13:17)
[2024-04-25] MEDS ORDERED: DOXYCYCLINE MO100 MG PO (13:18)
[2024-04-25] MEDS ORDERED: NUCYNTA ER50 MG PO (13:19)
[2024-04-25] MEDS ORDERED: SODIUM CHLORIDE 0.9% 1,000 ML IV ONE (13:30)
[2024-04-25 15:12] VITALS: BP 152/91
== END 2024-04-25 15:12 | disposition home or self-care (01) ==
LOC: ED 12:04
PROVIDERS: Emergency Medicine
DX: R10.2 Pelvic and perineal pain (principal); I11.0 Hypertensive heart disease with heart failure; I50.9 Heart failure, unspecified; G47.30 Sleep apnea, unspecified; J44.9 Chronic obstructive pulmonary disease, unspecified; Z79.51 Long term (current) use of inhaled steroids; Z79.899 Other long term (current) drug therapy; Z88.0 Allergy status to penicillin; Z88.1 Allergy status to other antibiotic agents; Z91.041 Radiographic dye allergy status; Z88.5 Allergy status to narcotic agent; Z88.8 Allergy status to other drugs, medicaments and biological substances
CPT/HCPCS: 36415; 74174; 80053; 83690; 83735; 85025; 99284-25; J2405; J7030; Q9967

== ENCOUNTER 2024-07-18 15:04 | Emergency (ER) | payer OTHER ==
[~2024-07-18] VITALS: Ht 185.4 cm; Wt 109.0 kg
[~2024-07-18 15:04] MED LIST changes: +DOFETILIDE125 MCG PO; +DOXYCYCLINE MO100 MG PO; +NUCYNTA ER50 MG PO
[2024-07-18] MEDS ORDERED: ondansetron HCL 4 MG/2 ML VIAL IV ONE ×2 (15:15→16:45)
[2024-07-18 15:26] LABS: BASOPHILS 0.5 % (0.2-1.2); EOSINOPHILS 4.6 % (0.8-7.0); HEMATOCRIT 46.7 % (40.1-51.0); HEMOGLOBIN 14.3 g/dL (13.7-17.5); LYMPHOCYTES 32.6 % (21.8-53.1); MCH 25.7 PG (25.7-32.2); MCHC 30.6 g/dL (32.3-36.5); MCV 83.8 fL (79.0-92.2); MONOCYTES 9.3 % (5.3-12.2); NEUTROPHILS 52.9 % (34.0-67.9); PLATELET COUNT 483 K/uL (163-337); RBC 5.57 M/uL (4.63-6.08)
[2024-07-18 15:37] LABS: INR 1.19 (0.80-1.30); PROTIME 14.6 Sec (11.2-14.2)
[2024-07-18 15:46] LABS: ALBUMIN 3.6 g/dL (3.4-5.0); ALBUMIN/GLOBULIN RATIO 0.77 (1.1-2.4); ANION GAP 16.5 (7-21); BILIRUBIN, TOTAL 0.4 mg/dL (0.2-1.0); BUN/CREATININE RATIO 12.75 (6.0-28.6); CALCIUM 9.2 mg/dL (8.5-10.1); CREATININE, SERUM 1.96 mg/dL (0.70-1.30); POTASSIUM 4.5 mmol/L (3.5-5.1); PROTEIN, TOTAL 8.3 g/dL (6.4-8.2)
[2024-07-18 16:29] LABS: BILIRUBIN, URINE NEGATIVE (negative); BLOOD/HGB, URINE NEGATIVE (Negative); KETONE, URINE NEGATIVE (Negative); LEUK ESTERASE, URINE NEGATIVE (negative); NITRITE, URINE NEGATIVE (negative)
[2024-07-18] MEDS ORDERED: HYDROmorphone HCL 1 MG/ML SYR IV PRN (16:45)
[2024-07-18] MEDS ORDERED: SODIUM CHLORIDE 0.9% 500 ML IV PRN (16:45)
[2024-07-18] MEDS ORDERED: AMOXICILLIN500 MG PO (17:35)
[2024-07-18 17:41] VITALS: BP 123/64
--- NOTE | 2024-07-18 21:40 | EKG ---
[facility] [address] [place] [address] Signed Sinus bradycardia with premature atrial complexes Otherwise normal ECG When compared with ECG of 12-JUL-2024 12:57, premature atrial complexes are now present Confirmed by Arpita Luong MD () on 07/18/2024 9:40:41 PM Electronically Signed By: ARPITA LUONG MD 07/18/24 2140 PATIENT NAME: ELIGIO BEE AIYANA Electrocardiogram DATE OF : 62 PHYSICIAN: ARPITA LUONG MD REPORT #: [id number] REPORT IS CONFIDENTIAL AND NOT TO BE RELEASED WITHOUT AUTHORIZATION
== END 2024-07-18 17:41 | disposition home or self-care (01) ==
LOC: ED 15:04
PROVIDERS: Emergency Medicine
DX: R05.9 Cough, unspecified (principal); R10.30 Lower abdominal pain, unspecified; I11.0 Hypertensive heart disease with heart failure; I50.9 Heart failure, unspecified; G47.33 Obstructive sleep apnea (adult) (pediatric); J44.9 Chronic obstructive pulmonary disease, unspecified; Z88.1 Allergy status to other antibiotic agents; Z88.8 Allergy status to other drugs, medicaments and biological substances
CPT/HCPCS: 36415; 71045; 80053; 81003; 83690; 85025; 85610; 93005; 93010; 96361; 96374; 96375; 96376; 99284-25; J1171; J2405; J7040